=== PATIENT | male | born 1950 | race Caucasian/White ===

== ENCOUNTER 2017-10-31 12:52 | Inpatient (IN) | payer OTHER, BC ==
--- NOTE | 2017-10-31 14:20 | PDOC ---
Attending Attestation - Resident Resident Name: MullenAriel - ED Attending Attestation I have performed the following: I have examined & evaluated the patient, The case was reviewed & discussed with the resident, I agree w/resident's findings & plan, Exceptions are as noted - HPI HPI: 10/31/17 15:24 Mr Robert is a 67 yo M h/o HTN, DM, CAD, prior tobacco abuse,h/o Lacunar infarct He presents to the ER because he fell to the ground 2 days ago and was unable to get up He denies head trauma, LOC He tells me that he has had a h/o lower extremity ulcers which previously improved They have worsened over the past week 10/31/17 15:28 - Physicial Exam PE: 10/31/17 15:30 GENERAL: The patient is in no acute distress. HEAD: Normal EYES: PERRLA, EOMI, sclera anicteric, conjunctiva clear. ENT: Ears normal, nares patent, oropharynx clear without exudates. Moist mucous membranes. NECK: Normal range of motion, supple without midline tenderness LUNGS: Breath sounds equal, clear to auscultation bilaterally. No wheezes, and no crackles. HEART: Regular rhythm, tachycardiac rate, no murmurs appreciated ABDOMEN: Soft, nontender, normoactive bowel sounds. No guarding, no rebound. No masses palpable. EXTREMITIES: Bilateral lower extremity venous stasis changes, ulcerations noted , calves non tender NEUROLOGICAL: Cranial nerves II through XII grossly intact. Normal speech. No focal neurological deficits. MUSCULOSKELETAL: Back non-tender to palpation, no CVA tenderness SKIN: please see above - Medical Decision Making 10/31/17 15:32 67 yo M presenting to the ER s/p what sounds like a mechanical fall and he was unable to get himself to standing Pt has multiple risk factors for CAD and prior CVA Will do: Labs EKG CT head Duplex Xrays legs Abx Plan to admit 10/31/17 16:03 EKG: Sinus tachycardia, rate of 110 bpm, axis is normal, intervals are normal, there is no ST elevation or depression, T waves are upright. 10/31/17 16:04 Laboratory Tests 10/31/17 15:30 WBC 5.5 Hgb 10.2 L Hct 24.5 L D Plt Count 250 D Pending labs Pending imaging Will plan to admit
[2017-10-31] MEDS ORDERED: CLOTRIMAZOLE 1% CREAM 15 GM TUBE TP STA (14:28)
[2017-10-31] MEDS ORDERED: SODIUM CHLORIDE 0.9% 500 ML INFUS.BAG IV ONE (14:30)
--- NOTE | 2017-10-31 14:47 | PDOC ---
History of Present Illness - General Chief Complaint: Injury Stated Complaint: FALL Time Seen by Provider: 10/31/17 14:03 Past History - Past Medical History Allergies/Adverse Reactions: Allergies Allergy/AdvReac Type Severity Reaction Status Date / Time No Known Allergies Allergy Verified 06/15/15 10:42 Home Medications: Ambulatory Orders Aspirin [ASA -] 81 mg PO DAILY #30 tab.chew 06/18/15 Atorvastatin Ca [Lipitor] 40 mg PO HS #30 tablet 06/18/15 Folic Acid 1 mg PO DAILY #30 tablet 06/18/15 Metoprolol Succinate [Toprol XL -] 25 mg PO DAILY #30 tab.sr.24h 06/18/15 Thiamine HCl [Vitamin B1 -] 100 mg PO DAILY #30 tablet 06/18/15 Glipizide [Glipizide ER] 2.5 mg PO DAILY 01/26/16 Metformin HCl [Metformin HCl ER] 1,000 mg PO DAILY 01/26/16 Ranitidine HCl [Zantac] 300 mg PO DAILY 01/26/16 Cholecalciferol (Vitamin D3) [Vitamin D3] 2,000 unit PO DAILY 01/27/16 COPD: No Diabetes: Yes HTN: Yes Hypercholesterolemia: Yes - Suicide/Smoking/Psychosocial Hx Smoking History: Former smoker Have you smoked in the past 12 months: No If you are a former smoker, when did you quit?: 14 YEARS AGO Information on smoking cessation initiated: No Hx Alcohol Use: No Drug/Substance Use Hx: No Substance Use Type: None Hx Substance Use Treatment: No *Physical Exam - Vital Signs Last Vital Signs Temp Pulse Resp BP Pulse Ox 97.3 F L 112 H 18 140/71 96 10/31/17 12:58 10/31/17 12:58 10/31/17 12:58 10/31/17 12:58 10/31/17 12:58 ED Treatment Course - LABORATORY CBC & Chemistry Diagram: 10/31/17 15:30 10/31/17 15:30 *DC/Admit/Observation/Transfer Diagnosis at time of Disposition: Hyponatremia Rhabdomyolysis Qualifiers: Rhabdomyolysis type: traumatic Encounter type: initial encounter Qualified Code (s): T79.6XXA - Traumatic ischemia of muscle, initial encounter - Discharge Dispostion Condition at time of disposition: Fair Decision to Admit order: Yes - Referrals Referrals: Ani Ivy MD [Primary Care Provider] - - Patient Instructions - Post Discharge Activity
[2017-10-31 15:43] LABS: BASO % 0.7 % (0-2.0); EOS % 2.2 % (0-4.5); HEMATOCRIT 24.5 % (35.4-49); HEMOGLOBIN 10.2 GM/dL (11.7-16.9); LYMPH % 10.2 % (8-40); MCHC 41.8 g/dl (32.0-35.9); MEAN CELL VOLUME 100.7 fl (80-96); MEAN PLT VOLUME 7.6 fl (7.5-11.1); MONO % 7.5 % (3.8-10.2); NEUT % 79.4 % (42.8-82.8); PLATELET COUNT 250 K/MM3 (134-434); RBC 2.43 M/mm3 (4.00-5.60); RDW 14.3 % (11.9-15.9); WHITE BLOOD COUNT 5.5 K/mm3 (4.0-10.0)
[2017-10-31 15:44] LABS: MCH 42.1 pg (25.7-33.7)
[2017-10-31 16:50] LABS: ALBUMIN 3.2 g/dl (3.4-5.0); ALK PHOS 69 U/L (45-117); ANION GAP 7 MMOL/L (8-16); BILIRUBIN,TOTAL 0.9 mg/dL (0.2-1); BLOOD UREA NITROGEN 10 mg/dL (7-18); CALCIUM 8.9 mg/dL (8.5-10.1); CHLORIDE 96 mmol/L (98-107); CO2 27 mmol/L (21-32); CREATININE 0.8 mg/dL (0.55-1.3); GLUCOSE,RANDOM 123 mg/dL (74-106); POTASSIUM 4.2 mmol/L (3.5-5.1); SGOT/AST 60 U/L (15-37); SGPT/ALT 20 U/L (13-61); SODIUM 130 mmol/L (136-145)
[2017-10-31] MEDS ORDERED: LACTATED RINGERS SOLUTION 1,000 ML/1,000 ML INFUS.BAG IV SCH (17:15)
[2017-10-31 18:49] LABS: URINE APPEARANCE CLEAR; URINE BILIRUBIN NEGATIVE (<2.0 mg/dL); URINE COLOR YELLOW; URINE GLUCOSE (UA) NEGATIVE (NEGATIVE); URINE KETONE 1+ (NEGATIVE); URINE LEUK ESTERASE NEGATIVE (NEGATIVE); URINE NITRITE NEGATIVE (NEGATIVE); URINE PROTEIN NEGATIVE (NEGATIVE)
[2017-10-31] MEDS ORDERED: CEPHALEXIN MONOHYDRATE 500 MG CAPSULE (UD) PO ONE (19:50)
[2017-10-31] MEDS ORDERED: CEPHALEXIN MONOHYDRATE 500 MG CAPSULE (UD) ONE (20:05)
[2017-10-31] MEDS: SODIUM CHLORIDE 1,000 ML IV SCH (20:07)
--- NOTE | 2017-10-31 20:38 | PN ---
Teaching Attending Note Name of Resident: Tyron Alcantara ATTENDING PHYSICIAN STATEMENT I saw and evaluated the patient. I reviewed the resident's note and discussed the case with the resident. I agree with the resident's findings and plan as documented. SUBJECTIVE: 67 y/o M s/p fall at home and unable to get up, found by girlfriend on the floor. Patient states he slid off his bed and has no head trauma. patient is a questionnable historian and does not follow with medical recommendations closely. PMH: DM2, HTN, CAD, h/o Lacunar infarct, and h/o falls. OBJECTIVE: GEN: Obese, Alert and oriented times 3 HEENT: EOMI, PERRLA, oral mucosa dry CVs: RRR, S1, S2 Lungs: CTA Abd: Obese, nontender, BS+, no guarding or rebound Ext: b/l lower ext with superficial skin tears and pulses intact, edema 3+, wet to dry dressing with serous sanguineous drainage. Oncychomycosis Neuro: No focal deficits. CBCD WBC 5.5 K/mm3 (4.0-10.0) 10/31/17 15:30 RBC 2.43 M/mm3 (4.00-5.60) L 10/31/17 15:30 Hgb 10.2 GM/dL (11.7-16.9) L 10/31/17 15:30 Hct 24.5 % (35.4-49) L D 10/31/17 15:30 MCV 100.7 fl (80-96) H 10/31/17 15:30 MCHC 41.8 g/dl (32.0-35.9) H 10/31/17 15:30 RDW 14.3 % (11.9-15.9) 10/31/17 15:30 Plt Count 250 K/MM3 (134-434) D 10/31/17 15:30 MPV 7.6 fl (7.5-11.1) D 10/31/17 15:30 CMP Sodium 130 mmol/L (136-145) L 10/31/17 15:30 Potassium 4.2 mmol/L (3.5-5.1) 10/31/17 15:30 Chloride 96 mmol/L (98-107) L 10/31/17 15:30 Carbon Dioxide 27 mmol/L (21-32) 10/31/17 15:30 Anion Gap 7 MMOL/L (8-16) L 10/31/17 15:30 BUN 10 mg/dL (7-18) 10/31/17 15:30 Creatinine 0.8 mg/dL (0.55-1.3) 10/31/17 15:30 Creat Clearance w eGFR > 60 (>60) 10/31/17 15:30 Random Glucose 123 mg/dL (74-106) H 10/31/17 15:30 Calcium 8.9 mg/dL (8.5-10.1) 10/31/17 15:30 Total Bilirubin 0.9 mg/dL (0.2-1) 10/31/17 15:30 AST 60 U/L (15-37) H 10/31/17 15:30 ALT 20 U/L (13-61) 10/31/17 15:30 Alkaline Phosphatase 69 U/L (45-117) 10/31/17 15:30 Total Protein 8.0 g/dl (6.4-8.2) 10/31/17 15:30 Albumin 3.2 g/dl (3.4-5.0) L 10/31/17 15:30 CARDIAC ENZYMES Creatine Kinase 1722 IU/L (26-308) H 10/31/17 15:30 Troponin I < 0.02 ng/ml (0.00-0.05) 10/31/17 15:30 ASSESSMENT AND PLAN: Admit for observation S/P Fall r/o Rhabdomyolysis IVF NS Trend CK repeat UA PT consult for gait evaluation Fall risk precautions Hyponatremia- most likely hypovolemic hyponateremia hyponatemia workup IVF given and repeat BMP in 6 hours. Morbid Obesity Social Work consult for placement - patient will need SKIP or NH placement. Onychomycosis with poorly kept nails- Podiatry consult Continue home medications
--- NOTE | 2017-10-31 20:54 | HP ---
CHIEF COMPLAINT: PCP: Dr Ivy HISTORY OF PRESENT ILLNESS: Pt is a 67 y/o gentleman with a significant past medical history of tobacco abuse(quit 10 y/a) HTN, CAD, Lacunar infarct, and DM. Pt states he fell 2 days ago and was unable to get up from the floor. Pt endorses he was sleeping in his bed when he slid off and landed on his bedroom floor. Pt was able to use his phone and called for assistance. Pt endorses he has a history of falls, noting that friends are usally with him to assist him. Denies any head injury. Denies chest pain, sob, headache, LOC, nausea, vomiting or dizziness. Denies loss of bowel/bladder control, or any seizure activity. ER course was notable for: (1) Sodium 130, CK (2) CK 1722 (3) Chest x-ray unremarkable Recent Travel: Denies PAST MEDICAL HISTORY: HTN, CAD, Lacunar infarct, and DM PAST SURGICAL HISTORY: Tonsilectomy Social History: Smoking:Former smoker (quit 16 y/a.) Alcohol: consumes 10 cans of beer when drinking, does not drink everyday Drugs: Denies any illicit drug use Family History: Father- Lung Cancer, Mother- Hypothyroidism Allergies No Known Allergies Allergy (Verified 06/15/15 10:42) HOME MEDICATIONS: Home Medications Medication Instructions Recorded Aspirin [ASA -] 81 mg PO DAILY #30 tab.chew 06/18/15 Atorvastatin Ca [Lipitor] 40 mg PO HS #30 tablet 06/18/15 Folic Acid 1 mg PO DAILY #30 tablet 06/18/15 Metoprolol Succinate [Toprol XL -] 25 mg PO DAILY #30 tab.sr.24h 06/18/15 Thiamine HCl [Vitamin B1 -] 100 mg PO DAILY #30 tablet 06/18/15 Glipizide [Glipizide ER] 2.5 mg PO DAILY 01/26/16 Metformin HCl [Metformin HCl ER] 1,000 mg PO DAILY 01/26/16 Ranitidine HCl [Zantac] 300 mg PO DAILY 01/26/16 Cholecalciferol (Vitamin D3) 2,000 unit PO DAILY 01/27/16 [Vitamin D3] REVIEW OF SYSTEMS CONSTITUTIONAL: Absent: fever, chills, diaphoresis, generalized weakness, malaise, loss of appetite, weight change HEENT: Absent: rhinorrhea, nasal congestion, throat pain, throat swelling, difficulty swallowing, mouth swelling, ear pain, eye pain, visual changes CARDIOVASCULAR: Absent: chest pain, syncope, palpitations, irregular heart rate, lightheadedness , peripheral edema RESPIRATORY: Absent: cough, shortness of breath, dyspnea with exertion, orthopnea, wheezing, stridor, hemoptysis GASTROINTESTINAL: Absent: abdominal pain, abdominal distension, nausea, vomiting, diarrhea, constipation, melena, hematochezia GENITOURINARY: Absent: dysuria, frequency, urgency, hesitancy, hematuria, flank pain, genital pain MUSCULOSKELETAL: Absent: myalgia, arthralgia, joint swelling, back pain, neck pain SKIN: PRESENT: pain b/l lower extremities, oozing. HEMATOLOGIC/IMMUNOLOGIC: Absent: easy bleeding, easy bruising, lymphadenopathy, frequent infections ENDOCRINE: Absent: unexplained weight gain, unexplained weight loss, heat intolerance, cold intolerance NEUROLOGIC: Absent: headache, focal weakness or paresthesias, dizziness, unsteady gait, seizure, mental status changes, bladder or bowel incontinence PSYCHIATRIC: Absent: anxiety, depression, suicidal or homicidal ideation, hallucinations. PHYSICAL EXAMINATION Vital Signs - 24 hr 10/31/17 12:58 Temperature 97.3 F L Pulse Rate 112 H Respiratory 18 Rate Blood Pressure 140/71 O2 Sat by Pulse 96 Oximetry (%) GENERAL: AAOx3, HEAD: NC/AT EYES: PERRLA, EOMI EARS, NOSE, THROAT: Ears normal, nares patent, oropharynx clear without exudates. Moist mucous membranes. NECK: Supple LUNGS: CTA B/L HEART: RRR no MRG S1 S2 ABDOMEN: Pulsatile mass mid-abdomen, ND, No HSM, NT MUSCULOSKELETAL: Left sided strength 4/5 UPPER EXTREMITIES: 2+ pulses, warm, well-perfused. No cyanosis. No clubbing. No peripheral edema. LOWER EXTREMITIES:severe onychomycosis b/l feet, 3+ edema b/l, oozing NEUROLOGICAL: Cranial nerves II-XII intact. Left sided weakness PSYCHIATRIC: Cooperative. Good eye contact. Appropriate mood and affect. SKIN: venous stasis b/l lower extremities Laboratory Results - last 24 hr 10/31/17 10/31/17 10/31/17 15:30 15:30 15:30 WBC 5.5 RBC 2.43 L Hgb 10.2 L Hct 24.5 L D MCV 100.7 H MCH 42.1 H D MCHC 41.8 H RDW 14.3 Plt Count 250 D MPV 7.6 D Absolute Neuts (auto) 4.4 Neutrophils % 79.4 D Lymphocytes % 10.2 D Monocytes % 7.5 Eosinophils % 2.2 Basophils % 0.7 Nucleated RBC % 0 Sodium Cancelled 130 L Potassium Cancelled 4.2 Chloride Cancelled 96 L Carbon Dioxide Cancelled 27 Anion Gap Cancelled 7 L BUN Cancelled 10 Creatinine Cancelled 0.8 Creat Clearance w eGFR Cancelled > 60 Random Glucose Cancelled 123 H Calcium Cancelled 8.9 Total Bilirubin Cancelled 0.9 AST Cancelled 60 H ALT Cancelled 20 Alkaline Phosphatase Cancelled 69 Creatine Kinase 1666 H Creatine Kinase Index 0.7 CK-MB (CK-2) 12.4 H Troponin I Total Protein Cancelled 8.0 Albumin Cancelled 3.2 L Urine Color Urine Appearance Urine pH Ur Specific [place] Urine Protein Urine Glucose (UA) Urine Ketones Urine Blood Urine Nitrite Urine Bilirubin Urine Urobilinogen Ur Leukocyte Esterase Stool Occult Blood Blood Type Antibody Screen 10/31/17 10/31/17 10/31/17 15:30 18:15 18:20 WBC RBC Hgb Hct MCV MCH MCHC RDW Plt Count MPV Absolute Neuts (auto) Neutrophils % Lymphocytes % Monocytes % Eosinophils % Basophils % Nucleated RBC % Sodium Potassium Chloride Carbon Dioxide Anion Gap BUN Creatinine Creat Clearance w eGFR Random Glucose Calcium Total Bilirubin AST ALT Alkaline Phosphatase Creatine Kinase 1722 H Creatine Kinase Index 0.7 CK-MB (CK-2) 12.7 H Troponin I < 0.02 Total Protein Albumin Urine Color Urine Appearance Urine pH Ur Specific [place] Urine Protein Urine Glucose (UA) Urine Ketones Urine Blood Urine Nitrite Urine Bilirubin Urine Urobilinogen Ur Leukocyte Esterase Stool Occult Blood Negative Blood Type A NEGATIVE Antibody Screen Negative 10/31/17 18:35 WBC RBC Hgb Hct MCV MCH MCHC RDW Plt Count MPV Absolute Neuts (auto) Neutrophils % Lymphocytes % Monocytes % Eosinophils % Basophils % Nucleated RBC % Sodium Potassium Chloride Carbon Dioxide Anion Gap BUN Creatinine Creat Clearance w eGFR Random Glucose Calcium Total Bilirubin AST ALT Alkaline Phosphatase Creatine Kinase Creatine Kinase Index CK-MB (CK-2) Troponin I Total Protein Albumin Urine Color Yellow Urine Appearance Clear Urine pH 5.0 Ur Specific [place] 1.017 Urine Protein Negative Urine Glucose (UA) Negative Urine Ketones 1+ H Urine Blood Negative Urine Nitrite Negative Urine Bilirubin Negative Urine Urobilinogen 2.0 Ur Leukocyte Esterase Negative Stool Occult Blood Blood Type Antibody Screen ASSESSMENT/PLAN: Pt is a 67 y/o gentleman with a significant past medical history of many falls presents to [facility] s/p fall on his bedroom floor from his bed. # Rhabdomyolysis - fell, was lying down for long period of time. - CK 1722 - NS in ED -Continue fluid resuscitation, monitor CK, Monitor for NAYA #Hyponatremia - Na found to be 130 in ED -Pt notes he has experienced hyponatremia in past (PCP told pt may be due to beer intake) - NS - Repeat BMP in am, target of no more than 8 meq increase in 24 hr HTN -resume home Metoprolol DM -Insulin sliding scale - hold metformin in setting of dehydration CAD - Pt on Metoprolol FEN NS@ 150 ml/hr Monitor Na level Diabetic/Sodium diet ppx: Lovenox 40 mg SQ Dispo: Continue to monitor on floors Visit type - Emergency Visit Emergency Visit: Yes ED Registration Date: 10/31/17 Care time: The patient presented to the Emergency Department on the above date and was hospitalized for further evaluation of their emergent condition. - New Patient This patient is new to me today: Yes Date on this admission: 11/01/17 - Critical Care Critical Care patient: No Hospitalist Screening - Colonoscopy Questionnaire Colonoscopy Questionnaire: Colonoscopy Questionnaire - Patient: 50 - 75 years old and never had a screening colonoscopy: Unknown History of colon or rectal polyps, or CA: Unknown History of IBD, Crohn's disease or UC: Unknown History of abdominal radiation therapy as a child: Unknown - Relative: 1 with colon or rectal CA, or polyps at age 60 or younger: Unknown Colon or rectal CA diagnosed at age 45 or younger: Unknown Multiple relatives with colon or rectal CA: Unknown - Outcome: Screening Result: Negative Screen
[2017-10-31] MEDS ORDERED: traMADol HCL 50 MG TABLET PO ONE (23:20)
[2017-11-01] MEDS ORDERED: traMADol HCL 50 MG TABLET ONE (00:16)
[2017-11-01 05:03] LABS: URINE APPEARANCE CLEAR; URINE BILIRUBIN NEGATIVE (<2.0 mg/dL); URINE COLOR YELLOW; URINE GLUCOSE (UA) NEGATIVE (NEGATIVE); URINE KETONE 1+ (NEGATIVE); URINE LEUK ESTERASE NEGATIVE (NEGATIVE); URINE NITRITE NEGATIVE (NEGATIVE); URINE PROTEIN NEGATIVE (NEGATIVE)
[2017-11-01] MEDS: INSULIN SLIDING SCALE (NOVOLOG) 1 VIAL SQ SCH ×4 (06:40→22:06)
[2017-11-01 07:59] LABS: BASO % 0.9 % (0-2.0); EOS % 3.6 % (0-4.5); HEMATOCRIT 26.2 % (35.4-49); HEMOGLOBIN 9.4 GM/dL (11.7-16.9); MCH 35.8 pg (25.7-33.7); MCHC 36.1 g/dl (32.0-35.9); MEAN CELL VOLUME 99.2 fl (80-96); MEAN PLT VOLUME 7.3 fl (7.5-11.1); MONO % 9.4 % (3.8-10.2); NEUT % 75.1 % (42.8-82.8); PLATELET COUNT 222 K/MM3 (134-434); RBC 2.64 M/mm3 (4.00-5.60); RDW 14.1 % (11.9-15.9); WHITE BLOOD COUNT 5.7 K/mm3 (4.0-10.0)
--- NOTE | 2017-11-01 08:25 | PN ---
Progress Note, Physician Chief Complaint: EVENTS AND NOTES REVIEWED IN BED ALERT AND ORIENTED X 2 NO FEVER OR CHILLS - Current Medication List Current Medications: Active Medications Aspirin (Asa -) 81 mg PO DAILY [facility] Atorvastatin Calcium (Lipitor -) 40 mg PO HS [facility] Enoxaparin Sodium (Lovenox -) 40 mg SQ DAILY [facility] Folic Acid (Folic Acid -) 1 mg PO DAILY [facility] Sodium Chloride (Normal Saline -) 1,000 mls @ 150 mls/hr IV ASDIR [facility] Last Admin: 10/31/17 20:07 Dose: 150 mls/hr Insulin Aspart (Novolog Vial Sliding Scale -) 0 vial SQ ACHS [facility]; Protocol Last Admin: 11/01/17 06:40 Dose: Not Given Metoprolol Succinate (Toprol Xl -) 25 mg PO DAILY [facility] Non-Formulary Medication (Cholecalciferol (Vitamin D3) [Vitamin D3]) 2,000 unit PO DAILY [facility] Non-Formulary Medication (Ranitidine Hcl [Zantac]) 300 mg PO DAILY [facility] Thiamine HCl (Vitamin B1 -) 100 mg PO DAILY [facility] - Objective Vital Signs: Vital Signs Temperature 98.2 F 11/01/17 06:08 Pulse Rate 102 H 11/01/17 06:08 Respiratory Rate 18 11/01/17 06:08 Blood Pressure 148/72 11/01/17 06:08 O2 Sat by Pulse Oximetry (%) 100 10/31/17 23:10 Constitutional: Yes: Mild Distress Eyes: Yes: WNL HENT: Yes: WNL Neck: Yes: WNL Cardiovascular: Yes: WNL Respiratory: Yes: WNL Gastrointestinal: Yes: WNL Genitourinary: Yes: WNL Musculoskeletal: Yes: Joint Swelling, Muscle Weakness Extremities: Yes: Erythema Edema: Yes Edema: LLE: 2+, RLE: 2+ Integumentary: Yes: Erythema, Pressure Ulcer, Rash, Venous Stasis Changes Wound/Incision: Yes: Draining, Excoriated, Unapproximated Neurological: Yes: Pre-Existing Deficit ...Motor Strength: LLE, RLE Psychiatric: Yes: Other Labs: CBC, BMP 11/01/17 07:50 Problem List - Problems (1) Hyponatremia Code(s): E87.1 - HYPO-OSMOLALITY AND HYPONATREMIA (2) Rhabdomyolysis Code(s): M62.82 - RHABDOMYOLYSIS Qualifiers: Rhabdomyolysis type: traumatic Encounter type: initial encounter Qualified Code(s): T79.6XXA - Traumatic ischemia of muscle, initial encounter (3) Venous stasis ulcer Code(s): I83.009 - VARICOSE VEINS OF UNSP LOWER EXTREMITY W ULCER OF UNSP SITE; L97.909 - NON-PRS CHRONIC ULC UNSP PRT OF UNSP LOW LEG W UNSP SEVERITY Qualifiers: Laterality: unspecified laterality Non-pressure ulcer stage: limited to breakdown of skin (4) CAD (coronary artery disease) Code(s): I25.10 - ATHSCL HEART DISEASE OF [place] CORONARY ARTERY W/O ANG PCTRS Qualifiers: Coronary Disease-Associated Artery/Lesion type: [place] artery [place] vs. transplanted heart: [place] heart Associated angina: angina presence unspecified Qualified Code(s): I25.10 - Atherosclerotic heart disease of [place] coronary artery without angina pectoris (5) Diabetes Code(s): E11.9 - TYPE 2 DIABETES MELLITUS WITHOUT COMPLICATIONS (6) HTN (hypertension) Code(s): I10 - ESSENTIAL (PRIMARY) HYPERTENSION Qualifiers: Hypertension type: essential hypertension Qualified Code(s): I10 - Essential (primary) hypertension Assessment/Plan WOUND CARE ID AND VASC SX EVAL DVT PROPHYLAXIS RENAL F/U HYPONATREMIA IVF OOB TO CHAIR PT EVAL
[2017-11-01 08:43] LABS: ANION GAP 12 MMOL/L (8-16); BLOOD UREA NITROGEN 7 mg/dL (7-18); CALCIUM 8.6 mg/dL (8.5-10.1); CHLORIDE 99 mmol/L (98-107); CO2 24 mmol/L (21-32); CREATININE 0.6 mg/dL (0.55-1.3); GLUCOSE,RANDOM 108 mg/dL (74-106); MAGNESIUM 1.4 mg/dL (1.8-2.4); PHOSPHOROUS 2.9 mg/dL (2.5-4.9); POTASSIUM 4.1 mmol/L (3.5-5.1); SODIUM 136 mmol/L (136-145)
--- NOTE | 2017-11-01 10:58 | EKG ---
Test Reason : Blood Pressure : / mmHG Vent. Rate : 110 BPM Atrial Rate : 110 BPM P-R Int : 150 ms QRS Dur : 088 ms QT Int : 336 ms P-R-T Axes : 054 044 038 degrees QTc Int : 454 ms SINUS TACHYCARDIA OTHERWISE NORMAL ECG Confirmed by MD ALISON, DIOMEDES ([id number]) on 11/01/2017 10:58:14 AM Referred By: Confirmed By:DIOMEDES ROSAS MD
--- NOTE | 2017-11-01 11:46 | CONSULT ---
Consult - text type - Consultation Consultation Note: Renal Consult for Hyponatremia This is a 67 year old woman with Hx of Hypertension, CAD, CVA, current smoker presented s/p fall at home and found to have rhabdomyolysis and hyponatremia. Pt reports that he had fallen off his bed and was on the floor for 1.5 days. Denies any muscle pain and but has pain in both of his lower legs. Denies any sob, cp, abd pain, N/V/D. Has dressing on both lower legs. Reports weeping from legs. No CP, Abd pain, N/V/D. PMHx: as above Allergies: NKDA Family hx: NC Social Hx: No T/A/D ROS: as per HPI Home Medications Medication Instructions Recorded Aspirin [ASA -] 81 mg PO DAILY #30 tab.chew 06/18/15 Atorvastatin Ca [Lipitor] 40 mg PO HS #30 tablet 06/18/15 Folic Acid 1 mg PO DAILY #30 tablet 06/18/15 Metoprolol Succinate [Toprol XL -] 25 mg PO DAILY #30 tab.sr.24h 06/18/15 Thiamine HCl [Vitamin B1 -] 100 mg PO DAILY #30 tablet 06/18/15 Glipizide [Glipizide ER] 2.5 mg PO DAILY 01/26/16 Metformin HCl [Metformin HCl ER] 1,000 mg PO DAILY 01/26/16 Ranitidine HCl [Zantac] 300 mg PO DAILY 01/26/16 Cholecalciferol (Vitamin D3) 2,000 unit PO DAILY 01/27/16 [Vitamin D3] Vital Signs Temperature 98.2 F 11/01/17 06:08 Pulse Rate 102 H 11/01/17 06:08 Respiratory Rate 18 11/01/17 06:08 Blood Pressure 148/72 11/01/17 06:08 O2 Sat by Pulse Oximetry (%) 100 10/31/17 23:10 Intake & Output 10/29/17 10/30/17 10/31/17 11/01/17 23:59 23:59 23:59 23:59 Intake Total 250 Balance 250 Weight 117.934 kg NAD awake and alert Dry MM no JVD RRR, no M/R Dec BS at lung bases, no rales obese, NT/ND B/l LE in dressing CBC, BMP 11/01/17 07:50 11/01/17 07:50 Current Medications Aspirin (Asa -) 81 mg PO DAILY [facility] Atorvastatin Calcium (Lipitor -) 40 mg PO HS [facility] Bacitracin (Bacitracin -) 1 applic TP DAILY [facility] Enoxaparin Sodium (Lovenox -) 40 mg SQ DAILY [facility] Folic Acid (Folic Acid -) 1 mg PO DAILY [facility] Sodium Chloride (Normal Saline -) 1,000 mls @ 150 mls/hr IV ASDIR TIERRA Last Admin: 10/31/17 20:07 Dose: 150 mls/hr Insulin Aspart (Novolog Vial Sliding Scale -) 0 vial SQ ACHS [facility]; Protocol Last Admin: 11/01/17 06:40 Dose: Not Given Metoprolol Succinate (Toprol Xl -) 25 mg PO DAILY [facility] Non-Formulary Medication (Cholecalciferol (Vitamin D3) [Vitamin D3]) 2,000 unit PO DAILY [facility] Non-Formulary Medication (Ranitidine Hcl [Zantac]) 300 mg PO DAILY [facility] Nystatin/Triamcinolone Acetonide (Mycolog Ii Cream -) 15 applic TP BID [facility] Thiamine HCl (Vitamin B1 -) 100 mg PO DAILY [facility] 67 year old woman with Hx of Hypertension, CAD, CVA, current smoker presented s/ p fall at home and found to have rhabdomyolysis and hyponatremia. #Hypovolemic Hyponatremia (now improved) #Rhabdomyolysis secondary to fall and prolong immobility #LE wounds #Anemia #Obesity Continue isotonic saline for now Trend CK's Daily ID consult for Abx for suspected cellulitis consider vascular eval for ulcers check iron profile Trend electrolytes daily Thank you Will follow Devante Hartley DO
[2017-11-01] MEDS: FOLIC ACID 1 MG TABLET (FP) PO SCH (11:55)
[2017-11-01] MEDS: ENOXAPARIN NA (PORCINE) 40 MG/0.4 ML DISP.SYRIN SQ SCH (11:55)
[2017-11-01] MEDS: THIAMINE HCL 100 MG TABLET (FP) PO SCH (11:55)
[2017-11-01] MEDS: metoPROLOL SUCCINATE 25 MG TAB.SR.24H (FP) PO SCH (11:56)
[2017-11-01] MEDS: ASPIRIN 81 MG CHEWABLE TABLETS PO SCH (11:56)
[2017-11-01] MEDS: BACITRACIN 15 GM TUBE TOPICAL OINTMENT TP SCH (11:58)
[2017-11-01] MEDS: SODIUM CHLORIDE 1,000 ML IV SCH ×2 (11:59→23:28)
--- NOTE | 2017-11-01 13:57 | CON.ID ---
Consult Consult Specialty:: infectious diseases Referred by:: Reason for Consultation:: rt leg celluitis non healing wounds of the leg. draiainge from the leg - History of Present Illness Chief Complaint: swelling and redness with draiange from the leg History of Present Illness: 67 year old with Hx of Hypertension, CAD, CVA, current smoker presented s/p fall at home and found to have rhabdomyolysis and hyponatremia. Pt reports that he had fallen off his bed and was on the floor for 1.5 days. Denies any muscle pain and but has pain in both of his lower legs. Denies any sob, cp, abd pain, N /V/D. Has dressing on both lower legs. Reports weeping from legs. No CP, Abd pain, N/V/D. 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 Infectious Disease: Yes: Other (Bilateral lower extremity celulitis ) - Alcohol/Substance Use Hx Alcohol Use: No - Smoking History Smoking history: Former smoker Have you smoked in the past 12 months: No If you are a former smoker, when did you quit?: 14 YEARS AGO Home Medications - Allergies Allergies/Adverse Reactions: Allergies Allergy/AdvReac Type Severity Reaction Status Date / Time No Known Allergies Allergy Verified 06/15/15 10:42 - Home Medications Home Medications: Ambulatory Orders Aspirin [ASA -] 81 mg PO DAILY #30 tab.chew 06/18/15 Atorvastatin Ca [Lipitor] 40 mg PO HS #30 tablet 06/18/15 Folic Acid 1 mg PO DAILY #30 tablet 06/18/15 Metoprolol Succinate [Toprol XL -] 25 mg PO DAILY #30 tab.sr.24h 06/18/15 Thiamine HCl [Vitamin B1 -] 100 mg PO DAILY #30 tablet 06/18/15 Glipizide [Glipizide ER] 2.5 mg PO DAILY 01/26/16 Metformin HCl [Metformin HCl ER] 1,000 mg PO DAILY 01/26/16 Ranitidine HCl [Zantac] 300 mg PO DAILY 01/26/16 Cholecalciferol (Vitamin D3) [Vitamin D3] 2,000 unit PO DAILY 01/27/16 Family Disease History - Family Disease History Family Disease History: CA: Father (Lung CA) Review of Systems - Review of Systems Constitutional: reports: No Symptoms Eyes: reports: No Symptoms HENT: reports: No Symptoms Neck: reports: No Symptoms Cardiovascular: reports: No Symptoms Respiratory: reports: No Symptoms Gastrointestinal: reports: No Symptoms Genitourinary: reports: No Symptoms Musculoskeletal: reports: Other Integumentary: reports: Erythema, Wound, Other (oozing) Neurological: reports: No Symptoms Endocrine: reports: No Symptoms Hematology/Lymphatic: reports: No Symptoms Psychiatric: reports: No Symptoms Physical Exam Vital Signs: Vital Signs Temperature 98.2 F 11/01/17 06:08 Pulse Rate 102 H 11/01/17 06:08 Respiratory Rate 18 11/01/17 06:08 Blood Pressure 148/72 11/01/17 06:08 O2 Sat by Pulse Oximetry (%) 100 10/31/17 23:10 Constitutional: Yes: Obese, Other Neck: Yes: Supple, Trachea Midline Cardiovascular: Yes: Regular Rate and Rhythm Respiratory: Yes: Regular, Poor Air Entry (at the bases) Musculoskeletal: Yes: WNL Extremities: Yes: Erythema, Other Integumentary: Yes: Other (edema of bot ext,oozing from the legs wounds) Wound/Incision: Yes: Dressing Dry and Intact Neurological: Yes: Alert, Oriented Psychiatric: Yes: Alert, Oriented Labs: CBC, BMP 11/01/17 07:50 11/01/17 07:50 Imaging - Results Chest X-ray: Report Reviewed, Image Reviewed X-ray: Report Reviewed, Image Reviewed Assessment/Plan Problem List - Problems (1) Hyponatremia Code(s): E87.1 - HYPO-OSMOLALITY AND HYPONATREMIA (2) Rhabdomyolysis Code(s): M62.82 - RHABDOMYOLYSIS Qualifiers: Rhabdomyolysis type: traumatic Encounter type: initial encounter Qualified Code(s): T79.6XXA - Traumatic ischemia of muscle, initial encounter (3) Venous stasis ulcer Code(s): I83.009 - VARICOSE VEINS OF UNSP LOWER EXTREMITY W ULCER OF UNSP SITE; L97.909 - NON-PRS CHRONIC ULC UNSP PRT OF UNSP LOW LEG W UNSP SEVERITY Qualifiers: Laterality: unspecified laterality Non-pressure ulcer stage: limited to breakdown of skin (4) CAD (coronary artery disease) Code(s): I25.10 - ATHSCL HEART DISEASE OF [place] CORONARY ARTERY W/O ANG PCTRS Qualifiers: Coronary Disease-Associated Artery/Lesion type: [place] artery [place] vs. transplanted heart: [place] heart Associated angina: angina presence unspecified Qualified Code(s): I25.10 - Atherosclerotic heart disease of [place] coronary artery without angina pectoris (5) Diabetes Code(s): E11.9 - TYPE 2 DIABETES MELLITUS WITHOUT COMPLICATIONS (6) HTN (hypertension) Code(s): I10 - ESSENTIAL (PRIMARY) HYPERTENSION Qualifiers: Hypertension type: essential hypertension Qualified Code(s): I10 - Essential (primary) hypertension plan emma moe will add zosyn await for all cx reports wound care
[2017-11-01] MEDS ORDERED: VANCOMYCIN 1,000 MG in DEXTROSE 5%-WATER - 250 ML IVPB ONE (14:30)
[2017-11-01] MEDS: PIPERACILLIN/TAZOB 3.375 GM 3.375 GM in DEXTROSE 5%-WATER - 50 ML IVPB SCH ×2 (14:36→17:14)
--- NOTE | 2017-11-01 15:01 | CONSULT ---
- Consultation REQUESTING PROVIDER: CONSULT REQUEST: We have been asked to surgically evaluate this patient for bilateral leg ulcers PCP:Ani Ivy HISTORY OF PRESENT ILLNESS: 67yo M admitted to the hospital after a fall at home and being unable to get up so called 911. Pt states that he has noted that his legs have been "leaking" for about a week. He has not seen a physician for it and denies previous history of leg ulcers. Pt states that he only started having pain in his legs in the past couple of days. Pt denies any fever, chills, n/v. Denies previous history of vascular problems and not recent or past trauma. Pt former smoker quit 12 years ago, but smoked heavily 4-5ppd. PMHx: DM, HTN, GERD, HLD Home Medications Medication Instructions Recorded Aspirin [ASA -] 81 mg PO DAILY #30 tab.chew 06/18/15 Atorvastatin Ca [Lipitor] 40 mg PO HS #30 tablet 06/18/15 Folic Acid 1 mg PO DAILY #30 tablet 06/18/15 Metoprolol Succinate [Toprol XL -] 25 mg PO DAILY #30 tab.sr.24h 06/18/15 Thiamine HCl [Vitamin B1 -] 100 mg PO DAILY #30 tablet 06/18/15 Glipizide [Glipizide ER] 2.5 mg PO DAILY 01/26/16 Metformin HCl [Metformin HCl ER] 1,000 mg PO DAILY 01/26/16 Ranitidine HCl [Zantac] 300 mg PO DAILY 01/26/16 Cholecalciferol (Vitamin D3) 2,000 unit PO DAILY 01/27/16 [Vitamin D3] Allergies Allergy/AdvReac Type Severity Reaction Status Date / Time No Known Allergies Allergy Verified 06/15/15 10:42 REVIEW OF SYSTEMS: CONSTITUTIONAL: Absent: fever, chills, diaphoresis, generalized weakness, malaise, loss of appetite, weight change CARDIOVASCULAR: Absent: peripheral edema MUSCULOSKELETAL: Absent: myalgia, arthralgia, joint swelling, back pain, neck pain SKIN: Absent: rash, itching, pallor HEMATOLOGIC/IMMUNOLOGIC: Absent: easy bleeding, easy bruising NEUROLOGIC: Absent: headache, focal weakness, paresthesias, dizziness, unsteady gait, seizure, mental status changes, bladder or bowel incontinence PHYSICAL EXAM: GENERAL: Awake, alert, and fully oriented, in no acute distress. HEAD: Normal with no signs of trauma. EYES: PERRL, sclera anicteric, conjunctiva clear. NECK: Normal ROM, supple without lymphadenopathy, JVD, or masses. LUNGS: Clear to auscultation bilat anteriorly. No wheezes, and no crackles. No accessory muscle use. HEART: Regular rate and rhythm. No murmurs LOWER EXTREMITIES: 1+ pulses, warm, well-perfused. Multiple venous stasis ulcers note bilateral anterior shins, with serous drainage, +1 edema. NEUROLOGICAL: Normal speech, gait not observed. PSYCH: Cooperative. Good eye contact. Appropriate mood and affect. SKIN: Warm, dry, normal turgor, no rashes or lesions noted. Vital Signs Temperature 99.2 F 11/01/17 14:00 Pulse Rate 112 H 11/01/17 14:00 Respiratory Rate 18 11/01/17 06:08 Blood Pressure 166/77 11/01/17 14:00 O2 Sat by Pulse Oximetry (%) 100 10/31/17 23:10 Lab Results WBC 5.7 K/mm3 (4.0-10.0) 11/01/17 07:50 RBC 2.64 M/mm3 (4.00-5.60) L 11/01/17 07:50 Hgb 9.4 GM/dL (11.7-16.9) L 11/01/17 07:50 Hct 26.2 % (35.4-49) L 11/01/17 07:50 MCV 99.2 fl (80-96) H 11/01/17 07:50 MCHC 36.1 g/dl (32.0-35.9) H 11/01/17 07:50 RDW 14.1 % (11.9-15.9) 11/01/17 07:50 Plt Count 222 K/MM3 (134-434) 11/01/17 07:50 Sodium 136 mmol/L (136-145) 11/01/17 07:50 Potassium 4.1 mmol/L (3.5-5.1) 11/01/17 07:50 Chloride 99 mmol/L (98-107) 11/01/17 07:50 Carbon Dioxide 24 mmol/L (21-32) 11/01/17 07:50 Anion Gap 12 MMOL/L (8-16) 11/01/17 07:50 BUN 7 mg/dL (7-18) 11/01/17 07:50 Creatinine 0.6 mg/dL (0.55-1.3) 11/01/17 07:50 Random Glucose 108 mg/dL (74-106) H 11/01/17 07:50 Calcium 8.6 mg/dL (8.5-10.1) 11/01/17 07:50 Blood Type A NEGATIVE 10/31/17 18:15 Antibody Screen Negative 10/31/17 18:15 Problem List - Problems (1) Venous stasis ulcer Assessment/Plan: Plan -Bilateral compression dressings were placed at bedside. -Elevate legs -pt will need to follow up with wound care clinic on 5th floor once discharged. -continue care as per medicine team. Code(s): I83.009 - VARICOSE VEINS OF UNSP LOWER EXTREMITY W ULCER OF UNSP SITE; L97.909 - NON-PRS CHRONIC ULC UNSP PRT OF UNSP LOW LEG W UNSP SEVERITY Qualifiers: Laterality: unspecified laterality Non-pressure ulcer stage: limited to breakdown of skin
[2017-11-01] MEDS ORDERED: PIPERACILLIN/TAZOBACTAM 3.375 GM VIAL IVPB ONE (16:25)
[2017-11-01] MEDS ORDERED: DEXTROSE 5%-WATER - 50 ML IVPB ONE (16:25)
[2017-11-01] MEDS: PATIENT'S OWN MEDICATION (NON-FORMULARY) (Ranitidine Hcl [Zantac] 300 MG) PO SCH (16:40)
[2017-11-01] MEDS ORDERED: PNEUMOC 13-VAL CONJ-DIP CRM/PF 0.5 ML DISP.SYRIN IM ONE (19:30)
[2017-11-01] MEDS: ATORVASTATIN CA 40 MG TABLET (FP) PO SCH (21:51)
[2017-11-02] MEDS ORDERED: PIPERACILLIN/TAZOBACTAM 3.375 GM VIAL IVPB ONE ×3 (01:52→18:37)
[2017-11-02] MEDS ORDERED: DEXTROSE 5%-WATER - 50 ML IVPB ONE ×2 (01:53→18:37)
[2017-11-02] MEDS: PIPERACILLIN/TAZOB 3.375 GM 3.375 GM in DEXTROSE 5%-WATER - 50 ML IVPB SCH ×3 (02:03→18:48)
[2017-11-02] MEDS: INSULIN SLIDING SCALE (NOVOLOG) 1 VIAL SQ SCH ×4 (06:34→21:50)
[2017-11-02] MEDS: SODIUM CHLORIDE 1,000 ML IV SCH ×3 (06:54→21:51)
[2017-11-02 07:13] LABS: EOS % 2.7 % (0-4.5); HEMATOCRIT 23.6 % (35.4-49); HEMOGLOBIN 9.1 GM/dL (11.7-16.9); LYMPH % 8.6 % (8-40); MCH 37.1 pg (25.7-33.7); MCHC 38.7 g/dl (32.0-35.9); MEAN CELL VOLUME 95.8 fl (80-96); MEAN PLT VOLUME 7.5 fl (7.5-11.1); MONO % 8.1 % (3.8-10.2); NEUT % 79.6 % (42.8-82.8); PLATELET COUNT 234 K/MM3 (134-434); RBC 2.46 M/mm3 (4.00-5.60); RDW 14.4 % (11.9-15.9); WHITE BLOOD COUNT 7.5 K/mm3 (4.0-10.0)
[2017-11-02 07:59] LABS: ALBUMIN 2.6 g/dl (3.4-5.0); ALK PHOS 51 U/L (45-117); ANION GAP 6 MMOL/L (8-16); BILIRUBIN,TOTAL 0.7 mg/dL (0.2-1); BLOOD UREA NITROGEN 7 mg/dL (7-18); CALCIUM 7.9 mg/dL (8.5-10.1); CHLORIDE 97 mmol/L (98-107); CO2 27 mmol/L (21-32); CREATININE 0.6 mg/dL (0.55-1.3); GLUCOSE,RANDOM 97 mg/dL (74-106); MAGNESIUM 1.5 mg/dL (1.8-2.4); PHOSPHOROUS 2.9 mg/dL (2.5-4.9); POTASSIUM 3.9 mmol/L (3.5-5.1); SGOT/AST 26 U/L (15-37); SGPT/ALT 14 U/L (13-61); SODIUM 130 mmol/L (136-145); TOT PROT 6.6 g/dl (6.4-8.2)
[2017-11-02] MEDS ORDERED: MAGNESIUM SULF 50% (8.12 MEQ/2 ML-1 GM VIAL) IVPB ONE ×2 (09:06→16:15)
--- NOTE | 2017-11-02 09:06 | PN ---
Progress Note, Physician Chief Complaint: AWAKE ALERT FEELING BETTER - Current Medication List Current Medications: Active Medications Aspirin (Asa -) 81 mg PO DAILY [facility] Last Admin: 11/01/17 11:56 Dose: 81 mg Atorvastatin Calcium (Lipitor -) 40 mg PO HS [facility] Last Admin: 11/01/17 21:51 Dose: 40 mg Bacitracin (Bacitracin -) 1 applic TP DAILY [facility] Last Admin: 11/01/17 11:58 Dose: 1 appful Enoxaparin Sodium (Lovenox -) 40 mg SQ DAILY [facility] Last Admin: 11/01/17 11:55 Dose: 40 mg Folic Acid (Folic Acid -) 1 mg PO DAILY [facility] Last Admin: 11/01/17 11:55 Dose: 1 mg Sodium Chloride (Normal Saline -) 1,000 mls @ 150 mls/hr IV ASDIR [facility] Last Admin: 11/02/17 06:54 Dose: 150 mls/hr Piperacillin Sod/Tazobactam (Sod 3.375 gm/ Dextrose) 50 mls @ 100 mls/hr IVPB Q8H-IV [facility]; Protocol Last Admin: 11/02/17 02:03 Dose: 100 mls/hr Insulin Aspart (Novolog Vial Sliding Scale -) 0 vial SQ ACHS [facility]; Protocol Last Admin: 11/02/17 06:34 Dose: Not Given Metoprolol Succinate (Toprol Xl -) 25 mg PO DAILY [facility] Last Admin: 11/01/17 11:56 Dose: 25 mg Non-Formulary Medication (Cholecalciferol (Vitamin D3) [Vitamin D3]) 2,000 unit PO DAILY [facility] Last Admin: 11/01/17 16:39 Dose: Not Given Non-Formulary Medication (Ranitidine Hcl [Zantac]) 300 mg PO DAILY [facility] Last Admin: 11/01/17 16:40 Dose: Not Given Nystatin/Triamcinolone Acetonide (Mycolog Ii Cream -) 15 applic TP BID [facility] Thiamine HCl (Vitamin B1 -) 100 mg PO DAILY [facility] Last Admin: 11/01/17 11:55 Dose: 100 mg - Objective Vital Signs: Vital Signs Temperature 98.6 F 11/02/17 05:59 Pulse Rate 96 H 11/02/17 05:59 Respiratory Rate 20 11/02/17 05:59 Blood Pressure 132/69 11/02/17 05:59 O2 Sat by Pulse Oximetry (%) 100 09/24/18 23:10 Constitutional: Yes: Mild Distress Eyes: Yes: WNL HENT: Yes: WNL Neck: Yes: WNL Cardiovascular: Yes: WNL Respiratory: Yes: WNL Gastrointestinal: Yes: WNL Genitourinary: Yes: WNL Musculoskeletal: Yes: Muscle Weakness Extremities: Yes: Erythema Edema: Yes Integumentary: Yes: Pressure Ulcer, Rash, Venous Stasis Changes Wound/Incision: Yes: Dressing Dry and Intact, Draining, Excoriated Neurological: Yes: Pre-Existing Deficit ...Motor Strength: LLE, RLE Psychiatric: Yes: Other Labs: CBC, BMP 11/02/17 06:40 11/02/17 06:40 Problem List - Problems (1) Hyponatremia Code(s): E87.1 - HYPO-OSMOLALITY AND HYPONATREMIA (2) Rhabdomyolysis Code(s): M62.82 - RHABDOMYOLYSIS Qualifiers: Rhabdomyolysis type: traumatic Encounter type: initial encounter Qualified Code(s): T79.6XXA - Traumatic ischemia of muscle, initial encounter (3) Venous stasis ulcer Code(s): I83.009 - VARICOSE VEINS OF UNSP LOWER EXTREMITY W ULCER OF UNSP SITE; L97.909 - NON-PRS CHRONIC ULC UN[place] PRT OF UNSP LOW LEG W UNSP SEVERITY Qualifiers: Laterality: unspecified laterality Non-pressure ulcer stage: limited to breakdown of skin (4) CAD (coronary artery disease) Code(s): I25.10 - ATHSCL HEART DISEASE OF [place] CORONARY ARTERY W/O ANG PCTRS Qualifiers: Coronary Disease-Associated Artery/Lesion type: [place] artery [place] vs. transplanted heart: [place] heart Associated angina: angina presence unspecified Qualified Code(s): I25.10 - Atherosclerotic heart disease of [place] coronary artery without angina pectoris (5) Diabetes Code(s): E11.9 - TYPE 2 DIABETES MELLITUS WITHOUT COMPLICATIONS (6) HTN (hypertension) Code(s): I10 - ESSENTIAL (PRIMARY) HYPERTENSION Qualifiers: Hypertension type: essential hypertension Qualified Code(s): I10 - Essential (primary) hypertension Assessment/Plan WOUND CARE ID AND VASC SX EVAL DVT PROPHYLAXIS RENAL F/U HYPONATREMIA IVF OOB TO CHAIR PT EVAL
[2017-11-02] MEDS: FOLIC ACID 1 MG TABLET (FP) PO SCH (09:45)
[2017-11-02] MEDS: metoPROLOL SUCCINATE 25 MG TAB.SR.24H (FP) PO SCH (09:45)
[2017-11-02] MEDS: ASPIRIN 81 MG CHEWABLE TABLETS PO SCH (09:45)
[2017-11-02] MEDS: THIAMINE HCL 100 MG TABLET (FP) PO SCH (09:45)
[2017-11-02] MEDS: ENOXAPARIN NA (PORCINE) 40 MG/0.4 ML DISP.SYRIN SQ SCH (09:45)
[2017-11-02] MEDS: PATIENT'S OWN MEDICATION (NON-FORMULARY) (Ranitidine Hcl [Zantac] 300 MG) PO SCH (09:47)
[2017-11-02] MEDS: NYSTATIN/TRIAMCINOLONE TOPICAL CREAM 15 GM TUBE TP SCH ×2 (10:00→23:00)
--- NOTE | 2017-11-02 13:34 | PN ---
Progress Note, Physician History of Present Illness: b/l leg wounds slight improvement noted leg still worse patient thinks it is slightly better - Current Medication List Current Medications: Active Medications Aspirin (Asa -) 81 mg PO DAILY [facility] Last Admin: 11/02/17 09:45 Dose: 81 mg Atorvastatin Calcium (Lipitor -) 40 mg PO HS [facility] Last Admin: 11/01/17 21:51 Dose: 40 mg Bacitracin (Bacitracin -) 1 applic TP DAILY [facility] Last Admin: 11/01/17 11:58 Dose: 1 appful Enoxaparin Sodium (Lovenox -) 40 mg SQ DAILY [facility] Last Admin: 11/02/17 09:45 Dose: 40 mg Folic Acid (Folic Acid -) 1 mg PO DAILY [facility] Last Admin: 11/02/17 09:45 Dose: 1 mg Sodium Chloride (Normal Saline -) 1,000 mls @ 150 mls/hr IV ASDIR [facility] Last Admin: 11/02/17 06:54 Dose: 150 mls/hr Piperacillin Sod/Tazobactam (Sod 3.375 gm/ Dextrose) 50 mls @ 100 mls/hr IVPB Q8H-IV [facility]; Protocol Last Admin: 11/02/17 09:45 Dose: 100 mls/hr Insulin Aspart (Novolog Vial Sliding Scale -) 0 vial SQ ACHS [facility]; Protocol Last Admin: 11/02/17 06:34 Dose: Not Given Metoprolol Succinate (Toprol Xl -) 25 mg PO DAILY [facility] Last Admin: 11/02/17 09:45 Dose: 25 mg Non-Formulary Medication (Cholecalciferol (Vitamin D3) [Vitamin D3]) 2,000 unit PO DAILY [facility] Last Admin: 11/02/17 09:47 Dose: Not Given Non-Formulary Medication (Ranitidine Hcl [Zantac]) 300 mg PO DAILY [facility] Last Admin: 11/02/17 09:47 Dose: Not Given Nystatin/Triamcinolone Acetonide (Mycolog Ii Cream -) 15 applic TP BID [facility] Thiamine HCl (Vitamin B1 -) 100 mg PO DAILY [facility] Last Admin: 11/02/17 09:45 Dose: 100 mg - Objective Vital Signs: Vital Signs Temperature 98.6 F 11/02/17 05:59 Pulse Rate 96 H 11/02/17 05:59 Respiratory Rate 20 11/02/17 05:59 Blood Pressure 132/69 11/02/17 05:59 O2 Sat by Pulse Oximetry (%) 100 10/31/17 23:10 Constitutional: Yes: Calm, Mild Distress, Obese Cardiovascular: Yes: Regular Rate and Rhythm Respiratory: Yes: Regular, CTA Bilaterally Musculoskeletal: Yes: Other Wound/Incision: Yes: Dressing Dry and Intact Neurological: Yes: Alert, Oriented Psychiatric: Yes: Alert, Oriented Labs: CBC, BMP 11/02/17 06:40 11/02/17 06:40 Assessment/Plan Problem List - Problems (1) Hyponatremia Code(s): E87.1 - HYPO-OSMOLALITY AND HYPONATREMIA (2) Rhabdomyolysis Code(s): M62.82 - RHABDOMYOLYSIS Qualifiers: Rhabdomyolysis type: traumatic Encounter type: initial encounter Qualified Code(s): T79.6XXA - Traumatic ischemia of muscle, initial encounter (3) Venous stasis ulcer Code(s): I83.009 - VARICOSE VEINS OF [place] LOWER EXTREMITY W ULCER OF UNSP SITE; L97.909 - NON-PRS CHRONIC ULC [place] PRT OF UNSP LOW LEG W UNSP SEVERITY Qualifiers: Laterality: unspecified laterality Non-pressure ulcer stage: limited to breakdown of skin (4) CAD (coronary artery disease) Code(s): I25.10 - ATHSCL HEART DISEASE OF [place] CORONARY ARTERY W/O ANG PCTRS Qualifiers: Coronary Disease-Associated Artery/Lesion type: [place] artery [place] vs. transplanted heart: [place] heart Associated angina: angina presence unspecified Qualified Code(s): I25.10 - Atherosclerotic heart disease of [place] coronary artery without angina pectoris (5) Diabetes Code(s): E11.9 - TYPE 2 DIABETES MELLITUS WITHOUT COMPLICATIONS (6) HTN (hypertension) Code(s): I10 - ESSENTIAL (PRIMARY) HYPERTENSION Qualifiers: Hypertension type: essential hypertension Qualified Code(s): I10 - Essential (primary) hypertension plan wound care zosyn elevation of legs rest as per the team
[2017-11-02] MEDS: BACITRACIN 15 GM TUBE TOPICAL OINTMENT TP SCH (17:08)
[2017-11-02] MEDS ORDERED: INSULIN (NOVOLOG) ASPART 100 UNITS/ML 10ML VIAL ONE (20:59)
[2017-11-02] MEDS: MAGNESIUM OXIDE 400 MG TABLET (FP) PO SCH (21:50)
[2017-11-02] MEDS: ATORVASTATIN CA 40 MG TABLET (FP) PO SCH (21:50)
[2017-11-03] MEDS ORDERED: DEXTROSE 5%-WATER - 50 ML IVPB ONE ×3 (02:30→17:10)
[2017-11-03] MEDS ORDERED: PIPERACILLIN/TAZOBACTAM 3.375 GM VIAL IVPB ONE ×3 (02:30→17:10)
[2017-11-03] MEDS: PIPERACILLIN/TAZOB 3.375 GM 3.375 GM in DEXTROSE 5%-WATER - 50 ML IVPB SCH ×3 (02:42→17:37)
[2017-11-03] MEDS: INSULIN SLIDING SCALE (NOVOLOG) 1 VIAL SQ SCH ×4 (06:26→21:34)
[2017-11-03 07:19] LABS: ANION GAP 7 MMOL/L (8-16); BLOOD UREA NITROGEN 5 mg/dL (7-18); CALCIUM 7.7 mg/dL (8.5-10.1); CHLORIDE 98 mmol/L (98-107); CO2 27 mmol/L (21-32); CREATININE 0.6 mg/dL (0.55-1.3); GLUCOSE,RANDOM 105 mg/dL (74-106); POTASSIUM 3.6 mmol/L (3.5-5.1); SODIUM 132 mmol/L (136-145)
--- NOTE | 2017-11-03 08:21 | PN ---
Progress Note, Physician Chief Complaint: AWAKE EATING BREAKFAST NAD - Current Medication List Current Medications: Active Medications Aspirin (Asa -) 81 mg PO DAILY [facility] Last Admin: 11/02/17 09:45 Dose: 81 mg Atorvastatin Calcium (Lipitor -) 40 mg PO HS [facility] Last Admin: 11/02/17 21:50 Dose: 40 mg Bacitracin (Bacitracin -) 1 applic TP DAILY [facility] Last Admin: 11/02/17 17:08 Dose: 1 appful Enoxaparin Sodium (Lovenox -) 40 mg SQ DAILY [facility] Last Admin: 11/02/17 09:45 Dose: 40 mg Folic Acid (Folic Acid -) 1 mg PO DAILY [facility] Last Admin: 11/02/17 09:45 Dose: 1 mg Sodium Chloride (Normal Saline -) 1,000 mls @ 150 mls/hr IV ASDIR [facility] Last Admin: 11/02/17 21:51 Dose: 150 mls/hr Piperacillin Sod/Tazobactam (Sod 3.375 gm/ Dextrose) 50 mls @ 100 mls/hr IVPB Q8H-IV [facility]; Protocol Last Admin: 11/03/17 02:42 Dose: 100 mls/hr Insulin Aspart (Novolog Vial Sliding Scale -) 0 vial SQ ACHS [facility]; Protocol Last Admin: 11/03/17 06:26 Dose: Not Given Magnesium Oxide (Mag-Ox -) 400 mg PO BID [facility] Last Admin: 11/02/17 21:50 Dose: 400 mg Metoprolol Succinate (Toprol Xl -) 25 mg PO DAILY [facility] Last Admin: 11/02/17 09:45 Dose: 25 mg Non-Formulary Medication (Cholecalciferol (Vitamin D3) [Vitamin D3]) 2,000 unit PO DAILY [facility] Last Admin: 11/02/17 09:47 Dose: Not Given Non-Formulary Medication (Ranitidine Hcl [Zantac]) 300 mg PO DAILY [facility] Last Admin: 11/02/17 09:47 Dose: Not Given Nystatin/Triamcinolone Acetonide (Mycolog Ii Cream -) 15 applic TP BID [facility] Last Admin: 11/02/17 23:00 Dose: 15 applic Thiamine HCl (Vitamin B1 -) 100 mg PO DAILY [facility] Last Admin: 11/02/17 09:45 Dose: 100 mg - Objective Vital Signs: Vital Signs Temperature 97.5 F L 11/03/17 05:30 Pulse Rate 98 H 11/03/17 05:30 Respiratory Rate 19 11/02/17 22:00 Blood Pressure 143/74 11/03/17 05:30 O2 Sat by Pulse Oximetry (%) 100 10/31/17 23:10 Constitutional: Yes: Mild Distress Eyes: Yes: WNL HENT: Yes: WNL Neck: Yes: WNL Respiratory: Yes: WNL Gastrointestinal: Yes: WNL Genitourinary: Yes: WNL Musculoskeletal: Yes: WNL Extremities: Yes: Deformity Integumentary: Yes: WNL Wound/Incision: Yes: Clean/Dry Neurological: Yes: Pre-Existing Deficit ...Motor Strength: LLE, RLE Psychiatric: Yes: WNL Labs: CBC, BMP 11/03/17 06:18 Problem List - Problems (1) Hyponatremia Code(s): E87.1 - HYPO-OSMOLALITY AND HYPONATREMIA (2) Rhabdomyolysis Code(s): M62.82 - RHABDOMYOLYSIS Qualifiers: Rhabdomyolysis type: traumatic Encounter type: initial encounter Qualified Code(s): T79.6XXA - Traumatic ischemia of muscle, initial encounter (3) Venous stasis ulcer Code(s): I83.009 - VARICOSE VEINS OF [place] LOWER EXTREMITY W ULCER OF UNSP SITE; L97.909 - NON-PRS CHRONIC ULC [place] PRT OF UNSP LOW LEG W UNSP SEVERITY Qualifiers: Laterality: unspecified laterality Non-pressure ulcer stage: limited to breakdown of skin (4) CAD (coronary artery disease) Code(s): I25.10 - ATHSCL HEART DISEASE OF [place] CORONARY ARTERY W/O ANG PCTRS Qualifiers: Coronary Disease-Associated Artery/Lesion type: [place] artery [place] vs. transplanted heart: [place] heart Associated angina: angina presence unspecified Qualified Code(s): I25.10 - Atherosclerotic heart disease of [place] coronary artery without angina pectoris (5) Diabetes Code(s): E11.9 - TYPE 2 DIABETES MELLITUS WITHOUT COMPLICATIONS (6) HTN (hypertension) Code(s): I10 - ESSENTIAL (PRIMARY) HYPERTENSION Qualifiers: Hypertension type: essential hypertension Qualified Code(s): I10 - Essential (primary) hypertension Assessment/Plan WOUND CARE ID AND VASC SX EVAL DVT PROPHYLAXIS RENAL F/U HYPONATREMIA IVF OOB TO CHAIR PT EVAL
[2017-11-03] MEDS: BACITRACIN 15 GM TUBE TOPICAL OINTMENT TP SCH (09:41)
[2017-11-03] MEDS: FOLIC ACID 1 MG TABLET (FP) PO SCH (09:41)
[2017-11-03] MEDS: metoPROLOL SUCCINATE 25 MG TAB.SR.24H (FP) PO SCH (09:41)
[2017-11-03] MEDS: THIAMINE HCL 100 MG TABLET (FP) PO SCH (09:41)
[2017-11-03] MEDS: MAGNESIUM OXIDE 400 MG TABLET (FP) PO SCH ×2 (09:41→21:34)
[2017-11-03] MEDS: ASPIRIN 81 MG CHEWABLE TABLETS PO SCH (09:41)
[2017-11-03] MEDS: ENOXAPARIN NA (PORCINE) 40 MG/0.4 ML DISP.SYRIN SQ SCH (09:42)
[2017-11-03] MEDS: PATIENT'S OWN MEDICATION (NON-FORMULARY) (Ranitidine Hcl [Zantac] 300 MG) PO SCH (09:42)
[2017-11-03] MEDS: NYSTATIN/TRIAMCINOLONE TOPICAL CREAM 15 GM TUBE TP SCH ×2 (09:47→21:35)
[2017-11-03 10:30] LABS: HEMATOCRIT 25.5 % (35.4-49); HEMOGLOBIN 8.8 GM/dL (11.7-16.9); MCH 30.6 pg (25.7-33.7); MCHC 34.4 g/dl (32.0-35.9); MEAN CELL VOLUME 89.1 fl (80-96); MEAN PLT VOLUME 7.4 fl (7.5-11.1); PLATELET COUNT 257 K/MM3 (134-434); RBC 2.86 M/mm3 (4.00-5.60); RDW 14.6 % (11.9-15.9); WHITE BLOOD COUNT 5.7 K/mm3 (4.0-10.0)
[2017-11-03 12:13] VITALS: BMI 37.8
--- NOTE | 2017-11-03 14:29 | PN ---
Progress Note (short form) - Note Progress Note: Renal follow up for Hyponatremia Pt seen and examined at the bedside reports feeling better wants to go home no sob, cp, abd pain on IVF Vital Signs Temperature 99.1 F 11/03/17 12:57 Pulse Rate 92 H 11/03/17 12:57 Respiratory Rate 18 11/03/17 10:00 Blood Pressure 121/79 11/03/17 12:57 O2 Sat by Pulse Oximetry (%) 100 10/31/17 23:10 Intake & Output 10/31/17 11/01/17 11/02/17 11/03/17 23:59 23:59 23:59 23:59 Intake Total 2950 650 600 Balance 2950 650 600 Weight 117.934 kg 116.12 kg 116.12 kg NAD awake and alert Dry MM no JVD RRR, no M/R Dec BS at lung bases, no rales obese, NT/ND B/l LE in dressing CBC, BMP 11/03/17 06:18 11/03/17 06:18 Current Medications Aspirin (Asa -) 81 mg PO DAILY [facility] Last Admin: 11/03/17 09:41 Dose: 81 mg Atorvastatin Calcium (Lipitor -) 40 mg PO HS [facility] Last Admin: 11/02/17 21:50 Dose: 40 mg Bacitracin (Bacitracin -) 1 applic TP DAILY [facility] Last Admin: 11/03/17 09:41 Dose: 1 applic Enoxaparin Sodium (Lovenox -) 40 mg SQ DAILY [facility] Last Admin: 11/03/17 09:42 Dose: 40 mg Folic Acid (Folic Acid -) 1 mg PO DAILY [facility] Last Admin: 11/03/17 09:41 Dose: 1 mg Piperacillin Sod/Tazobactam (Sod 3.375 gm/ Dextrose) 50 mls @ 100 mls/hr IVPB Q8H-IV [facility]; Protocol Last Admin: 11/03/17 09:42 Dose: 100 mls/hr Insulin Aspart (Novolog Vial Sliding Scale -) 0 vial SQ ACHS [facility]; Protocol Last Admin: 11/03/17 10:27 Dose: Not Given Magnesium Oxide (Mag-Ox -) 400 mg PO BID [facility] Last Admin: 11/03/17 09:41 Dose: 400 mg Metoprolol Succinate (Toprol Xl -) 25 mg PO DAILY [facility] Last Admin: 11/03/17 09:41 Dose: 25 mg Non-Formulary Medication (Cholecalciferol (Vitamin D3) [Vitamin D3]) 2,000 unit PO DAILY [facility] Last Admin: 11/03/17 09:42 Dose: Not Given Non-Formulary Medication (Ranitidine Hcl [Zantac]) 300 mg PO DAILY [facility] Last Admin: 11/03/17 09:42 Dose: Not Given Nystatin/Triamcinolone Acetonide (Mycolog Ii Cream -) 15 applic TP BID [facility] Last Admin: 11/03/17 09:47 Dose: 15 applic Thiamine HCl (Vitamin B1 -) 100 mg PO DAILY [facility] Last Admin: 11/03/17 09:41 Dose: 100 mg 67 year old woman with Hx of Hypertension, CAD, CVA, current smoker presented s/ p fall at home and found to have rhabdomyolysis and hyponatremia. #Hypovolemic Hyponatremia (initially improved but downtrended again) #Rhabdomyolysis secondary to fall and prolong immobility #LE wounds #Anemia #Obesity Serum Na now downtrended again but remains > 130 will D/C IVF and trend Na (next BMP in AM) oral intake as tolerated no need for 3% saline CKs now improved Abx as per ID Devante Hartley DO
--- NOTE | 2017-11-03 15:41 | PN ---
Progress Note, Physician History of Present Illness: b/l leg wounds weeping - Current Medication List Current Medications: Active Medications Aspirin (Asa -) 81 mg PO DAILY [facility] Last Admin: 11/03/17 09:41 Dose: 81 mg Atorvastatin Calcium (Lipitor -) 40 mg PO HS [facility] Last Admin: 11/02/17 21:50 Dose: 40 mg Bacitracin (Bacitracin -) 1 applic TP DAILY [facility] Last Admin: 11/03/17 09:41 Dose: 1 applic Enoxaparin Sodium (Lovenox -) 40 mg SQ DAILY [facility] Last Admin: 11/03/17 09:42 Dose: 40 mg Folic Acid (Folic Acid -) 1 mg PO DAILY [facility] Last Admin: 11/03/17 09:41 Dose: 1 mg Piperacillin Sod/Tazobactam (Sod 3.375 gm/ Dextrose) 50 mls @ 100 mls/hr IVPB Q8H-IV [facility]; Protocol Last Admin: 11/03/17 09:42 Dose: 100 mls/hr Insulin Aspart (Novolog Vial Sliding Scale -) 0 vial SQ ACHS [facility]; Protocol Last Admin: 11/03/17 10:27 Dose: Not Given Magnesium Oxide (Mag-Ox -) 400 mg PO BID [facility] Last Admin: 11/03/17 09:41 Dose: 400 mg Metoprolol Succinate (Toprol Xl -) 25 mg PO DAILY [facility] Last Admin: 11/03/17 09:41 Dose: 25 mg Non-Formulary Medication (Cholecalciferol (Vitamin D3) [Vitamin D3]) 2,000 unit PO DAILY [facility] Last Admin: 11/03/17 09:42 Dose: Not Given Non-Formulary Medication (Ranitidine Hcl [Zantac]) 300 mg PO DAILY [facility] Last Admin: 11/03/17 09:42 Dose: Not Given Nystatin/Triamcinolone Acetonide (Mycolog Ii Cream -) 15 applic TP BID [facility] Last Admin: 11/03/17 09:47 Dose: 15 applic Thiamine HCl (Vitamin B1 -) 100 mg PO DAILY [facility] Last Admin: 11/03/17 09:41 Dose: 100 mg - Objective Vital Signs: Vital Signs Temperature 99.1 F 11/03/17 12:57 Pulse Rate 92 H 11/03/17 12:57 Respiratory Rate 18 11/03/17 10:00 Blood Pressure 121/79 11/03/17 12:57 O2 Sat by Pulse Oximetry (%) 100 10/31/17 23:10 Constitutional: Yes: No Distress, Calm Cardiovascular: Yes: Regular Rate and Rhythm Respiratory: Yes: Regular, CTA Bilaterally Gastrointestinal: Yes: Normal Bowel Sounds, Soft Wound/Incision: Yes: Dressing Dry and Intact Neurological: Yes: Alert, Oriented Labs: CBC, BMP 11/03/17 06:18 11/03/17 06:18 Assessment/Plan Problem List - Problems (1) Hyponatremia Code(s): E87.1 - HYPO-OSMOLALITY AND HYPONATREMIA (2) Rhabdomyolysis Code(s): M62.82 - RHABDOMYOLYSIS Qualifiers: Rhabdomyolysis type: traumatic Encounter type: initial encounter Qualified Code(s): T79.6XXA - Traumatic ischemia of muscle, initial encounter (3) Venous stasis ulcer Code(s): I83.009 - VARICOSE VEINS OF UNSP LOWER EXTREMITY W ULCER OF UNSP SITE; L97.909 - NON-PRS CHRONIC ULC UNSP PRT OF UNSP LOW LEG W UNSP SEVERITY Qualifiers: Laterality: unspecified laterality Non-pressure ulcer stage: limited to breakdown of skin (4) CAD (coronary artery disease) Code(s): I25.10 - ATHSCL HEART DISEASE OF [place] CORONARY ARTERY W/O ANG PCTRS Qualifiers: Coronary Disease-Associated Artery/Lesion type: [place] artery [place] vs. transplanted heart: [place] heart Associated angina: angina presence unspecified Qualified Code(s): I25.10 - Atherosclerotic heart disease of [place] coronary artery without angina pectoris (5) Diabetes Code(s): E11.9 - TYPE 2 DIABETES MELLITUS WITHOUT COMPLICATIONS (6) HTN (hypertension) Code(s): I10 - ESSENTIAL (PRIMARY) HYPERTENSION Qualifiers: Hypertension type: essential hypertension Qualified Code(s): I10 - Essential (primary) hypertension plan wound care zosyn elevation of legs rest as per the team
[2017-11-03] MEDS ORDERED: INSULIN (NOVOLOG) ASPART 100 UNITS/ML 10ML VIAL ONE (15:50)
[2017-11-03] MEDS: ATORVASTATIN CA 40 MG TABLET (FP) PO SCH (21:34)
[2017-11-04] MEDS ORDERED: PIPERACILLIN/TAZOBACTAM 3.375 GM VIAL IVPB ONE ×3 (02:33→18:22)
[2017-11-04] MEDS ORDERED: DEXTROSE 5%-WATER - 50 ML IVPB ONE ×3 (02:33→18:22)
[2017-11-04] MEDS: PIPERACILLIN/TAZOB 3.375 GM 3.375 GM in DEXTROSE 5%-WATER - 50 ML IVPB SCH ×3 (02:51→18:26)
[2017-11-04] MEDS: INSULIN SLIDING SCALE (NOVOLOG) 1 VIAL SQ SCH ×4 (06:48→21:33)
[2017-11-04] MEDS: ENOXAPARIN NA (PORCINE) 40 MG/0.4 ML DISP.SYRIN SQ SCH (09:36)
[2017-11-04] MEDS: FOLIC ACID 1 MG TABLET (FP) PO SCH (09:36)
[2017-11-04] MEDS: MAGNESIUM OXIDE 400 MG TABLET (FP) PO SCH ×2 (09:36→21:33)
[2017-11-04] MEDS: metoPROLOL SUCCINATE 25 MG TAB.SR.24H (FP) PO SCH (09:36)
[2017-11-04] MEDS: THIAMINE HCL 100 MG TABLET (FP) PO SCH (09:36)
[2017-11-04] MEDS: ASPIRIN 81 MG CHEWABLE TABLETS PO SCH (09:36)
[2017-11-04] MEDS: PATIENT'S OWN MEDICATION (NON-FORMULARY) (Ranitidine Hcl [Zantac] 300 MG) PO SCH (09:37)
[2017-11-04] MEDS ORDERED: INSULIN (NOVOLOG) ASPART 100 UNITS/ML 10ML VIAL ONE (11:43)
[2017-11-04] MEDS: BACITRACIN 15 GM TUBE TOPICAL OINTMENT TP SCH (11:56)
[2017-11-04] MEDS: NYSTATIN/TRIAMCINOLONE TOPICAL CREAM 15 GM TUBE TP SCH ×2 (11:56→21:33)
[2017-11-04 12:24] LABS: BASO % 1.1 % (0-2.0); EOS % 3.3 % (0-4.5); HEMATOCRIT 22.2 % (35.4-49); HEMOGLOBIN 8.4 GM/dL (11.7-16.9); LYMPH % 11.4 % (8-40); MCH 37.5 pg (25.7-33.7); MEAN CELL VOLUME 98.8 fl (80-96); MEAN PLT VOLUME 7.6 fl (7.5-11.1); MONO % 12.1 % (3.8-10.2); NEUT % 72.1 % (42.8-82.8); PLATELET COUNT 257 K/MM3 (134-434); RBC 2.24 M/mm3 (4.00-5.60); RDW 14.5 % (11.9-15.9); WHITE BLOOD COUNT 5.4 K/mm3 (4.0-10.0)
[2017-11-04 12:36] LABS: ANION GAP 9 MMOL/L (8-16); BLOOD UREA NITROGEN 7 mg/dL (7-18); CALCIUM 8.2 mg/dL (8.5-10.1); CHLORIDE 97 mmol/L (98-107); CO2 28 mmol/L (21-32); CREATININE 0.5 mg/dL (0.55-1.3); GLUCOSE,RANDOM 121 mg/dL (74-106); MAGNESIUM 1.9 mg/dL (1.8-2.4); POTASSIUM 3.8 mmol/L (3.5-5.1); SODIUM 134 mmol/L (136-145)
--- NOTE | 2017-11-04 12:45 | PN ---
Progress Note, Physician History of Present Illness: patient leg still looks worse patient is more awake and alert - Current Medication List Current Medications: Active Medications Aspirin (Asa -) 81 mg PO DAILY [facility] Last Admin: 11/04/17 09:36 Dose: 81 mg Atorvastatin Calcium (Lipitor -) 40 mg PO HS [facility] Last Admin: 11/03/17 21:34 Dose: 40 mg Bacitracin (Bacitracin -) 1 applic TP DAILY [facility] Last Admin: 11/04/17 11:56 Dose: 1 applic Enoxaparin Sodium (Lovenox -) 40 mg SQ DAILY [facility] Last Admin: 11/04/17 09:36 Dose: 40 mg Folic Acid (Folic Acid -) 1 mg PO DAILY [facility] Last Admin: 11/04/17 09:36 Dose: 1 mg Piperacillin Sod/Tazobactam (Sod 3.375 gm/ Dextrose) 50 mls @ 100 mls/hr IVPB Q8H-IV [facility]; Protocol Last Admin: 11/04/17 09:37 Dose: 100 mls/hr Insulin Aspart (Novolog Vial Sliding Scale -) 0 vial SQ ACHS [facility]; Protocol Last Admin: 11/04/17 11:57 Dose: Not Given Magnesium Oxide (Mag-Ox -) 400 mg PO BID [facility] Last Admin: 11/04/17 09:36 Dose: 400 mg Metoprolol Succinate (Toprol Xl -) 25 mg PO DAILY [facility] Last Admin: 11/04/17 09:36 Dose: 25 mg Non-Formulary Medication (Cholecalciferol (Vitamin D3) [Vitamin D3]) 2,000 unit PO DAILY [facility] Last Admin: 11/04/17 09:37 Dose: Not Given Non-Formulary Medication (Ranitidine Hcl [Zantac]) 300 mg PO DAILY [facility] Last Admin: 11/04/17 09:37 Dose: Not Given Nystatin/Triamcinolone Acetonide (Mycolog Ii Cream -) 15 applic TP BID [facility] Last Admin: 11/04/17 11:56 Dose: 15 applic Thiamine HCl (Vitamin B1 -) 100 mg PO DAILY [facility] Last Admin: 11/04/17 09:36 Dose: 100 mg - Objective Vital Signs: Vital Signs Temperature 97.4 F L 11/04/17 05:30 Pulse Rate 92 H 11/04/17 05:30 Respiratory Rate 20 11/04/17 06:00 Blood Pressure 143/69 11/04/17 05:30 O2 Sat by Pulse Oximetry (%) 100 10/31/17 23:10 Constitutional: Yes: Calm, Mild Distress, Obese Cardiovascular: Yes: Regular Rate and Rhythm Respiratory: Yes: Regular, CTA Bilaterally Gastrointestinal: Yes: Normal Bowel Sounds, Soft Musculoskeletal: Yes: Other Extremities: Yes: Other Neurological: Yes: Alert, Oriented Psychiatric: Yes: Alert, Oriented Labs: CBC, BMP 11/04/17 12:10 11/04/17 12:10 Assessment/Plan Problem List - Problems (1) Hyponatremia Code(s): E87.1 - HYPO-OSMOLALITY AND HYPONATREMIA (2) Rhabdomyolysis Code(s): M62.82 - RHABDOMYOLYSIS Qualifiers: Rhabdomyolysis type: traumatic Encounter type: initial encounter Qualified Code(s): T79.6XXA - Traumatic ischemia of muscle, initial encounter (3) Venous stasis ulcer Code(s): I83.009 - VARICOSE VEINS OF UNSP LOWER EXTREMITY W ULCER OF UNSP SITE; L97.909 - NON-PRS CHRONIC ULC UNSP PRT OF UNSP LOW LEG W UNSP SEVERITY Qualifiers: Laterality: unspecified laterality Non-pressure ulcer stage: limited to breakdown of skin (4) CAD (coronary artery disease) Code(s): I25.10 - ATHSCL HEART DISEASE OF [place] CORONARY ARTERY W/O ANG PCTRS Qualifiers: Coronary Disease-Associated Artery/Lesion type: [place] artery [place] vs. transplanted heart: [place] heart Associated angina: angina presence unspecified Qualified Code(s): I25.10 - Atherosclerotic heart disease of [place] coronary artery without angina pectoris (5) Diabetes Code(s): E11.9 - TYPE 2 DIABETES MELLITUS WITHOUT COMPLICATIONS (6) HTN (hypertension) Code(s): I10 - ESSENTIAL (PRIMARY) HYPERTENSION Qualifiers: Hypertension type: essential hypertension Qualified Code(s): I10 - Essential (primary) hypertension plan wound care zosyn will add clinda rest as per the team
--- NOTE | 2017-11-04 13:24 | PN ---
Progress Note, Physician Chief Complaint: AWAKE ALERT X 2 DENIES CHEST PAIN OR SOB - Current Medication List Current Medications: Active Medications Aspirin (Asa -) 81 mg PO DAILY [facility] Last Admin: 11/04/17 09:36 Dose: 81 mg Atorvastatin Calcium (Lipitor -) 40 mg PO HS [facility] Last Admin: 11/03/17 21:34 Dose: 40 mg Bacitracin (Bacitracin -) 1 applic TP DAILY [facility] Last Admin: 11/04/17 11:56 Dose: 1 applic Clindamycin HCl (Cleocin -) 300 mg PO Q6HPO [facility] Enoxaparin Sodium (Lovenox -) 40 mg SQ DAILY [facility] Last Admin: 11/04/17 09:36 Dose: 40 mg Folic Acid (Folic Acid -) 1 mg PO DAILY [facility] Last Admin: 11/04/17 09:36 Dose: 1 mg Piperacillin Sod/Tazobactam (Sod 3.375 gm/ Dextrose) 50 mls @ 100 mls/hr IVPB Q8H-IV [facility]; Protocol Last Admin: 11/04/17 09:37 Dose: 100 mls/hr Insulin Aspart (Novolog Vial Sliding Scale -) 0 vial SQ ACHS [facility]; Protocol Last Admin: 11/04/17 11:57 Dose: Not Given Magnesium Oxide (Mag-Ox -) 400 mg PO BID [facility] Last Admin: 11/04/17 09:36 Dose: 400 mg Metoprolol Succinate (Toprol Xl -) 25 mg PO DAILY [facility] Last Admin: 11/04/17 09:36 Dose: 25 mg Non-Formulary Medication (Cholecalciferol (Vitamin D3) [Vitamin D3]) 2,000 unit PO DAILY [facility] Last Admin: 11/04/17 09:37 Dose: Not Given Non-Formulary Medication (Ranitidine Hcl [Zantac]) 300 mg PO DAILY [facility] Last Admin: 11/04/17 09:37 Dose: Not Given Nystatin/Triamcinolone Acetonide (Mycolog Ii Cream -) 15 applic TP BID [facility] Last Admin: 11/04/17 11:56 Dose: 15 applic Thiamine HCl (Vitamin B1 -) 100 mg PO DAILY [facility] Last Admin: 11/04/17 09:36 Dose: 100 mg - Objective Vital Signs: Vital Signs Temperature 97.4 F L 11/04/17 05:30 Pulse Rate 92 H 11/04/17 05:30 Respiratory Rate 20 11/04/17 06:00 Blood Pressure 143/69 11/04/17 05:30 O2 Sat by Pulse Oximetry (%) 100 10/31/17 23:10 Constitutional: Yes: Mild Distress Eyes: Yes: WNL HENT: Yes: WNL Neck: Yes: WNL Cardiovascular: Yes: WNL Respiratory: Yes: WNL Gastrointestinal: Yes: WNL Genitourinary: Yes: Other ([facility]) Musculoskeletal: Yes: Muscle Weakness Extremities: Yes: Deformity, Erythema Edema: Yes Integumentary: Yes: Pressure Ulcer, Rash, Venous Stasis Changes Wound/Incision: Yes: Dressing Dry and Intact, Draining, Excoriated, Unapproximated Neurological: Yes: Confusion, Pre-Existing Deficit ...Motor Strength: LLE, RLE Labs: CBC, BMP 11/04/17 12:10 11/04/17 12:10 Problem List - Problems (1) Hyponatremia Code(s): E87.1 - HYPO-OSMOLALITY AND HYPONATREMIA (2) Rhabdomyolysis Code(s): M62.82 - RHABDOMYOLYSIS Qualifiers: Rhabdomyolysis type: traumatic Encounter type: initial encounter Qualified Code(s): T79.6XXA - Traumatic ischemia of muscle, initial encounter (3) Venous stasis ulcer Code(s): I83.009 - VARICOSE VEINS OF [place] LOWER EXTREMITY W ULCER OF UNSP SITE; L97.909 - NON-PRS CHRONIC ULC [place] PRT OF UNSP LOW LEG W UNSP SEVERITY Qualifiers: Laterality: unspecified laterality Non-pressure ulcer stage: limited to breakdown of skin (4) CAD (coronary artery disease) Code(s): I25.10 - ATHSCL HEART DISEASE OF [place] CORONARY ARTERY W/O ANG PCTRS Qualifiers: Coronary Disease-Associated Artery/Lesion type: [place] artery [place] vs. transplanted heart: [place] heart Associated angina: angina presence unspecified Qualified Code(s): I25.10 - Atherosclerotic heart disease of [place] coronary artery without angina pectoris (5) Diabetes Code(s): E11.9 - TYPE 2 DIABETES MELLITUS WITHOUT COMPLICATIONS (6) HTN (hypertension) Code(s): I10 - ESSENTIAL (PRIMARY) HYPERTENSION Qualifiers: Hypertension type: essential hypertension Qualified Code(s): I10 - Essential (primary) hypertension Assessment/Plan WOUND CARE CONTINUE ID AND VASC SX EVAL ID TO ADD CLINDA ALONG WITH ZOSYN DVT PROPHYLAXIS RENAL F/U HYPONATREMIA IVF OOB TO CHAIR PT EVAL SNF ON TUESDAY [facility]
--- NOTE | 2017-11-04 15:34 | PN ---
Progress Note (short form) - Note Progress Note: Renal follow up for Hyponatremia Pt seen and examined at the bedside no acute complaints no sob, cp, abd pain, N/V/D Vital Signs Temperature 99.0 F 11/04/17 15:24 Pulse Rate 81 11/04/17 15:24 Respiratory Rate 18 11/04/17 15:24 Blood Pressure 126/67 11/04/17 15:24 O2 Sat by Pulse Oximetry (%) 100 10/31/17 23:10 Intake & Output 11/01/17 11/02/17 11/03/17 11/04/17 23:59 23:59 23:59 23:59 Intake Total 2950 650 1020 575 Output Total 400 650 Balance 2950 650 620 -75 Weight 116.12 kg 116.12 kg NAD awake and alert Dry MM no JVD RRR, no M/R Dec BS at lung bases, no rales obese, NT/ND B/l LE in dressing CBC, BMP 11/04/17 12:10 11/04/17 12:10 Current Medications Aspirin (Asa -) 81 mg PO DAILY [facility] Last Admin: 11/04/17 09:36 Dose: 81 mg Atorvastatin Calcium (Lipitor -) 40 mg PO HS [facility] Last Admin: 11/03/17 21:34 Dose: 40 mg Bacitracin (Bacitracin -) 1 applic TP DAILY [facility] Last Admin: 11/04/17 11:56 Dose: 1 applic Clindamycin HCl (Cleocin -) 300 mg PO Q6HPO [facility] Enoxaparin Sodium (Lovenox -) 40 mg SQ DAILY [facility] Last Admin: 11/04/17 09:36 Dose: 40 mg Folic Acid (Folic Acid -) 1 mg PO DAILY [facility] Last Admin: 11/04/17 09:36 Dose: 1 mg Piperacillin Sod/Tazobactam (Sod 3.375 gm/ Dextrose) 50 mls @ 100 mls/hr IVPB Q8H-IV [facility]; Protocol Last Admin: 11/04/17 09:37 Dose: 100 mls/hr Insulin Aspart (Novolog Vial Sliding Scale -) 0 vial SQ ACHS [facility]; Protocol Last Admin: 11/04/17 11:57 Dose: Not Given Magnesium Oxide (Mag-Ox -) 400 mg PO BID [facility] Last Admin: 11/04/17 09:36 Dose: 400 mg Metoprolol Succinate (Toprol Xl -) 25 mg PO DAILY [facility] Last Admin: 11/04/17 09:36 Dose: 25 mg Non-Formulary Medication (Cholecalciferol (Vitamin D3) [Vitamin D3]) 2,000 unit PO DAILY [facility] Last Admin: 11/04/17 09:37 Dose: Not Given Non-Formulary Medication (Ranitidine Hcl [Zantac]) 300 mg PO DAILY [facility] Last Admin: 11/04/17 09:37 Dose: Not Given Nystatin/Triamcinolone Acetonide (Mycolog Ii Cream -) 15 applic TP BID [facility] Last Admin: 11/04/17 11:56 Dose: 15 applic Thiamine HCl (Vitamin B1 -) 100 mg PO DAILY [facility] Last Admin: 11/04/17 09:36 Dose: 100 mg 67 year old woman with Hx of Hypertension, CAD, CVA, current smoker presented s/ p fall at home and found to have rhabdomyolysis and hyponatremia. #Hyponatremia (initially improved but downtrended again) #Rhabdomyolysis secondary to fall and prolong immobility #LE wounds #Anemia #Obesity Serum na stable, now 134 CK's now downtrended trend serum na and volume status, if leg edema persists can consider starting low dose loop diuretics Trend serum Na daily Devante Hartley DO
[2017-11-04] MEDS: CLINDAMYCIN HCL 150 MG CAPSULE (FP) PO SCH (18:26)
[2017-11-04] MEDS: ATORVASTATIN CA 40 MG TABLET (FP) PO SCH (21:33)
[2017-11-05] MEDS: CLINDAMYCIN HCL 150 MG CAPSULE (FP) PO SCH ×5 (00:18→23:38)
[2017-11-05] MEDS ORDERED: DEXTROSE 5%-WATER - 50 ML IVPB ONE ×3 (01:48→17:01)
[2017-11-05] MEDS ORDERED: PIPERACILLIN/TAZOBACTAM 3.375 GM VIAL IVPB ONE ×3 (01:48→17:01)
[2017-11-05] MEDS: PIPERACILLIN/TAZOB 3.375 GM 3.375 GM in DEXTROSE 5%-WATER - 50 ML IVPB SCH ×3 (01:52→17:13)
[2017-11-05 05:58] LABS: BASO % 0.8 % (0-2.0); EOS % 4.6 % (0-4.5); HEMOGLOBIN 8.4 GM/dL (11.7-16.9); LYMPH % 13.2 % (8-40); MCH 39.9 pg (25.7-33.7); MEAN CELL VOLUME 99.9 fl (80-96); MEAN PLT VOLUME 7.6 fl (7.5-11.1); MONO % 12.3 % (3.8-10.2); NEUT % 69.1 % (42.8-82.8); PLATELET COUNT 243 K/MM3 (134-434); RDW 14.4 % (11.9-15.9); WHITE BLOOD COUNT 5.6 K/mm3 (4.0-10.0)
[2017-11-05 06:31] LABS: MAGNESIUM 1.8 mg/dL (1.8-2.4); PHOSPHOROUS 3.2 mg/dL (2.5-4.9)
[2017-11-05] MEDS: INSULIN SLIDING SCALE (NOVOLOG) 1 VIAL SQ SCH ×4 (06:36→21:41)
[2017-11-05] MEDS: THIAMINE HCL 100 MG TABLET (FP) PO SCH (09:19)
[2017-11-05] MEDS: ASPIRIN 81 MG CHEWABLE TABLETS PO SCH (09:19)
[2017-11-05] MEDS: FOLIC ACID 1 MG TABLET (FP) PO SCH (09:19)
[2017-11-05] MEDS: NYSTATIN/TRIAMCINOLONE TOPICAL CREAM 15 GM TUBE TP SCH ×2 (09:19→21:41)
[2017-11-05] MEDS: MAGNESIUM OXIDE 400 MG TABLET (FP) PO SCH ×2 (09:19→21:36)
[2017-11-05] MEDS: BACITRACIN 15 GM TUBE TOPICAL OINTMENT TP SCH (09:20)
[2017-11-05] MEDS: PATIENT'S OWN MEDICATION (NON-FORMULARY) (Ranitidine Hcl [Zantac] 300 MG) PO SCH (09:22)
[2017-11-05] MEDS: ENOXAPARIN NA (PORCINE) 40 MG/0.4 ML DISP.SYRIN SQ SCH (09:23)
[2017-11-05] MEDS: metoPROLOL SUCCINATE 25 MG TAB.SR.24H (FP) PO SCH (09:38)
--- NOTE | 2017-11-05 10:47 | PN ---
Progress Note, Physician - Current Medication List Current Medications: Active Medications Aspirin (Asa -) 81 mg PO DAILY [facility] Last Admin: 11/05/17 09:19 Dose: 81 mg Atorvastatin Calcium (Lipitor -) 40 mg PO HS [facility] Last Admin: 11/04/17 21:33 Dose: 40 mg Bacitracin (Bacitracin -) 1 applic TP DAILY [facility] Last Admin: 11/05/17 09:20 Dose: 1 applic Clindamycin HCl (Cleocin -) 300 mg PO Q6HPO [facility] Last Admin: 11/05/17 06:00 Dose: 300 mg Enoxaparin Sodium (Lovenox -) 40 mg SQ DAILY [facility] Last Admin: 11/05/17 09:23 Dose: 40 mg Folic Acid (Folic Acid -) 1 mg PO DAILY [facility] Last Admin: 11/05/17 09:19 Dose: 1 mg Piperacillin Sod/Tazobactam (Sod 3.375 gm/ Dextrose) 50 mls @ 100 mls/hr IVPB Q8H-IV [facility]; Protocol Last Admin: 11/05/17 09:22 Dose: 100 mls/hr Insulin Aspart (Novolog Vial Sliding Scale -) 0 vial SQ ACHS [facility]; Protocol Last Admin: 11/05/17 06:36 Dose: Not Given Magnesium Oxide (Mag-Ox -) 400 mg PO BID [facility] Last Admin: 11/05/17 09:19 Dose: 400 mg Metoprolol Succinate (Toprol Xl -) 25 mg PO DAILY [facility] Last Admin: 11/05/17 09:38 Dose: 25 mg Non-Formulary Medication (Cholecalciferol (Vitamin D3) [Vitamin D3]) 2,000 unit PO DAILY [facility] Last Admin: 11/05/17 09:23 Dose: Not Given Non-Formulary Medication (Ranitidine Hcl [Zantac]) 300 mg PO DAILY [facility] Last Admin: 11/05/17 09:22 Dose: Not Given Nystatin/Triamcinolone Acetonide (Mycolog Ii Cream -) 15 applic TP BID [facility] Last Admin: 11/05/17 09:19 Dose: 15 applic Thiamine HCl (Vitamin B1 -) 100 mg PO DAILY [facility] Last Admin: 11/05/17 09:19 Dose: 100 mg - Objective Vital Signs: Vital Signs Temperature 98.7 F 11/05/17 06:00 Pulse Rate 88 11/05/17 06:00 Respiratory Rate 20 11/05/17 06:00 Blood Pressure 124/70 11/05/17 06:00 O2 Sat by Pulse Oximetry (%) 100 10/31/17 23:10 Cardiovascular: Yes: Regular Rate and Rhythm Respiratory: Yes: Regular, CTA Bilaterally Gastrointestinal: Yes: Normal Bowel Sounds, Soft. No: Tenderness Labs: CBC, BMP 11/05/17 05:35 Problem List - Problems (1) Anemia Assessment/Plan: -W/U Ordered -Follow trends -GI consult Code(s): D64.9 - ANEMIA, UNSPECIFIED Qualifiers: Anemia type: unspecified type Qualified Code(s): D64.9 - Anemia, unspecified (2) Hyponatremia Assessment/Plan: -Stable Code(s): E87.1 - HYPO-OSMOLALITY AND HYPONATREMIA (3) Venous stasis ulcer Assessment/Plan: -Abx -Wound care Code(s): I83.009 - VARICOSE VEINS OF [place]SP LOWER EXTREMITY W ULCER OF UNSP SITE; L97.909 - NON-PRS CHRONIC ULC [place] PRT OF UNSP LOW LEG W UNSP SEVERITY Qualifiers: Laterality: unspecified laterality Non-pressure ulcer stage: limited to breakdown of skin (4) Diabetes Assessment/Plan: -bgm Code(s): E11.9 - TYPE 2 DIABETES MELLITUS WITHOUT COMPLICATIONS (5) HTN (hypertension) Code(s): I10 - ESSENTIAL (PRIMARY) HYPERTENSION Qualifiers: Hypertension type: essential hypertension Qualified Code(s): I10 - Essential (primary) hypertension (6) Unsteady gait Assessment/Plan: -PT Code(s): R26.81 - UNSTEADINESS ON FEET
--- NOTE | 2017-11-05 10:51 | CON.GI ---
Consult Consult Specialty:: GI Referred by:: Dr Leann Ivy Reason for Consultation:: Anemia, Hgb 8.4 - History of Present Illness Chief Complaint: 67 y.o. obese man with DM, HTN, past CVA, chronic leg ulcers, admitted after fall at home. Initial Hgb 10, dropped slowly to 8.4 during hospitalization. MCV elevated at 99. Stool tested negative for occult blood on admission, BUN remains low. Patient has never had EGD or colonoscopy by his recollection. 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 Infectious Disease: Yes: Other (Bilateral lower extremity celulitis ) Additional Medical History: Chronic leg ulcers - Alcohol/Substance Use Hx Alcohol Use: Yes - Smoking History Smoking history: Former smoker Have you smoked in the past 12 months: No If you are a former smoker, when did you quit?: 14 YEARS AGO - Social History Usual Living Arrangement: Alone Home Medications - Allergies Allergies/Adverse Reactions: Allergies Allergy/AdvReac Type Severity Reaction Status Date / Time No Known Allergies Allergy Verified 06/15/15 10:42 - Home Medications Home Medications: Ambulatory Orders Aspirin [ASA -] 81 mg PO DAILY #30 tab.chew 06/18/15 Atorvastatin Ca [Lipitor] 40 mg PO HS #30 tablet 06/18/15 Folic Acid 1 mg PO DAILY #30 tablet 06/18/15 Metoprolol Succinate [Toprol XL -] 25 mg PO DAILY #30 tab.sr.24h 06/18/15 Thiamine HCl [Vitamin B1 -] 100 mg PO DAILY #30 tablet 06/18/15 Glipizide [Glipizide ER] 2.5 mg PO DAILY 01/26/16 Metformin HCl [Metformin HCl ER] 1,000 mg PO DAILY 01/26/16 Ranitidine HCl [Zantac] 300 mg PO DAILY 01/26/16 Cholecalciferol (Vitamin D3) [Vitamin D3] 2,000 unit PO DAILY 01/27/16 Family Disease History - Family Disease History Family Disease History: CA: Father (Lung CA) Physical Exam-GI Vital Signs: Vital Signs Temperature 98.7 F 11/05/17 06:00 Pulse Rate 88 11/05/17 06:00 Respiratory Rate 20 11/05/17 06:00 Blood Pressure 124/70 11/05/17 06:00 O2 Sat by Pulse Oximetry (%) 100 10/31/17 23:10 Gastrointestinal Inspection: Yes: Other (Markedly obese, no masses palpable.) ...Rectal Exam: Yes: Deferred Extremities: Yes: Other (No edema. Wrappings on both LEs below knees and to ankles.) Labs: CBC, BMP 11/05/17 05:35 Problem List - Problems (1) Anemia Code(s): D64.9 - ANEMIA, UNSPECIFIED Qualifiers: Anemia type: unspecified type Qualified Code(s): D64.9 - Anemia, unspecified Assessment/Plan Pt has a macrocytic anemia; also of note is a low serum albumin and an ESR>100. The low albumin and elevated ESR might be secondary to his infection, but there is also the possibility of myeloma. No protein was seen in the urine, so diabetic renal injury is not likely. Also the platelet count is over 200K, making cirrhosis unlikely, despite his history of diabetes and beer drinking. Chronic GI blood loss is excluded by the elevated MCV and negative stool for occult blood on admission. Suggest: 1) serum and urine immunofixation 2) B12 level 3) Repeat stool for occult blood. 4) As a precaution, since he is ill, on low dose aspirin and enoxaparin, will begin pantoprazole 40 mg po daily while he is in hospital. This need not be continued once he leaves. 5) Currently he is not a candidate for endoscopic procedures unless he has an obvious GI bleed. Case was discussed earlier with Dr Ivy who agrees that patient does not need endoscopy at this time.
[2017-11-05] MEDS ORDERED: INSULIN (NOVOLOG) ASPART 100 UNITS/ML 10ML VIAL ONE (11:22)
[2017-11-05 11:26] LABS: ANION GAP 5 MMOL/L (8-16); BLOOD UREA NITROGEN 6 mg/dL (7-18); CHLORIDE 97 mmol/L (98-107); CO2 30 mmol/L (21-32); CREATININE 0.7 mg/dL (0.55-1.3); GLUCOSE,RANDOM 113 mg/dL (74-106); SODIUM 132 mmol/L (136-145)
--- NOTE | 2017-11-05 16:30 | PN ---
Progress Note, Physician History of Present Illness: Pt is alert, afebrile. Has no specific complaints. Tolerating antibiotics. - Current Medication List Current Medications: Active Medications Aspirin (Asa -) 81 mg PO DAILY [facility] Last Admin: 11/05/17 09:19 Dose: 81 mg Atorvastatin Calcium (Lipitor -) 40 mg PO HS [facility] Last Admin: 11/04/17 21:33 Dose: 40 mg Bacitracin (Bacitracin -) 1 applic TP DAILY [facility] Last Admin: 11/05/17 09:20 Dose: 1 applic Clindamycin HCl (Cleocin -) 300 mg PO Q6HPO [facility] Last Admin: 11/05/17 11:29 Dose: 300 mg Enoxaparin Sodium (Lovenox -) 40 mg SQ DAILY [facility] Last Admin: 11/05/17 09:23 Dose: 40 mg Folic Acid (Folic Acid -) 1 mg PO DAILY [facility] Last Admin: 11/05/17 09:19 Dose: 1 mg Piperacillin Sod/Tazobactam (Sod 3.375 gm/ Dextrose) 50 mls @ 100 mls/hr IVPB Q8H-IV [facility]; Protocol Last Admin: 11/05/17 09:22 Dose: 100 mls/hr Insulin Aspart (Novolog Vial Sliding Scale -) 0 vial SQ ACHS [facility]; Protocol Last Admin: 11/05/17 16:01 Dose: Not Given Magnesium Oxide (Mag-Ox -) 400 mg PO BID [facility] Last Admin: 11/05/17 09:19 Dose: 400 mg Metoprolol Succinate (Toprol Xl -) 25 mg PO DAILY [facility] Last Admin: 11/05/17 09:38 Dose: 25 mg Non-Formulary Medication (Cholecalciferol (Vitamin D3) [Vitamin D3]) 2,000 unit PO DAILY [facility] Last Admin: 11/05/17 09:23 Dose: Not Given Non-Formulary Medication (Ranitidine Hcl [Zantac]) 300 mg PO DAILY [facility] Last Admin: 11/05/17 09:22 Dose: Not Given Nystatin/Triamcinolone Acetonide (Mycolog Ii Cream -) 15 applic TP BID [facility] Last Admin: 11/05/17 09:19 Dose: 15 applic Thiamine HCl (Vitamin B1 -) 100 mg PO DAILY [facility] Last Admin: 11/05/17 09:19 Dose: 100 mg - Objective Vital Signs: Vital Signs Temperature 98.1 F 11/05/17 14:44 Pulse Rate 89 11/05/17 14:44 Respiratory Rate 20 11/05/17 10:00 Blood Pressure 104/58 L 11/05/17 14:44 O2 Sat by Pulse Oximetry (%) 100 10/31/17 23:10 Constitutional: Yes: No Distress Cardiovascular: Yes: Regular Rate and Rhythm Respiratory: Yes: Regular Gastrointestinal: Yes: Normal Bowel Sounds, Soft, Abdomen, Obese Integumentary: Yes: Erythema (LE edema, mild RLE erythema/venous stasis ulcers) Neurological: Yes: Alert Labs: CBC, BMP 11/05/17 05:35 11/05/17 05:35 Problem List - Problems (1) Anemia Code(s): D64.9 - ANEMIA, UNSPECIFIED Qualifiers: Anemia type: unspecified type Qualified Code(s): D64.9 - Anemia, unspecified (2) Hyponatremia Code(s): E87.1 - HYPO-OSMOLALITY AND HYPONATREMIA (3) Rhabdomyolysis Code(s): M62.82 - RHABDOMYOLYSIS Qualifiers: Rhabdomyolysis type: traumatic Encounter type: initial encounter Qualified Code(s): T79.6XXA - Traumatic ischemia of muscle, initial encounter (4) Venous stasis ulcer Code(s): I83.009 - VARICOSE VEINS OF UNSP LOWER EXTREMITY W ULCER OF UNSP SITE; L97.909 - NON-PRS CHRONIC ULC UNSP PRT OF UNSP LOW LEG W UNSP SEVERITY Qualifiers: Laterality: unspecified laterality Non-pressure ulcer stage: limited to breakdown of skin (5) CAD (coronary artery disease) Code(s): I25.10 - ATHSCL HEART DISEASE OF [place] CORONARY ARTERY W/O ANG PCTRS Qualifiers: Coronary Disease-Associated Artery/Lesion type: [place] artery [place] vs. transplanted heart: [place] heart Associated angina: angina presence unspecified Qualified Code(s): I25.10 - Atherosclerotic heart disease of [place] coronary artery without angina pectoris (6) CVA (cerebral vascular accident) Code(s): I63.9 - CEREBRAL INFARCTION, UNSPECIFIED Qualifiers: CVA mechanism: unspecified Qualified Code(s): I63.9 - Cerebral infarction, unspecified (7) Diabetes Code(s): E11.9 - TYPE 2 DIABETES MELLITUS WITHOUT COMPLICATIONS (8) HTN (hypertension) Code(s): I10 - ESSENTIAL (PRIMARY) HYPERTENSION Qualifiers: Hypertension type: essential hypertension Qualified Code(s): I10 - Essential (primary) hypertension Assessment/Plan RLE cellulitis/venous stasis ulcers Rhabdomyolysis s/p CVA CAD HTN -- cont. current antibiotics -- wound care to continue -- switch to oral antibiotics as improves '
[2017-11-05] MEDS: ATORVASTATIN CA 40 MG TABLET (FP) PO SCH (21:36)
[2017-11-06] MEDS ORDERED: PIPERACILLIN/TAZOBACTAM 3.375 GM VIAL IVPB ONE ×3 (02:09→18:26)
[2017-11-06] MEDS ORDERED: DEXTROSE 5%-WATER - 50 ML IVPB ONE ×3 (02:10→18:26)
[2017-11-06] MEDS: PIPERACILLIN/TAZOB 3.375 GM 3.375 GM in DEXTROSE 5%-WATER - 50 ML IVPB SCH ×3 (02:26→18:24)
[2017-11-06] MEDS: INSULIN SLIDING SCALE (NOVOLOG) 1 VIAL SQ SCH ×4 (06:05→21:35)
[2017-11-06] MEDS: CLINDAMYCIN HCL 150 MG CAPSULE (FP) PO SCH ×3 (06:05→18:24)
[2017-11-06 09:38] LABS: BASO % 0.9 % (0-2.0); HEMATOCRIT 23.4 % (35.4-49); HEMOGLOBIN 8.6 GM/dL (11.7-16.9); LYMPH % 11.9 % (8-40); MCH 34.7 pg (25.7-33.7); MCHC 36.8 g/dl (32.0-35.9); MEAN CELL VOLUME 94.5 fl (80-96); MEAN PLT VOLUME 7.6 fl (7.5-11.1); MONO % 11.4 % (3.8-10.2); NEUT % 71.8 % (42.8-82.8); PLATELET COUNT 271 K/MM3 (134-434); RBC 2.47 M/mm3 (4.00-5.60); RDW 14.3 % (11.9-15.9); WHITE BLOOD COUNT 5.4 K/mm3 (4.0-10.0)
[2017-11-06] MEDS: MAGNESIUM OXIDE 400 MG TABLET (FP) PO SCH ×2 (09:57→21:33)
[2017-11-06] MEDS: FOLIC ACID 1 MG TABLET (FP) PO SCH (09:57)
[2017-11-06] MEDS: NYSTATIN/TRIAMCINOLONE TOPICAL CREAM 15 GM TUBE TP SCH ×2 (09:57→22:00)
[2017-11-06] MEDS: ENOXAPARIN NA (PORCINE) 40 MG/0.4 ML DISP.SYRIN SQ SCH (09:57)
[2017-11-06] MEDS: metoPROLOL SUCCINATE 25 MG TAB.SR.24H (FP) PO SCH (09:57)
[2017-11-06] MEDS: ASPIRIN 81 MG CHEWABLE TABLETS PO SCH (09:57)
[2017-11-06] MEDS: THIAMINE HCL 100 MG TABLET (FP) PO SCH (09:57)
[2017-11-06] MEDS: BACITRACIN 15 GM TUBE TOPICAL OINTMENT TP SCH (09:58)
[2017-11-06] MEDS: PATIENT'S OWN MEDICATION (NON-FORMULARY) (Ranitidine Hcl [Zantac] 300 MG) PO SCH (09:58)
[2017-11-06 10:08] LABS: ALBUMIN 2.7 g/dl (3.4-5.0); ALK PHOS 51 U/L (45-117); ANION GAP 7 MMOL/L (8-16); BILIRUBIN,TOTAL 0.5 mg/dL (0.2-1); BLOOD UREA NITROGEN 5 mg/dL (7-18); CALCIUM 8.7 mg/dL (8.5-10.1); CHLORIDE 97 mmol/L (98-107); CO2 29 mmol/L (21-32); CREATININE 0.6 mg/dL (0.55-1.3); GLUCOSE,RANDOM 138 mg/dL (74-106); SGOT/AST 13 U/L (15-37); SGPT/ALT 14 U/L (13-61); SODIUM 133 mmol/L (136-145); TOT PROT 6.9 g/dl (6.4-8.2)
--- NOTE | 2017-11-06 14:41 | PN ---
Progress Note, Physician - Current Medication List Current Medications: Active Medications Aspirin (Asa -) 81 mg PO DAILY [facility] Last Admin: 11/06/17 09:57 Dose: 81 mg Atorvastatin Calcium (Lipitor -) 40 mg PO HS [facility] Last Admin: 11/05/17 21:36 Dose: 40 mg Bacitracin (Bacitracin -) 1 applic TP DAILY [facility] Last Admin: 11/06/17 09:58 Dose: 1 applic Clindamycin HCl (Cleocin -) 300 mg PO Q6HPO [facility] Last Admin: 11/06/17 11:52 Dose: 300 mg Enoxaparin Sodium (Lovenox -) 40 mg SQ DAILY [facility] Last Admin: 11/06/17 09:57 Dose: 40 mg Folic Acid (Folic Acid -) 1 mg PO DAILY [facility] Last Admin: 11/06/17 09:57 Dose: 1 mg Piperacillin Sod/Tazobactam (Sod 3.375 gm/ Dextrose) 50 mls @ 100 mls/hr IVPB Q8H-IV [facility]; Protocol Last Admin: 11/06/17 09:58 Dose: 100 mls/hr Insulin Aspart (Novolog Vial Sliding Scale -) 0 vial SQ ACHS [facility]; Protocol Last Admin: 11/06/17 11:45 Dose: Not Given Magnesium Oxide (Mag-Ox -) 400 mg PO BID [facility] Last Admin: 11/06/17 09:57 Dose: 400 mg Metoprolol Succinate (Toprol Xl -) 25 mg PO DAILY [facility] Last Admin: 11/06/17 09:57 Dose: 25 mg Non-Formulary Medication (Cholecalciferol (Vitamin D3) [Vitamin D3]) 2,000 unit PO DAILY [facility] Last Admin: 11/06/17 09:58 Dose: Not Given Non-Formulary Medication (Ranitidine Hcl [Zantac]) 300 mg PO DAILY [facility] Last Admin: 11/06/17 09:58 Dose: Not Given Nystatin/Triamcinolone Acetonide (Mycolog Ii Cream -) 15 applic TP BID [facility] Last Admin: 11/06/17 09:57 Dose: 15 applic Thiamine HCl (Vitamin B1 -) 100 mg PO DAILY [facility] Last Admin: 11/06/17 09:57 Dose: 100 mg - Objective Vital Signs: Vital Signs Temperature 98.1 F 11/06/17 10:00 Pulse Rate 98 H 11/06/17 10:00 Respiratory Rate 20 11/06/17 10:00 Blood Pressure 129/75 11/06/17 10:00 O2 Sat by Pulse Oximetry (%) 91 L 11/06/17 09:00 Cardiovascular: Yes: S1, S2 Respiratory: Yes: Regular, CTA Bilaterally Gastrointestinal: Yes: Normal Bowel Sounds, Soft Extremities: Yes: Erythema Integumentary: Yes: Erythema, Venous Stasis Changes Wound/Incision: Yes: Excoriated Labs: CBC, BMP 11/06/17 09:14 11/06/17 09:14 Problem List - Problems (1) Anemia Assessment/Plan: -W/U Ordered -Follow trends -GI consult Code(s): D64.9 - ANEMIA, UNSPECIFIED Qualifiers: Anemia type: unspecified type Qualified Code(s): D64.9 - Anemia, unspecified (2) Hyponatremia Assessment/Plan: -Stable Code(s): E87.1 - HYPO-OSMOLALITY AND HYPONATREMIA (3) Venous stasis ulcer Assessment/Plan: -Abx -Wound care Code(s): I83.009 - VARICOSE VEINS OF UNSP LOWER EXTREMITY W ULCER OF UNSP SITE; L97.909 - NON-PRS CHRONIC ULC UNSP PRT OF UNSP LOW LEG W UNSP SEVERITY Qualifiers: Laterality: unspecified laterality Non-pressure ulcer stage: limited to breakdown of skin (4) Diabetes Assessment/Plan: -bgm Code(s): E11.9 - TYPE 2 DIABETES MELLITUS WITHOUT COMPLICATIONS (5) HTN (hypertension) Code(s): I10 - ESSENTIAL (PRIMARY) HYPERTENSION Qualifiers: Hypertension type: essential hypertension Qualified Code(s): I10 - Essential (primary) hypertension (6) Unsteady gait Assessment/Plan: -PT Code(s): R26.81 - UNSTEADINESS ON FEET
--- NOTE | 2017-11-06 16:46 | PN ---
Progress Note, Physician History of Present Illness: Pt states he is feeling a bit better. Less pain in legs reported. Tmax 99.5F. No specific complaints. - Current Medication List Current Medications: Active Medications Aspirin (Asa -) 81 mg PO DAILY [facility] Last Admin: 11/06/17 09:57 Dose: 81 mg Atorvastatin Calcium (Lipitor -) 40 mg PO HS [facility] Last Admin: 11/05/17 21:36 Dose: 40 mg Bacitracin (Bacitracin -) 1 applic TP DAILY [facility] Last Admin: 11/06/17 09:58 Dose: 1 applic Clindamycin HCl (Cleocin -) 300 mg PO Q6HPO [facility] Last Admin: 11/06/17 11:52 Dose: 300 mg Enoxaparin Sodium (Lovenox -) 40 mg SQ DAILY [facility] Last Admin: 11/06/17 09:57 Dose: 40 mg Folic Acid (Folic Acid -) 1 mg PO DAILY [facility] Last Admin: 11/06/17 09:57 Dose: 1 mg Piperacillin Sod/Tazobactam (Sod 3.375 gm/ Dextrose) 50 mls @ 100 mls/hr IVPB Q8H-IV [facility]; Protocol Last Admin: 11/06/17 09:58 Dose: 100 mls/hr Insulin Aspart (Novolog Vial Sliding Scale -) 0 vial SQ ACHS [facility]; Protocol Last Admin: 11/06/17 11:45 Dose: Not Given Magnesium Oxide (Mag-Ox -) 400 mg PO BID [facility] Last Admin: 11/06/17 09:57 Dose: 400 mg Metoprolol Succinate (Toprol Xl -) 25 mg PO DAILY [facility] Last Admin: 11/06/17 09:57 Dose: 25 mg Non-Formulary Medication (Cholecalciferol (Vitamin D3) [Vitamin D3]) 2,000 unit PO DAILY [facility] Last Admin: 11/06/17 09:58 Dose: Not Given Non-Formulary Medication (Ranitidine Hcl [Zantac]) 300 mg PO DAILY [facility] Last Admin: 11/06/17 09:58 Dose: Not Given Nystatin/Triamcinolone Acetonide (Mycolog Ii Cream -) 15 applic TP BID [facility] Last Admin: 11/06/17 09:57 Dose: 15 applic Thiamine HCl (Vitamin B1 -) 100 mg PO DAILY [facility] Last Admin: 11/06/17 09:57 Dose: 100 mg - Objective Vital Signs: Vital Signs Temperature 98.1 F 11/06/17 10:00 Pulse Rate 98 H 11/06/17 10:00 Respiratory Rate 20 11/06/17 10:00 Blood Pressure 129/75 11/06/17 10:00 O2 Sat by Pulse Oximetry (%) 91 L 11/06/17 09:00 Constitutional: Yes: No Distress, Calm Cardiovascular: Yes: Regular Rate and Rhythm Respiratory: Yes: Regular Gastrointestinal: Yes: Normal Bowel Sounds, Soft, Abdomen, Obese Integumentary: Yes: Erythema (RLE >LLE), Venous Stasis Changes, Other ( onychomycosis) Neurological: Yes: Alert, Oriented Labs: CBC, BMP 11/06/17 09:14 11/06/17 09:14 Problem List - Problems (1) Anemia Code(s): D64.9 - ANEMIA, UNSPECIFIED Qualifiers: Anemia type: unspecified type Qualified Code(s): D64.9 - Anemia, unspecified (2) Hyponatremia Code(s): E87.1 - HYPO-OSMOLALITY AND HYPONATREMIA (3) Rhabdomyolysis Code(s): M62.82 - RHABDOMYOLYSIS Qualifiers: Rhabdomyolysis type: traumatic Encounter type: initial encounter Qualified Code(s): T79.6XXA - Traumatic ischemia of muscle, initial encounter (4) Venous stasis ulcer Code(s): I83.009 - VARICOSE VEINS OF UNSP LOWER EXTREMITY W ULCER OF UNSP SITE; L97.909 - NON-PRS CHRONIC ULC UNSP PRT OF UNSP LOW LEG W UNSP SEVERITY Qualifiers: Laterality: unspecified laterality Non-pressure ulcer stage: limited to breakdown of skin (5) CAD (coronary artery disease) Code(s): I25.10 - ATHSCL HEART DISEASE OF [place] CORONARY ARTERY W/O ANG PCTRS Qualifiers: Coronary Disease-Associated Artery/Lesion type: [place] artery [place] vs. transplanted heart: [place] heart Associated angina: angina presence unspecified Qualified Code(s): I25.10 - Atherosclerotic heart disease of [place] coronary artery without angina pectoris (6) CVA (cerebral vascular accident) Code(s): I63.9 - CEREBRAL INFARCTION, UNSPECIFIED Qualifiers: CVA mechanism: unspecified Qualified Code(s): I63.9 - Cerebral infarction, unspecified (7) Diabetes Code(s): E11.9 - TYPE 2 DIABETES MELLITUS WITHOUT COMPLICATIONS (8) HTN (hypertension) Code(s): I10 - ESSENTIAL (PRIMARY) HYPERTENSION Qualifiers: Hypertension type: essential hypertension Qualified Code(s): I10 - Essential (primary) hypertension Assessment/Plan RLE cellulitis/venous stasis ulcers Rhabdomyolysis s/p CVA CAD HTN -- pt with mild temperature elevation earlier -- continue IV antibiotics for now -- wound care to continue -- will continue to follow '
[2017-11-06] MEDS: ATORVASTATIN CA 40 MG TABLET (FP) PO SCH (21:33)
[2017-11-07] MEDS: CLINDAMYCIN HCL 150 MG CAPSULE (FP) PO SCH ×4 (00:27→17:25)
[2017-11-07] MEDS ORDERED: DEXTROSE 5%-WATER - 50 ML IVPB ONE ×2 (01:08→10:22)
[2017-11-07] MEDS ORDERED: PIPERACILLIN/TAZOBACTAM 3.375 GM VIAL IVPB ONE ×2 (01:08→10:22)
[2017-11-07] MEDS: PIPERACILLIN/TAZOB 3.375 GM 3.375 GM in DEXTROSE 5%-WATER - 50 ML IVPB SCH ×2 (02:38→10:56)
[2017-11-07] MEDS: INSULIN SLIDING SCALE (NOVOLOG) 1 VIAL SQ SCH ×3 (06:07→17:14)
--- NOTE | 2017-11-07 09:11 | DS ---
Physical Examination Vital Signs: Vital Signs Temperature 98.8 F 11/07/17 05:55 Pulse Rate 87 11/07/17 05:55 Respiratory Rate 20 11/07/17 05:55 Blood Pressure 131/77 11/07/17 05:55 O2 Sat by Pulse Oximetry (%) 91 L 11/06/17 09:00 Labs: CBC, BMP 11/06/17 09:14 11/06/17 09:14 Discharge Summary Reason For Visit: HYPONATREMIA,RHABDOMYOLYSIS Current Active Problems Anemia (Acute) Hyponatremia (Acute) Rhabdomyolysis (Acute) Unsteady gait (Acute) Venous stasis ulcer (Acute) Condition: Fair - Instructions Referrals: Ani Ivy MD [Primary Care Provider] - - Home Medications Comprehensive Discharge Medication List: Ambulatory Orders Aspirin [ASA -] 81 mg PO DAILY #30 tab.chew 06/18/15 Atorvastatin Ca [Lipitor] 40 mg PO HS #30 tablet 06/18/15 Folic Acid 1 mg PO DAILY #30 tablet 06/18/15 Metoprolol Succinate [Toprol XL -] 25 mg PO DAILY #30 tab.sr.24h 06/18/15 Thiamine HCl [Vitamin B1 -] 100 mg PO DAILY #30 tablet 06/18/15 Glipizide [Glipizide ER] 2.5 mg PO DAILY 01/26/16 Metformin HCl [Metformin HCl ER] 1,000 mg PO DAILY 01/26/16 Ranitidine HCl [Zantac] 300 mg PO DAILY 01/26/16 Cholecalciferol (Vitamin D3) [Vitamin D3] 2,000 unit PO DAILY 01/27/16 Bacitracin - [Bacitracin Topical Ointment -] 1 applic TP DAILY tube 11/07/17 Clindamycin [Cleocin -] 300 mg PO Q6HPO capsule 11/07/17 Magnesium Oxide [Mag-Ox -] 400 mg PO BID tablet 11/07/17 Nystatin/Triamcinolone Top Cr [Mycolog II -] 15 applic TP BID applic 11/07/17
--- NOTE | 2017-11-07 09:56 | PN ---
Progress Note, Physician History of Present Illness: patient doing well still the legs dont look good with oozing dressing done - Current Medication List Current Medications: Active Medications Aspirin (Asa -) 81 mg PO DAILY [facility] Last Admin: 11/06/17 09:57 Dose: 81 mg Atorvastatin Calcium (Lipitor -) 40 mg PO HS [facility] Last Admin: 11/06/17 21:33 Dose: 40 mg Bacitracin (Bacitracin -) 1 applic TP DAILY [facility] Last Admin: 11/06/17 09:58 Dose: 1 applic Cholecalciferol (Vitamin D3 -) 2,000 unit PO DAILY [facility] Clindamycin HCl (Cleocin -) 300 mg PO Q6HPO [facility] Last Admin: 11/07/17 06:01 Dose: 300 mg Enoxaparin Sodium (Lovenox -) 40 mg SQ DAILY [facility] Last Admin: 11/06/17 09:57 Dose: 40 mg Folic Acid (Folic Acid -) 1 mg PO DAILY [facility] Last Admin: 11/06/17 09:57 Dose: 1 mg Piperacillin Sod/Tazobactam (Sod 3.375 gm/ Dextrose) 50 mls @ 100 mls/hr IVPB Q8H-IV [facility]; Protocol Last Admin: 11/07/17 02:38 Dose: 100 mls/hr Insulin Aspart (Novolog Vial Sliding Scale -) 0 vial SQ ACHS [facility]; Protocol Last Admin: 11/07/17 06:07 Dose: Not Given Magnesium Oxide (Mag-Ox -) 400 mg PO BID [facility] Last Admin: 11/06/17 21:33 Dose: 400 mg Metoprolol Succinate (Toprol Xl -) 25 mg PO DAILY [facility] Last Admin: 11/06/17 09:57 Dose: 25 mg Nystatin/Triamcinolone Acetonide (Mycolog Ii Cream -) 15 applic TP BID [facility] Last Admin: 11/06/17 22:00 Dose: 15 applic Ranitidine HCl (Zantac -) 300 mg PO DAILY [facility] Thiamine HCl (Vitamin B1 -) 100 mg PO DAILY [facility] Last Admin: 11/06/17 09:57 Dose: 100 mg - Objective Vital Signs: Vital Signs Temperature 98.8 F 11/07/17 05:55 Pulse Rate 87 11/07/17 05:55 Respiratory Rate 20 11/07/17 05:55 Blood Pressure 131/77 11/07/17 05:55 O2 Sat by Pulse Oximetry (%) 91 L 11/06/17 09:00 Constitutional: Yes: No Distress, Calm, Obese Cardiovascular: Yes: Regular Rate and Rhythm Respiratory: Yes: Regular, CTA Bilaterally Gastrointestinal: Yes: Normal Bowel Sounds, Soft Musculoskeletal: Yes: WNL Extremities: Yes: Erythema, Other (oozing) Integumentary: Yes: Erythema, Other Neurological: Yes: Alert, Oriented Psychiatric: Yes: Alert, Oriented Labs: CBC, BMP 11/06/17 09:14 11/06/17 09:14 Assessment/Plan Problem List - Problems (1) Hyponatremia Code(s): E87.1 - HYPO-OSMOLALITY AND HYPONATREMIA (2) Rhabdomyolysis Code(s): M62.82 - RHABDOMYOLYSIS Qualifiers: Rhabdomyolysis type: traumatic Encounter type: initial encounter Qualified Code(s): T79.6XXA - Traumatic ischemia of muscle, initial encounter (3) Venous stasis ulcer Code(s): I83.009 - VARICOSE VEINS OF [place] LOWER EXTREMITY W ULCER OF UNSP SITE; L97.909 - NON-PRS CHRONIC ULC UNSP PRT OF UNSP LOW LEG W UNSP SEVERITY Qualifiers: Laterality: unspecified laterality Non-pressure ulcer stage: limited to breakdown of skin (4) CAD (coronary artery disease) Code(s): I25.10 - ATHSCL HEART DISEASE OF [place] CORONARY ARTERY W/O ANG PCTRS Qualifiers: Coronary Disease-Associated Artery/Lesion type: [place] artery [place] vs. transplanted heart: [place] heart Associated angina: angina presence unspecified Qualified Code(s): I25.10 - Atherosclerotic heart disease of [place] coronary artery without angina pectoris (5) Diabetes Code(s): E11.9 - TYPE 2 DIABETES MELLITUS WITHOUT COMPLICATIONS (6) HTN (hypertension) Code(s): I10 - ESSENTIAL (PRIMARY) HYPERTENSION Qualifiers: Hypertension type: essential hypertension Qualified Code(s): I10 - Essential (primary) hypertension plan patient can be discharged on 1-- 5 more days of zosyn 2--clinda for 5 more days 3 will need wound care for a long time rest as per the team
[2017-11-07] MEDS ORDERED: CHOLECALCIFEROL (VITAMIN D3) 1,000 UNIT TABLET (FP) PO SCH (10:00)
[2017-11-07] MEDS ORDERED: RANITIDINE HCL 150 MG TABLET (FP) PO SCH (10:00)
--- NOTE | 2017-11-07 10:20 | CONS ---
PHYSICAL MEDICINE AND REHABILITATION CONSULTATION DATE OF CONSULTATION: 11/07/2017 REFERRING PHYSICIAN: Ani Ivy MD HISTORY OF PRESENT ILLNESS: The patient is a 67-year-old man with past medical history of diabetes, hypertension, coronary artery disease, lacunar infarct, who was admitted 2 days after a fall. Per the patient, he insists he was not admitted because of the fall, but because of his lower extremities which had become infected. Patient did undergo x-rays of both lower extremities which showed no acute bony changes. On admission, the patient's WBC is normal at 5.5, hemoglobin 10.2, platelet count 250. Chemistry showed a low sodium of 130, BUN normal at 10, creatinine 0.8. Patient currently has Rob wraps around both lower extremities. He is on clindamycin orally, as well as IV antibiotic piperacillin. Patient also is on Lovenox for deep venous prophylaxis. He was evaluated by Physical Therapy on November 03, ambulated 10 feet with a rolling walker contact guard, transfer contact guard and min assist. Patient's most current lab work as of November 06, WBC is normal at 5.4, hemoglobin stable at 8.6, platelet count is normal at 271. His chemistry showed improvement in sodium to 133, potassium 4.0, a slightly low chloride 97, BUN 5, creatinine 0.6. His albumin is low at 2.7. His vitamin B12 on October 28 was normal. The patient would like to return home with a walker. REVIEW OF PAST MEDICAL AND SURGICAL HISTORY: As above, hypertension, coronary artery disease, lacunar infarct, diabetes. SOCIAL HISTORY: He lives alone in a multi-family home. He has stair lifts within the home. Premorbidly, he used a straight cane, but states that he falls quite frequently. REVIEW OF SYSTEMS: No dizziness, lightheadedness. No blurry vision, double vision. No nausea, vomiting, difficulty swallowing, difficulty chewing. No chest pain or shortness of breath at rest. No fever or chills. No bowel, bladder incontinence or retention. He denies any numbness, tingling, any joint arthralgias, any neck or back pain. He does complain of some unsteadiness in his balance and gait and multiple falls. No skin rash, other than discoloration down the lower extremities. Other tests including vascular study of the lower extremities which failed to demonstrate any deep venous thrombosis. PHYSICAL EXAMINATION: General: On examination, overweight man seen lying in bed. He has oxygen on, but his oxygen nasal cannulas are not actually in his nose. He is breathing comfortably. He is awake and cooperative and in no acute distress. HEENT: Normocephalic and atraumatic. Extraocular muscles appear intact. Neck: Supple. Extremities: Without any calf tenderness. He has trace edema distally. He has Rob bandages on both lower extremities. No signs of infection, but the Rob bandages extend from the below the knee to the ankle. No breakdown in the heels. Neuromuscular: He is awake, alert, and oriented x3. Cranial nerves 2 through 12 appear grossly intact. He has good motor power in the upper and lower extremities with some mild hip girdle weakness at 4 out of 5 bilaterally. Normal sensation to light touch, pinprick. Symmetric reflexes. Downgoing toes. He has no gross arthritic change in the upper or lower extremities and good joint stability. OVERALL IMPRESSION: 1. Deficits in mobility, activities of daily living. 2. Frequent falls. 3. History of type 2 diabetes without any definite neuropathy. 4. History of lacunar infarct. 5. Venous stasis ulcers; possibly infected. 6. Hyponatremia. 7. Rhabdomyolysis. 8. Elevated body mass index. 9. Coronary artery disease. 10. Hypertension. 11. Elevated risk for DVT due to immobility. PLAN/SUGGESTION: 1. Continue bedside physical therapy for mobilization, bed mobility, transfers, strengthening, conditioning of lower extremities, gait training. 2. Would benefit from a rolling walker at home if he returns straight home. 3. Out of bed with assistance. 4. Wean oxygen as able. 5. Patient on Lovenox for DVT prophylaxis. Would continue until more mobile. 6. Monitor sodium level. 7. Continue Rob bandages for edema control. 8. Consider SCDs. 9. Case Management for disposition. Thank you very much for this consultation. ANNEL CARD M.D. [id number] MTDD
[2017-11-07] MEDS: BACITRACIN 15 GM TUBE TOPICAL OINTMENT TP SCH (10:55)
[2017-11-07] MEDS: ENOXAPARIN NA (PORCINE) 40 MG/0.4 ML DISP.SYRIN SQ SCH (10:56)
[2017-11-07] MEDS: NYSTATIN/TRIAMCINOLONE TOPICAL CREAM 15 GM TUBE TP SCH (10:56)
[2017-11-07] MEDS: metoPROLOL SUCCINATE 25 MG TAB.SR.24H (FP) PO SCH (10:56)
[2017-11-07] MEDS: FOLIC ACID 1 MG TABLET (FP) PO SCH (10:56)
[2017-11-07] MEDS: THIAMINE HCL 100 MG TABLET (FP) PO SCH (10:56)
[2017-11-07] MEDS: ASPIRIN 81 MG CHEWABLE TABLETS PO SCH (10:56)
[2017-11-07] MEDS: MAGNESIUM OXIDE 400 MG TABLET (FP) PO SCH (10:56)
[2017-11-07 17:54] VITALS: BP 128/68; PULSE 79; TEMP 98.1
== END 2017-11-07 17:48 | DRG 558 ==
LOC: JER 12:52 → JERBED 18:43 → J6S 11-01 05:33 → OBSVTOIN 11-01 10:08
PROVIDERS: ADMIT Internal Medicine; ATTEND Family Medicine
DX: M62.82 Rhabdomyolysis (principal); E87.1 Hypo-osmolality and hyponatremia; L03.115 Cellulitis of right lower limb; L97.929 Non-pressure chronic ulcer of unspecified part of left lower leg with unspecified severity; L03.116 Cellulitis of left lower limb; I10 Essential (primary) hypertension; E11.9 Type 2 diabetes mellitus without complications; I25.10 Atherosclerotic heart disease of native coronary artery without angina pectoris; D64.9 Anemia, unspecified; I87.2 Venous insufficiency (chronic) (peripheral); R26.81 Unsteadiness on feet; E66.9 Obesity, unspecified; Z68.37 Body mass index [BMI] 37.0-37.9, adult
CPT/HCPCS: 36415; 70450-TC; 71045-TC-FY; 73590-TC-LT-FY; 73590-TC-RT-FY; 80048; 80053; 81003; 82272; 82550; 82553; 82607; 82784; 82962; 83540; 83735; 83930; 83935; 84100; 84155; 84165; 84300; 84484; 85025; 85027; 85651; 86140; 86334; 86850; 86900; 86901; 87040; 90670; 93005; 93010; 93970-TC; 97116-GP; 97162-GP; 99284-25; G0378; J7030

== ENCOUNTER 2019-03-19 11:26 | Inpatient (IN) | payer OTHER, BC ==
--- NOTE | 2019-03-19 13:51 | PDOC ---
History of Present Illness - General Chief Complaint: Wound Stated Complaint: SENT FROM WOUND CARE Time Seen by Provider: 03/19/19 13:15 History Source: Patient, Significant Other - History of Present Illness Initial Comments: 68M PMH NIDDM, CAD, HTN, CVA sent from [facility]. [facility] for nonhealing necrotic ulcers of the b/l feet. Pt has had wound for about a month now but developed localized nonradiating pain in the past few days. Denies fevers, chills, numbness, tingling. Denies chest pain, sob, abdominal pain, dysuria, diarrhea. NKDA PCP - Dr. Ivy Past History - Past Medical History Allergies/Adverse Reactions: Allergies Allergy/AdvReac Type Severity Reaction Status Date / Time No Known Allergies Allergy Verified 03/19/19 10:32 Home Medications: Ambulatory Orders Aspirin [ASA -] 81 mg PO DAILY #30 tab.chew 06/18/15 Folic Acid 1 mg PO DAILY #30 tablet 06/18/15 Glipizide [Glipizide ER] 2.5 mg PO DAILY 01/26/16 metFORMIN HCL [Metformin ER Osmotic] 1,000 mg PO DAILY 01/26/16 Cholecalciferol (Vitamin D3) [Vitamin D3] 2,000 unit PO DAILY 01/27/16 Furosemide 40 tab PO BID 05/18/18 Cholecalciferol (Vitamin D3) [Vitamin D3] 2,000 unit PO DAILY 03/19/19 Famotidine 20 mg PO DAILY 03/19/19 Gabapentin 100 mg PO HS 03/19/19 Lisinopril [Zestril] 2.5 mg PO DAILY 03/19/19 Metoprolol Tartrate 25 mg PO DAILY 03/19/19 Anemia: No Asthma: No Cancer: No Cardiac Disorders: Yes CVA: No COPD: No CHF: No Dementia: No Diabetes: Yes GI Disorders: No Disorders: No HTN: Yes Hypercholesterolemia: Yes Liver Disease: No Seizures: No Thyroid Disease: No - Surgical History Abdominal Surgery: No Appendectomy: No Cardiac Surgery: No Cholecystectomy: No Lung Surgery: No Neurologic Surgery: No Orthopedic Surgery: No - Psycho Social/Smoking Cessation Hx Smoking History: Never smoked Have you smoked in the past 12 months: No If you are a former smoker, when did you quit?: 14 YEARS AGO Hx Alcohol Use: No Drug/Substance Use Hx: No Substance Use Type: None Hx Substance Use Treatment: No Review of Systems - Review of Systems Able to Perform ROS?: Yes Comments:: CONSTITUTIONAL: Denies F / C HEENT: Denies headache RESP: Denies SOB, cough CARD: Denies chest pain GI: Denies N / V / D, abdominal pain : Denies dysuria SKIN: Endorse longstanding erythema of the b/l; b/l foot ulcers. Denies rashes. NEURO: Denies numbness MSK: Denies back pain *Physical Exam - Vital Signs Last Vital Signs Temp Pulse Resp BP Pulse Ox 98.0 F 92 H 17 125/65 100 03/19/19 11:52 03/19/19 11:52 03/19/19 11:52 03/19/19 11:52 03/19/19 11:52 - Physical Exam GEN: NAD, comfortable. AAOx3. HEENT: NC/AT, EOMI, PERRL. No facial asymmetry. Poor dentition. Normal voice. Supple neck w/ FROM. CV: S1/S2, RRR, no m/r/g LUNG: CTAB, no wheezes, crackles, rales, rhonchi. GI: Obese, soft, ndnt, +BS, no guarding, no rebound. MSK: multiple unstageable wounds of the b/l feet. Right foot - 3 ulcers on the balls of feet w/ largest being 4x3cm on the lateral aspect of the foot. Right foot - 3 ulcers, one of the great toe, one of the ball of foot, and largest 4x2cm at heel. Foul smelling. Some purulence. SKIN: Warm, dry, no rashes appreciated. b/l LE (shins) erythematous w/o TTP. PSYCH: Normal mood and affect. NEURO: Sensation of the b/l feet intact to light touch. ED Treatment Course - LABORATORY CBC & Chemistry Diagram: 03/23/19 07:55 03/23/19 07:55 - RADIOLOGY Radiology Studies Ordered: Category Date Time Status CHEST X-RAY PORTABLE* [RAD] Stat Radiology 03/19/19 13:31 Ordered Medical Decision Making - Medical Decision Making 03/19/19 13:34 68M PMH NIDDM, CAD, HTN, CVA sent in by Dr. Salazar for admission. Has unstageable nonhealing foot ulcers of the b/l feet. Sensation is intact. DDx - DM foot ulcer, cellulitis, OM, r/o DVT - cbc, cmp, coags, t&s - XRs - Duplex - BCx - Dr. Salazar for abx recs - admit 03/19/19 14:13 d/w Dr. Salazar - coco, jeanne, c/s, admit 03/19/19 15:47 No DVT on doppler 03/19/19 17:15 labs reviewed CRP 1.6 //admitted Discharge - Discharge Information Problems reviewed: Yes Clinical Impression/Diagnosis: Ulcer Condition: Stable - Admission Yes - Follow up/Referral - Patient Discharge Instructions - Post Discharge Activity
[2019-03-19] MEDS ORDERED: PIPERACILLIN/TAZOB 4.5 GM 4.5 GM in DEXTROSE 5%-WATER 100 ML IVPB ONE (14:11)
[2019-03-19] MEDS ORDERED: VANCOMYCIN 1 GM in D5W (PRE-DOCKED) 1,000 MG/250 ML IVPB ONE (14:11)
--- NOTE | 2019-03-19 14:19 | PDOC ---
Documentation entered by Alessandro Corrales SCRIBE, acting as scribe for Sherrie Villafuerte MD. Sherrie Villafuerte MD: This documentation has been prepared by the Savanna osuna Nirvannie, SCRIBE, under my direction and personally reviewed by me in its entirety. I confirm that the documentation accurately reflects all work, treatment, procedures, and medical decision making performed by me. Attending Attestation - Resident Resident Name: Cb Crystal - ED Attending Attestation I have performed the following: I have examined & evaluated the patient, The case was reviewed & discussed with the resident, I agree w/resident's findings & plan, Exceptions are as noted - HPI HPI: 03/19/19 14:30 The patient is a 68 year old male, with a significant past medical history of HTN, DM, CAD, CVA, and chronic wounds, who presents to the emergency department with non-healing wounds to the bilateral feet. As per patient, he was advised by his ID physician Dr. Salazar to report to the ED for further evaluation and admission for IV antibiotics. Allergies: NKDA Past surgical history: Tonsillectomy Social history: Former smoker Primary Care Physician: Dr. Ivy - Physicial Exam PE: GENERAL: Awake, alert, and fully oriented, in no acute distress. Obese HEAD: No signs of trauma EYES: PERRLA, EOMI, sclera anicteric, conjunctiva clear ENT: Auricles normal inspection, hearing grossly normal, nares patent, oropharynx clear without exudates. Moist mucosa NECK: Normal ROM, supple, no lymphadenopathy, JVD, or masses LUNGS: Breath sounds equal, clear to auscultation bilaterally. No wheezes, and no crackles HEART: Regular rate and rhythm, normal S1 and S2, no murmurs, rubs or gallops ABDOMEN: Soft, nontender, normoactive bowel sounds. No guarding, no rebound. No masses EXTREMITIES: Normal range of motion, 4+ edema to BLE with chronic stasis changes , erythema, and induration. No clubbing or cyanosis NEUROLOGICAL: Cranial nerves II through XII grossly intact. Normal speech. Motor and sensation intact SKIN: Warm, dry, normal turgor, no rashes or lesions noted. +Wound to R foot, instep, 4x3cm, well-circumscribed, malodorous. +Wound to L heel, 4x3cm, well- circumscribed, malodorous. - Medical Decision Making Pt with BLE cellulitis, B/L malodorous foot wounds. Admit for IV abx. Consult to Dr. Salazar, who sent patient in.
[2019-03-19] MEDS ORDERED: PIPERACILLIN/TAZOB 4.5 GM 4.5 GM/100 ML BAG IVPB ONE ×2 (16:01→16:46)
[2019-03-19] MEDS ORDERED: VANCOMYCIN 1 GRAM (PRE-DOCKED) 1,000 MG/250 ML BAG IVPB ONE ×2 (16:01→16:46)
[2019-03-19 16:09] LABS: BASO % 1.2 % (0-2.0); EOS % 1.7 % (0-4.5); LYMPH % 10.6 % (8-40); MCH 36.9 pg (25.7-33.7); MCHC 36.8 g/dl (32.0-35.9); MEAN CELL VOLUME 100.4 fl (80-96); MEAN PLT VOLUME 8.9 fl (7.5-11.1); MONO % 4.6 % (3.8-10.2); NEUT % 81.9 % (42.8-82.8); PLATELET COUNT 176 K/MM3 (134-434); RBC 2.99 M/mm3 (4.00-5.60); RDW 14.8 % (11.9-15.9); WHITE BLOOD COUNT 4.5 K/mm3 (4.0-10.0)
[2019-03-19 16:22] LABS: INR 1.16 (0.83-1.09); PROTHROMBIN TIME (PATIENT) 13.7 SEC (9.7-13.0)
[2019-03-19 16:38] LABS: ALBUMIN 3.5 g/dl (3.4-5.0); BILIRUBIN,TOTAL 0.8 mg/dL (0.2-1); BLOOD UREA NITROGEN 17.5 mg/dL (7-18); CALCIUM 8.3 mg/dL (8.5-10.1); CREATININE 1.1 mg/dL (0.55-1.3); POTASSIUM 3.2 mmol/L (3.5-5.1); TOT PROT 7.7 g/dl (6.4-8.2)
[2019-03-19 20:40] LABS: ERYTHROCYTE SEDIMENTATION RATE 83 mm/hr (0-20)
--- NOTE | 2019-03-19 21:15 | HP ---
CHIEF COMPLAINT:bilateral lower extremity redness and pain PCP:Dr. Ivy HISTORY OF PRESENT ILLNESS: This is a 68 year old male with past medical history of NIDDM, CAD, HTN, and CVA who was sent from office for nonhealing necrotic ulcers of the bilateral feet. Patient has had wound for about a month now but developed localized nonradiating pain in the past few days. He denied, fevers, chills, numbness,tingling, chest pain, sob, abdominal pain, dysuria. He was sent to the ER for admission for further medical treatment with IV antibiotics. ER course was notable for: (1)BLE Cellulitis, afebrile, normal WBC, received one dose of pippercillin and Vancomycin and percocet for pain Recent Travel: no PAST MEDICAL HISTORY: NIDDM CAD HTN CVA PAST SURGICAL HISTORY: none Social History: Smoking:no Alcohol:no Drugs: no Allergies No Known Allergies Allergy (Verified 03/19/19 10:32) HOME MEDICATIONS: Home Medications Medication Instructions Recorded Aspirin [ASA -] 81 mg PO DAILY #30 tab.chew 06/18/15 Folic Acid 1 mg PO DAILY #30 tablet 06/18/15 Glipizide [Glipizide ER] 2.5 mg PO DAILY 01/26/16 metFORMIN HCL [Metformin ER 1,000 mg PO DAILY 01/26/16 Osmotic] Cholecalciferol (Vitamin D3) 2,000 unit PO DAILY 01/27/16 [Vitamin D3] Furosemide 40 tab PO BID 05/18/18 Cholecalciferol (Vitamin D3) 2,000 unit PO DAILY 03/19/19 [Vitamin D3] Famotidine 20 mg PO DAILY 03/19/19 Gabapentin 100 mg PO HS 03/19/19 Lisinopril [Zestril] 2.5 mg PO DAILY 03/19/19 Metoprolol Tartrate 25 mg PO DAILY 03/19/19 REVIEW OF SYSTEMS CONSTITUTIONAL: Absent: fever, chills, diaphoresis, generalized weakness, malaise, loss of appetite, weight change HEENT: Absent: rhinorrhea, nasal congestion, throat pain, throat swelling, difficulty swallowing, mouth swelling, ear pain, eye pain, visual changes CARDIOVASCULAR: Absent: chest pain, syncope, palpitations, irregular heart rate, lightheadedness , peripheral edema RESPIRATORY: Absent: cough, shortness of breath, dyspnea with exertion, orthopnea, wheezing, stridor, hemoptysis GASTROINTESTINAL: Absent: abdominal pain, abdominal distension, nausea, vomiting, diarrhea, constipation, melena, hematochezia GENITOURINARY: Absent: dysuria, frequency, urgency, hesitancy, hematuria, flank pain, genital pain MUSCULOSKELETAL: Absent: myalgia, arthralgia, joint swelling, back pain, neck pain SKIN: Absent: rash, itching, pallor, bilateral lower extremity redness, ulcers with pain HEMATOLOGIC/IMMUNOLOGIC: Absent: easy bleeding, easy bruising, lymphadenopathy, frequent infections ENDOCRINE: Absent: unexplained weight gain, unexplained weight loss, heat intolerance, cold intolerance NEUROLOGIC: Absent: headache, focal weakness or paresthesias, dizziness, unsteady gait, seizure, mental status changes, bladder or bowel incontinence PSYCHIATRIC: Absent: anxiety, depression, suicidal or homicidal ideation, hallucinations. PHYSICAL EXAMINATION Vital Signs - 24 hr 03/19/19 03/19/19 11:52 20:53 Temperature 98.0 F 98.2 F Pulse Rate 92 H Pulse Rate [ 84 Left Radial] Respiratory 17 Rate Blood Pressure 125/65 Blood Pressure 163/68 [Left Arm] O2 Sat by Pulse 100 97 Oximetry (%) GENERAL: awake, alert,fully oriented, no acute distress HEAD: Normal no signs of trauma EYES: pupils equal, round and reactive to light, extraocular movements intact EARS, NOSE, THROAT: ears normal, nares patent, oropharynx clear NECK: normal LUNGS: breath sounds equal and clear to auscultation bilaterally no wheezes no crackles no accessory muscle use HEART: regular rate and rhythm normal S1 and S2 ABDOMEN:soft nontender not distended normoactive bowel sounds MUSCULOSKELETAL: limited normal range of motion at all joints UPPER EXTREMITIES: 2+ pulses warm, well-perfused LOWER EXTREMITIES: BLE redness/swelling with pain and ulcerations NEUROLOGICAL: normal speech no facial droop or grimace PSYCHIATRIC: cooperative SKIN: warm BLE with discoloration, ulcerations, swelling and pain Laboratory Results - last 24 hr 03/19/19 03/19/19 03/19/19 15:35 15:35 15:35 WBC 4.5 RBC 2.99 L Hgb 11.0 L Hct 30.0 L MCV 100.4 H MCH 36.9 H D MCHC 36.8 H RDW 14.8 Plt Count 176 MPV 8.9 Absolute Neuts (auto) 3.7 Neutrophils % 81.9 Lymphocytes % 10.6 Monocytes % 4.6 Eosinophils % 1.7 Basophils % 1.2 Nucleated RBC % 0 ESR 83 H PT with INR INR Sodium 137 Potassium 3.2 L Chloride 98 Carbon Dioxide 30 Anion Gap 9 BUN 17.5 Creatinine 1.1 Est GFR (CKD-EPI)AfAm 78.97 Est GFR (CKD-EPI)NonAf 68.13 Random Glucose 72 L Calcium 8.3 L Total Bilirubin 0.8 AST 25 ALT 21 Alkaline Phosphatase 83 C-Reactive Protein 1.6 H Total Protein 7.7 Albumin 3.5 Blood Type Antibody Screen 03/19/19 03/19/19 15:35 15:35 WBC RBC Hgb Hct MCV MCH MCHC RDW Plt Count MPV Absolute Neuts (auto) Neutrophils % Lymphocytes % Monocytes % Eosinophils % Basophils % Nucleated RBC % ESR PT with INR 13.70 H INR 1.16 H Sodium Potassium Chloride Carbon Dioxide Anion Gap BUN Creatinine Est GFR (CKD-EPI)AfAm Est GFR (CKD-EPI)NonAf Random Glucose Calcium Total Bilirubin AST ALT Alkaline Phosphatase C-Reactive Protein Total Protein Albumin Blood Type A NEGATIVE Antibody Screen Negative ASSESSMENT/PLAN: 68 year old male with past medical history significant for NIDDM, CAD, HTN, and CVA who was sent from office for nonhealing necrotic ulcers of the bilateral feet. Patient is being admitted for critical [facility] medical management/ evalutation and iV antibiotics. 1. BLE Cellulitis Currently afebrile, normal WBC, ESR and CRP elevated, +pain, swelling, redness, received one dose of IV pippercillin and vancomycin --Continue with IV pipercillin and vancomycin --Blood cultures pending --ID- Dr. Copeland consulted --Wound Care- Dr. Voss consulted --Lovenox for DVT prophylaxsis --Continue w/ pain management with Percocet prn 2. NIDDM --BGM before meals and at bedtime --Hold glipizide and metformin --Novolog insulin as per sliding scale 3. CAD Denies chest pain --Continue aspirin, bb and anna --Consider adding statin therapy 4. Hypertension Normotensive --Continue metoprolol tartrate, lasix and zestril 5. CVA --Continue w/ aspirin, home meds reviewed, not on statin or plavix 6. Hypokalemia Repleted --Repeat BMP in am DVT Prophylaxsis --Lovenox 30mg q12hr FEN --monitor electrolytes closely --ADA Visit type - Emergency Visit Emergency Visit: Yes ED Registration Date: 03/19/19 Care time: The patient presented to the Emergency Department on the above date and was hospitalized for further evaluation of their emergent condition. - New Patient This patient is new to me today: Yes Date on this admission: 03/19/19 - Critical Care Critical Care patient: No
[2019-03-19] MEDS ORDERED: POTASSIUM CHLORIDE ORAL LIQUID 20 MEQ/15 ML PO ONE (21:31)
[2019-03-19] MEDS ORDERED: FUROSEMIDE 20 MG TABLET (FP) PO SCH (22:00)
[2019-03-19] MEDS ORDERED: POTASSIUM CHLORIDE ORAL LIQUID 20 MEQ/15 ML ONE (22:37)
[2019-03-19] MEDS: ENOXAPARIN NA (PORCINE) 30 MG/0.3 ML DISP.SYRIN SQ SCH (22:41)
[2019-03-19] MEDS: GABAPENTIN 100 MG CAPSULE PO SCH (22:41)
[2019-03-20] MEDS ORDERED: PIPERACILLIN/TAZOBACTAM 3.375 GM VIAL IVPB ONE ×3 (01:17→17:37)
[2019-03-20] MEDS ORDERED: DEXTROSE 5%-WATER - 50 ML IVPB ONE ×3 (01:17→17:37)
[2019-03-20] MEDS: PIPERACILLIN/TAZOB 3.375 GM 3.375 GM in DEXTROSE 5%-WATER - 50 ML IVPB SCH ×4 (01:29→17:53)
[2019-03-20] MEDS: FUROSEMIDE 40 MG TABLET (FP) PO SCH ×2 (06:02→15:03)
[2019-03-20] MEDS ORDERED: INSULIN SLIDING SCALE (NOVOLOG) 1 VIAL SQ SCH (07:00)
[2019-03-20] MEDS ORDERED: VANCOMYCIN 1 GM in D5W (PRE-DOCKED) 1,000 MG/250 ML IVPB SCH (10:00)
[2019-03-20] MEDS ORDERED: VANCOMYCIN 1 GRAM (PRE-DOCKED) 1,000 MG/250 ML BAG IVPB ONE (10:00)
[2019-03-20] MEDS ORDERED: FUROSEMIDE 40 MG TABLET (FP) PO SCH (10:00)
[2019-03-20] MEDS: ENOXAPARIN NA (PORCINE) 30 MG/0.3 ML DISP.SYRIN SQ SCH ×2 (10:28→21:31)
[2019-03-20] MEDS: ASPIRIN 81 MG CHEWABLE TABLETS PO SCH (10:28)
[2019-03-20] MEDS: FAMOTIDINE 20 MG TABLET PO SCH (10:29)
[2019-03-20] MEDS: FOLIC ACID 1 MG TABLET (FP) PO SCH (10:29)
[2019-03-20] MEDS: METOPROLOL TARTRATE 25 MG TABLET (FP) PO SCH (10:29)
[2019-03-20] MEDS: LISINOPRIL 5 MG TABLET (FP) PO SCH (10:29)
--- NOTE | 2019-03-20 10:52 | PN ---
Progress Note, Physician Chief Complaint: BLLE cellulitis History of Present Illness: NAD Hypokalemic yesterday - Current Medication List Current Medications: Active Medications Aspirin (Asa -) 81 mg PO DAILY [facility] Last Admin: 03/20/19 10:28 Dose: 81 mg Enoxaparin Sodium (Lovenox -) 30 mg SQ BID [facility] Last Admin: 03/20/19 10:28 Dose: 30 mg Famotidine (Pepcid -) 20 mg PO DAILY [facility] Last Admin: 03/20/19 10:29 Dose: 20 mg Folic Acid (Folic Acid -) 1 mg PO DAILY [facility] Last Admin: 03/20/19 10:29 Dose: 1 mg Furosemide (Lasix -) 40 mg PO BID@0600,1400 [facility] Last Admin: 03/20/19 06:02 Dose: Not Given Gabapentin (Neurontin -) 100 mg PO HS [facility] Last Admin: 03/19/19 22:41 Dose: Not Given Piperacillin Sod/Tazobactam (Sod 3.375 gm/ Dextrose) 50 mls @ 100 mls/hr IVPB Q8H-IV [facility]; Protocol Piperacillin Sod/Tazobactam (Sod 3.375 gm/ Dextrose) 50 mls @ 100 mls/hr IVPB Q8H-IV [facility] Stop: 03/20/19 18:29 Last Admin: 03/20/19 10:28 Dose: 100 mls/hr Vancomycin HCl (Vancomycin (Pre-Docked)) 1,000 mg in 250 mls @ 166.667 mls/hr IVPB ONCE ONE Stop: 03/20/19 11:29 Insulin [facility]art ([facility] -[facility] Last Admin: 03/20/19 06:02 Dose: Not Given Lisinopril (Prinivil) 2.5 mg PO DAILY [facility] Last Admin: 03/20/19 10:29 Dose: 2.5 mg Metoprolol Tartrate (Lopressor -) 25 mg PO DAILY [facility] Last Admin: 03/20/19 10:29 Dose: 25 mg Vancomycin HCl (Vancomycin (Pre-Docked)) 1,000 mg IVPB DAILY [facility]; Protocol - Objective Vital Signs: Vital Signs Temperature 98.2 F 03/19/19 20:53 Pulse Rate 88 03/20/19 00:20 Respiratory Rate 20 03/20/19 00:20 Blood Pressure 172/81 H 03/20/19 00:20 O2 Sat by Pulse Oximetry (%) 97 03/20/19 00:20 Constitutional: Yes: Well Nourished, No Distress, Calm, Obese Cardiovascular: Yes: Regular Rate and Rhythm Respiratory: Yes: Regular Genitourinary: Yes: WNL Musculoskeletal: Yes: Muscle Weakness Extremities: Yes: WNL Edema: Yes Edema: LLE: 1+, RLE: 1+ Peripheral Pulses WNL: Yes Wound/Incision: Yes: Dressing Dry and Intact Neurological: Yes: Alert, Oriented Psychiatric: Yes: Alert, Oriented Labs: CBC, BMP 03/19/19 15:35 03/19/19 15:35 INR, PTT INR 1.16 (0.83-1.09) H 03/19/19 15:35 Problem List - Problems (1) Hypokalemia Assessment/Plan: -Received KCl 40 meq once yesterday -k3.0 today -replenish with KCL 40 meq po + KCl 10 meq x 3 IVPB -repeat BMP in AM Problems reviewed: Yes Code(s): E87.6 - HYPOKALEMIA (2) Anemia Assessment/Plan: -Chronic -H/H improved compared to previous labs -Monitor trend -Guaiac + 11/06/2017 -Last colonoscopy 2016- with one polyp, no erythema or ulcers,repeat recommended in 5 years -F/U with GI outpatient Problems reviewed: Yes Code(s): D64.9 - ANEMIA, UNSPECIFIED Qualifiers: Anemia type: unspecified type Qualified Code(s): D64.9 - Anemia, unspecified (3) Diabetes Assessment/Plan: -resolved -Last A1c on 03/08/2019-4.4 -Continue dietary and lifestyle modifications Problems reviewed: Yes Code(s): E11.9 - TYPE 2 DIABETES MELLITUS WITHOUT COMPLICATIONS (4) Venous stasis ulcer Assessment/Plan: -ID consult -IV abx -afebrile -no leukocytosis -Cultures pending -Vascular consult pending as well Problems reviewed: Yes Code(s): I83.009 - VARICOSE VEINS OF UNSP LOWER EXTREMITY W ULCER OF UNSP SITE; L97.909 - NON-PRS CHRONIC ULC UNSP PRT OF UNSP LOW LEG W UNSP SEVERITY Qualifiers: Laterality: unspecified laterality Non-pressure ulcer stage: limited to breakdown of skin Assessment/Plan see problem list Physical therapy
--- NOTE | 2019-03-20 13:03 | EKG ---
Test Reason : Blood Pressure : / mmHG Vent. Rate : 084 BPM Atrial Rate : 084 BPM P-R Int : 152 ms QRS Dur : 104 ms QT Int : 392 ms P-R-T Axes : 067 050 -05 degrees QTc Int : 463 ms NORMAL SINUS RHYTHM CANNOT RULE OUT INFERIOR INFARCT , AGE UNDETERMINED ABNORMAL ECG WHEN COMPARED WITH ECG OF 31-OCT-2017 14:10, NO SIGNIFICANT CHANGE WAS FOUND Confirmed by Saran Costello MD ([id number]) on 03/20/2019 1:03:05 PM Referred By: Confirmed By:Saran Costello MD
[2019-03-20 14:09] LABS: BLOOD UREA NITROGEN 9.6 mg/dL (7-18); CALCIUM 8.3 mg/dL (8.5-10.1)
--- NOTE | 2019-03-20 15:48 | CON.ID ---
Consult Consult Specialty:: infectious diseases Referred by:: Елена Reason for Consultation:: necrotic infected wounds on both legs with b/l cellulitis of the legs - History of Present Illness Chief Complaint: pain and redness of the legs and non healing wound History of Present Illness: 68 year old male with past medical history of NIDDM, CAD, HTN, and CVA who was sent from office for nonhealing necrotic ulcers of the bilateral feet. Patient has had wound for about a month now but developed localized nonradiating pain in the past few days. He denied, fevers, chills, numbness, tingling, chest pain, sob, abdominal pain, dysuria. 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 Infectious Disease: Yes: Other (Bilateral lower extremity celulitis ) Additional Medical History: Chronic leg ulcers - Alcohol/Substance Use Hx Alcohol Use: No - Smoking History Smoking history: Never smoked Have you smoked in the past 12 months: No If you are a former smoker, when did you quit?: 14 YEARS AGO - Social History Usual Living Arrangement: Alone Home Medications - Allergies Allergies/Adverse Reactions: Allergies Allergy/AdvReac Type Severity Reaction Status Date / Time No Known Allergies Allergy Verified 03/19/19 10:32 - Home Medications Home Medications: Ambulatory Orders Aspirin [ASA -] 81 mg PO DAILY #30 tab.chew 06/18/15 Folic Acid 1 mg PO DAILY #30 tablet 06/18/15 Glipizide [Glipizide ER] 2.5 mg PO DAILY 01/26/16 metFORMIN HCL [Metformin ER Osmotic] 1,000 mg PO DAILY 01/26/16 Cholecalciferol (Vitamin D3) [Vitamin D3] 2,000 unit PO DAILY 01/27/16 Furosemide 40 tab PO BID 05/18/18 Cholecalciferol (Vitamin D3) [Vitamin D3] 2,000 unit PO DAILY 03/19/19 Famotidine 20 mg PO DAILY 03/19/19 Gabapentin 100 mg PO HS 03/19/19 Lisinopril [Zestril] 2.5 mg PO DAILY 03/19/19 Metoprolol Tartrate 25 mg PO DAILY 03/19/19 Review of Systems - Review of Systems Constitutional: reports: No Symptoms Eyes: reports: No Symptoms HENT: reports: No Symptoms Neck: reports: No Symptoms Cardiovascular: reports: No Symptoms Respiratory: reports: No Symptoms Gastrointestinal: reports: No Symptoms Genitourinary: reports: No Symptoms Musculoskeletal: reports: Other Integumentary: reports: Erythema, Wound Neurological: reports: No Symptoms Endocrine: reports: No Symptoms Hematology/Lymphatic: reports: No Symptoms Psychiatric: reports: No Symptoms Physical Exam Vital Signs: Vital Signs Temperature 98.2 F 03/20/19 14:25 Pulse Rate 89 03/20/19 14:25 Respiratory Rate 20 03/20/19 14:25 Blood Pressure 137/70 03/20/19 14:25 O2 Sat by Pulse Oximetry (%) 97 03/20/19 00:20 Constitutional: Yes: Well Nourished, Calm, Mild Distress Eyes: Yes: Conjunctiva Clear, EOM Intact HENT: Yes: Atraumatic, Normocephalic Neck: Yes: Supple, Trachea Midline Cardiovascular: Yes: Regular Rate and Rhythm Respiratory: Yes: Regular, CTA Bilaterally Gastrointestinal: Yes: Normal Bowel Sounds, Soft Musculoskeletal: Yes: WNL Extremities: Yes: Erythema, Other (multiple necrotic wounds) Integumentary: Yes: Erythema, Other (necrotic wounds) Wound/Incision: Yes: Dressing Removed, Draining Neurological: Yes: Alert, Oriented Psychiatric: Yes: Alert, Oriented Labs: CBC, BMP 03/19/19 15:35 03/20/19 12:30 Imaging - Results Chest X-ray: Report Reviewed, Image Reviewed X-ray: Report Reviewed, Image Reviewed Assessment/Plan 68 year old male with past medical history significant for NIDDM, CAD, HTN, and CVA who was sent from office for nonhealing necrotic ulcers of the bilateral feet. Patient is being admitted for [facility] medical management/ evalutation and iV antibiotics. 1. BLE Cellulitis 2. NIDDM 3. CAD 4. Hypertension 5. CVA plan abx off loading of the legs as per vascular wound care rest as per the team imaging
[2019-03-20] MEDS: KCL 10 MEQ IVPB 10 MEQ/100 ML INFUS.BAG IVPB SCH ×3 (17:42→21:35)
[2019-03-20] MEDS: GABAPENTIN 100 MG CAPSULE PO SCH (21:35)
[2019-03-21] MEDS ORDERED: DEXTROSE 5%-WATER - 50 ML IVPB ONE ×3 (01:36→16:59)
[2019-03-21] MEDS ORDERED: PIPERACILLIN/TAZOBACTAM 3.375 GM VIAL IVPB ONE ×3 (01:36→16:59)
[2019-03-21] MEDS: PIPERACILLIN/TAZOB 3.375 GM 3.375 GM in DEXTROSE 5%-WATER - 50 ML IVPB SCH ×3 (02:14→17:53)
[2019-03-21] MEDS: FUROSEMIDE 40 MG TABLET (FP) PO SCH ×2 (07:04→13:46)
[2019-03-21 09:02] LABS: BILIRUBIN,TOTAL 0.9 mg/dL (0.2-1); BLOOD UREA NITROGEN 11.2 mg/dL (7-18); CALCIUM 8.2 mg/dL (8.5-10.1); CREATININE 1.1 mg/dL (0.55-1.3); TOT PROT 6.8 g/dl (6.4-8.2)
[2019-03-21 09:05] LABS: POTASSIUM 2.9 mmol/L (3.5-5.1)
[2019-03-21 09:05] LABS: BASO % 0.8 % (0-2.0); EOS % 4.6 % (0-4.5); HEMATOCRIT 30.1 % (35.4-49); HEMOGLOBIN 10.4 GM/dL (11.7-16.9); LYMPH % 13.1 % (8-40); MCH 31.8 pg (25.7-33.7); MCHC 34.6 g/dl (32.0-35.9); MEAN CELL VOLUME 92.2 fl (80-96); MONO % 10.4 % (3.8-10.2); NEUT % 71.1 % (42.8-82.8); PLATELET COUNT 171 K/MM3 (134-434); RBC 3.27 M/mm3 (4.00-5.60); RDW 14.7 % (11.9-15.9); WHITE BLOOD COUNT 6.1 K/mm3 (4.0-10.0)
[2019-03-21] MEDS ORDERED: POTASSIUM CHLORIDE ORAL LIQUID 20 MEQ/15 ML PO SCH (10:00)
[2019-03-21] MEDS: FOLIC ACID 1 MG TABLET (FP) PO SCH (10:21)
[2019-03-21] MEDS: LISINOPRIL 5 MG TABLET (FP) PO SCH (10:21)
--- NOTE | 2019-03-21 10:21 | CONSULT ---
- Consultation REQUESTING PROVIDER: CONSULT REQUEST: We have been asked to surgically evaluate this patient for b/l foot wounds and sacral wounds. PCP: Ani Ivy HISTORY OF PRESENT ILLNESS: This is a 68 year old male with past medical history of NIDDM, CAD, HTN, and CVA who was sent from office for nonhealing necrotic ulcers of the bilateral feet. Patient has had wounds for about a month now but developed localized nonradiating pain in the past few days. He denies, fevers, chills, numbness,tingling, chest pain, sob, abdominal pain, dysuria. Recent Travel: no PAST MEDICAL HISTORY: NIDDM CAD HTN CVA PAST SURGICAL HISTORY: none Social History: Smoking:no Alcohol:no Drugs: no Allergies No Known Allergies Allergy (Verified 03/19/19 10:32) HOME MEDICATIONS: Home Medications Medication Instructions Recorded Aspirin [ASA -] 81 mg PO DAILY #30 tab.chew 06/18/15 Folic Acid 1 mg PO DAILY #30 tablet 06/18/15 Glipizide [Glipizide ER] 2.5 mg PO DAILY 01/26/16 metFORMIN HCL [Metformin ER 1,000 mg PO DAILY 01/26/16 Osmotic] Cholecalciferol (Vitamin D3) 2,000 unit PO DAILY 01/27/16 [Vitamin D3] Furosemide 40 tab PO BID 05/18/18 Cholecalciferol (Vitamin D3) 2,000 unit PO DAILY 03/19/19 [Vitamin D3] Famotidine 20 mg PO DAILY 03/19/19 Gabapentin 100 mg PO HS 03/19/19 Lisinopril [Zestril] 2.5 mg PO DAILY 03/19/19 Metoprolol Tartrate 25 mg PO DAILY 03/19/19 REVIEW OF SYSTEMS CONSTITUTIONAL: Absent: fever, chills, diaphoresis, loss of appetite, weight change HEENT: Absent: rhinorrhea, nasal congestion, throat pain, throat swelling, difficulty swallowing, CARDIOVASCULAR: Absent: chest pain, syncope, palpitations, peripheral edema RESPIRATORY: Absent: cough, shortness of breath, GASTROINTESTINAL: Absent: abdominal pain, abdominal distension, nausea, vomiting, GENITOURINARY: Absent: dysuria, frequency, urgency, hesitancy, hematuria, MUSCULOSKELETAL: Absent: myalgia, arthralgia, joint swelling, back pain, neck pain SKIN: Absent: rash, itching, pallor, bilateral lower extremity redness, several ulcers and pain, Sacral wounds HEMATOLOGIC/IMMUNOLOGIC: Absent: easy bleeding, easy bruising, lymphadenopathy, ENDOCRINE: Absent: unexplained weight gain, unexplained weight loss, heat intolerance, cold intolerance NEUROLOGIC: Absent: headache, focal weakness or paresthesias, dizziness, PSYCHIATRIC: Absent: anxiety, depression, suicidal or homicidal ideation, hallucinations. PHYSICAL EXAMINATION Vital Signs Temp 97.7 F 03/21/19 06:00 Pulse 83 03/21/19 06:00 Resp 18 03/21/19 06:00 BP 134/68 03/21/19 06:00 Pulse Ox 95 03/20/19 09:00 Intake & Output 03/20/19 03/20/19 03/21/19 11:59 23:59 11:59 Intake Total 400 Balance 400 Weight 250 lb Intake: IVPB 100 Oral 300 Other: Voiding Method Incontinent Urinal # Unmeasured Voids Void 2 Bowel Movement Yes # Bowel Movements 1 Height 5 ft 9 in Body Mass Index (BMI) 36.9 Weight Measurement Method Built in [facility] Built in [facility] GENERAL: awake, alert,fully oriented, no acute distress HEAD: Normal no signs of trauma LUNGS: Unlabored resp on RA, no auditory wheezing, no accessory muscle use HEART: regular rate and rhythm normal S1 and S2 MUSCULOSKELETAL: moving all extremities although limited motion UPPER EXTREMITIES warm, well-perfused LOWER EXTREMITIES: BLE redness/swelling and chronic skin changes seen throughout LE, compartments soft, supple with tenderness throughout. Right LE with large gangrenous ulcer @ 4x2cm over lateral aspect of plantar surface with surroudning tissue intact and no palpable bogginess, + foul odor with some SS discharge. Small puncture like arterial ulcer over base of 4th metatarsal, and 2x1cm superficial ulcer at plantar surface of 1st MTP, Left LE 4x2cm gangrenous heel ulcer with + foul odor and slight ss discharge, small arterial ulcer noted at the tip of big toe, healing calus at base of 5th MTP. Pain with probing of ulcers, Palpable +1 DP pulses, no palpable PT pulses. NEUROLOGICAL: normal speech no facial droop or grimace PSYCHIATRIC: cooperative SKIN: Small superficial ulcers @1x1 located on b/l buttocks, surrounding tissue intact with no active d/c. skin warm B/L LE duplex: NO signs of DVT. Problem List - Problems (1) PAD (peripheral artery disease) Assessment/Plan: Patient with PAD and gangrenous foot ulcers. Patient would benefit from B/L wound debridement. -CTA with runoff to evlauate b/l LE flow -Santyl to b/l foot wounds daily. -Offload pressure sensitive areas with frequent repositioning -Alleyven to buttock wounds -Vascular surgery to follow Evaluation and plan discussed with Dr Voss Code(s): I73.9 - PERIPHERAL VASCULAR DISEASE, UNSPECIFIED
[2019-03-21] MEDS: METOPROLOL TARTRATE 25 MG TABLET (FP) PO SCH (10:22)
[2019-03-21] MEDS: ENOXAPARIN NA (PORCINE) 30 MG/0.3 ML DISP.SYRIN SQ SCH ×2 (10:22→21:46)
[2019-03-21] MEDS: FAMOTIDINE 20 MG TABLET PO SCH (10:22)
[2019-03-21] MEDS: ASPIRIN 81 MG CHEWABLE TABLETS PO SCH (10:22)
--- NOTE | 2019-03-21 10:46 | PN ---
Progress Note, Physician Chief Complaint: BLLE cellulitis History of Present Illness: NAD Hypokalemic Going for CTA BL runoff ordered by vascular sx - Current Medication List Current Medications: Active Medications Aspirin (Asa -) 81 mg PO DAILY [facility] Last Admin: 03/21/19 10:22 Dose: 81 mg Collagenase (Santyl -) 1 applic TP DAILY [facility]; Protocol Enoxaparin Sodium (Lovenox -) 30 mg SQ BID [facility] Last Admin: 03/21/19 10:22 Dose: 30 mg Famotidine (Pepcid -) 20 mg PO DAILY [facility] Last Admin: 03/21/19 10:22 Dose: 20 mg Folic Acid (Folic Acid -) 1 mg PO DAILY [facility] Last Admin: 03/21/19 10:21 Dose: 1 mg Furosemide (Lasix -) 40 mg PO BID@0600,1400 [facility] Last Admin: 03/21/19 07:04 Dose: 40 mg Gabapentin (Neurontin -) 100 mg PO HS [facility] Last Admin: 03/20/19 21:35 Dose: 100 mg Piperacillin Sod/Tazobactam (Sod 3.375 gm/ Dextrose) 50 mls @ 100 mls/hr IVPB Q8H-IV [facility]; Protocol Last Admin: 03/21/19 10:22 Dose: 100 mls/hr Lisinopril (Prinivil) 2.5 mg PO DAILY [facility] Last Admin: 03/21/19 10:21 Dose: 2.5 mg Metoprolol Tartrate (Lopressor -) 25 mg PO DAILY [facility] Last Admin: 03/21/19 10:22 Dose: 25 mg Potassium Chloride (Potassium Chloride Oral Liquid) 40 meq PO DAILY [facility] Last Admin: 03/21/19 10:22 Dose: 40 meq - Objective Vital Signs: Vital Signs Temperature 98.3 F 03/21/19 10:18 Pulse Rate 87 03/21/19 10:18 Respiratory Rate 18 03/21/19 10:18 Blood Pressure 136/63 03/21/19 10:18 O2 Sat by Pulse Oximetry (%) 95 03/20/19 09:00 Constitutional: Yes: Well Nourished, No Distress, Calm Cardiovascular: Yes: Regular Rate and Rhythm Respiratory: Yes: Regular Gastrointestinal: Yes: Normal Bowel Sounds, Soft, Abdomen, Obese Genitourinary: Yes: WNL Musculoskeletal: Yes: Muscle Weakness Extremities: Yes: Erythema (BLLE) Edema: Yes Edema: LLE: 1+, RLE: 1+ Peripheral Pulses WNL: Yes Integumentary: Yes: Pressure Ulcer Wound/Incision: Yes: Dressing Dry and Intact (BL feet Sacral Stage 3 and testicular PU stage 2) Neurological: Yes: Alert, Oriented Psychiatric: Yes: Alert, Oriented Labs: CBC, BMP 03/21/19 07:55 03/21/19 07:33 INR, PTT INR 1.16 (0.83-1.09) H 03/19/19 15:35 Problem List - Problems (1) Hypokalemia Assessment/Plan: -Increase KCl to 40 meq BID -Also KCl 10 meq x 3 IVPB -repeat BMP in AM Problems reviewed: Yes Code(s): E87.6 - HYPOKALEMIA (2) Anemia Assessment/Plan: -Chronic -H/H improved compared to previous labs -Monitor trend -Guaiac + 11/06/2017 -Last colonoscopy 2016- with one polyp, no erythema or ulcers,repeat recommended in 5 years -F/U with GI outpatient -TRACY -Start Iron polysaccharide 150 mg po daily Problems reviewed: Yes Code(s): D64.9 - ANEMIA, UNSPECIFIED Qualifiers: Anemia type: unspecified type Qualified Code(s): D64.9 - Anemia, unspecified (3) Diabetes Assessment/Plan: -resolved -Last A1c on 03/08/2019-4.4 -Continue dietary and lifestyle modifications Problems reviewed: Yes Code(s): E11.9 - TYPE 2 DIABETES MELLITUS WITHOUT COMPLICATIONS (4) Venous stasis ulcer Assessment/Plan: -ID consult -IV abx -afebrile -no leukocytosis -Cultures pending -Vascular consult appreciated -CTA BL runoff Problems reviewed: Yes Code(s): I83.009 - VARICOSE VEINS OF UNSP LOWER EXTREMITY W ULCER OF UNSP SITE; L97.909 - NON-PRS CHRONIC ULC UNSP PRT OF UNSP LOW LEG W UNSP SEVERITY Qualifiers: Laterality: unspecified laterality Non-pressure ulcer stage: limited to breakdown of skin Assessment/Plan see problem list Physical therapy
--- NOTE | 2019-03-21 11:42 | PN ---
Progress Note, Physician History of Present Illness: patient still very uncomfortable pain on both legs multiple mecrotic ulcer vascular on the case - Current Medication List Current Medications: Active Medications Aspirin (Asa -) 81 mg PO DAILY [facility] Last Admin: 03/21/19 10:22 Dose: 81 mg Collagenase (Santyl -) 1 applic TP DAILY [facility]; Protocol Enoxaparin Sodium (Lovenox -) 30 mg SQ BID [facility] Last Admin: 03/21/19 10:22 Dose: 30 mg Famotidine (Pepcid -) 20 mg PO DAILY [facility] Last Admin: 03/21/19 10:22 Dose: 20 mg Folic Acid (Folic Acid -) 1 mg PO DAILY [facility] Last Admin: 03/21/19 10:21 Dose: 1 mg Furosemide (Lasix -) 40 mg PO BID@0600,1400 [facility] Last Admin: 03/21/19 07:04 Dose: 40 mg Gabapentin (Neurontin -) 100 mg PO HS [facility] Last Admin: 03/20/19 21:35 Dose: 100 mg Piperacillin Sod/Tazobactam (Sod 3.375 gm/ Dextrose) 50 mls @ 100 mls/hr IVPB Q8H-IV [facility]; Protocol Last Admin: 03/21/19 10:22 Dose: 100 mls/hr Potassium Chloride (Potassium Chloride 10 Meq Premix Ivpb -) 10 meq in 100 mls @ 100 mls/hr IVPB Q60M [facility] Stop: 03/21/19 13:59 Lisinopril (Prinivil) 2.5 mg PO DAILY [facility] Last Admin: 03/21/19 10:21 Dose: 2.5 mg Metoprolol Tartrate (Lopressor -) 25 mg PO DAILY [facility] Last Admin: 03/21/19 10:22 Dose: 25 mg Potassium Chloride (Potassium Chloride Oral Liquid) 40 meq PO BID [facility] - Objective Vital Signs: Vital Signs Temperature 98.3 F 03/21/19 10:18 Pulse Rate 87 03/21/19 10:18 Respiratory Rate 18 03/21/19 10:18 Blood Pressure 136/63 03/21/19 10:18 O2 Sat by Pulse Oximetry (%) 95 03/20/19 09:00 Constitutional: Yes: Calm, Mild Distress Cardiovascular: Yes: S1, S2 Respiratory: Yes: Regular, CTA Bilaterally Gastrointestinal: Yes: Normal Bowel Sounds, Soft Musculoskeletal: Yes: Other Extremities: Yes: Other Wound/Incision: Yes: Dressing Removed, Other (necrotic ulcers on the ext ulcers on the buttocks) Neurological: Yes: Alert Psychiatric: Yes: Alert Labs: CBC, BMP 03/21/19 07:55 03/21/19 07:33 INR, PTT INR 1.16 (0.83-1.09) H 03/19/19 15:35 Assessment/Plan 68 year old male with past medical history significant for NIDDM, CAD, HTN, and CVA who was sent from office for nonhealing necrotic ulcers of the bilateral feet. Patient is being admitted for community [facility] medical management/ evalutation and iV antibiotics. 1. BLE Cellulitis 2. NIDDM 3. CAD 4. Hypertension 5. CVA plan abx off loading of the legs as per vascular wound care rest as per the team
[2019-03-21] MEDS: COLLAGENASE CLOSTRIDIUM HIST. 30 GRAMS TUBE TP SCH (11:50)
[2019-03-21] MEDS: KCL 10 MEQ IVPB 10 MEQ/100 ML INFUS.BAG IVPB SCH ×3 (13:46→16:15)
[2019-03-21] MEDS: GABAPENTIN 100 MG CAPSULE PO SCH (21:46)
[2019-03-21] MEDS: POTASSIUM CHLORIDE ORAL LIQUID 20 MEQ/15 ML PO SCH (21:46)
[2019-03-22] MEDS ORDERED: PIPERACILLIN/TAZOBACTAM 3.375 GM VIAL IVPB ONE ×3 (01:18→16:17)
[2019-03-22] MEDS ORDERED: DEXTROSE 5%-WATER - 50 ML IVPB ONE ×3 (01:18→16:17)
[2019-03-22] MEDS: PIPERACILLIN/TAZOB 3.375 GM 3.375 GM in DEXTROSE 5%-WATER - 50 ML IVPB SCH ×3 (01:45→17:26)
[2019-03-22] MEDS: COLLAGENASE CLOSTRIDIUM HIST. 30 GRAMS TUBE TP SCH ×2 (02:36→10:24)
[2019-03-22] MEDS: FUROSEMIDE 40 MG TABLET (FP) PO SCH ×2 (06:28→14:32)
[2019-03-22 09:14] LABS: EOS % 5.6 % (0-4.5); HEMATOCRIT 29.8 % (35.4-49); HEMOGLOBIN 10.2 GM/dL (11.7-16.9); LYMPH % 17.5 % (8-40); MCH 31.8 pg (25.7-33.7); MCHC 34.3 g/dl (32.0-35.9); MEAN CELL VOLUME 92.8 fl (80-96); MEAN PLT VOLUME 9.1 fl (7.5-11.1); NEUT % 63.9 % (42.8-82.8); PLATELET COUNT 160 K/MM3 (134-434); RBC 3.21 M/mm3 (4.00-5.60); RDW 15.2 % (11.9-15.9); WHITE BLOOD COUNT 5.5 K/mm3 (4.0-10.0)
[2019-03-22 09:19] LABS: POTASSIUM 3.4 mmol/L (3.5-5.1)
[2019-03-22 09:23] LABS: ALBUMIN 2.9 g/dl (3.4-5.0); BILIRUBIN,TOTAL 0.8 mg/dL (0.2-1); BLOOD UREA NITROGEN 12.6 mg/dL (7-18); CALCIUM 8.4 mg/dL (8.5-10.1); CREATININE 1.2 mg/dL (0.55-1.3); TOT PROT 6.9 g/dl (6.4-8.2)
--- NOTE | 2019-03-22 09:24 | PN ---
Progress Note, Physician Chief Complaint: Venous Stasis Ulcer History of Present Illness: Previous notes and events reviewed awake and alert NAD denies complaints of chest pain or SOB states he is tired because he had difficulty sleeping last night no leukocytosis results of CTA reviewed BC neg - Current Medication List Current Medications: Active Medications Aspirin (Asa -) 81 mg PO DAILY [facility] Last Admin: 03/21/19 10:22 Dose: 81 mg Collagenase (Santyl -) 1 applic TP DAILY [facility]; Protocol Last Admin: 03/22/19 02:36 Dose: 1 applic Enoxaparin Sodium (Lovenox -) 30 mg SQ BID [facility] Last Admin: 03/21/19 21:46 Dose: 30 mg Famotidine (Pepcid -) 20 mg PO DAILY [facility] Last Admin: 03/21/19 10:22 Dose: 20 mg Folic Acid (Folic Acid -) 1 mg PO DAILY [facility] Last Admin: 03/21/19 10:21 Dose: 1 mg Furosemide (Lasix -) 40 mg PO BID@0600,1400 [facility] Last Admin: 03/22/19 06:28 Dose: 40 mg Gabapentin (Neurontin -) 100 mg PO HS [facility] Last Admin: 03/21/19 21:46 Dose: 100 mg Piperacillin Sod/Tazobactam (Sod 3.375 gm/ Dextrose) 50 mls @ 100 mls/hr IVPB Q8H-IV [facility]; Protocol Last Admin: 03/22/19 01:45 Dose: 100 mls/hr Lisinopril (Prinivil) 2.5 mg PO DAILY [facility] Last Admin: 03/21/19 10:21 Dose: 2.5 mg Metoprolol Tartrate (Lopressor -) 25 mg PO DAILY [facility] Last Admin: 03/21/19 10:22 Dose: 25 mg Polysaccharide Iron Complex (Niferex-150 -) 150 mg PO DAILY [facility] Potassium Chloride (Potassium Chloride Oral Liquid) 40 meq PO BID [facility] Last Admin: 03/21/19 21:46 Dose: 40 meq - Objective Vital Signs: Vital Signs Temperature 98 F 03/21/19 17:44 Pulse Rate 78 03/21/19 20:05 Respiratory Rate 18 03/21/19 20:05 Blood Pressure 112/54 L 03/21/19 20:05 O2 Sat by Pulse Oximetry (%) 95 03/21/19 20:06 Constitutional: Yes: No Distress, Calm Eyes: Yes: Conjunctiva Clear HENT: Yes: Atraumatic Cardiovascular: Yes: Regular Rate and Rhythm Respiratory: Yes: Regular, Diminished, On Nasal O2 Gastrointestinal: Yes: Normal Bowel Sounds, Soft, Abdomen, Obese Musculoskeletal: Yes: Muscle Weakness Extremities: Yes: WNL, Erythema Edema: Yes (lower extremity) Integumentary: Yes: Venous Stasis Changes Wound/Incision: Yes: Dressing Dry and Intact Neurological: Yes: Alert, Oriented Psychiatric: Yes: Alert, Oriented Labs: CBC, BMP 03/22/19 06:50 03/22/19 06:50 INR, PTT INR 1.16 (0.83-1.09) H 03/19/19 15:35 Microbiology 03/19/19 15:35 Blood Culture - Preliminary Blood - Peripheral Venous NO GROWTH OBTAINED AFTER 48 HOURS, INCUBATION TO CONTINUE FOR 3 DAYS. 03/19/19 15:35 Blood Culture - Preliminary Blood - Peripheral Venous NO GROWTH OBTAINED AFTER 48 HOURS, INCUBATION TO CONTINUE FOR 3 DAYS. Problem List - Problems (1) Hypokalemia Assessment/Plan: -K 3.4 -KCl 40mEq BID Code(s): E87.6 - HYPOKALEMIA (2) PAD (peripheral artery disease) Assessment/Plan: -Vascular on board -CTA with B/l lower extremity runoff shows evaluation of the SFA and popliteal arteries limited due to motion, moderate to high grade stenosis in range 70-90% suspected in SFA at the level of adductor canal and moderate 50-70% stenosis in R popliteal artery, occluded R CLAIM EXAMINER, patent GIL to the level of the ankle with occlusion of dorsalis pedis artery, patent peroneal artery providing flow to foot via plantar artery, very diminutive flow in ethe distal L CLAIM EXAMINER with occluded peroneal artery and predmonent flow to the foot provided by CLAIM EXAMINER with patent but diminutive flow in the plantar artery Code(s): I73.9 - PERIPHERAL VASCULAR DISEASE, UNSPECIFIED (3) Anemia Assessment/Plan: -Hg 10.2 -monitor Hg daily -trnasfuse for Hg <8.0 -anemia profile shows low Iron, low TIBC, low Iron Sat, -Iron Polysaccharide Code(s): D64.9 - ANEMIA, UNSPECIFIED Qualifiers: Anemia type: unspecified type Qualified Code(s): D64.9 - Anemia, unspecified (4) CAD (coronary artery disease) Assessment/Plan: -Aspirin Code(s): I25.10 - ATHSCL HEART DISEASE OF [place] CORONARY ARTERY W/O ANG PCTRS Qualifiers: Coronary Disease-Associated Artery/Lesion type: [place] artery [place] vs. transplanted heart: [place] heart Associated angina: angina presence unspecified Qualified Code(s): I25.10 - Atherosclerotic heart disease of [place] coronary artery without angina pectoris (5) CVA (cerebral vascular accident) Assessment/Plan: -aspirin -PT -fall precaution Code(s): I63.9 - CEREBRAL INFARCTION, UNSPECIFIED Qualifiers: CVA mechanism: unspecified Qualified Code(s): I63.9 - Cerebral infarction, unspecified (6) Diabetes Assessment/Plan: -BGM ACHS -ISS -HgA1c Code(s): E11.9 - TYPE 2 DIABETES MELLITUS WITHOUT COMPLICATIONS (7) HTN (hypertension) Assessment/Plan: -Lisinopril, Metoprolol -low Na diet Code(s): I10 - ESSENTIAL (PRIMARY) HYPERTENSION Qualifiers: Hypertension type: essential hypertension Qualified Code(s): I10 - Essential (primary) hypertension (8) Unsteady gait Assessment/Plan: -fall precaution -PT Code(s): R26.81 - UNSTEADINESS ON FEET (9) Venous stasis ulcer Assessment/Plan: -Vascular on board -CTA with B/l lower extremity runoff shows evaluation of the SFA and popliteal arteries limited due to motion, moderate to high grade stenosis in range 70-90% suspected in SFA at the level of adductor canal and moderate 50-70% stenosis in R popliteal artery, occluded R CLAIM EXAMINER, patent GIL to the level of the ankle with occlusion of dorsalis pedis artery, patent peroneal artery providing flow to foot via plantar artery, very diminutive flow in ethe distal L CLAIM EXAMINER with occluded peroneal artery and predmonent flow to the foot provided by CLAIM EXAMINER with patent but diminutive flow in the plantar artery Code(s): I83.009 - VARICOSE VEINS OF UNSP LOWER EXTREMITY W ULCER OF UNSP SITE; L97.909 - NON-PRS CHRONIC ULC UNSP PRT OF UNSP LOW LEG W UNSP SEVERITY Qualifiers: Laterality: unspecified laterality Non-pressure ulcer stage: limited to breakdown of skin
[2019-03-22] MEDS: FOLIC ACID 1 MG TABLET (FP) PO SCH (10:21)
[2019-03-22] MEDS: FAMOTIDINE 20 MG TABLET PO SCH (10:21)
[2019-03-22] MEDS: ASPIRIN 81 MG CHEWABLE TABLETS PO SCH (10:21)
[2019-03-22] MEDS: IRON POLYSACCHARIDES 150 MG CAPSULE PO SCH (10:21)
[2019-03-22] MEDS: ENOXAPARIN NA (PORCINE) 30 MG/0.3 ML DISP.SYRIN SQ SCH ×2 (10:22→22:20)
[2019-03-22] MEDS: METOPROLOL TARTRATE 25 MG TABLET (FP) PO SCH (10:22)
[2019-03-22] MEDS: LISINOPRIL 5 MG TABLET (FP) PO SCH (10:22)
[2019-03-22] MEDS: POTASSIUM CHLORIDE ORAL LIQUID 20 MEQ/15 ML PO SCH ×2 (10:22→22:20)
--- NOTE | 2019-03-22 10:26 | PN ---
Progress Note, Physician History of Present Illness: no new issues - Current Medication List Current Medications: Active Medications Aspirin (Asa -) 81 mg PO DAILY [facility] Last Admin: 03/22/19 10:21 Dose: 81 mg Collagenase (Santyl -) 1 applic TP DAILY [facility]; Protocol Last Admin: 03/22/19 10:24 Dose: 1 applic Enoxaparin Sodium (Lovenox -) 30 mg SQ BID [facility] Last Admin: 03/22/19 10:22 Dose: 30 mg Famotidine (Pepcid -) 20 mg PO DAILY [facility] Last Admin: 03/22/19 10:21 Dose: 20 mg Folic Acid (Folic Acid -) 1 mg PO DAILY [facility] Last Admin: 03/22/19 10:21 Dose: 1 mg Furosemide (Lasix -) 40 mg PO BID@0600,1400 [facility] Last Admin: 03/22/19 06:28 Dose: 40 mg Gabapentin (Neurontin -) 100 mg PO HS [facility] Last Admin: 03/21/19 21:46 Dose: 100 mg Piperacillin Sod/Tazobactam (Sod 3.375 gm/ Dextrose) 50 mls @ 100 mls/hr IVPB Q8H-IV [facility]; Protocol Last Admin: 03/22/19 10:22 Dose: 100 mls/hr Lisinopril (Prinivil) 2.5 mg PO DAILY [facility] Last Admin: 03/22/19 10:22 Dose: 2.5 mg Metoprolol Tartrate (Lopressor -) 25 mg PO DAILY [facility] Last Admin: 03/22/19 10:22 Dose: 25 mg Polysaccharide Iron Complex (Niferex-150 -) 150 mg PO DAILY [facility] Last Admin: 03/22/19 10:21 Dose: 150 mg Potassium Chloride (Potassium Chloride Oral Liquid) 40 meq PO BID [facility] Last Admin: 03/22/19 10:22 Dose: 40 meq - Objective Vital Signs: Vital Signs Temperature 98.1 F 03/22/19 09:00 Pulse Rate 80 03/22/19 09:00 Respiratory Rate 18 03/22/19 09:00 Blood Pressure 135/70 03/22/19 09:00 O2 Sat by Pulse Oximetry (%) 95 03/21/19 20:06 Constitutional: Yes: No Distress, Calm Cardiovascular: Yes: S1, S2 Gastrointestinal: Yes: Normal Bowel Sounds, Soft Musculoskeletal: Yes: WNL Extremities: Yes: Erythema, Other Wound/Incision: Yes: Other (multiple necrotic wounds on th legs) Neurological: Yes: Alert, Oriented Labs: CBC, BMP 03/22/19 06:50 03/22/19 06:50 INR, PTT INR 1.16 (0.83-1.09) H 03/19/19 15:35 Assessment/Plan 68 year old male with past medical history significant for NIDDM, CAD, HTN, and CVA who was sent from office for nonhealing necrotic ulcers of the bilateral feet. Patient is being admitted for [facility] medical management/ evalutation and iV antibiotics. 1. BLE Cellulitis 2. NIDDM 3. CAD 4. Hypertension 5. CVA plan abx off loading of the legs as per vascular wound care rest as per the team imaging
[2019-03-22] MEDS: GABAPENTIN 100 MG CAPSULE PO SCH (22:20)
[2019-03-23] MEDS ORDERED: PIPERACILLIN/TAZOBACTAM 3.375 GM VIAL IVPB ONE ×3 (01:30→18:26)
[2019-03-23] MEDS ORDERED: DEXTROSE 5%-WATER - 50 ML IVPB ONE ×3 (01:30→18:27)
[2019-03-23] MEDS: PIPERACILLIN/TAZOB 3.375 GM 3.375 GM in DEXTROSE 5%-WATER - 50 ML IVPB SCH ×3 (01:55→18:35)
[2019-03-23] MEDS: FUROSEMIDE 40 MG TABLET (FP) PO SCH ×2 (05:56→15:25)
[2019-03-23 09:17] LABS: BILIRUBIN,TOTAL 0.6 mg/dL (0.2-1); BLOOD UREA NITROGEN 16.8 mg/dL (7-18); CALCIUM 8.5 mg/dL (8.5-10.1); CREATININE 1.7 mg/dL (0.55-1.3); POTASSIUM 3.9 mmol/L (3.5-5.1); TOT PROT 7.2 g/dl (6.4-8.2)
--- NOTE | 2019-03-23 10:13 | PN ---
Progress Note, Physician Chief Complaint: AWAKE ALERT EVENTS AND NOTES REVIEWED EATING BREAKFAST DENIES FEVER OR CHILLS - Current Medication List Current Medications: Active Medications Aspirin (Asa -) 81 mg PO DAILY [facility] Last Admin: 03/22/19 10:21 Dose: 81 mg Collagenase (Santyl -) 1 applic TP DAILY [facility]; Protocol Last Admin: 03/22/19 10:24 Dose: 1 applic Enoxaparin Sodium (Lovenox -) 30 mg SQ BID [facility] Last Admin: 03/22/19 22:20 Dose: 30 mg Famotidine (Pepcid -) 20 mg PO DAILY [facility] Last Admin: 03/22/19 10:21 Dose: 20 mg Folic Acid (Folic Acid -) 1 mg PO DAILY [facility] Last Admin: 03/22/19 10:21 Dose: 1 mg Furosemide (Lasix -) 40 mg PO BID@0600,1400 [facility] Last Admin: 03/23/19 05:56 Dose: 40 mg Gabapentin (Neurontin -) 100 mg PO HS [facility] Last Admin: 03/22/19 22:20 Dose: 100 mg Piperacillin Sod/Tazobactam (Sod 3.375 gm/ Dextrose) 50 mls @ 100 mls/hr IVPB Q8H-IV [facility]; Protocol Last Admin: 03/23/19 01:55 Dose: 100 mls/hr Lisinopril (Prinivil) 2.5 mg PO DAILY [facility] Last Admin: 03/22/19 10:22 Dose: 2.5 mg Metoprolol Tartrate (Lopressor -) 25 mg PO DAILY [facility] Last Admin: 03/22/19 10:22 Dose: 25 mg Polysaccharide Iron Complex (Niferex-150 -) 150 mg PO DAILY [facility] Last Admin: 03/22/19 10:21 Dose: 150 mg Potassium Chloride (Potassium Chloride Oral Liquid) 40 meq PO BID [facility] Last Admin: 03/22/19 22:20 Dose: 40 meq - Objective Vital Signs: Vital Signs Temperature 98.1 F 03/23/19 06:35 Pulse Rate 77 03/23/19 06:35 Respiratory Rate 18 03/22/19 22:00 Blood Pressure 139/75 03/23/19 06:35 O2 Sat by Pulse Oximetry (%) 93 L 03/22/19 21:00 Constitutional: Yes: Mild Distress Cardiovascular: Yes: Regular Rate and Rhythm Respiratory: Yes: Diminished Gastrointestinal: Yes: Soft, Abdomen, Obese Genitourinary: Yes: Incontinence Musculoskeletal: Yes: Muscle Weakness Extremities: Yes: Deformity Wound/Incision: Yes: Dressing Dry and Intact, Unapproximated Neurological: Yes: Pre-Existing Deficit ...Motor Strength: LLE, RLE Psychiatric: Yes: Alert Labs: CBC, BMP 03/23/19 07:55 INR, PTT INR 1.16 (0.83-1.09) H 03/19/19 15:35 Problem List - Problems (1) PAD (peripheral artery disease) Code(s): I73.9 - PERIPHERAL VASCULAR DISEASE, UNSPECIFIED (2) Anemia Code(s): D64.9 - ANEMIA, UNSPECIFIED Qualifiers: Anemia type: unspecified type Qualified Code(s): D64.9 - Anemia, unspecified (3) CAD (coronary artery disease) Code(s): I25.10 - ATHSCL HEART DISEASE OF [place] CORONARY ARTERY W/O ANG PCTRS Qualifiers: Coronary Disease-Associated Artery/Lesion type: [place] artery [place] vs. transplanted heart: [place] heart Associated angina: angina presence unspecified Qualified Code(s): I25.10 - Atherosclerotic heart disease of [place] coronary artery without angina pectoris (4) CVA (cerebral vascular accident) Code(s): I63.9 - CEREBRAL INFARCTION, UNSPECIFIED Qualifiers: CVA mechanism: unspecified Qualified Code(s): I63.9 - Cerebral infarction, unspecified (5) Diabetes Code(s): E11.9 - TYPE 2 DIABETES MELLITUS WITHOUT COMPLICATIONS (6) HTN (hypertension) Code(s): I10 - ESSENTIAL (PRIMARY) HYPERTENSION Qualifiers: Hypertension type: essential hypertension Qualified Code(s): I10 - Essential (primary) hypertension (7) Unsteady gait Code(s): R26.81 - UNSTEADINESS ON FEET (8) Venous stasis ulcer Code(s): I83.009 - VARICOSE VEINS OF UNSP LOWER EXTREMITY W ULCER OF UNSP SITE; L97.909 - NON-PRS CHRONIC ULC UNSP PRT OF UNSP LOW LEG W UNSP SEVERITY Qualifiers: Laterality: unspecified laterality Non-pressure ulcer stage: limited to breakdown of skin Assessment/Plan ON IV ABX PER ID DR KENNY WOUND CARE TO B/L LEGS VASC SURGERY FOLLOW UP INCREASE VITAMINS/ZINC DRESSING CHANGES TO AID IN SKIN HEALING. DVT PROPHYLAXIS PT AND SNF PLACEMENT
[2019-03-23 10:42] LABS: HEMATOCRIT 28.2 % (35.4-49); HEMOGLOBIN 9.7 GM/dL (11.7-16.9); MCH 32.3 pg (25.7-33.7); MCHC 34.4 g/dl (32.0-35.9); MEAN CELL VOLUME 93.9 fl (80-96); MEAN PLT VOLUME 8.9 fl (7.5-11.1); PLATELET COUNT 158 K/MM3 (134-434); RBC 3.01 M/mm3 (4.00-5.60); RDW 15.2 % (11.9-15.9); WHITE BLOOD COUNT 5.6 K/mm3 (4.0-10.0)
[2019-03-23] MEDS: ASPIRIN 81 MG CHEWABLE TABLETS PO SCH (11:26)
[2019-03-23] MEDS: METOPROLOL TARTRATE 25 MG TABLET (FP) PO SCH (11:26)
[2019-03-23] MEDS: LISINOPRIL 5 MG TABLET (FP) PO SCH (11:26)
[2019-03-23] MEDS: ENOXAPARIN NA (PORCINE) 30 MG/0.3 ML DISP.SYRIN SQ SCH ×2 (11:27→22:03)
[2019-03-23] MEDS: FOLIC ACID 1 MG TABLET (FP) PO SCH (11:27)
[2019-03-23] MEDS: POTASSIUM CHLORIDE ORAL LIQUID 20 MEQ/15 ML PO SCH ×2 (11:28→22:03)
[2019-03-23] MEDS: FAMOTIDINE 20 MG TABLET PO SCH (11:28)
[2019-03-23] MEDS ORDERED: PT OWN MED DRAWER 7, Y5N ONE ×2 (11:36→12:52)
[2019-03-23] MEDS: IRON POLYSACCHARIDES 150 MG CAPSULE PO SCH (11:43)
--- NOTE | 2019-03-23 12:25 | PN ---
Progress Note, Physician History of Present Illness: patient stable no new issues - Current Medication List Current Medications: Active Medications Ascorbic Acid (Vitamin C -) 250 mg PO DAILY [facility] Aspirin (Asa -) 81 mg PO DAILY [facility] Last Admin: 03/23/19 11:26 Dose: 81 mg Collagenase (Santyl -) 1 applic TP DAILY [facility]; Protocol Last Admin: 03/22/19 10:24 Dose: 1 applic Enoxaparin Sodium (Lovenox -) 30 mg SQ BID [facility] Last Admin: 03/23/19 11:27 Dose: 30 mg Famotidine (Pepcid -) 20 mg PO DAILY [facility] Last Admin: 03/23/19 11:28 Dose: 20 mg Folic Acid (Folic Acid -) 1 mg PO DAILY [facility] Last Admin: 03/23/19 11:27 Dose: 1 mg Furosemide (Lasix -) 40 mg PO BID@0600,1400 [facility] Last Admin: 03/23/19 05:56 Dose: 40 mg Gabapentin (Neurontin -) 100 mg PO HS [facility] Last Admin: 03/22/19 22:20 Dose: 100 mg Piperacillin Sod/Tazobactam (Sod 3.375 gm/ Dextrose) 50 mls @ 100 mls/hr IVPB Q8H-IV [facility]; Protocol Last Admin: 03/23/19 11:26 Dose: 100 mls/hr Lisinopril (Prinivil) 2.5 mg PO DAILY [facility] Last Admin: 03/23/19 11:26 Dose: 2.5 mg Metoprolol Tartrate (Lopressor -) 25 mg PO DAILY [facility] Last Admin: 03/23/19 11:26 Dose: 25 mg Multivitamins/Minerals/Vitamin C (Tab-A-Vit -) 1 tab PO DAILY [facility] Polysaccharide Iron Complex (Niferex-150 -) 150 mg PO DAILY [facility] Last Admin: 03/23/19 11:43 Dose: 150 mg Potassium Chloride (Potassium Chloride Oral Liquid) 40 meq PO BID [facility] Last Admin: 03/23/19 11:28 Dose: 40 meq Zinc Sulfate (Orazinc -) 220 mg PO DAILY [facility] - Objective Vital Signs: Vital Signs Temperature 98.2 F 03/23/19 11:23 Pulse Rate 90 03/23/19 11:23 Respiratory Rate 18 03/23/19 11:23 Blood Pressure 118/67 03/23/19 11:23 O2 Sat by Pulse Oximetry (%) 93 L 03/22/19 21:00 Constitutional: Yes: No Distress, Calm Cardiovascular: Yes: S1, S2 Respiratory: Yes: Regular, CTA Bilaterally Gastrointestinal: Yes: Normal Bowel Sounds, Soft Musculoskeletal: Yes: WNL Extremities: Yes: Other Wound/Incision: Yes: Dressing Dry and Intact, Draining Neurological: Yes: Alert, Oriented Psychiatric: Yes: Alert, Oriented Labs: CBC, BMP 03/23/19 07:55 03/23/19 07:55 INR, PTT INR 1.16 (0.83-1.09) H 03/19/19 15:35 Assessment/Plan roblem List - Problems (1) PAD (peripheral artery disease) Code(s): I73.9 - PERIPHERAL VASCULAR DISEASE, UNSPECIFIED (2) Anemia Code(s): D64.9 - ANEMIA, UNSPECIFIED Qualifiers: Anemia type: unspecified type Qualified Code(s): D64.9 - Anemia, unspecified (3) CAD (coronary artery disease) Code(s): I25.10 - ATHSCL HEART DISEASE OF [place] CORONARY ARTERY W/O ANG PCTRS Qualifiers: Coronary Disease-Associated Artery/Lesion type: [place] artery [place] vs. transplanted heart: [place] heart Associated angina: angina presence unspecified Qualified Code(s): I25.10 - Atherosclerotic heart disease of [place] coronary artery without angina pectoris (4) CVA (cerebral vascular accident) Code(s): I63.9 - CEREBRAL INFARCTION, UNSPECIFIED Qualifiers: CVA mechanism: unspecified Qualified Code(s): I63.9 - Cerebral infarction, unspecified (5) Diabetes Code(s): E11.9 - TYPE 2 DIABETES MELLITUS WITHOUT COMPLICATIONS (6) HTN (hypertension) Code(s): I10 - ESSENTIAL (PRIMARY) HYPERTENSION Qualifiers: Hypertension type: essential hypertension Qualified Code(s): I10 - Essential (primary) hypertension (7) Unsteady gait Code(s): R26.81 - UNSTEADINESS ON FEET (8) Venous stasis ulcer Code(s): I83.009 - VARICOSE VEINS OF UNSP LOWER EXTREMITY W ULCER OF UNSP SITE; L97.909 - NON-PRS CHRONIC ULC UNSP PRT OF UNSP LOW LEG W UNSP SEVERITY Qualifiers: Laterality: unspecified laterality Non-pressure ulcer stage: limited to breakdown of skin plan continue iv abx await for vascular plan wound care rest as per the team
[2019-03-23] MEDS: COLLAGENASE CLOSTRIDIUM HIST. 30 GRAMS TUBE TP SCH (15:25)
--- NOTE | 2019-03-23 18:10 | PN ---
Progress Note (short form) - Note Progress Note: Vascular Surgery Pt seen and examined. Dressings changed. Bl feet ulcer, necrotic. Right is worse than left. Will need angiogram. Will do tues. Please clear pt. from medical and cardiology standpoint. Enzo Voss DO
[2019-03-23] MEDS: ZINC OXIDE/PETROLATUM,WHITE 1 APPLIC OINT...G. TP PRN (22:02)
[2019-03-23] MEDS: GABAPENTIN 100 MG CAPSULE PO SCH (22:03)
[2019-03-24] MEDS ORDERED: PIPERACILLIN/TAZOBACTAM 3.375 GM VIAL IVPB ONE ×3 (01:07→17:49)
[2019-03-24] MEDS ORDERED: DEXTROSE 5%-WATER - 50 ML IVPB ONE ×3 (01:07→17:49)
[2019-03-24] MEDS: PIPERACILLIN/TAZOB 3.375 GM 3.375 GM in DEXTROSE 5%-WATER - 50 ML IVPB SCH ×3 (01:27→19:06)
[2019-03-24] MEDS: FUROSEMIDE 40 MG TABLET (FP) PO SCH ×2 (06:15→15:42)
--- NOTE | 2019-03-24 08:49 | PN ---
Progress Note, Physician - Current Medication List Current Medications: Active Medications Ascorbic Acid (Vitamin C -) 250 mg PO DAILY [facility] Aspirin (Asa -) 81 mg PO DAILY [facility] Last Admin: 03/23/19 11:26 Dose: 81 mg Collagenase (Santyl -) 1 applic TP DAILY [facility]; Protocol Last Admin: 03/23/19 15:25 Dose: 1 applic Enoxaparin Sodium (Lovenox -) 30 mg SQ BID [facility] Last Admin: 03/23/19 22:03 Dose: 30 mg Famotidine (Pepcid -) 20 mg PO DAILY [facility] Last Admin: 03/23/19 11:28 Dose: 20 mg Folic Acid (Folic Acid -) 1 mg PO DAILY [facility] Last Admin: 03/23/19 11:27 Dose: 1 mg Furosemide (Lasix -) 40 mg PO BID@0600,1400 [facility] Last Admin: 03/24/19 06:15 Dose: 40 mg Gabapentin (Neurontin -) 100 mg PO HS [facility] Last Admin: 03/23/19 22:03 Dose: 100 mg Piperacillin Sod/Tazobactam (Sod 3.375 gm/ Dextrose) 50 mls @ 100 mls/hr IVPB Q8H-IV [facility]; Protocol Last Admin: 03/24/19 01:27 Dose: 100 mls/hr Lisinopril (Prinivil) 2.5 mg PO DAILY [facility] Last Admin: 03/23/19 11:26 Dose: 2.5 mg Metoprolol Tartrate (Lopressor -) 25 mg PO DAILY [facility] Last Admin: 03/23/19 11:26 Dose: 25 mg Multivitamins/Minerals/Vitamin C (Tab-A-Vit -) 1 tab PO DAILY [facility] Petrolatum (Sensi-Care Protective Ointment) 1 applic TP PRN PRN PRN Reason: HYGEINE Last Admin: 03/23/19 22:02 Dose: 1 applic Polysaccharide Iron Complex (Niferex-150 -) 150 mg PO DAILY [facility] Last Admin: 03/23/19 11:43 Dose: 150 mg Potassium Chloride (Potassium Chloride Oral Liquid) 40 meq PO BID [facility] Last Admin: 03/23/19 22:03 Dose: 40 meq Zinc Sulfate (Orazinc -) 220 mg PO DAILY [facility] - Objective Vital Signs: Vital Signs Temperature 97.5 F L 03/24/19 05:00 Pulse Rate 76 03/24/19 05:00 Respiratory Rate 20 02/15/20 05:00 Blood Pressure 150/56 L 03/24/19 05:00 O2 Sat by Pulse Oximetry (%) 94 L 03/23/19 21:00 Cardiovascular: Yes: S1, S2 Respiratory: Yes: Regular, CTA Bilaterally Gastrointestinal: Yes: Normal Bowel Sounds, Soft Labs: CBC, BMP 03/23/19 07:55 03/23/19 07:55 INR, PTT INR 1.16 (0.83-1.09) H 03/19/19 15:35 Assessment/Plan - Problems (1) Hypokalemia Assessment/Plan: -K 3.4 -KCl 40mEq BID Code(s): E87.6 - HYPOKALEMIA (2) PAD (peripheral artery disease) Assessment/Plan: -Vascular on board -CTA with B/l lower extremity runoff shows evaluation of the SFA and popliteal arteries limited due to motion, moderate to high grade stenosis in range 70-90% suspected in SFA at the level of adductor canal and moderate 50-70% stenosis in R popliteal artery, occluded R SUPERVISOR CEREAL, patent GIL to the level of the ankle with occlusion of dorsalis pedis artery, patent peroneal artery providing flow to foot via plantar artery, very diminutive flow in ethe distal L SUPERVISOR CEREAL with occluded peroneal artery and predmonent flow to the foot provided by SUPERVISOR CEREAL with patent but diminutive flow in the plantar artery WILL NEED ANGIO--VASC ON CASE Code(s): I73.9 - PERIPHERAL VASCULAR DISEASE, UNSPECIFIED (3) Anemia Assessment/Plan: -Hg 10.2 -monitor Hg daily -trnasfuse for Hg <8.0 -anemia profile shows low Iron, low TIBC, low Iron Sat, -Iron Polysaccharide Code(s): D64.9 - ANEMIA, UNSPECIFIED Qualifiers: Anemia type: unspecified type Qualified Code(s): D64.9 - Anemia, unspecified (4) CAD (coronary artery disease) Assessment/Plan: -Aspirin -cardio Code(s): I25.10 - ATHSCL HEART DISEASE OF [place] CORONARY ARTERY W/O ANG PCTRS Qualifiers: Coronary Disease-Associated Artery/Lesion type: [place] artery [place] vs. transplanted heart: [place] heart Associated angina: angina presence unspecified Qualified Code(s): I25.10 - Atherosclerotic heart disease of [place] coronary artery without angina pectoris (5) CVA (cerebral vascular accident) Assessment/Plan: -aspirin -PT -fall precaution Code(s): I63.9 - CEREBRAL INFARCTION, UNSPECIFIED Qualifiers: CVA mechanism: unspecified Qualified Code(s): I63.9 - Cerebral infarction, unspecified (6) Diabetes Assessment/Plan: -BGM ACHS -ISS -HgA1c Code(s): E11.9 - TYPE 2 DIABETES MELLITUS WITHOUT COMPLICATIONS (7) HTN (hypertension) Assessment/Plan: -Lisinopril, Metoprolol -low Na diet Code(s): I10 - ESSENTIAL (PRIMARY) HYPERTENSION Qualifiers: Hypertension type: essential hypertension Qualified Code(s): I10 - Essential (primary) hypertension (8) Unsteady gait Assessment/Plan: -fall precaution -PT Code(s): R26.81 - UNSTEADINESS ON FEET (9) Venous stasis ulcer Assessment/Plan: -Vascular on board -CTA with B/l lower extremity runoff shows evaluation of the SFA and popliteal arteries limited due to motion, moderate to high grade stenosis in range 70-90% suspected in SFA at the level of adductor canal and moderate 50-70% stenosis in R popliteal artery, occluded R SUPERVISOR CEREAL, patent GIL to the level of the ankle with occlusion of dorsalis pedis artery, patent peroneal artery providing flow to foot via plantar artery, very diminutive flow in ethe distal L SUPERVISOR CEREAL with occluded peroneal artery and predmonent flow to the foot provided by SUPERVISOR CEREAL with patent but diminutive flow in the plantar artery Code(s): I83.009 - VARICOSE VEINS OF UNSP LOWER EXTREMITY W ULCER OF UNSP SITE; L97.909 - NON-PRS CHRONIC ULC UNSP PRT OF UNSP LOW LEG W UNSP SEVERITY Qualifiers: Laterality: unspecified laterality Non-pressure ulcer stage: limited to breakdown of skin
[2019-03-24] MEDS: LISINOPRIL 5 MG TABLET (FP) PO SCH (11:00)
[2019-03-24] MEDS: ENOXAPARIN NA (PORCINE) 30 MG/0.3 ML DISP.SYRIN SQ SCH ×2 (11:00→21:30)
[2019-03-24] MEDS: POTASSIUM CHLORIDE ORAL LIQUID 20 MEQ/15 ML PO SCH ×2 (11:00→21:31)
[2019-03-24] MEDS: ASPIRIN 81 MG CHEWABLE TABLETS PO SCH (11:00)
[2019-03-24] MEDS: FAMOTIDINE 20 MG TABLET PO SCH (11:01)
[2019-03-24] MEDS: MULTIVITAMINS (DAILY MVI) TABLET (FP) PO SCH (11:01)
[2019-03-24] MEDS: METOPROLOL TARTRATE 25 MG TABLET (FP) PO SCH (11:01)
[2019-03-24] MEDS: FOLIC ACID 1 MG TABLET (FP) PO SCH (11:01)
[2019-03-24] MEDS: ASCORBIC ACID 250 MG TABLET (FP) PO SCH (11:02)
[2019-03-24] MEDS: ZINC SULFATE 220 MG CAPSULE (FP) PO SCH (11:02)
[2019-03-24] MEDS: IRON POLYSACCHARIDES 150 MG CAPSULE PO SCH (11:02)
[2019-03-24] MEDS: COLLAGENASE CLOSTRIDIUM HIST. 30 GRAMS TUBE TP SCH (11:03)
[2019-03-24] MEDS: ZINC OXIDE/PETROLATUM,WHITE 1 APPLIC OINT...G. TP PRN (11:04)
--- NOTE | 2019-03-24 16:29 | PN ---
Progress Note, Physician History of Present Illness: Pt is afebrile, without acute distress. Pain in feet b/l. Creatine elevated. - Current Medication List Current Medications: Active Medications Ascorbic Acid (Vitamin C -) 250 mg PO DAILY [facility] Last Admin: 03/24/19 11:02 Dose: 250 mg Aspirin (Asa -) 81 mg PO DAILY [facility] Last Admin: 03/24/19 11:00 Dose: 81 mg Collagenase (Santyl -) 1 applic TP DAILY [facility]; Protocol Last Admin: 03/24/19 11:03 Dose: 1 applic Enoxaparin Sodium (Lovenox -) 30 mg SQ BID [facility] Last Admin: 03/24/19 11:00 Dose: 30 mg Famotidine (Pepcid -) 20 mg PO DAILY [facility] Last Admin: 03/24/19 11:01 Dose: 20 mg Folic Acid (Folic Acid -) 1 mg PO DAILY [facility] Last Admin: 03/24/19 11:01 Dose: 1 mg Furosemide (Lasix -) 40 mg PO BID@0600,1400 [facility] Last Admin: 03/24/19 15:42 Dose: 40 mg Gabapentin (Neurontin -) 100 mg PO HS [facility] Last Admin: 03/23/19 22:03 Dose: 100 mg Piperacillin Sod/Tazobactam (Sod 3.375 gm/ Dextrose) 50 mls @ 100 mls/hr IVPB Q8H-IV [facility]; Protocol Last Admin: 03/24/19 11:02 Dose: 100 mls/hr Lisinopril (Prinivil) 2.5 mg PO DAILY [facility] Last Admin: 03/24/19 11:00 Dose: 2.5 mg Metoprolol Tartrate (Lopressor -) 25 mg PO DAILY [facility] Last Admin: 03/24/19 11:01 Dose: 25 mg Multivitamins/Minerals/Vitamin C (Tab-A-Vit -) 1 tab PO DAILY [facility] Last Admin: 03/24/19 11:01 Dose: 1 tab Petrolatum (Sensi-Care Protective Ointment) 1 applic TP PRN PRN PRN Reason: HYGEINE Last Admin: 03/24/19 11:04 Dose: 1 applic Polysaccharide Iron Complex (Niferex-150 -) 150 mg PO DAILY [facility] Last Admin: 03/24/19 11:02 Dose: 150 mg Potassium Chloride (Potassium Chloride Oral Liquid) 40 meq PO BID [facility] Last Admin: 03/24/19 11:00 Dose: 40 meq Zinc Sulfate (Orazinc -) 220 mg PO DAILY [facility] Last Admin: 03/24/19 11:02 Dose: 220 mg - Objective Vital Signs: Vital Signs Temperature 98.3 F 03/24/19 11:00 Pulse Rate 94 H 03/24/19 11:00 Respiratory Rate 03/24/19 11:00 Blood Pressure 101/61 03/24/19 11:00 O2 Sat by Pulse Oximetry (%) 94 L 03/23/19 21:00 Constitutional: Yes: No Distress, Calm Cardiovascular: Yes: Regular Rate and Rhythm Respiratory: Yes: Regular Gastrointestinal: Yes: Normal Bowel Sounds, Soft Genitourinary: Yes: WNL Integumentary: Yes: Venous Stasis Changes, Other (b/l foot ulcers/necrotic, gangrenous , LE erythema) Labs: CBC, BMP 03/23/19 07:55 03/23/19 07:55 INR, PTT INR 1.16 (0.83-1.09) H 03/19/19 15:35 Microbiology 03/19/19 15:35 Blood - Peripheral Venous Blood Culture - Final NO GROWTH AFTER 5 DAYS INCUBATION 03/19/19 15:35 Blood - Peripheral Venous Blood Culture - Final NO GROWTH AFTER 5 DAYS INCUBATION Problem List - Problems (1) PAD (peripheral artery disease) Code(s): I73.9 - PERIPHERAL VASCULAR DISEASE, UNSPECIFIED (2) Ulcer Code(s): [id number] - (3) Anemia Code(s): D64.9 - ANEMIA, UNSPECIFIED Qualifiers: Anemia type: unspecified type Qualified Code(s): D64.9 - Anemia, unspecified (4) CAD (coronary artery disease) Code(s): I25.10 - ATHSCL HEART DISEASE OF [place] CORONARY ARTERY W/O ANG PCTRS Qualifiers: Coronary Disease-Associated Artery/Lesion type: [place] artery [place] vs. transplanted heart: [place] heart Associated angina: angina presence unspecified Qualified Code(s): I25.10 - Atherosclerotic heart disease of [place] coronary artery without angina pectoris (5) CVA (cerebral vascular accident) Code(s): I63.9 - CEREBRAL INFARCTION, UNSPECIFIED Qualifiers: CVA mechanism: unspecified Qualified Code(s): I63.9 - Cerebral infarction, unspecified (6) Diabetes Code(s): E11.9 - TYPE 2 DIABETES MELLITUS WITHOUT COMPLICATIONS (7) HTN (hypertension) Code(s): I10 - ESSENTIAL (PRIMARY) HYPERTENSION Qualifiers: Hypertension type: essential hypertension Qualified Code(s): I10 - Essential (primary) hypertension (8) Venous stasis ulcer Code(s): I83.009 - VARICOSE VEINS OF UNSP LOWER EXTREMITY W ULCER OF UNSP SITE; L97.909 - NON-PRS CHRONIC ULC UNSP PRT OF UNSP LOW LEG W UNSP SEVERITY Qualifiers: Laterality: unspecified laterality Non-pressure ulcer stage: limited to breakdown of skin Assessment/Plan b/l LE necrotic ulcers/cellulitis PAD NAYA CAD Hx of CVA HTN -- continue Zosyn -- CTA results noted, Vascular on case -- monitor renal function -- pain control, wound care
--- NOTE | 2019-03-24 16:51 | EKG ---
Test Reason : Blood Pressure : / mmHG Vent. Rate : 072 BPM Atrial Rate : 072 BPM P-R Int : 156 ms QRS Dur : 094 ms QT Int : 398 ms P-R-T Axes : 030 065 020 degrees QTc Int : 435 ms NORMAL SINUS RHYTHM NORMAL ECG WHEN COMPARED WITH ECG OF 19-MAR-2019 17:52, NO SIGNIFICANT CHANGE WAS FOUND Confirmed by RENEE DIZA MD ([id number]) on 03/24/2019 4:51:33 PM Referred By: Genet LOPEZ Confirmed By:RENEE DIAZ MD
[2019-03-24] MEDS: GABAPENTIN 100 MG CAPSULE PO SCH (21:31)
[2019-03-25] MEDS ORDERED: PIPERACILLIN/TAZOBACTAM 3.375 GM VIAL IVPB ONE ×3 (02:19→17:08)
[2019-03-25] MEDS ORDERED: DEXTROSE 5%-WATER - 50 ML IVPB ONE ×3 (02:19→17:08)
[2019-03-25] MEDS: PIPERACILLIN/TAZOB 3.375 GM 3.375 GM in DEXTROSE 5%-WATER - 50 ML IVPB SCH ×3 (02:36→18:40)
[2019-03-25] MEDS: FUROSEMIDE 40 MG TABLET (FP) PO SCH ×2 (05:44→15:17)
--- NOTE | 2019-03-25 08:32 | PN ---
Progress Note, Physician - Current Medication List Current Medications: Active Medications Ascorbic Acid (Vitamin C -) 250 mg PO DAILY [facility] Last Admin: 03/24/19 11:02 Dose: 250 mg Aspirin (Asa -) 81 mg PO DAILY [facility] Last Admin: 03/24/19 11:00 Dose: 81 mg Collagenase (Santyl -) 1 applic TP DAILY [facility]; Protocol Last Admin: 03/24/19 11:03 Dose: 1 applic Enoxaparin Sodium (Lovenox -) 30 mg SQ BID [facility] Last Admin: 03/24/19 21:30 Dose: 30 mg Famotidine (Pepcid -) 20 mg PO DAILY [facility] Last Admin: 03/24/19 11:01 Dose: 20 mg Folic Acid (Folic Acid -) 1 mg PO DAILY [facility] Last Admin: 03/24/19 11:01 Dose: 1 mg Furosemide (Lasix -) 40 mg PO BID@0600,1400 [facility] Last Admin: 03/25/19 05:44 Dose: 40 mg Gabapentin (Neurontin -) 100 mg PO HS [facility] Last Admin: 03/24/19 21:31 Dose: 100 mg Piperacillin Sod/Tazobactam (Sod 3.375 gm/ Dextrose) 50 mls @ 100 mls/hr IVPB Q8H-IV [facility]; Protocol Last Admin: 03/25/19 02:36 Dose: 100 mls/hr Lisinopril (Prinivil) 2.5 mg PO DAILY [facility] Last Admin: 03/24/19 11:00 Dose: 2.5 mg Metoprolol Tartrate (Lopressor -) 25 mg PO DAILY [facility] Last Admin: 03/24/19 11:01 Dose: 25 mg Multivitamins/Minerals/Vitamin C (Tab-A-Vit -) 1 tab PO DAILY [facility] Last Admin: 03/24/19 11:01 Dose: 1 tab Petrolatum (Sensi-Care Protective Ointment) 1 applic TP PRN PRN PRN Reason: HYGEINE Last Admin: 03/24/19 11:04 Dose: 1 applic Polysaccharide Iron Complex (Niferex-150 -) 150 mg PO DAILY [facility] Last Admin: 03/24/19 11:02 Dose: 150 mg Potassium Chloride (Potassium Chloride Oral Liquid) 40 meq PO BID [facility] Last Admin: 03/24/19 21:31 Dose: 40 meq Zinc Sulfate (Orazinc -) 220 mg PO DAILY [facility] Last Admin: 03/24/19 11:02 Dose: 220 mg - Objective Vital Signs: Vital Signs Temperature 97.9 F 03/25/19 08:03 Pulse Rate 82 03/25/19 08:03 Respiratory Rate 20 03/25/19 08:03 Blood Pressure 152/69 03/25/19 08:03 O2 Sat by Pulse Oximetry (%) 95 03/24/19 21:00 Cardiovascular: Yes: S1, S2 Respiratory: Yes: Regular, CTA Bilaterally Gastrointestinal: Yes: Normal Bowel Sounds, Soft Labs: CBC, BMP 03/23/19 07:55 03/23/19 07:55 INR, PTT INR 1.16 (0.83-1.09) H 03/19/19 15:35 Assessment/Plan - Problems (1) Hypokalemia Assessment/Plan: -K 3.4 -KCl 40mEq BID Code(s): E87.6 - HYPOKALEMIA (2) PAD (peripheral artery disease) Assessment/Plan: -Vascular on board -CTA with B/l lower extremity runoff shows evaluation of the SFA and popliteal arteries limited due to motion, moderate to high grade stenosis in range 70-90% suspected in SFA at the level of adductor canal and moderate 50-70% stenosis in R popliteal artery, occluded R PUMP HOUSE ENGINEER, patent GIL to the level of the ankle with occlusion of dorsalis pedis artery, patent peroneal artery providing flow to foot via plantar artery, very diminutive flow in ethe distal L PUMP HOUSE ENGINEER with occluded peroneal artery and predmonent flow to the foot provided by PUMP HOUSE ENGINEER with patent but diminutive flow in the plantar artery WILL NEED ANGIO--VASC ON CASE Code(s): I73.9 - PERIPHERAL VASCULAR DISEASE, UNSPECIFIED (3) Anemia Assessment/Plan: -Hg 10.2 -monitor Hg daily -trnasfuse for Hg <8.0 -anemia profile shows low Iron, low TIBC, low Iron Sat, -Iron Polysaccharide Code(s): D64.9 - ANEMIA, UNSPECIFIED Qualifiers: Anemia type: unspecified type Qualified Code(s): D64.9 - Anemia, unspecified (4) CAD (coronary artery disease) Assessment/Plan: -Aspirin -cardio Code(s): I25.10 - ATHSCL HEART DISEASE OF [place] CORONARY ARTERY W/O ANG PCTRS Qualifiers: Coronary Disease-Associated Artery/Lesion type: [place] artery [place] vs. transplanted heart: [place] heart Associated angina: angina presence unspecified Qualified Code(s): I25.10 - Atherosclerotic heart disease of [place] coronary artery without angina pectoris (5) CVA (cerebral vascular accident) Assessment/Plan: -aspirin -PT -fall precaution Code(s): I63.9 - CEREBRAL INFARCTION, UNSPECIFIED Qualifiers: CVA mechanism: unspecified Qualified Code(s): I63.9 - Cerebral infarction, unspecified (6) Diabetes Assessment/Plan: -BGM ACHS -ISS -HgA1c Code(s): E11.9 - TYPE 2 DIABETES MELLITUS WITHOUT COMPLICATIONS (7) HTN (hypertension) Assessment/Plan: -Lisinopril, Metoprolol -low Na diet Code(s): I10 - ESSENTIAL (PRIMARY) HYPERTENSION Qualifiers: Hypertension type: essential hypertension Qualified Code(s): I10 - Essential (primary) hypertension (8) Unsteady gait Assessment/Plan: -fall precaution -PT Code(s): R26.81 - UNSTEADINESS ON FEET (9) Venous stasis ulcer Assessment/Plan: -Vascular on board -CTA with B/l lower extremity runoff shows evaluation of the SFA and popliteal arteries limited due to motion, moderate to high grade stenosis in range 70-90% suspected in SFA at the level of adductor canal and moderate 50-70% stenosis in R popliteal artery, occluded R PUMP HOUSE ENGINEER, patent GIL to the level of the ankle with occlusion of dorsalis pedis artery, patent peroneal artery providing flow to foot via plantar artery, very diminutive flow in ethe distal L PUMP HOUSE ENGINEER with occluded peroneal artery and predmonent flow to the foot provided by PUMP HOUSE ENGINEER with patent but diminutive flow in the plantar artery Code(s): I83.009 - VARICOSE VEINS OF UNSP LOWER EXTREMITY W ULCER OF UNSP SITE; L97.909 - NON-PRS CHRONIC ULC UNSP PRT OF UNSP LOW LEG W UNSP SEVERITY Qualifiers: Laterality: unspecified laterality Non-pressure ulcer stage: limited to breakdown of skin
[2019-03-25 09:25] LABS: BILIRUBIN,TOTAL 1.1 mg/dL (0.2-1); CALCIUM 9.1 mg/dL (8.5-10.1); CREATININE 1.6 mg/dL (0.55-1.3); POTASSIUM 4.1 mmol/L (3.5-5.1); TOT PROT 7.4 g/dl (6.4-8.2)
[2019-03-25 09:29] LABS: BASO % 0.5 % (0-2.0); EOS % 7.5 % (0-4.5); HEMATOCRIT 30.9 % (35.4-49); HEMOGLOBIN 10.6 GM/dL (11.7-16.9); LYMPH % 15.8 % (8-40); MCHC 34.3 g/dl (32.0-35.9); MEAN CELL VOLUME 93.3 fl (80-96); MEAN PLT VOLUME 9.3 fl (7.5-11.1); MONO % 10.2 % (3.8-10.2); PLATELET COUNT 165 K/MM3 (134-434); RBC 3.31 M/mm3 (4.00-5.60); RDW 14.9 % (11.9-15.9); WHITE BLOOD COUNT 6.2 K/mm3 (4.0-10.0)
[2019-03-25] MEDS: ASPIRIN 81 MG CHEWABLE TABLETS PO SCH (10:00)
[2019-03-25] MEDS: POTASSIUM CHLORIDE ORAL LIQUID 20 MEQ/15 ML PO SCH ×2 (10:37→21:38)
[2019-03-25] MEDS: MULTIVITAMINS (DAILY MVI) TABLET (FP) PO SCH (10:50)
[2019-03-25] MEDS: FOLIC ACID 1 MG TABLET (FP) PO SCH (10:50)
[2019-03-25] MEDS: ASCORBIC ACID 250 MG TABLET (FP) PO SCH (10:55)
[2019-03-25] MEDS: IRON POLYSACCHARIDES 150 MG CAPSULE PO SCH (10:55)
[2019-03-25] MEDS: ZINC SULFATE 220 MG CAPSULE (FP) PO SCH (10:55)
[2019-03-25] MEDS: ZINC OXIDE/PETROLATUM,WHITE 1 APPLIC OINT...G. TP PRN (10:56)
[2019-03-25] MEDS: LISINOPRIL 5 MG TABLET (FP) PO SCH (10:56)
[2019-03-25] MEDS: COLLAGENASE CLOSTRIDIUM HIST. 30 GRAMS TUBE TP SCH (10:56)
[2019-03-25] MEDS: ENOXAPARIN NA (PORCINE) 30 MG/0.3 ML DISP.SYRIN SQ SCH ×2 (10:57→21:38)
[2019-03-25] MEDS: METOPROLOL TARTRATE 25 MG TABLET (FP) PO SCH (10:57)
[2019-03-25] MEDS: FAMOTIDINE 20 MG TABLET PO SCH (10:57)
--- NOTE | 2019-03-25 11:57 | CON.CARD ---
Consult Consult Specialty:: Cardiology Referred by:: Dr. Ivy Reason for Consultation:: CHF and PAD - History of Present Illness Chief Complaint: Bilateral leg pain History of Present Illness: 68 year-old man with a PMHx of HTN, DM, HLD, CVA (06/2015), mild non-obstructive CAD, PAD with LE cellulitis admitted 03/19/19 with nonhealing necrotic ulcers of the bilateral feet and LE cellulitis. Non-invasive vascular studies showed significant LE PAD. Seen by ID and receiving IV ABx. Angiogram planned. Mr. Ha sees Dr. Berger as outpatient for his cardiac care. He has been stable from cardiac stand point. He reports no chest pain, SOB at rest, palpitation, syncope or near syncope . No orthopnea or PND. His exercise tolerance is limited because of leg pain and fatigue. ECG 03/24/19: Normal sinus rhythm. Normal ECG. Cardiac cath 10/16/2018: CAD with 1 vessel (RCA) non-obstructive (50%). LVEF 55%. 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 Infectious Disease: Yes: Other (Bilateral lower extremity celulitis ) Additional Medical History: Chronic leg ulcers - Alcohol/Substance Use Hx Alcohol Use: No - Smoking History Smoking history: Never smoked Have you smoked in the past 12 months: No If you are a former smoker, when did you quit?: 14 YEARS AGO - Social History Usual Living Arrangement: Alone Home Medications - Allergies Allergies/Adverse Reactions: Allergies Allergy/AdvReac Type Severity Reaction Status Date / Time No Known Allergies Allergy Verified 03/19/19 10:32 - Home Medications Home Medications: Ambulatory Orders Aspirin [ASA -] 81 mg PO DAILY #30 tab.chew 06/18/15 Folic Acid 1 mg PO DAILY #30 tablet 06/18/15 Glipizide [Glipizide ER] 2.5 mg PO DAILY 01/26/16 metFORMIN HCL [Metformin ER Osmotic] 1,000 mg PO DAILY 01/26/16 Cholecalciferol (Vitamin D3) [Vitamin D3] 2,000 unit PO DAILY 01/27/16 Furosemide 40 tab PO BID 05/18/18 Cholecalciferol (Vitamin D3) [Vitamin D3] 2,000 unit PO DAILY 03/19/19 Famotidine 20 mg PO DAILY 03/19/19 Gabapentin 100 mg PO HS 03/19/19 Lisinopril [Zestril] 2.5 mg PO DAILY 03/19/19 Metoprolol Tartrate 25 mg PO DAILY 03/19/19 Review of Systems - Review of Systems Constitutional: reports: No Symptoms Eyes: reports: No Symptoms HENT: reports: No Symptoms, Throat Pain Neck: reports: No Symptoms Cardiovascular: reports: No Symptoms Respiratory: reports: No Symptoms Gastrointestinal: reports: No Symptoms Genitourinary: reports: No Symptoms Breasts: reports: No Symptoms Reported Musculoskeletal: reports: Extremity Pain, Joint Swelling, Muscle Weakness Integumentary: reports: Change in Color, Erythema, Wound Neurological: reports: No Symptoms Endocrine: reports: No Symptoms Vital Signs: Vital Signs Temperature 97.9 F 03/25/19 08:03 Pulse Rate 82 03/25/19 08:03 Respiratory Rate 03/25/19 08:03 Blood Pressure 152/69 03/25/19 08:03 O2 Sat by Pulse Oximetry (%) 95 03/24/19 21:00 General: Well developed. Obese. No acute distress. Head: Normocephalic. Atraumatic, Eyes: PERRLA, EOMI. Sclerae anicteric. Conjunctivae clear. Neck: Supple. No JVD. No bruits. Heart: Normal S1, S2: Regular rhythm and rate. No murmur. No gallop or rub. Lungs: Bibasilar minimal crackle. No wheezing or rhonchi. Abdomen: Soft. Bowel sound positive. Non tender. No masses. Extremities: Stasis. trace to 1+ edema. Dressing intact. Neuro: Intact, no focal findings. AAO X3 - Other Data Labs, Other Data: CBC, BMP 03/25/19 07:28 03/25/19 07:28 INR, PTT INR 1.16 (0.83-1.09) H 03/19/19 15:35 Imaging - Results EKG: Image Reviewed (ECG 03/24/19: Normal sinus rhythm. Normal ECG.) Assessment/Plan 68 year-old man with a PMHx of HTN, DM, HLD, CVA (06/2015), mild non-obstructive CAD, PAD with LE cellulitis admitted 03/19/19 with nonhealing necrotic ulcers of the bilateral feet and LE cellulitis. Non-invasive vascular studies showed significant LE PAD. Seen by ID and receiving IV ABx. Angiogram planned. Mr. Ha sees Dr. Berger as outpatient for his cardiac care. He has been stable from cardiac stand point. He reports no chest pain, SOB at rest, palpitation, syncope or near syncope . No orthopnea or PND. His exercise tolerance is limited because of leg pain and fatigue. ECG 03/24/19: Normal sinus rhythm. Normal ECG. Cardiac cath 10/16/2018: CAD with 1 vessel (RCA) non-obstructive (50%). LVEF 55%. 1) PAD: LE cellulitis with nonhealing necrotic ulcers of the bilateral feet and LE cellulitis. Non-invasive vascular studies showed significant LE PAD. Seen by ID and receiving IV ABx. Angiogram planned. The patient is at intermediate risk of cardiac complications for the planned LE angio and possible intervention. There are no direct cardiac contraindications to the operation. No further preoperative cardiac testing is needed at this time. 2) Acute on chronic diastoliic CHF with preserved LV systolic function from cardiac cath in October 2017 and echo in April 2017: He has minimal pulmonary congestion and no dyspnea at rest while on IV Lasix. May change IV Lasix to PO 40 mg BID. 3) CAD: mild [id number] CAD: No symptoms of angina. Continue aspirin and metoprolol. Statin therapy should be started. Please do not hesitate to call us for re-consult at any time if any further questions or additional issue arises regarding this patient.
--- NOTE | 2019-03-25 15:54 | PN ---
Progress Note, Physician History of Present Illness: Pt is afebrile, without distress. LE erythema/edema improving. - Current Medication List Current Medications: Active Medications Ascorbic Acid (Vitamin C -) 250 mg PO DAILY [facility] Last Admin: 03/25/19 10:55 Dose: 250 mg Aspirin (Asa -) 81 mg PO DAILY [facility] Last Admin: 03/25/19 10:00 Dose: 81 mg Collagenase (Santyl -) 1 applic TP DAILY [facility]; Protocol Last Admin: 03/25/19 10:56 Dose: 1 applic Enoxaparin Sodium (Lovenox -) 30 mg SQ BID [facility] Last Admin: 03/25/19 10:57 Dose: 30 mg Famotidine (Pepcid -) 20 mg PO DAILY [facility] Last Admin: 03/25/19 10:57 Dose: 20 mg Folic Acid (Folic Acid -) 1 mg PO DAILY [facility] Last Admin: 03/25/19 10:50 Dose: 1 mg Furosemide (Lasix -) 40 mg PO BID@0600,1400 [facility] Last Admin: 03/25/19 15:17 Dose: Not Given Gabapentin (Neurontin -) 100 mg PO HS [facility] Last Admin: 03/24/19 21:31 Dose: 100 mg Piperacillin Sod/Tazobactam (Sod 3.375 gm/ Dextrose) 50 mls @ 100 mls/hr IVPB Q8H-IV [facility]; Protocol Last Admin: 03/25/19 10:50 Dose: 100 mls/hr Lisinopril (Prinivil) 2.5 mg PO DAILY [facility] Last Admin: 03/25/19 10:56 Dose: 2.5 mg Metoprolol Tartrate (Lopressor -) 25 mg PO DAILY [facility] Last Admin: 03/25/19 10:57 Dose: 25 mg Multivitamins/Minerals/Vitamin C (Tab-A-Vit -) 1 tab PO DAILY [facility] Last Admin: 03/25/19 10:50 Dose: 1 tab Petrolatum (Sensi-Care Protective Ointment) 1 applic TP PRN PRN PRN Reason: HYGEINE Last Admin: 03/25/19 10:56 Dose: 1 applic Polysaccharide Iron Complex (Niferex-150 -) 150 mg PO DAILY [facility] Last Admin: 03/25/19 10:55 Dose: 150 mg Potassium Chloride (Potassium Chloride Oral Liquid) 40 meq PO BID [facility] Last Admin: 03/25/19 10:37 Dose: 40 meq Zinc Sulfate (Orazinc -) 220 mg PO DAILY [facility] Last Admin: 03/25/19 10:55 Dose: 220 mg - Objective Vital Signs: Vital Signs Temperature 97.9 F 03/25/19 08:03 Pulse Rate 82 03/25/19 08:03 Respiratory Rate 03/25/19 08:03 Blood Pressure 152/69 03/25/19 08:03 O2 Sat by Pulse Oximetry (%) 95 03/24/19 21:00 Constitutional: Yes: No Distress, Calm Cardiovascular: Yes: Regular Rate and Rhythm Respiratory: Yes: Regular Gastrointestinal: Yes: Normal Bowel Sounds, Soft, Abdomen, Obese Genitourinary: Yes: WNL Extremities: Yes: Erythema (b/l LE mild erythema, edema improving, no tenderness at this time) Wound/Incision: Yes: Dressing Dry and Intact Labs: CBC, BMP 03/25/19 07:28 03/25/19 07:28 INR, PTT INR 1.16 (0.83-1.09) H 03/19/19 15:35 Microbiology 03/19/19 15:35 Blood - Peripheral Venous Blood Culture - Final NO GROWTH AFTER 5 DAYS INCUBATION 03/19/19 15:35 Blood - Peripheral Venous Blood Culture - Final NO GROWTH AFTER 5 DAYS INCUBATION Problem List - Problems (1) PAD (peripheral artery disease) Code(s): I73.9 - PERIPHERAL VASCULAR DISEASE, UNSPECIFIED (2) Ulcer Code(s): [id number] - (3) Anemia Code(s): D64.9 - ANEMIA, UNSPECIFIED Qualifiers: Anemia type: unspecified type Qualified Code(s): D64.9 - Anemia, unspecified (4) CAD (coronary artery disease) Code(s): I25.10 - ATHSCL HEART DISEASE OF [place] CORONARY ARTERY W/O ANG PCTRS Qualifiers: Coronary Disease-Associated Artery/Lesion type: [place] artery [place] vs. transplanted heart: [place] heart Associated angina: angina presence unspecified Qualified Code(s): I25.10 - Atherosclerotic heart disease of [place] coronary artery without angina pectoris (5) CVA (cerebral vascular accident) Code(s): I63.9 - CEREBRAL INFARCTION, UNSPECIFIED Qualifiers: CVA mechanism: unspecified Qualified Code(s): I63.9 - Cerebral infarction, unspecified (6) Diabetes Code(s): E11.9 - TYPE 2 DIABETES MELLITUS WITHOUT COMPLICATIONS (7) HTN (hypertension) Code(s): I10 - ESSENTIAL (PRIMARY) HYPERTENSION Qualifiers: Hypertension type: essential hypertension Qualified Code(s): I10 - Essential (primary) hypertension (8) Venous stasis ulcer Code(s): I83.009 - VARICOSE VEINS OF UNSP LOWER EXTREMITY W ULCER OF UNSP SITE; L97.909 - NON-PRS CHRONIC ULC UNSP PRT OF UNSP LOW LEG W UNSP SEVERITY Qualifiers: Laterality: unspecified laterality Non-pressure ulcer stage: limited to breakdown of skin Assessment/Plan b/l LE necrotic ulcers/cellulitis PAD NAYA CAD Hx of CVA HTN -- continue Zosyn, cellulitis appears to be improving -- CTA results noted, Vascular following, Angiogram planned -- monitor renal function, creatinine elevated but stable since yesterday -- repeat cbc/bmp -- pain control, wound care
[2019-03-25] MEDS: GABAPENTIN 100 MG CAPSULE PO SCH (21:38)
[2019-03-26] MEDS ORDERED: PIPERACILLIN/TAZOBACTAM 3.375 GM VIAL IVPB ONE ×4 (00:46→19:54)
[2019-03-26] MEDS ORDERED: DEXTROSE 5%-WATER - 50 ML IVPB ONE ×4 (00:47→19:54)
[2019-03-26] MEDS: PIPERACILLIN/TAZOB 3.375 GM 3.375 GM in DEXTROSE 5%-WATER - 50 ML IVPB SCH ×3 (01:10→18:50)
[2019-03-26] MEDS: FUROSEMIDE 40 MG TABLET (FP) PO SCH ×2 (06:27→15:46)
--- NOTE | 2019-03-26 07:35 | SPA.PREOP ---
- PRE-OP NOTE Dx: Right leg ulcer and arterial insufficiency Planned Procedure: RLE angiogram Surgeon: Enzo Voss, DO Last Vital Signs Temp Pulse Resp BP Pulse Ox 98.4 F 84 20 126/70 96 03/26/19 05:36 03/26/19 05:36 03/26/19 05:36 03/26/19 05:36 03/25/19 21:00 Lab Results WBC 6.2 K/mm3 (4.0-10.0) 03/25/19 07:28 RBC 3.31 M/mm3 (4.00-5.60) L 03/25/19 07:28 Hgb 10.6 GM/dL (11.7-16.9) L 03/25/19 07:28 Hct 30.9 % (35.4-49) L 03/25/19 07:28 MCV 93.3 fl (80-96) 03/25/19 07:28 MCHC 34.3 g/dl (32.0-35.9) 03/25/19 07:28 RDW 14.9 % (11.9-15.9) 03/25/19 07:28 Plt Count 165 K/MM3 (134-434) 03/25/19 07:28 Sodium 137 mmol/L (136-145) 03/25/19 07:28 Potassium 4.1 mmol/L (3.5-5.1) 03/25/19 07:28 Chloride 99 mmol/L (98-107) 03/25/19 07:28 Carbon Dioxide 32 mmol/L (21-32) 03/25/19 07:28 Anion Gap 6 MMOL/L (8-16) L 03/25/19 07:28 BUN 19.0 mg/dL (7-18) H 03/25/19 07:28 Creatinine 1.6 mg/dL (0.55-1.3) H 03/25/19 07:28 Random Glucose 117 mg/dL (74-106) H 03/25/19 07:28 Calcium 9.1 mg/dL (8.5-10.1) 03/25/19 07:28 Blood Type A NEGATIVE 03/19/19 15:35 Antibody Screen Negative 03/19/19 15:35 INR 1.16 (0.83-1.09) H 03/19/19 15:35 - ASSESSMENT/PLAN 1. Make NPO after midnight except po meds 2. GI/DVT PPX 3. Medical optimization / clearance 4. Consent to be obtained by surgeon after risks, benefits and alternatives discussed with patient and or Health Care Proxy.
--- NOTE | 2019-03-26 08:50 | PN ---
Progress Note, Physician - Current Medication List Current Medications: Active Medications Ascorbic Acid (Vitamin C -) 250 mg PO DAILY [facility] Last Admin: 03/25/19 10:55 Dose: 250 mg Aspirin (Asa -) 81 mg PO DAILY [facility] Last Admin: 03/25/19 10:00 Dose: 81 mg Collagenase (Santyl -) 1 applic TP DAILY [facility]; Protocol Last Admin: 03/25/19 10:56 Dose: 1 applic Enoxaparin Sodium (Lovenox -) 30 mg SQ BID [facility] Last Admin: 03/25/19 21:38 Dose: 30 mg Famotidine (Pepcid -) 20 mg PO DAILY [facility] Last Admin: 03/25/19 10:57 Dose: 20 mg Folic Acid (Folic Acid -) 1 mg PO DAILY [facility] Last Admin: 03/25/19 10:50 Dose: 1 mg Furosemide (Lasix -) 40 mg PO BID@0600,1400 [facility] Last Admin: 03/26/19 06:27 Dose: 40 mg Gabapentin (Neurontin -) 100 mg PO HS [facility] Last Admin: 03/25/19 21:38 Dose: 100 mg Piperacillin Sod/Tazobactam (Sod 3.375 gm/ Dextrose) 50 mls @ 100 mls/hr IVPB Q8H-IV [facility]; Protocol Last Admin: 03/26/19 01:10 Dose: 100 mls/hr Lisinopril (Prinivil) 2.5 mg PO DAILY [facility] Last Admin: 03/25/19 10:56 Dose: 2.5 mg Metoprolol Tartrate (Lopressor -) 25 mg PO DAILY [facility] Last Admin: 03/25/19 10:57 Dose: 25 mg Multivitamins/Minerals/Vitamin C (Tab-A-Vit -) 1 tab PO DAILY [facility] Last Admin: 03/25/19 10:50 Dose: 1 tab Petrolatum (Sensi-Care Protective Ointment) 1 applic TP PRN PRN PRN Reason: HYGEINE Last Admin: 03/25/19 10:56 Dose: 1 applic Polysaccharide Iron Complex (Niferex-150 -) 150 mg PO DAILY [facility] Last Admin: 03/25/19 10:55 Dose: 150 mg Potassium Chloride (Potassium Chloride Oral Liquid) 40 meq PO BID [facility] Last Admin: 03/25/19 21:38 Dose: 40 meq Zinc Sulfate (Orazinc -) 220 mg PO DAILY [facility] Last Admin: 03/25/19 10:55 Dose: 220 mg - Objective Vital Signs: Vital Signs Temperature 98.4 F 03/26/19 05:36 Pulse Rate 84 03/26/19 05:36 Respiratory Rate 20 03/26/19 05:36 Blood Pressure 126/70 03/26/19 05:36 O2 Sat by Pulse Oximetry (%) 96 03/25/19 21:00 Cardiovascular: Yes: S1, S2 Respiratory: Yes: Regular, CTA Bilaterally Gastrointestinal: Yes: Normal Bowel Sounds, Soft Labs: CBC, BMP 03/25/19 07:28 03/25/19 07:28 INR, PTT INR 1.16 (0.83-1.09) H 03/19/19 15:35 Assessment/Plan - Problems (1) Hypokalemia Assessment/Plan: -K 3.4 -KCl 40mEq BID Code(s): E87.6 - HYPOKALEMIA (2) PAD (peripheral artery disease) Assessment/Plan: -Vascular on board -CTA with B/l lower extremity runoff shows evaluation of the SFA and popliteal arteries limited due to motion, moderate to high grade stenosis in range 70-90% suspected in SFA at the level of adductor canal and moderate 50-70% stenosis in R popliteal artery, occluded R CATERING DIRECTOR, patent GIL to the level of the ankle with occlusion of dorsalis pedis artery, patent peroneal artery providing flow to foot via plantar artery, very diminutive flow in ethe distal L CATERING DIRECTOR with occluded peroneal artery and predmonent flow to the foot provided by CATERING DIRECTOR with patent but diminutive flow in the plantar artery WILL NEED ANGIO--VASC ON CASE Code(s): I73.9 - PERIPHERAL VASCULAR DISEASE, UNSPECIFIED (3) Anemia Assessment/Plan: -Hg 10.2 -monitor Hg daily -trnasfuse for Hg <8.0 -anemia profile shows low Iron, low TIBC, low Iron Sat, -Iron Polysaccharide Code(s): D64.9 - ANEMIA, UNSPECIFIED Qualifiers: Anemia type: unspecified type Qualified Code(s): D64.9 - Anemia, unspecified (4) CAD (coronary artery disease) Assessment/Plan: -Aspirin -cardio Code(s): I25.10 - ATHSCL HEART DISEASE OF [place] CORONARY ARTERY W/O ANG PCTRS Qualifiers: Coronary Disease-Associated Artery/Lesion type: [place] artery [place] vs. transplanted heart: [place] heart Associated angina: angina presence unspecified Qualified Code(s): I25.10 - Atherosclerotic heart disease of [place] coronary artery without angina pectoris (5) CVA (cerebral vascular accident) Assessment/Plan: -aspirin -PT -fall precaution Code(s): I63.9 - CEREBRAL INFARCTION, UNSPECIFIED Qualifiers: CVA mechanism: unspecified Qualified Code(s): I63.9 - Cerebral infarction, unspecified (6) Diabetes Assessment/Plan: -BGM ACHS -ISS -HgA1c Code(s): E11.9 - TYPE 2 DIABETES MELLITUS WITHOUT COMPLICATIONS (7) HTN (hypertension) Assessment/Plan: -Lisinopril, Metoprolol -low Na diet Code(s): I10 - ESSENTIAL (PRIMARY) HYPERTENSION Qualifiers: Hypertension type: essential hypertension Qualified Code(s): I10 - Essential (primary) hypertension (8) Unsteady gait Assessment/Plan: -fall precaution -PT Code(s): R26.81 - UNSTEADINESS ON FEET (9) Venous stasis ulcer Assessment/Plan: -Vascular on board -CTA with B/l lower extremity runoff shows evaluation of the SFA and popliteal arteries limited due to motion, moderate to high grade stenosis in range 70-90% suspected in SFA at the level of adductor canal and moderate 50-70% stenosis in R popliteal artery, occluded R CATERING DIRECTOR, patent GIL to the level of the ankle with occlusion of dorsalis pedis artery, patent peroneal artery providing flow to foot via plantar artery, very diminutive flow in ethe distal L CATERING DIRECTOR with occluded peroneal artery and predmonent flow to the foot provided by CATERING DIRECTOR with patent but diminutive flow in the plantar artery Code(s): I83.009 - VARICOSE VEINS OF UNSP LOWER EXTREMITY W ULCER OF UNSP SITE; L97.909 - NON-PRS CHRONIC ULC UNSP PRT OF UNSP LOW LEG W UNSP SEVERITY Qualifiers: Laterality: unspecified laterality Non-pressure ulcer stage: limited to breakdown of skin
[2019-03-26] MEDS: POTASSIUM CHLORIDE ORAL LIQUID 20 MEQ/15 ML PO SCH ×2 (11:40→22:31)
[2019-03-26] MEDS: IRON POLYSACCHARIDES 150 MG CAPSULE PO SCH (11:42)
[2019-03-26] MEDS: ASCORBIC ACID 250 MG TABLET (FP) PO SCH (11:42)
[2019-03-26] MEDS: ZINC SULFATE 220 MG CAPSULE (FP) PO SCH (11:42)
[2019-03-26] MEDS: MULTIVITAMINS (DAILY MVI) TABLET (FP) PO SCH (11:43)
[2019-03-26] MEDS: ASPIRIN 81 MG CHEWABLE TABLETS PO SCH (11:43)
[2019-03-26] MEDS: FOLIC ACID 1 MG TABLET (FP) PO SCH (11:43)
[2019-03-26] MEDS: LISINOPRIL 5 MG TABLET (FP) PO SCH (11:44)
[2019-03-26] MEDS: FAMOTIDINE 20 MG TABLET PO SCH (11:44)
[2019-03-26] MEDS: METOPROLOL TARTRATE 25 MG TABLET (FP) PO SCH (11:44)
[2019-03-26] MEDS: ENOXAPARIN NA (PORCINE) 30 MG/0.3 ML DISP.SYRIN SQ SCH (11:44)
[2019-03-26] MEDS: ZINC OXIDE/PETROLATUM,WHITE 1 APPLIC OINT...G. TP PRN (11:46)
[2019-03-26] MEDS: COLLAGENASE CLOSTRIDIUM HIST. 30 GRAMS TUBE TP SCH (11:47)
--- NOTE | 2019-03-26 12:19 | PN ---
Progress Note, Physician History of Present Illness: stable no new issues - Current Medication List Current Medications: Active Medications Ascorbic Acid (Vitamin C -) 250 mg PO DAILY [facility] Last Admin: 03/26/19 11:42 Dose: 250 mg Aspirin (Asa -) 81 mg PO DAILY [facility] Last Admin: 03/26/19 11:43 Dose: 81 mg Collagenase (Santyl -) 1 applic TP DAILY [facility]; Protocol Last Admin: 03/26/19 11:47 Dose: 1 applic Enoxaparin Sodium (Lovenox -) 30 mg SQ BID [facility] Last Admin: 03/26/19 11:44 Dose: 30 mg Famotidine (Pepcid -) 20 mg PO DAILY [facility] Last Admin: 03/26/19 11:44 Dose: 20 mg Folic Acid (Folic Acid -) 1 mg PO DAILY [facility] Last Admin: 03/26/19 11:43 Dose: 1 mg Furosemide (Lasix -) 40 mg PO BID@0600,1400 [facility] Last Admin: 03/26/19 06:27 Dose: 40 mg Gabapentin (Neurontin -) 100 mg PO HS [facility] Last Admin: 03/25/19 21:38 Dose: 100 mg Piperacillin Sod/Tazobactam (Sod 3.375 gm/ Dextrose) 50 mls @ 100 mls/hr IVPB Q8H-IV [facility]; Protocol Last Admin: 03/26/19 11:40 Dose: 100 mls/hr Lisinopril (Prinivil) 2.5 mg PO DAILY [facility] Last Admin: 03/26/19 11:44 Dose: 2.5 mg Metoprolol Tartrate (Lopressor -) 25 mg PO DAILY [facility] Last Admin: 03/26/19 11:44 Dose: 25 mg Multivitamins/Minerals/Vitamin C (Tab-A-Vit -) 1 tab PO DAILY [facility] Last Admin: 03/26/19 11:43 Dose: 1 tab Petrolatum (Sensi-Care Protective Ointment) 1 applic TP PRN PRN PRN Reason: HYGEINE Last Admin: 03/26/19 11:46 Dose: 1 applic Polysaccharide Iron Complex (Niferex-150 -) 150 mg PO DAILY [facility] Last Admin: 03/26/19 11:42 Dose: 150 mg Potassium Chloride (Potassium Chloride Oral Liquid) 40 meq PO BID [facility] Last Admin: 03/26/19 11:40 Dose: 40 meq Zinc Sulfate (Orazinc -) 220 mg PO DAILY [facility] Last Admin: 03/26/19 11:42 Dose: 220 mg - Objective Vital Signs: Vital Signs Temperature 98.4 F 03/26/19 05:36 Pulse Rate 84 03/26/19 05:36 Respiratory Rate 20 03/26/19 05:36 Blood Pressure 126/70 03/26/19 05:36 O2 Sat by Pulse Oximetry (%) 96 03/25/19 21:00 Constitutional: Yes: No Distress, Calm Cardiovascular: Yes: S1, S2 Respiratory: Yes: Regular, CTA Bilaterally Gastrointestinal: Yes: Normal Bowel Sounds, Soft Musculoskeletal: Yes: WNL Extremities: Yes: Other Wound/Incision: Yes: Dressing Dry and Intact Neurological: Yes: Alert, Oriented Psychiatric: Yes: Alert, Oriented Labs: CBC, BMP 03/25/19 07:28 03/25/19 07:28 INR, PTT INR 1.16 (0.83-1.09) H 03/19/19 15:35 Assessment/Plan roble List - Problems (1) PAD (peripheral artery disease) Code(s): I73.9 - PERIPHERAL VASCULAR DISEASE, UNSPECIFIED (2) Anemia Code(s): D64.9 - ANEMIA, UNSPECIFIED Qualifiers: Anemia type: unspecified type Qualified Code(s): D64.9 - Anemia, unspecified (3) CAD (coronary artery disease) Code(s): I25.10 - ATHSCL HEART DISEASE OF [place] CORONARY ARTERY W/O ANG PCTRS Qualifiers: Coronary Disease-Associated Artery/Lesion type: [place] artery [place] vs. transplanted heart: [place] heart Associated angina: angina presence unspecified Qualified Code(s): I25.10 - Atherosclerotic heart disease of [place] coronary artery without angina pectoris (4) CVA (cerebral vascular accident) Code(s): I63.9 - CEREBRAL INFARCTION, UNSPECIFIED Qualifiers: CVA mechanism: unspecified Qualified Code(s): I63.9 - Cerebral infarction, unspecified (5) Diabetes Code(s): E11.9 - TYPE 2 DIABETES MELLITUS WITHOUT COMPLICATIONS (6) HTN (hypertension) Code(s): I10 - ESSENTIAL (PRIMARY) HYPERTENSION Qualifiers: Hypertension type: essential hypertension Qualified Code(s): I10 - Essential (primary) hypertension (7) Unsteady gait Code(s): R26.81 - UNSTEADINESS ON FEET (8) Venous stasis ulcer Code(s): I83.009 - VARICOSE VEINS OF UNSP LOWER EXTREMITY W ULCER OF UNSP SITE; L97.909 - NON-PRS CHRONIC ULC UNSP PRT OF UNSP LOW LEG W UNSP SEVERITY Qualifiers: Laterality: unspecified laterality Non-pressure ulcer stage: limited to breakdown of skin plan continue iv abx for angio tomorrow wound care rest as per the team
--- NOTE | 2019-03-26 15:31 | ECHO ---
Name: TONJA BOND Exam:Adult Echocardiogram Study Date: 03/26/2019 01:35 PM Age: 68 yrs Reason For Study: CHF Height: 69 in Weight: 244 lb BSA: 2.2 m2 MMode/2D Measurements & Calculations IVSd: 1.3 cm Ao root diam: 3.4 cm LVIDd: 4.0 cm LA dimension: 3.7 cm LVIDs: 2.8 cm ACS: 1.8 cm LVPWd: 1.3 cm EDV(Teich): 70.4 ml LVOT diam: 2.2 cm ESV(Teich): 29.2 ml TAPSE: 2.2 cm RV S Mansoor: 16.9 cm/sec Doppler Measurements & Calculations MV E max mansoor: 46.1 cm/sec Ao V2 max: 114.0 cm/sec MV A max mansoor: 65.0 cm/sec Ao max P.2 mmHg MV E/A: 0.71 Ao V2 mean: 77.3 cm/sec MV dec time: 0.19 sec Ao mean P.8 mmHg Ao V2 VTI: 21.0 cm PALLAVI(I,D): 2.4 cm2 PALLAVI(V,D): 2.6 cm2 LV V1 max P.6 mmHg SV(LVOT): 50.8 ml LV V1 mean P.1 mmHg LV V1 max: 80.0 cm/sec LV V1 mean: 47.1 cm/sec LV V1 VTI: 13.6 cm PA V2 max: 107.2 cm/sec Med Peak E' Mansoor: 8.2 cm/sec PA max P.6 mmHg Med E/e': 5.7 Lat Peak E' Mansoor: 8.2 cm/sec Lat E/e': 5.7 Tech Comments TDS. 39 yr. former smoker, morbid obesity, supine, and coughing thruout entire study. Procedure Study Quality: Technically suboptimal. There was technical limitations during this study due to patie nts body habitas. Left Ventricle The left ventricle is grossly normal size. There is mild concentric left ventricular hypertrophy. Lef t ventricular systolic function is grossly normal. The transmitral spectral Doppler flow pattern is sug gestive of impaired LV relaxation. Right Ventricle Borderline right ventricular enlargement. Right ventricular function cannot be assessed due to poor i mage quality. Atria The left atrium is not well visualized. Right atrium not well visualized. Mitral Valve The mitral valve is grossly normal. There is no mitral regurgitation noted. Tricuspid Valve The tricuspid valve is not well visualized, but is grossly normal. Aortic Valve The aortic valve is not well visualized. Grossly no dysfunction. Pulmonic Valve The pulmonic valve is not well visualized. Great Vessels The aortic root is normal size. Pericardium/Pleura There is no pericardial effusion. Interpretation Summary Suboptimal study Grossly normal LV size and systolic function, mild LVH with impaired relaxation Borderline RV size Grossly no significant valvular dysfunction. Curly Khan 03/26/2019 03:31 PM
[2019-03-26] MEDS: GABAPENTIN 100 MG CAPSULE PO SCH (22:29)
[2019-03-27] MEDS: PIPERACILLIN/TAZOB 3.375 GM 3.375 GM in DEXTROSE 5%-WATER - 50 ML IVPB SCH ×3 (01:30→18:09)
[2019-03-27] MEDS: FUROSEMIDE 40 MG TABLET (FP) PO SCH ×2 (06:41→14:43)
--- NOTE | 2019-03-27 08:13 | PN ---
Progress Note, Physician - Current Medication List Current Medications: Active Medications Ascorbic Acid (Vitamin C -) 250 mg PO DAILY [facility] Last Admin: 03/26/19 11:42 Dose: 250 mg Aspirin (Asa -) 81 mg PO DAILY [facility] Last Admin: 03/26/19 11:43 Dose: 81 mg Collagenase (Santyl -) 1 applic TP DAILY [facility]; Protocol Last Admin: 03/26/19 11:47 Dose: 1 applic Famotidine (Pepcid -) 20 mg PO DAILY [facility] Last Admin: 03/26/19 11:44 Dose: 20 mg Folic Acid (Folic Acid -) 1 mg PO DAILY [facility] Last Admin: 03/26/19 11:43 Dose: 1 mg Furosemide (Lasix -) 40 mg PO BID@0600,1400 [facility] Last Admin: 03/27/19 06:41 Dose: 40 mg Gabapentin (Neurontin -) 100 mg PO HS [facility] Last Admin: 03/26/19 22:29 Dose: 100 mg Piperacillin Sod/Tazobactam (Sod 3.375 gm/ Dextrose) 50 mls @ 100 mls/hr IVPB Q8H-IV [facility]; Protocol Last Admin: 03/27/19 01:30 Dose: 100 mls/hr Lisinopril (Prinivil) 2.5 mg PO DAILY [facility] Last Admin: 03/26/19 11:44 Dose: 2.5 mg Metoprolol Tartrate (Lopressor -) 25 mg PO DAILY [facility] Last Admin: 03/26/19 11:44 Dose: 25 mg Multivitamins/Minerals/Vitamin C (Tab-A-Vit -) 1 tab PO DAILY [facility] Last Admin: 03/26/19 11:43 Dose: 1 tab Petrolatum (Sensi-Care Protective Ointment) 1 applic TP PRN PRN PRN Reason: HYGEINE Last Admin: 03/26/19 11:46 Dose: 1 applic Polysaccharide Iron Complex (Niferex-150 -) 150 mg PO DAILY [facility] Last Admin: 03/26/19 11:42 Dose: 150 mg Potassium Chloride (Potassium Chloride Oral Liquid) 40 meq PO BID [facility] Last Admin: 03/26/19 22:31 Dose: 40 meq Zinc Sulfate (Orazinc -) 220 mg PO DAILY [facility] Last Admin: 03/26/19 11:42 Dose: 220 mg - Objective Vital Signs: Vital Signs Temperature 97.6 F 03/27/19 06:00 Pulse Rate 79 03/27/19 06:00 Respiratory Rate 20 03/27/19 06:00 Blood Pressure 127/60 03/27/19 06:00 O2 Sat by Pulse Oximetry (%) 99 03/26/19 21:00 Cardiovascular: Yes: Regular Rate and Rhythm Respiratory: Yes: Regular, CTA Bilaterally Gastrointestinal: Yes: Normal Bowel Sounds, Soft Labs: CBC, BMP 03/25/19 07:28 03/25/19 07:28 INR, PTT INR 1.16 (0.83-1.09) H 03/19/19 15:35 Assessment/Plan - Problems (1) Hypokalemia Assessment/Plan: -K 3.4 -KCl 40mEq BID Code(s): E87.6 - HYPOKALEMIA (2) PAD (peripheral artery disease) Assessment/Plan: -Vascular on board -CTA with B/l lower extremity runoff shows evaluation of the SFA and popliteal arteries limited due to motion, moderate to high grade stenosis in range 70-90% suspected in SFA at the level of adductor canal and moderate 50-70% stenosis in R popliteal artery, occluded R FINANCIAL ADMINISTRATOR, patent GIL to the level of the ankle with occlusion of dorsalis pedis artery, patent peroneal artery providing flow to foot via plantar artery, very diminutive flow in ethe distal L FINANCIAL ADMINISTRATOR with occluded peroneal artery and predmonent flow to the foot provided by FINANCIAL ADMINISTRATOR with patent but diminutive flow in the plantar artery WILL NEED ANGIO--VASC ON CASE Code(s): I73.9 - PERIPHERAL VASCULAR DISEASE, UNSPECIFIED (3) Anemia Assessment/Plan: -Hg 10.2 -monitor Hg daily -trnasfuse for Hg <8.0 -anemia profile shows low Iron, low TIBC, low Iron Sat, -Iron Polysaccharide Code(s): D64.9 - ANEMIA, UNSPECIFIED Qualifiers: Anemia type: unspecified type Qualified Code(s): D64.9 - Anemia, unspecified (4) CAD (coronary artery disease) Assessment/Plan: -Aspirin -cardio Code(s): I25.10 - ATHSCL HEART DISEASE OF [place] CORONARY ARTERY W/O ANG PCTRS Qualifiers: Coronary Disease-Associated Artery/Lesion type: [place] artery [place] vs. transplanted heart: [place] heart Associated angina: angina presence unspecified Qualified Code(s): I25.10 - Atherosclerotic heart disease of [place] coronary artery without angina pectoris (5) CVA (cerebral vascular accident) Assessment/Plan: -aspirin -PT -fall precaution Code(s): I63.9 - CEREBRAL INFARCTION, UNSPECIFIED Qualifiers: CVA mechanism: unspecified Qualified Code(s): I63.9 - Cerebral infarction, unspecified (6) Diabetes Assessment/Plan: -BGM ACHS -ISS -HgA1c Code(s): E11.9 - TYPE 2 DIABETES MELLITUS WITHOUT COMPLICATIONS (7) HTN (hypertension) Assessment/Plan: -Lisinopril, Metoprolol -low Na diet Code(s): I10 - ESSENTIAL (PRIMARY) HYPERTENSION Qualifiers: Hypertension type: essential hypertension Qualified Code(s): I10 - Essential (primary) hypertension (8) Unsteady gait Assessment/Plan: -fall precaution -PT Code(s): R26.81 - UNSTEADINESS ON FEET (9) Venous stasis ulcer Assessment/Plan: -Vascular on board -CTA with B/l lower extremity runoff shows evaluation of the SFA and popliteal arteries limited due to motion, moderate to high grade stenosis in range 70-90% suspected in SFA at the level of adductor canal and moderate 50-70% stenosis in R popliteal artery, occluded R FINANCIAL ADMINISTRATOR, patent GIL to the level of the ankle with occlusion of dorsalis pedis artery, patent peroneal artery providing flow to foot via plantar artery, very diminutive flow in ethe distal L FINANCIAL ADMINISTRATOR with occluded peroneal artery and predmonent flow to the foot provided by FINANCIAL ADMINISTRATOR with patent but diminutive flow in the plantar artery Code(s): I83.009 - VARICOSE VEINS OF UNSP LOWER EXTREMITY W ULCER OF UNSP SITE; L97.909 - NON-PRS CHRONIC ULC UNSP PRT OF UNSP LOW LEG W UNSP SEVERITY Qualifiers: Laterality: unspecified laterality Non-pressure ulcer stage: limited to breakdown of skin
[2019-03-27] MEDS ORDERED: PIPERACILLIN/TAZOBACTAM 3.375 GM VIAL IVPB ONE ×2 (10:52→18:02)
[2019-03-27] MEDS ORDERED: PT OWN MED DRAWER 7, Y5N ONE ×2 (10:52→21:27)
[2019-03-27] MEDS ORDERED: DEXTROSE 5%-WATER - 50 ML IVPB ONE ×2 (10:53→18:02)
[2019-03-27] MEDS: ASPIRIN 81 MG CHEWABLE TABLETS PO SCH (10:54)
[2019-03-27] MEDS: FOLIC ACID 1 MG TABLET (FP) PO SCH (10:54)
[2019-03-27] MEDS: POTASSIUM CHLORIDE ORAL LIQUID 20 MEQ/15 ML PO SCH ×2 (10:54→22:26)
[2019-03-27] MEDS: MULTIVITAMINS (DAILY MVI) TABLET (FP) PO SCH (10:54)
[2019-03-27] MEDS: LISINOPRIL 5 MG TABLET (FP) PO SCH (10:54)
[2019-03-27] MEDS: METOPROLOL TARTRATE 25 MG TABLET (FP) PO SCH (10:54)
[2019-03-27] MEDS: IRON POLYSACCHARIDES 150 MG CAPSULE PO SCH (10:56)
[2019-03-27] MEDS: ZINC SULFATE 220 MG CAPSULE (FP) PO SCH (10:56)
[2019-03-27] MEDS: ASCORBIC ACID 250 MG TABLET (FP) PO SCH (10:56)
[2019-03-27] MEDS: COLLAGENASE CLOSTRIDIUM HIST. 30 GRAMS TUBE TP SCH (10:59)
[2019-03-27] MEDS: FAMOTIDINE 20 MG TABLET PO SCH (11:14)
--- NOTE | 2019-03-27 11:58 | PN ---
Progress Note, Physician History of Present Illness: stable no new issues - Current Medication List Current Medications: Active Medications Ascorbic Acid (Vitamin C -) 250 mg PO DAILY [facility] Last Admin: 03/27/19 10:56 Dose: 250 mg Aspirin (Asa -) 81 mg PO DAILY [facility] Last Admin: 03/27/19 10:54 Dose: 81 mg Collagenase (Santyl -) 1 applic TP DAILY [facility]; Protocol Last Admin: 03/27/19 10:59 Dose: 1 applic Famotidine (Pepcid -) 20 mg PO DAILY [facility] Last Admin: 03/27/19 11:14 Dose: 20 mg Folic Acid (Folic Acid -) 1 mg PO DAILY [facility] Last Admin: 03/27/19 10:54 Dose: 1 mg Furosemide (Lasix -) 40 mg PO BID@0600,1400 [facility] Last Admin: 03/27/19 06:41 Dose: 40 mg Gabapentin (Neurontin -) 100 mg PO HS [facility] Last Admin: 03/26/19 22:29 Dose: 100 mg Piperacillin Sod/Tazobactam (Sod 3.375 gm/ Dextrose) 50 mls @ 100 mls/hr IVPB Q8H-IV [facility]; Protocol Last Admin: 03/27/19 10:57 Dose: 100 mls/hr Lisinopril (Prinivil) 2.5 mg PO DAILY [facility] Last Admin: 03/27/19 10:54 Dose: 2.5 mg Metoprolol Tartrate (Lopressor -) 25 mg PO DAILY [facility] Last Admin: 03/27/19 10:54 Dose: 25 mg Multivitamins/Minerals/Vitamin C (Tab-A-Vit -) 1 tab PO DAILY [facility] Last Admin: 03/27/19 10:54 Dose: 1 tab Petrolatum (Sensi-Care Protective Ointment) 1 applic TP PRN PRN PRN Reason: HYGEINE Last Admin: 03/26/19 11:46 Dose: 1 applic Polysaccharide Iron Complex (Niferex-150 -) 150 mg PO DAILY [facility] Last Admin: 03/27/19 10:56 Dose: 150 mg Potassium Chloride (Potassium Chloride Oral Liquid) 40 meq PO BID [facility] Last Admin: 03/27/19 10:54 Dose: 40 meq Zinc Sulfate (Orazinc -) 220 mg PO DAILY [facility] Last Admin: 03/27/19 10:56 Dose: 220 mg - Objective Vital Signs: Vital Signs Temperature 98.3 F 03/27/19 10:16 Pulse Rate 80 03/27/19 10:16 Respiratory Rate 20 03/27/19 06:00 Blood Pressure 126/66 03/27/19 10:16 O2 Sat by Pulse Oximetry (%) 99 03/26/19 21:00 Constitutional: Yes: No Distress, Calm Cardiovascular: Yes: S1, S2 Respiratory: Yes: Regular, CTA Bilaterally Gastrointestinal: Yes: Normal Bowel Sounds, Soft Musculoskeletal: Yes: WNL Extremities: Yes: Other Wound/Incision: Yes: Dressing Dry and Intact Neurological: Yes: Alert, Oriented Psychiatric: Yes: Alert, Oriented Labs: CBC, BMP 03/25/19 07:28 03/25/19 07:28 INR, PTT INR 1.16 (0.83-1.09) H 03/19/19 15:35 Assessment/Plan roblem List - Problems (1) PAD (peripheral artery disease) Code(s): I73.9 - PERIPHERAL VASCULAR DISEASE, UNSPECIFIED (2) Anemia Code(s): D64.9 - ANEMIA, UNSPECIFIED Qualifiers: Anemia type: unspecified type Qualified Code(s): D64.9 - Anemia, unspecified (3) CAD (coronary artery disease) Code(s): I25.10 - ATHSCL HEART DISEASE OF [place] CORONARY ARTERY W/O ANG PCTRS Qualifiers: Coronary Disease-Associated Artery/Lesion type: [place] artery [place] vs. transplanted heart: [place] heart Associated angina: angina presence unspecified Qualified Code(s): I25.10 - Atherosclerotic heart disease of [place] coronary artery without angina pectoris (4) CVA (cerebral vascular accident) Code(s): I63.9 - CEREBRAL INFARCTION, UNSPECIFIED Qualifiers: CVA mechanism: unspecified Qualified Code(s): I63.9 - Cerebral infarction, unspecified (5) Diabetes Code(s): E11.9 - TYPE 2 DIABETES MELLITUS WITHOUT COMPLICATIONS (6) HTN (hypertension) Code(s): I10 - ESSENTIAL (PRIMARY) HYPERTENSION Qualifiers: Hypertension type: essential hypertension Qualified Code(s): I10 - Essential (primary) hypertension (7) Unsteady gait Code(s): R26.81 - UNSTEADINESS ON FEET (8) Venous stasis ulcer Code(s): I83.009 - VARICOSE VEINS OF UNSP LOWER EXTREMITY W ULCER OF UNSP SITE; L97.909 - NON-PRS CHRONIC ULC UNSP PRT OF UNSP LOW LEG W UNSP SEVERITY Qualifiers: Laterality: unspecified laterality Non-pressure ulcer stage: limited to breakdown of skin plan continue iv abx await for vascular wound care rest as per the team
[2019-03-27] MEDS ORDERED: HEPARIN NA (PORCINE) 5,000 UNITS/ML 1ML VIAL ONE (13:21)
[2019-03-27] MEDS ORDERED: LIDOCAINE HCL 1%, 10 MG/ML (20ML VIAL) ONE (13:21)
[2019-03-27] MEDS ORDERED: PROPOFOL 20 ML ONE ×2 (14:23→15:05)
[2019-03-27] MEDS ORDERED: MIDAZOLAM HCL 2 MG/2 ML SINGLE DOSE VIAL ONE (14:23)
[2019-03-27] MEDS ORDERED: HEPARIN NA (PORCINE) 5,000 UNITS/ML 1ML VIAL SQ ONE (15:10)
[2019-03-27] MEDS ORDERED: IOHEXOL 300 MG/ML INFUS..BTL IV ONE (15:11)
[2019-03-27] MEDS ORDERED: LIDOCAINE HCL 1%, 10 MG/ML (20ML VIAL) NR ONE (15:14)
[2019-03-27] MEDS ORDERED: ONDANSETRON 4 MG/2 ML VIAL IVPUSH PRN ×2 (15:37→17:00)
[2019-03-27] MEDS ORDERED: LACTATED RINGERS SOLUTION 1,000 ML IV SCH (15:45)
--- NOTE | 2019-03-27 15:58 | OP ---
Operative Note - Note: Operative Date: 03/27/19 Pre-Operative Diagnosis: right foot ulcer Operation: CO2 Aortogram, RLE angiogram Findings: DP runoff into foot Post-Operative Diagnosis: Same as Pre-op Surgeon: Enzo Voss Anesthesia: Fractional Estimated Blood Loss (mls): 30 Operative Report Dictated: Yes
[2019-03-27] MEDS ORDERED: ZINC OXIDE/PETROLATUM,WHITE 1 APPLIC OINT...G. TP PRN (17:00)
[2019-03-27] MEDS: LACTATED RINGERS SOLUTION 1,000 ML IV SCH (18:09)
[2019-03-27] MEDS: MINERAL OIL/PET HY-PHL TOPICAL OINTMENT 454 GM JAR TP SCH (22:25)
[2019-03-27] MEDS: GABAPENTIN 100 MG CAPSULE PO SCH (22:26)
[2019-03-28] MEDS ORDERED: PIPERACILLIN/TAZOBACTAM 3.375 GM VIAL IVPB ONE ×3 (01:24→18:27)
[2019-03-28] MEDS ORDERED: DEXTROSE 5%-WATER - 50 ML IVPB ONE ×3 (01:25→18:27)
[2019-03-28] MEDS: LACTATED RINGERS SOLUTION 1,000 ML IV SCH ×2 (01:59→18:30)
[2019-03-28] MEDS: PIPERACILLIN/TAZOB 3.375 GM 3.375 GM in DEXTROSE 5%-WATER - 50 ML IVPB SCH ×3 (02:00→18:29)
[2019-03-28] MEDS: FUROSEMIDE 40 MG TABLET (FP) PO SCH ×2 (05:38→15:01)
--- NOTE | 2019-03-28 08:55 | PN ---
Progress Note (short form) - Note Progress Note: VASCULAR SURGERY 68yo M s/p RLE angio POD 1, pt seen and examined at bedside. Pt states that her pain is controlled and denies swelling. Pt denies fever, chills, n/v. Last Vital Signs Temp Pulse Resp BP Pulse Ox 97.9 F 87 18 126/83 95 03/28/19 06:42 03/28/19 06:42 03/28/19 06:42 03/28/19 06:42 03/27/19 19:52 CBC, BMP 03/25/19 07:28 03/25/19 07:28 PE: Gen: A&O X3 Resp: breathing comfortably LT groin: no erythema, pulsatile swelling, incision clean with no erythema. Problem List - Problems (1) Chronic heel ulcer Assessment/Plan: Plan -pt is cleared from vascular standpoint, defer wound care per Podiatry, Dr. José -pt should follow up with Dr. Voss as an outpatient. Pt discussed with Dr. Voss who agrees with plan Code(s): L97.409 - NON-PRS CHRONIC ULCER OF UNSP HEEL AND MIDFOOT W UNSP SEVERT Qualifiers: Laterality: unspecified laterality
--- NOTE | 2019-03-28 10:00 | PN ---
Progress Note (short form) - Note Progress Note: 68M s/p RLE angioplasty under [facility] ([facility]). This am patient doing well. No anesthesia related complications. Continue management per primary team.
[2019-03-28] MEDS ORDERED: PT OWN MED DRAWER 7, Y5N ONE (10:24)
[2019-03-28] MEDS: FOLIC ACID 1 MG TABLET (FP) PO SCH (10:32)
[2019-03-28] MEDS: METOPROLOL TARTRATE 25 MG TABLET (FP) PO SCH (10:33)
[2019-03-28] MEDS: FAMOTIDINE 20 MG TABLET PO SCH (10:33)
[2019-03-28] MEDS: IRON POLYSACCHARIDES 150 MG CAPSULE PO SCH (10:33)
[2019-03-28] MEDS: ZINC SULFATE 220 MG CAPSULE (FP) PO SCH (10:33)
[2019-03-28] MEDS: ASCORBIC ACID 250 MG TABLET (FP) PO SCH (10:33)
[2019-03-28] MEDS: ASPIRIN 81 MG CHEWABLE TABLETS PO SCH (10:33)
[2019-03-28] MEDS: LISINOPRIL 5 MG TABLET (FP) PO SCH (10:33)
[2019-03-28] MEDS: MULTIVITAMINS (DAILY MVI) TABLET (FP) PO SCH (10:33)
[2019-03-28] MEDS: POTASSIUM CHLORIDE ORAL LIQUID 20 MEQ/15 ML PO SCH ×2 (10:34→22:14)
[2019-03-28] MEDS: MINERAL OIL/PET HY-PHL TOPICAL OINTMENT 454 GM JAR TP SCH ×2 (10:34→22:14)
[2019-03-28] MEDS: COLLAGENASE CLOSTRIDIUM HIST. 30 GRAMS TUBE TP SCH (10:35)
--- NOTE | 2019-03-28 10:35 | PN ---
Progress Note, Physician Chief Complaint: BLLE cellulitis History of Present Illness: NAD Operative Date: 03/27/19 Pre-Operative Diagnosis: right foot ulcer Operation: CO2 Aortogram, RLE angiogram Findings: DP runoff into foot Post-Operative Diagnosis: Same as Pre-op s/p RLE angioplasty under [facility] ([facility]) - Current Medication List Current Medications: Active Medications Ascorbic Acid (Vitamin C -) 250 mg PO DAILY [facility] Aspirin (Asa -) 81 mg PO DAILY [facility] Collagenase (Santyl -) 1 applic TP DAILY [facility]; Protocol Emollient Ointment (Aquaphor -) 1 applic TP BID [facility] Last Admin: 03/27/19 22:25 Dose: 1 applic Famotidine (Pepcid -) 20 mg PO DAILY [facility] Fentanyl (Sublimaze Injection -) 25 mcg IVPUSH Q5M PRN PRN Reason: PAIN-PACU ORDER X 4 DOSES ONLY Folic Acid (Folic Acid -) 1 mg PO DAILY [facility] Furosemide (Lasix -) 40 mg PO BID@0600,1400 [facility] Last Admin: 03/28/19 05:38 Dose: 40 mg Gabapentin (Neurontin -) 100 mg PO HS [facility] Last Admin: 03/27/19 22:26 Dose: 100 mg Lactated Ringer's (Lactated Ringers Solution) 1,000 mls @ 75 mls/hr IV ASDIR [facility] Last Admin: 03/28/19 01:59 Dose: 75 mls/hr Piperacillin Sod/Tazobactam (Sod 3.375 gm/ Dextrose) 50 mls @ 100 mls/hr IVPB Q8H-IV [facility]; Protocol Last Admin: 03/28/19 02:00 Dose: 100 mls/hr Lisinopril (Prinivil) 2.5 mg PO DAILY [facility] Metoprolol Tartrate (Lopressor -) 25 mg PO DAILY [facility] Multivitamins/Minerals/Vitamin C (Tab-A-Vit -) 1 tab PO DAILY [facility] Ondansetron HCl (Zofran Injection) 4 mg IVPUSH Q6H PRN PRN Reason: NAUSEA AND/OR VOMITING Petrolatum (Sensi-Care Protective Ointment) 1 applic TP PRN PRN PRN Reason: HYGEINE Polysaccharide Iron Complex (Niferex-150 -) 150 mg PO DAILY [facility] Potassium Chloride (Potassium Chloride Oral Liquid) 40 meq PO BID [facility] Last Admin: 03/27/19 22:26 Dose: 40 meq Zinc Sulfate (Orazinc -) 220 mg PO DAILY [facility] - Objective Vital Signs: Vital Signs Temperature 97.9 F 03/28/19 06:42 Pulse Rate 87 03/28/19 06:42 Respiratory Rate 18 03/28/19 06:42 Blood Pressure 126/83 03/28/19 06:42 O2 Sat by Pulse Oximetry (%) 95 03/27/19 19:52 Constitutional: Yes: Well Nourished, No Distress, Calm Cardiovascular: Yes: Regular Rate and Rhythm Respiratory: Yes: Regular Labs: CBC, BMP 03/25/19 07:28 03/25/19 07:28 INR, PTT INR 1.16 (0.83-1.09) H 03/19/19 15:35 Problem List - Problems (1) Hypokalemia Assessment/Plan: -resolved Problems reviewed: Yes Code(s): E87.6 - HYPOKALEMIA (2) Anemia Assessment/Plan: -Chronic -H/H improved compared to previous labs -Monitor trend -Guaiac + 11/06/2017 -Last colonoscopy 2015- with one polyp, no erythema or ulcers,repeat recommended in 5 years -F/U with GI outpatient -[facility] -Iron polysaccharide 150 mg po daily Problems reviewed: Yes Code(s): D64.9 - ANEMIA, UNSPECIFIED Qualifiers: Anemia type: unspecified type Qualified Code(s): D64.9 - Anemia, unspecified (3) Diabetes Assessment/Plan: -resolved -Last A1c on 03/08/2019-4.4 -Continue dietary and lifestyle modifications Problems reviewed: Yes Code(s): E11.9 - TYPE 2 DIABETES MELLITUS WITHOUT COMPLICATIONS (4) Venous stasis ulcer Assessment/Plan: -ID consult -IV abx -afebrile -no leukocytosis -Cultures: Microbiology 03/19/19 15:35 Blood - Peripheral Venous Blood Culture - Final NO GROWTH AFTER 5 DAYS INCUBATION 03/19/19 15:35 Blood - Peripheral Venous Blood Culture - Final NO GROWTH AFTER 5 DAYS INCUBATION -Vascular consult appreciated -CTA BL runoff reviewed Problems reviewed: Yes Code(s): I83.009 - VARICOSE VEINS OF UNSP LOWER EXTREMITY W ULCER OF UNSP SITE; L97.909 - NON-PRS CHRONIC ULC UNSP PRT OF UNSP LOW LEG W UNSP SEVERITY Qualifiers: Laterality: unspecified laterality Non-pressure ulcer stage: limited to breakdown of skin Assessment/Plan see problem list Physical therapy
--- NOTE | 2019-03-28 11:05 | PN ---
Progress Note, Physician History of Present Illness: stable no new issues - Current Medication List Current Medications: Active Medications Ascorbic Acid (Vitamin C -) 250 mg PO DAILY [facility] Last Admin: 03/28/19 10:33 Dose: 250 mg Aspirin (Asa -) 81 mg PO DAILY [facility] Last Admin: 03/28/19 10:33 Dose: 81 mg Collagenase (Santyl -) 1 applic TP DAILY [facility]; Protocol Last Admin: 03/28/19 10:35 Dose: 1 applic Emollient Ointment (Aquaphor -) 1 applic TP BID [facility] Last Admin: 03/28/19 10:34 Dose: 1 applic Famotidine (Pepcid -) 20 mg PO DAILY [facility] Last Admin: 03/28/19 10:33 Dose: 20 mg Fentanyl (Sublimaze Injection -) 25 mcg IVPUSH Q5M PRN PRN Reason: PAIN-PACU ORDER X 4 DOSES ONLY Folic Acid (Folic Acid -) 1 mg PO DAILY [facility] Last Admin: 03/28/19 10:32 Dose: 1 mg Furosemide (Lasix -) 40 mg PO BID@0600,1400 [facility] Last Admin: 03/28/19 05:38 Dose: 40 mg Gabapentin (Neurontin -) 100 mg PO HS [facility] Last Admin: 03/27/19 22:26 Dose: 100 mg Lactated Ringer's (Lactated Ringers Solution) 1,000 mls @ 75 mls/hr IV ASDIR [facility] Last Admin: 03/28/19 01:59 Dose: 75 mls/hr Piperacillin Sod/Tazobactam (Sod 3.375 gm/ Dextrose) 50 mls @ 100 mls/hr IVPB Q8H-IV [facility]; Protocol Last Admin: 03/28/19 10:34 Dose: 100 mls/hr Lisinopril (Prinivil) 2.5 mg PO DAILY [facility] Last Admin: 03/28/19 10:33 Dose: 2.5 mg Metoprolol Tartrate (Lopressor -) 25 mg PO DAILY [facility] Last Admin: 03/28/19 10:33 Dose: 25 mg Multivitamins/Minerals/Vitamin C (Tab-A-Vit -) 1 tab PO DAILY [facility] Last Admin: 03/28/19 10:33 Dose: 1 tab Ondansetron HCl (Zofran Injection) 4 mg IVPUSH Q6H PRN PRN Reason: NAUSEA AND/OR VOMITING Petrolatum (Sensi-Care Protective Ointment) 1 applic TP PRN PRN PRN Reason: HYGEINE Polysaccharide Iron Complex (Niferex-150 -) 150 mg PO DAILY [facility] Last Admin: 03/28/19 10:33 Dose: 150 mg Potassium Chloride (Potassium Chloride Oral Liquid) 40 meq PO BID [facility] Last Admin: 03/28/19 10:34 Dose: 40 meq Zinc Sulfate (Orazinc -) 220 mg PO DAILY [facility] Last Admin: 03/28/19 10:33 Dose: 220 mg - Objective Vital Signs: Vital Signs Temperature 97.9 F 03/28/19 06:42 Pulse Rate 87 03/28/19 06:42 Respiratory Rate 18 03/28/19 06:42 Blood Pressure 126/83 03/28/19 06:42 O2 Sat by Pulse Oximetry (%) 95 03/27/19 19:52 Constitutional: Yes: No Distress, Calm Cardiovascular: Yes: S1, S2 Respiratory: Yes: Regular, CTA Bilaterally Gastrointestinal: Yes: Normal Bowel Sounds, Soft Musculoskeletal: Yes: WNL Wound/Incision: Yes: Dressing Dry and Intact Neurological: Yes: Alert, Oriented Psychiatric: Yes: Alert, Oriented Labs: CBC, BMP 03/25/19 07:28 03/25/19 07:28 INR, PTT INR 1.16 (0.83-1.09) H 03/19/19 15:35 Assessment/Plan roblem List - Problems (1) PAD (peripheral artery disease) Code(s): I73.9 - PERIPHERAL VASCULAR DISEASE, UNSPECIFIED (2) Anemia Code(s): D64.9 - ANEMIA, UNSPECIFIED Qualifiers: Anemia type: unspecified type Qualified Code(s): D64.9 - Anemia, unspecified (3) CAD (coronary artery disease) Code(s): I25.10 - ATHSCL HEART DISEASE OF [place] CORONARY ARTERY W/O ANG PCTRS Qualifiers: Coronary Disease-Associated Artery/Lesion type: [place] artery [place] vs. transplanted heart: [place] heart Associated angina: angina presence unspecified Qualified Code(s): I25.10 - Atherosclerotic heart disease of [place] coronary artery without angina pectoris (4) CVA (cerebral vascular accident) Code(s): I63.9 - CEREBRAL INFARCTION, UNSPECIFIED Qualifiers: CVA mechanism: unspecified Qualified Code(s): I63.9 - Cerebral infarction, unspecified (5) Diabetes Code(s): E11.9 - TYPE 2 DIABETES MELLITUS WITHOUT COMPLICATIONS (6) HTN (hypertension) Code(s): I10 - ESSENTIAL (PRIMARY) HYPERTENSION Qualifiers: Hypertension type: essential hypertension Qualified Code(s): I10 - Essential (primary) hypertension (7) Unsteady gait Code(s): R26.81 - UNSTEADINESS ON FEET (8) Venous stasis ulcer Code(s): I83.009 - VARICOSE VEINS OF UNSP LOWER EXTREMITY W ULCER OF UNSP SITE; L97.909 - NON-PRS CHRONIC ULC UNSP PRT OF UNSP LOW LEG W UNSP SEVERITY Qualifiers: Laterality: unspecified laterality Non-pressure ulcer stage: limited to breakdown of skin plan continue current mgmt will d/w vascular stable
--- NOTE | 2019-03-28 12:23 | CONSULT ---
Consult Consult Specialty:: Podiatry Reason for Consultation:: Multiple b/l wounds on feet. Right worse than left. - Past Medical History [employer]: Yes: CVA Infectious Disease: Yes: Other (Bilateral lower extremity celulitis ) Additional Medical History: Chronic leg ulcers - Alcohol/Substance Use Hx Alcohol Use: No - Smoking History Smoking history: Never smoked Have you smoked in the past 12 months: No If you are a former smoker, when did you quit?: 14 YEARS AGO - Social History Usual Living Arrangement: Alone Home Medications - Allergies Allergies/Adverse Reactions: Allergies Allergy/AdvReac Type Severity Reaction Status Date / Time No Known Allergies Allergy Verified 03/19/19 10:32 - Home Medications Home Medications: Ambulatory Orders Aspirin [ASA -] 81 mg PO DAILY #30 tab.chew 06/18/15 Folic Acid 1 mg PO DAILY #30 tablet 06/18/15 Glipizide [Glipizide ER] 2.5 mg PO DAILY 01/26/16 metFORMIN HCL [Metformin ER Osmotic] 1,000 mg PO DAILY 01/26/16 Cholecalciferol (Vitamin D3) [Vitamin D3] 2,000 unit PO DAILY 01/27/16 Furosemide 40 tab PO BID 05/18/18 Cholecalciferol (Vitamin D3) [Vitamin D3] 2,000 unit PO DAILY 03/19/19 Famotidine 20 mg PO DAILY 03/19/19 Gabapentin 100 mg PO HS 03/19/19 Lisinopril [Zestril] 2.5 mg PO DAILY 03/19/19 Metoprolol Tartrate 25 mg PO DAILY 03/19/19 Physical Exam Vital Signs: Vital Signs Temperature 97.9 F 03/28/19 06:42 Pulse Rate 87 03/28/19 06:42 Respiratory Rate 18 03/28/19 06:42 Blood Pressure 126/83 03/28/19 06:42 O2 Sat by Pulse Oximetry (%) 95 03/27/19 19:52 Extremities: Yes: Other (+necrotic wound lateral right foot, +granulating wound lateral right foot posterior heel,+wounds soles of b/l feet,) Labs: CBC, BMP 03/25/19 07:28 03/25/19 07:28 Assessment/Plan necrotic right plantar wound granulating wound lateral heel left pvd Discussed with Dr. Voss yesterday. Pt has severe right arterial disease DP runoff only. Will possibly take to OR to clean wound that is necrotic right foot. Ara to all wounds currently. Will follow.
[2019-03-28] MEDS: GABAPENTIN 100 MG CAPSULE PO SCH (22:14)
[2019-03-29] MEDS ORDERED: PIPERACILLIN/TAZOBACTAM 3.375 GM VIAL IVPB ONE ×3 (01:24→16:45)
[2019-03-29] MEDS ORDERED: DEXTROSE 5%-WATER - 50 ML IVPB ONE ×3 (01:24→16:45)
[2019-03-29] MEDS: PIPERACILLIN/TAZOB 3.375 GM 3.375 GM in DEXTROSE 5%-WATER - 50 ML IVPB SCH ×3 (02:06→17:04)
[2019-03-29] MEDS: FUROSEMIDE 40 MG TABLET (FP) PO SCH ×2 (06:51→15:42)
--- NOTE | 2019-03-29 08:07 | DS ---
Physical Examination Vital Signs: Vital Signs Temperature 97.9 F 03/29/19 05:55 Pulse Rate 73 03/29/19 05:55 Respiratory Rate 20 03/29/19 05:55 Blood Pressure 131/63 03/29/19 05:55 O2 Sat by Pulse Oximetry (%) 95 03/28/19 21:00 Cardiovascular: Yes: S1, S2 Respiratory: Yes: Regular, CTA Bilaterally Gastrointestinal: Yes: Normal Bowel Sounds, Soft Labs: CBC, BMP 03/25/19 07:28 03/25/19 07:28 Discharge Summary Problems reviewed: Yes Reason For Visit: ULCER OF FOOT Current Active Problems Chronic heel ulcer (Acute) Hypokalemia (Acute) PAD (peripheral artery disease) (Acute) Ulcer (Acute) Hospital Course: - Problems (1) Hypokalemia Assessment/Plan: -resolved Problems reviewed: Yes Code(s): E87.6 - HYPOKALEMIA (2) Anemia Assessment/Plan: -Chronic -H/H improved compared to previous labs -Monitor trend -Guaiac + 11/06/2017 -Last colonoscopy 2015- with one polyp, no erythema or ulcers,repeat recommended in 5 years -F/U with GI outpatient -TRACY -Iron polysaccharide 150 mg po daily Problems reviewed: Yes Code(s): D64.9 - ANEMIA, UNSPECIFIED Qualifiers: Anemia type: unspecified type Qualified Code(s): D64.9 - Anemia, unspecified (3) Diabetes Assessment/Plan: -resolved -Last A1c on 03/08/2019-4.4 -Continue dietary and lifestyle modifications Problems reviewed: Yes Code(s): E11.9 - TYPE 2 DIABETES MELLITUS WITHOUT COMPLICATIONS (4) Venous stasis ulcer Assessment/Plan: -ID consult -IV abx -afebrile -no leukocytosis -Cultures: Microbiology 03/19/19 15:35 Blood - Peripheral Venous Blood Culture - Final NO GROWTH AFTER 5 DAYS INCUBATION 03/19/19 15:35 Blood - Peripheral Venous Blood Culture - Final NO GROWTH AFTER 5 DAYS INCUBATION -Vascular consult appreciated -CTA BL runoff reviewed Problems reviewed: Yes Code(s): I83.009 - VARICOSE VEINS OF UNSP LOWER EXTREMITY W ULCER OF UNSP SITE; L97.909 - NON-PRS CHRONIC ULC UNSP PRT OF UNSP LOW LEG W UNSP SEVERITY Qualifiers: Laterality: unspecified laterality Non-pressure ulcer stage: limited to breakdown of skin plan to dc to snf unless or planned Condition: Stable - Instructions Diet, Activity, Other Instructions: -Follow up with GI for repeat colonoscopy Referrals: Ani Ivy MD [Primary Care Provider] - Gustavo Elise MD [Staff Physician] - - Home Medications Comprehensive Discharge Medication List: Ambulatory Orders Aspirin [ASA -] 81 mg PO DAILY #30 tab.chew 06/18/15 Folic Acid 1 mg PO DAILY #30 tablet 06/18/15 Glipizide [Glipizide ER] 2.5 mg PO DAILY 01/26/16 metFORMIN HCL [Metformin ER Osmotic] 1,000 mg PO DAILY 01/26/16 Cholecalciferol (Vitamin D3) [Vitamin D3] 2,000 unit PO DAILY 01/27/16 Furosemide 40 tab PO BID 05/18/18 Cholecalciferol (Vitamin D3) [Vitamin D3] 2,000 unit PO DAILY 03/19/19 Famotidine 20 mg PO DAILY 03/19/19 Gabapentin 100 mg PO HS 03/19/19 Lisinopril [Zestril] 2.5 mg PO DAILY 03/19/19 Metoprolol Tartrate 25 mg PO DAILY 03/19/19 Ascorbic Acid [Vitamin C -] 250 mg PO DAILY tablet 03/29/19 Collagenase Clostridium Hist. [Santyl -] 1 applic TP DAILY tube 03/29/19 Fentanyl Injection [Sublimaze Injection -] 25 mcg IVPUSH Q5M PRN ampul MDD 1 Furosemide [Lasix -] 40 mg PO BID@0600,1400 tablet 03/29/19 Iron Polysaccharides [Niferex-150 -] 150 mg PO DAILY capsule 03/29/19 Multivitamins [Multivit ([facility] Formulary)] 1 tab PO DAILY tab 03/29/19 Potassium Chloride [Potassium Chloride Oral Liquid] 40 meq PO BID cup 03/29/19 Zinc Sulfate [Orazinc -] 220 mg PO DAILY capsule 03/29/19
--- NOTE | 2019-03-29 09:04 | PN ---
Progress Note, Physician History of Present Illness: [facility] podiatry planning to take the patient to the or for debridement - Current Medication List Current Medications: Active Medications Ascorbic Acid (Vitamin C -) 250 mg PO DAILY [facility] Last Admin: 03/28/19 10:33 Dose: 250 mg Aspirin (Asa -) 81 mg PO DAILY [facility] Last Admin: 03/28/19 10:33 Dose: 81 mg Collagenase (Santyl -) 1 applic TP DAILY [facility]; Protocol Last Admin: 03/28/19 10:35 Dose: 1 applic Emollient Ointment (Aquaphor -) 1 applic TP BID [facility] Last Admin: 03/28/19 22:14 Dose: 1 applic Famotidine (Pepcid -) 20 mg PO DAILY [facility] Last Admin: 03/28/19 10:33 Dose: 20 mg Fentanyl (Sublimaze Injection -) 25 mcg IVPUSH Q5M PRN PRN Reason: PAIN-PACU ORDER X 4 DOSES ONLY Folic Acid (Folic Acid -) 1 mg PO DAILY [facility] Last Admin: 03/28/19 10:32 Dose: 1 mg Furosemide (Lasix -) 40 mg PO BID@0600,1400 [facility] Last Admin: 03/29/19 06:51 Dose: 40 mg Gabapentin (Neurontin -) 100 mg PO HS [facility] Last Admin: 03/28/19 22:14 Dose: 100 mg Lactated Ringer's (Lactated Ringers Solution) 1,000 mls @ 75 mls/hr IV ASDIR [facility] Last Admin: 03/28/19 18:30 Dose: 75 mls/hr Piperacillin Sod/Tazobactam (Sod 3.375 gm/ Dextrose) 50 mls @ 100 mls/hr IVPB Q8H-IV [facility]; Protocol Last Admin: 03/29/19 02:06 Dose: 100 mls/hr Lisinopril (Prinivil) 2.5 mg PO DAILY [facility] Last Admin: 03/28/19 10:33 Dose: 2.5 mg Metoprolol Tartrate (Lopressor -) 25 mg PO DAILY [facility] Last Admin: 03/28/19 10:33 Dose: 25 mg Multivitamins/Minerals/Vitamin C (Tab-A-Vit -) 1 tab PO DAILY [facility] Last Admin: 03/28/19 10:33 Dose: 1 tab Ondansetron HCl (Zofran Injection) 4 mg IVPUSH Q6H PRN PRN Reason: NAUSEA AND/OR VOMITING Petrolatum (Sensi-Care Protective Ointment) 1 applic TP PRN PRN PRN Reason: HYGEINE Polysaccharide Iron Complex (Niferex-150 -) 150 mg PO DAILY [facility] Last Admin: 03/28/19 10:33 Dose: 150 mg Potassium Chloride (Potassium Chloride Oral Liquid) 40 meq PO BID [facility] Last Admin: 03/28/19 22:14 Dose: 40 meq Zinc Sulfate (Orazinc -) 220 mg PO DAILY [facility] Last Admin: 03/28/19 10:33 Dose: 220 mg - Objective Vital Signs: Vital Signs Temperature 97.9 F 03/29/19 05:55 Pulse Rate 73 03/29/19 05:55 Respiratory Rate 20 03/29/19 05:55 Blood Pressure 131/63 03/29/19 05:55 O2 Sat by Pulse Oximetry (%) 95 03/28/19 21:00 Constitutional: Yes: No Distress, Calm Cardiovascular: Yes: S1, S2 Respiratory: Yes: Regular, CTA Bilaterally Gastrointestinal: Yes: Normal Bowel Sounds, Soft Musculoskeletal: Yes: Other Extremities: Yes: Other Wound/Incision: Yes: Dressing Dry and Intact, Other Neurological: Yes: Alert, Oriented Psychiatric: Yes: Alert, Oriented Labs: INR, PTT INR 1.16 (0.83-1.09) H 03/19/19 15:35 Assessment/Plan roblem List - Problems (1) PAD (peripheral artery disease) Code(s): I73.9 - PERIPHERAL VASCULAR DISEASE, UNSPECIFIED (2) Anemia Code(s): D64.9 - ANEMIA, UNSPECIFIED Qualifiers: Anemia type: unspecified type Qualified Code(s): D64.9 - Anemia, unspecified (3) CAD (coronary artery disease) Code(s): I25.10 - ATHSCL HEART DISEASE OF [place] CORONARY ARTERY W/O ANG PCTRS Qualifiers: Coronary Disease-Associated Artery/Lesion type: [place] artery [place] vs. transplanted heart: [place] heart Associated angina: angina presence unspecified Qualified Code(s): I25.10 - Atherosclerotic heart disease of [place] coronary artery without angina pectoris (4) CVA (cerebral vascular accident) Code(s): I63.9 - CEREBRAL INFARCTION, UNSPECIFIED Qualifiers: CVA mechanism: unspecified Qualified Code(s): I63.9 - Cerebral infarction, unspecified (5) Diabetes Code(s): E11.9 - TYPE 2 DIABETES MELLITUS WITHOUT COMPLICATIONS (6) HTN (hypertension) Code(s): I10 - ESSENTIAL (PRIMARY) HYPERTENSION Qualifiers: Hypertension type: essential hypertension Qualified Code(s): I10 - Essential (primary) hypertension (7) Unsteady gait Code(s): R26.81 - UNSTEADINESS ON FEET (8) Venous stasis ulcer Code(s): I83.009 - VARICOSE VEINS OF UNSP LOWER EXTREMITY W ULCER OF UNSP SITE; L97.909 - NON-PRS CHRONIC ULC UNSP PRT OF UNSP LOW LEG W UNSP SEVERITY Qualifiers: Laterality: unspecified laterality Non-pressure ulcer stage: limited to breakdown of skin plan continue current mgmt plan is to take the patient to the operating room rest as per the team
[2019-03-29 09:09] LABS: ALBUMIN 2.8 g/dl (3.4-5.0); BILIRUBIN,TOTAL 0.3 mg/dL (0.2-1); CALCIUM 8.8 mg/dL (8.5-10.1); CREATININE 1.3 mg/dL (0.55-1.3); POTASSIUM 4.5 mmol/L (3.5-5.1); TOT PROT 7.2 g/dl (6.4-8.2)
[2019-03-29 09:25] LABS: BASO % 1.3 % (0-2.0); EOS % 6.5 % (0-4.5); HEMOGLOBIN 9.6 GM/dL (11.7-16.9); LYMPH % 16.5 % (8-40); MCH 31.7 pg (25.7-33.7); MCHC 34.5 g/dl (32.0-35.9); MEAN CELL VOLUME 91.9 fl (80-96); MEAN PLT VOLUME 8.9 fl (7.5-11.1); MONO % 8.8 % (3.8-10.2); NEUT % 66.9 % (42.8-82.8); PLATELET COUNT 175 K/MM3 (134-434); RBC 3.04 M/mm3 (4.00-5.60); RDW 14.9 % (11.9-15.9); WHITE BLOOD COUNT 5.6 K/mm3 (4.0-10.0)
[2019-03-29] MEDS ORDERED: PT OWN MED DRAWER 7, Y5N ONE (09:51)
[2019-03-29] MEDS: MINERAL OIL/PET HY-PHL TOPICAL OINTMENT 454 GM JAR TP SCH ×2 (09:55→23:04)
[2019-03-29] MEDS: LACTATED RINGERS SOLUTION 1,000 ML IV SCH ×2 (09:55→17:04)
[2019-03-29] MEDS: ASCORBIC ACID 250 MG TABLET (FP) PO SCH (09:57)
[2019-03-29] MEDS: ASPIRIN 81 MG CHEWABLE TABLETS PO SCH (09:57)
[2019-03-29] MEDS: ZINC SULFATE 220 MG CAPSULE (FP) PO SCH (09:57)
[2019-03-29] MEDS: FOLIC ACID 1 MG TABLET (FP) PO SCH (09:57)
[2019-03-29] MEDS: MULTIVITAMINS (DAILY MVI) TABLET (FP) PO SCH (09:57)
[2019-03-29] MEDS: FAMOTIDINE 20 MG TABLET PO SCH (09:57)
[2019-03-29] MEDS: IRON POLYSACCHARIDES 150 MG CAPSULE PO SCH (09:57)
[2019-03-29] MEDS: LISINOPRIL 5 MG TABLET (FP) PO SCH (09:57)
[2019-03-29] MEDS: METOPROLOL TARTRATE 25 MG TABLET (FP) PO SCH (09:58)
[2019-03-29] MEDS: POTASSIUM CHLORIDE ORAL LIQUID 20 MEQ/15 ML PO SCH ×2 (09:58→23:04)
[2019-03-29] MEDS: COLLAGENASE CLOSTRIDIUM HIST. 30 GRAMS TUBE TP SCH (16:09)
[2019-03-29] MEDS: GABAPENTIN 100 MG CAPSULE PO SCH (23:04)
[2019-03-30] MEDS ORDERED: PIPERACILLIN/TAZOBACTAM 3.375 GM VIAL IVPB ONE ×3 (01:38→16:42)
[2019-03-30] MEDS ORDERED: DEXTROSE 5%-WATER - 50 ML IVPB ONE ×3 (01:38→16:42)
[2019-03-30] MEDS: PIPERACILLIN/TAZOB 3.375 GM 3.375 GM in DEXTROSE 5%-WATER - 50 ML IVPB SCH ×3 (01:43→17:30)
[2019-03-30] MEDS: LACTATED RINGERS SOLUTION 1,000 ML IV SCH (03:18)
[2019-03-30] MEDS: FUROSEMIDE 40 MG TABLET (FP) PO SCH ×2 (06:16→15:17)
[2019-03-30] MEDS ORDERED: PT OWN MED DRAWER 7, Y5N ONE ×3 (06:38→22:49)
--- NOTE | 2019-03-30 09:03 | PN ---
Progress Note, Physician Chief Complaint: Venous Stasis Ulcer History of Present Illness: Previous notes and events reviewed awake and alert NAD denies complaints of chest pain or SOB POD #3 RLE angiogram no leukocytosis followed by Podiatry possible debridement R foot ulcer - Current Medication List Current Medications: Active Medications Ascorbic Acid (Vitamin C -) 250 mg PO DAILY [facility] Last Admin: 03/29/19 09:57 Dose: 250 mg Aspirin (Asa -) 81 mg PO DAILY [facility] Last Admin: 03/29/19 09:57 Dose: 81 mg Collagenase (Santyl -) 1 applic TP DAILY [facility]; Protocol Last Admin: 03/29/19 16:09 Dose: 1 applic Emollient Ointment (Aquaphor -) 1 applic TP BID [facility] Last Admin: 03/29/19 23:04 Dose: 1 applic Famotidine (Pepcid -) 20 mg PO DAILY [facility] Last Admin: 03/29/19 09:57 Dose: 20 mg Fentanyl (Sublimaze Injection -) 25 mcg IVPUSH Q5M PRN PRN Reason: PAIN-PACU ORDER X 4 DOSES ONLY Folic Acid (Folic Acid -) 1 mg PO DAILY [facility] Last Admin: 03/29/19 09:57 Dose: 1 mg Furosemide (Lasix -) 40 mg PO BID@0600,1400 [facility] Last Admin: 03/30/19 06:16 Dose: 40 mg Gabapentin (Neurontin -) 100 mg PO HS [facility] Last Admin: 03/29/19 23:04 Dose: 100 mg Lactated Ringer's (Lactated Ringers Solution) 1,000 mls @ 75 mls/hr IV ASDIR [facility] Last Admin: 03/30/19 03:18 Dose: 75 mls/hr Piperacillin Sod/Tazobactam (Sod 3.375 gm/ Dextrose) 50 mls @ 100 mls/hr IVPB Q8H-IV [facility]; Protocol Last Admin: 03/30/19 01:43 Dose: 100 mls/hr Lisinopril (Prinivil) 2.5 mg PO DAILY [facility] Last Admin: 03/29/19 09:57 Dose: 2.5 mg Metoprolol Tartrate (Lopressor -) 25 mg PO DAILY [facility] Last Admin: 03/29/19 09:58 Dose: 25 mg Multivitamins/Minerals/Vitamin C (Tab-A-Vit -) 1 tab PO DAILY [facility] Last Admin: 03/29/19 09:57 Dose: 1 tab Ondansetron HCl (Zofran Injection) 4 mg IVPUSH Q6H PRN PRN Reason: NAUSEA AND/OR VOMITING Petrolatum (Sensi-Care Protective Ointment) 1 applic TP PRN PRN PRN Reason: HYGEINE Polysaccharide Iron Complex (Niferex-150 -) 150 mg PO DAILY [facility] Last Admin: 03/29/19 09:57 Dose: 150 mg Potassium Chloride (Potassium Chloride Oral Liquid) 40 meq PO BID [facility] Last Admin: 03/29/19 23:04 Dose: 40 meq Zinc Sulfate (Orazinc -) 220 mg PO DAILY [facility] Last Admin: 03/29/19 09:57 Dose: 220 mg - Objective Vital Signs: Vital Signs Temperature 97.6 F 03/30/19 04:00 Pulse Rate 75 03/30/19 04:00 Respiratory Rate 20 03/30/19 04:00 Blood Pressure 133/69 03/30/19 04:00 O2 Sat by Pulse Oximetry (%) 95 03/29/19 21:00 Constitutional: Yes: No Distress, Calm, Obese Eyes: Yes: Conjunctiva Clear HENT: Yes: Atraumatic Cardiovascular: Yes: Regular Rate and Rhythm Respiratory: Yes: Regular, Diminished Gastrointestinal: Yes: Normal Bowel Sounds, Soft, Abdomen, Obese Genitourinary: Yes: Bender Present Musculoskeletal: Yes: Muscle Weakness Extremities: Yes: WNL Edema: No Integumentary: Yes: Pressure Ulcer (sacral), Venous Stasis Changes (b/l lower extremity) Wound/Incision: Yes: Dressing Dry and Intact Neurological: Yes: Alert Psychiatric: Yes: Alert Labs: CBC, BMP 03/29/19 08:15 03/29/19 08:15 INR, PTT INR 1.16 (0.83-1.09) H 03/19/19 15:35 Problem List - Problems (1) Hypokalemia Assessment/Plan: -K 4.5 -resolved -KCl 40mEq BID Code(s): E87.6 - HYPOKALEMIA (2) PAD (peripheral artery disease) Assessment/Plan: -Vascular on board -CTA with B/l lower extremity runoff shows evaluation of the SFA and popliteal arteries limited due to motion, moderate to high grade stenosis in range 70-90% suspected in SFA at the level of adductor canal and moderate 50-70% stenosis in R popliteal artery, occluded R [employer], patent GIL to the level of the ankle with occlusion of dorsalis pedis artery, patent peroneal artery providing flow to foot via plantar artery, very diminutive flow in ethe distal L [employer] with occluded peroneal artery and predmonent flow to the foot provided by [employer] with patent but diminutive flow in the plantar artery -POD #3 RLE Angiogram Code(s): I73.9 - PERIPHERAL VASCULAR DISEASE, UNSPECIFIED (3) Anemia Assessment/Plan: -Hg 9.6 -monitor Hg daily -trnasfuse for Hg <8.0 -anemia profile shows low Iron, low TIBC, low Iron Sat, -Iron Polysaccharide Code(s): D64.9 - ANEMIA, UNSPECIFIED Qualifiers: Anemia type: unspecified type Qualified Code(s): D64.9 - Anemia, unspecified (4) CAD (coronary artery disease) Assessment/Plan: -Aspirin Code(s): I25.10 - ATHSCL HEART DISEASE OF [place] CORONARY ARTERY W/O ANG PCTRS Qualifiers: Coronary Disease-Associated Artery/Lesion type: [place] artery [place] vs. transplanted heart: [place] heart Associated angina: angina presence unspecified Qualified Code(s): I25.10 - Atherosclerotic heart disease of [place] coronary artery without angina pectoris (5) CVA (cerebral vascular accident) Assessment/Plan: -aspirin -PT -fall precaution Code(s): I63.9 - CEREBRAL INFARCTION, UNSPECIFIED Qualifiers: CVA mechanism: unspecified Qualified Code(s): I63.9 - Cerebral infarction, unspecified (6) Diabetes Assessment/Plan: -[facility] ACHS -ISS -HgA1c 4.3% Code(s): E11.9 - TYPE 2 DIABETES MELLITUS WITHOUT COMPLICATIONS (7) HTN (hypertension) Assessment/Plan: -Lisinopril, Metoprolol -low Na diet Code(s): I10 - ESSENTIAL (PRIMARY) HYPERTENSION Qualifiers: Hypertension type: essential hypertension Qualified Code(s): I10 - Essential (primary) hypertension (8) Unsteady gait Assessment/Plan: -fall precaution -PT Code(s): R26.81 - UNSTEADINESS ON FEET (9) Venous stasis ulcer Assessment/Plan: -Vascular on board -CTA with B/l lower extremity runoff shows evaluation of the SFA and popliteal arteries limited due to motion, moderate to high grade stenosis in range 70-90% suspected in SFA at the level of adductor canal and moderate 50-70% stenosis in R popliteal artery, occluded R [employer], patent GIL to the level of the ankle with occlusion of dorsalis pedis artery, patent peroneal artery providing flow to foot via plantar artery, very diminutive flow in ethe distal L [employer] with occluded peroneal artery and predmonent flow to the foot provided by [employer] with patent but diminutive flow in the plantar artery -POD #3 RLE Angiogram -ID on board -no leukocytosis -afebrile -BC neg -Zosyn Code(s): I83.009 - VARICOSE VEINS OF UNSP LOWER EXTREMITY W ULCER OF UNSP SITE; L97.909 - NON-PRS CHRONIC ULC UNSP PRT OF UNSP LOW LEG W UNSP SEVERITY Qualifiers: Laterality: unspecified laterality Non-pressure ulcer stage: limited to breakdown of skin (10) Chronic heel ulcer Assessment/Plan: -Podiatry on board -possible debridement by podiatry? Code(s): L97.409 - NON-PRS CHRONIC ULCER OF UNSP HEEL AND MIDFOOT W UNSP SEVERT Qualifiers: Laterality: unspecified laterality Assessment/Plan see problem list dvt ppx pending possible debridement R heel ulcer, if no debridement planned discharge to SNF as scheduled
--- NOTE | 2019-03-30 09:08 | PN ---
Progress Note, Physician - Current Medication List Current Medications: Active Medications Ascorbic Acid (Vitamin C -) 250 mg PO DAILY [facility] Last Admin: 03/29/19 09:57 Dose: 250 mg Aspirin (Asa -) 81 mg PO DAILY [facility] Last Admin: 03/29/19 09:57 Dose: 81 mg Collagenase (Santyl -) 1 applic TP DAILY [facility]; Protocol Last Admin: 03/29/19 16:09 Dose: 1 applic Emollient Ointment (Aquaphor -) 1 applic TP BID [facility] Last Admin: 03/29/19 23:04 Dose: 1 applic Famotidine (Pepcid -) 20 mg PO DAILY [facility] Last Admin: 03/29/19 09:57 Dose: 20 mg Fentanyl (Sublimaze Injection -) 25 mcg IVPUSH Q5M PRN PRN Reason: PAIN-PACU ORDER X 4 DOSES ONLY Folic Acid (Folic Acid -) 1 mg PO DAILY [facility] Last Admin: 03/29/19 09:57 Dose: 1 mg Furosemide (Lasix -) 40 mg PO BID@0600,1400 [facility] Last Admin: 03/30/19 06:16 Dose: 40 mg Gabapentin (Neurontin -) 100 mg PO HS [facility] Last Admin: 03/29/19 23:04 Dose: 100 mg Lactated Ringer's (Lactated Ringers Solution) 1,000 mls @ 75 mls/hr IV ASDIR [facility] Last Admin: 03/30/19 03:18 Dose: 75 mls/hr Piperacillin Sod/Tazobactam (Sod 3.375 gm/ Dextrose) 50 mls @ 100 mls/hr IVPB Q8H-IV [facility]; Protocol Last Admin: 03/30/19 01:43 Dose: 100 mls/hr Lisinopril (Prinivil) 2.5 mg PO DAILY [facility] Last Admin: 03/29/19 09:57 Dose: 2.5 mg Metoprolol Tartrate (Lopressor -) 25 mg PO DAILY [facility] Last Admin: 03/29/19 09:58 Dose: 25 mg Multivitamins/Minerals/Vitamin C (Tab-A-Vit -) 1 tab PO DAILY [facility] Last Admin: 03/29/19 09:57 Dose: 1 tab Ondansetron HCl (Zofran Injection) 4 mg IVPUSH Q6H PRN PRN Reason: NAUSEA AND/OR VOMITING Petrolatum (Sensi-Care Protective Ointment) 1 applic TP PRN PRN PRN Reason: HYGEINE Polysaccharide Iron Complex (Niferex-150 -) 150 mg PO DAILY [facility] Last Admin: 03/29/19 09:57 Dose: 150 mg Potassium Chloride (Potassium Chloride Oral Liquid) 40 meq PO BID [facility] Last Admin: 03/29/19 23:04 Dose: 40 meq Zinc Sulfate (Orazinc -) 220 mg PO DAILY [facility] Last Admin: 03/29/19 09:57 Dose: 220 mg - Objective Vital Signs: Vital Signs Temperature 97.6 F 03/30/19 04:00 Pulse Rate 75 03/30/19 04:00 Respiratory Rate 20 03/30/19 04:00 Blood Pressure 133/69 03/30/19 04:00 O2 Sat by Pulse Oximetry (%) 95 03/29/19 21:00 Labs: CBC, BMP 03/29/19 08:15 03/29/19 08:15 INR, PTT INR 1.16 (0.83-1.09) H 03/19/19 15:35 Problem List - Problems (1) Hypokalemia Code(s): E87.6 - HYPOKALEMIA (2) PAD (peripheral artery disease) Code(s): I73.9 - PERIPHERAL VASCULAR DISEASE, UNSPECIFIED (3) Anemia Code(s): D64.9 - ANEMIA, UNSPECIFIED Qualifiers: Anemia type: unspecified type Qualified Code(s): D64.9 - Anemia, unspecified (4) CAD (coronary artery disease) Code(s): I25.10 - ATHSCL HEART DISEASE OF [place] CORONARY ARTERY W/O ANG PCTRS Qualifiers: Coronary Disease-Associated Artery/Lesion type: [place] artery [place] vs. transplanted heart: [place] heart Associated angina: angina presence unspecified Qualified Code(s): I25.10 - Atherosclerotic heart disease of [place] coronary artery without angina pectoris (5) CVA (cerebral vascular accident) Code(s): I63.9 - CEREBRAL INFARCTION, UNSPECIFIED Qualifiers: CVA mechanism: unspecified Qualified Code(s): I63.9 - Cerebral infarction, unspecified (6) Diabetes Code(s): E11.9 - TYPE 2 DIABETES MELLITUS WITHOUT COMPLICATIONS (7) HTN (hypertension) Code(s): I10 - ESSENTIAL (PRIMARY) HYPERTENSION Qualifiers: Hypertension type: essential hypertension Qualified Code(s): I10 - Essential (primary) hypertension (8) Unsteady gait Code(s): R26.81 - UNSTEADINESS ON FEET (9) Venous stasis ulcer Code(s): I83.009 - VARICOSE VEINS OF UNSP LOWER EXTREMITY W ULCER OF UNSP SITE; L97.909 - NON-PRS CHRONIC ULC UNSP PRT OF UNSP LOW LEG W UNSP SEVERITY Qualifiers: Laterality: unspecified laterality Non-pressure ulcer stage: limited to breakdown of skin
[2019-03-30] MEDS: POTASSIUM CHLORIDE ORAL LIQUID 20 MEQ/15 ML PO SCH ×2 (11:03→22:53)
[2019-03-30] MEDS: ZINC SULFATE 220 MG CAPSULE (FP) PO SCH (11:03)
[2019-03-30] MEDS: ASCORBIC ACID 250 MG TABLET (FP) PO SCH (11:04)
[2019-03-30] MEDS: ASPIRIN 81 MG CHEWABLE TABLETS PO SCH (11:04)
[2019-03-30] MEDS: METOPROLOL TARTRATE 25 MG TABLET (FP) PO SCH (11:04)
[2019-03-30] MEDS: FOLIC ACID 1 MG TABLET (FP) PO SCH (11:04)
[2019-03-30] MEDS: LISINOPRIL 5 MG TABLET (FP) PO SCH (11:04)
[2019-03-30] MEDS: MULTIVITAMINS (DAILY MVI) TABLET (FP) PO SCH (11:04)
[2019-03-30] MEDS: FAMOTIDINE 20 MG TABLET PO SCH (11:04)
[2019-03-30] MEDS: IRON POLYSACCHARIDES 150 MG CAPSULE PO SCH (11:04)
[2019-03-30] MEDS: MINERAL OIL/PET HY-PHL TOPICAL OINTMENT 454 GM JAR TP SCH ×2 (11:05→22:53)
--- NOTE | 2019-03-30 11:44 | PN ---
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 - Current Medication List Current Medications: Active Medications Ascorbic Acid (Vitamin C -) 250 mg PO DAILY [facility] Last Admin: 03/30/19 11:04 Dose: 250 mg Aspirin (Asa -) 81 mg PO DAILY [facility] Last Admin: 03/30/19 11:04 Dose: 81 mg Collagenase (Santyl -) 1 applic TP DAILY [facility]; Protocol Last Admin: 03/29/19 16:09 Dose: 1 applic Emollient Ointment (Aquaphor -) 1 applic TP BID [facility] Last Admin: 03/30/19 11:05 Dose: 1 applic Famotidine (Pepcid -) 20 mg PO DAILY [facility] Last Admin: 03/30/19 11:04 Dose: 20 mg Fentanyl (Sublimaze Injection -) 25 mcg IVPUSH Q5M PRN PRN Reason: PAIN-PACU ORDER X 4 DOSES ONLY Folic Acid (Folic Acid -) 1 mg PO DAILY [facility] Last Admin: 03/30/19 11:04 Dose: 1 mg Furosemide (Lasix -) 40 mg PO BID@0600,1400 [facility] Last Admin: 03/30/19 06:16 Dose: 40 mg Gabapentin (Neurontin -) 100 mg PO HS [facility] Last Admin: 03/29/19 23:04 Dose: 100 mg Lactated Ringer's (Lactated Ringers Solution) 1,000 mls @ 75 mls/hr IV ASDIR [facility] Last Admin: 03/30/19 03:18 Dose: 75 mls/hr Piperacillin Sod/Tazobactam (Sod 3.375 gm/ Dextrose) 50 mls @ 100 mls/hr IVPB Q8H-IV [facility]; Protocol Last Admin: 03/30/19 09:20 Dose: 100 mls/hr Lisinopril (Prinivil) 2.5 mg PO DAILY [facility] Last Admin: 03/30/19 11:04 Dose: 2.5 mg Metoprolol Tartrate (Lopressor -) 25 mg PO DAILY [facility] Last Admin: 03/30/19 11:04 Dose: 25 mg Multivitamins/Minerals/Vitamin C (Tab-A-Vit -) 1 tab PO DAILY [facility] Last Admin: 03/30/19 11:04 Dose: 1 tab Ondansetron HCl (Zofran Injection) 4 mg IVPUSH Q6H PRN PRN Reason: NAUSEA AND/OR VOMITING Petrolatum (Sensi-Care Protective Ointment) 1 applic TP PRN PRN PRN Reason: HYGEINE Polysaccharide Iron Complex (Niferex-150 -) 150 mg PO DAILY [facility] Last Admin: 03/30/19 11:04 Dose: 150 mg Potassium Chloride (Potassium Chloride Oral Liquid) 40 meq PO BID [facility] Last Admin: 03/30/19 11:03 Dose: 40 meq Zinc Sulfate (Orazinc -) 220 mg PO DAILY [facility] Last Admin: 03/30/19 11:03 Dose: 220 mg - Objective Vital Signs: Vital Signs Temperature 97.6 F 03/30/19 04:00 Pulse Rate 75 03/30/19 04:00 Respiratory Rate 20 03/30/19 04:00 Blood Pressure 133/69 03/30/19 04:00 O2 Sat by Pulse Oximetry (%) 95 03/29/19 21:00 Constitutional: Yes: No Distress, Calm Cardiovascular: Yes: S1, S2 Respiratory: Yes: Regular, CTA Bilaterally Gastrointestinal: Yes: Normal Bowel Sounds, Soft Musculoskeletal: Yes: WNL Extremities: Yes: Other Neurological: Yes: Alert Psychiatric: Yes: Alert Labs: CBC, BMP 03/29/19 08:15 03/29/19 08:15 INR, PTT INR 1.16 (0.83-1.09) H 03/19/19 15:35 Assessment/Plan roblem List - Problems (1) PAD (peripheral artery disease) Code(s): I73.9 - PERIPHERAL VASCULAR DISEASE, UNSPECIFIED (2) Anemia Code(s): D64.9 - ANEMIA, UNSPECIFIED Qualifiers: Anemia type: unspecified type Qualified Code(s): D64.9 - Anemia, unspecified (3) CAD (coronary artery disease) Code(s): I25.10 - ATHSCL HEART DISEASE OF [place] CORONARY ARTERY W/O ANG PCTRS Qualifiers: Coronary Disease-Associated Artery/Lesion type: [place] artery [place] vs. transplanted heart: [place] heart Associated angina: angina presence unspecified Qualified Code(s): I25.10 - Atherosclerotic heart disease of [place] coronary artery without angina pectoris (4) CVA (cerebral vascular accident) Code(s): I63.9 - CEREBRAL INFARCTION, UNSPECIFIED Qualifiers: CVA mechanism: unspecified Qualified Code(s): I63.9 - Cerebral infarction, unspecified (5) Diabetes Code(s): E11.9 - TYPE 2 DIABETES MELLITUS WITHOUT COMPLICATIONS (6) HTN (hypertension) Code(s): I10 - ESSENTIAL (PRIMARY) HYPERTENSION Qualifiers: Hypertension type: essential hypertension Qualified Code(s): I10 - Essential (primary) hypertension (7) Unsteady gait Code(s): R26.81 - UNSTEADINESS ON FEET (8) Venous stasis ulcer Code(s): I83.009 - VARICOSE VEINS OF UNSP LOWER EXTREMITY W ULCER OF UNSP SITE; L97.909 - NON-PRS CHRONIC ULC UNSP PRT OF UNSP LOW LEG W UNSP SEVERITY Qualifiers: Laterality: unspecified laterality Non-pressure ulcer stage: limited to breakdown of skin plan continue current mgmt plan once patient stable patient ca be switched to oral
--- NOTE | 2019-03-30 12:08 | PN ---
Progress Note, Physician History of Present Illness: Chronic necrotic wound right foot. present on todays visit - Current Medication List Current Medications: Active Medications Ascorbic Acid (Vitamin C -) 250 mg PO DAILY [facility] Last Admin: 03/30/19 11:04 Dose: 250 mg Aspirin (Asa -) 81 mg PO DAILY [facility] Last Admin: 03/30/19 11:04 Dose: 81 mg Collagenase (Santyl -) 1 applic TP DAILY [facility]; Protocol Last Admin: 03/29/19 16:09 Dose: 1 applic Emollient Ointment (Aquaphor -) 1 applic TP BID [facility] Last Admin: 03/30/19 11:05 Dose: 1 applic Famotidine (Pepcid -) 20 mg PO DAILY [facility] Last Admin: 03/30/19 11:04 Dose: 20 mg Fentanyl (Sublimaze Injection -) 25 mcg IVPUSH Q5M PRN PRN Reason: PAIN-PACU ORDER X 4 DOSES ONLY Folic Acid (Folic Acid -) 1 mg PO DAILY [facility] Last Admin: 03/30/19 11:04 Dose: 1 mg Furosemide (Lasix -) 40 mg PO BID@0600,1400 [facility] Last Admin: 03/30/19 06:16 Dose: 40 mg Gabapentin (Neurontin -) 100 mg PO HS [facility] Last Admin: 03/29/19 23:04 Dose: 100 mg Lactated Ringer's (Lactated Ringers Solution) 1,000 mls @ 75 mls/hr IV ASDIR [facility] Last Admin: 03/30/19 03:18 Dose: 75 mls/hr Piperacillin Sod/Tazobactam (Sod 3.375 gm/ Dextrose) 50 mls @ 100 mls/hr IVPB Q8H-IV [facility]; Protocol Last Admin: 03/30/19 09:20 Dose: 100 mls/hr Lisinopril (Prinivil) 2.5 mg PO DAILY [facility] Last Admin: 03/30/19 11:04 Dose: 2.5 mg Metoprolol Tartrate (Lopressor -) 25 mg PO DAILY [facility] Last Admin: 03/30/19 11:04 Dose: 25 mg Multivitamins/Minerals/Vitamin C (Tab-A-Vit -) 1 tab PO DAILY [facility] Last Admin: 03/30/19 11:04 Dose: 1 tab Ondansetron HCl (Zofran Injection) 4 mg IVPUSH Q6H PRN PRN Reason: NAUSEA AND/OR VOMITING Petrolatum (Sensi-Care Protective Ointment) 1 applic TP PRN PRN PRN Reason: HYGEINE Polysaccharide Iron Complex (Niferex-150 -) 150 mg PO DAILY [facility] Last Admin: 03/30/19 11:04 Dose: 150 mg Potassium Chloride (Potassium Chloride Oral Liquid) 40 meq PO BID [facility] Last Admin: 03/30/19 11:03 Dose: 40 meq Zinc Sulfate (Orazinc -) 220 mg PO DAILY [facility] Last Admin: 03/30/19 11:03 Dose: 220 mg - Objective Vital Signs: Vital Signs Temperature 97.6 F 03/30/19 04:00 Pulse Rate 75 03/30/19 04:00 Respiratory Rate 20 03/30/19 04:00 Blood Pressure 133/69 03/30/19 04:00 O2 Sat by Pulse Oximetry (%) 95 03/29/19 21:00 Extremities: Yes: Other (+necrotic wounds x 3 right plantar surface, -draiange, +blackened eschar) Labs: CBC, BMP 03/29/19 08:15 03/29/19 08:15 INR, PTT INR 1.16 (0.83-1.09) H 03/19/19 15:35 Assessment/Plan necrotic right plantar wound granulating wound lateral heel left pvd Discussed with Dr. Voss yesterday. Discussed with and patient today. Both and agreed to debridement understanding all risks, benefits, and alternatives. Pt has severe right arterial disease DP runoff only. Will take to OR to clean wound that is necrotic right foot and apply Theraskin graft. Santyl to all wounds currently. Will follow. Please maximize for OR.
[2019-03-30] MEDS: COLLAGENASE CLOSTRIDIUM HIST. 30 GRAMS TUBE TP SCH (15:13)
[2019-03-30] MEDS: GABAPENTIN 100 MG CAPSULE PO SCH (22:53)
[2019-03-31] MEDS ORDERED: PIPERACILLIN/TAZOBACTAM 3.375 GM VIAL IVPB ONE ×3 (01:11→17:43)
[2019-03-31] MEDS ORDERED: DEXTROSE 5%-WATER - 50 ML IVPB ONE ×3 (01:12→17:44)
[2019-03-31] MEDS: LACTATED RINGERS SOLUTION 1,000 ML IV SCH ×4 (02:04→22:15)
[2019-03-31] MEDS: PIPERACILLIN/TAZOB 3.375 GM 3.375 GM in DEXTROSE 5%-WATER - 50 ML IVPB SCH ×3 (02:05→17:48)
[2019-03-31] MEDS: FUROSEMIDE 40 MG TABLET (FP) PO SCH ×2 (06:45→16:02)
--- NOTE | 2019-03-31 08:03 | PN ---
Progress Note, Physician Chief Complaint: Venous Stasis Ulcer History of Present Illness: Previous notes and events reviewed awake and alert NAD denies complaints of chest pain or SOB POD #4 RLE angiogram no leukocytosis will go to OR on 04/02 with podiatry for R foot wound debridement - Current Medication List Current Medications: Active Medications Ascorbic Acid (Vitamin C -) 250 mg PO DAILY [facility] Last Admin: 03/30/19 11:04 Dose: 250 mg Aspirin (Asa -) 81 mg PO DAILY [facility] Last Admin: 03/30/19 11:04 Dose: 81 mg Collagenase (Santyl -) 1 applic TP DAILY [facility]; Protocol Last Admin: 03/30/19 15:13 Dose: 1 applic Emollient Ointment (Aquaphor -) 1 applic TP BID [facility] Last Admin: 03/30/19 22:53 Dose: 1 applic Famotidine (Pepcid -) 20 mg PO DAILY [facility] Last Admin: 03/30/19 11:04 Dose: 20 mg Fentanyl (Sublimaze Injection -) 25 mcg IVPUSH Q5M PRN PRN Reason: PAIN-PACU ORDER X 4 DOSES ONLY Folic Acid (Folic Acid -) 1 mg PO DAILY [facility] Last Admin: 03/30/19 11:04 Dose: 1 mg Furosemide (Lasix -) 40 mg PO BID@0600,1400 [facility] Last Admin: 03/31/19 06:45 Dose: 40 mg Gabapentin (Neurontin -) 100 mg PO HS [facility] Last Admin: 03/30/19 22:53 Dose: 100 mg Lactated Ringer's (Lactated Ringers Solution) 1,000 mls @ 75 mls/hr IV ASDIR [facility] Last Admin: 03/31/19 02:04 Dose: 75 mls/hr Piperacillin Sod/Tazobactam (Sod 3.375 gm/ Dextrose) 50 mls @ 100 mls/hr IVPB Q8H-IV [facility]; Protocol Last Admin: 03/31/19 02:05 Dose: 100 mls/hr Lisinopril (Prinivil) 2.5 mg PO DAILY [facility] Last Admin: 03/30/19 11:04 Dose: 2.5 mg Metoprolol Tartrate (Lopressor -) 25 mg PO DAILY [facility] Last Admin: 03/30/19 11:04 Dose: 25 mg Multivitamins/Minerals/Vitamin C (Tab-A-Vit -) 1 tab PO DAILY [facility] Last Admin: 03/30/19 11:04 Dose: 1 tab Ondansetron HCl (Zofran Injection) 4 mg IVPUSH Q6H PRN PRN Reason: NAUSEA AND/OR VOMITING Petrolatum (Sensi-Care Protective Ointment) 1 applic TP PRN PRN PRN Reason: HYGEINE Polysaccharide Iron Complex (Niferex-150 -) 150 mg PO DAILY [facility] Last Admin: 03/30/19 11:04 Dose: 150 mg Potassium Chloride (Potassium Chloride Oral Liquid) 40 meq PO BID [facility] Last Admin: 03/30/19 22:53 Dose: 40 meq Zinc Sulfate (Orazinc -) 220 mg PO DAILY [facility] Last Admin: 03/30/19 11:03 Dose: 220 mg - Objective Vital Signs: Vital Signs Temperature 98.2 F 03/31/19 07:00 Pulse Rate 80 03/31/19 07:00 Respiratory Rate 20 03/31/19 07:00 Blood Pressure 123/64 03/31/19 07:00 O2 Sat by Pulse Oximetry (%) 99 03/30/19 21:00 Constitutional: Yes: No Distress, Calm, Obese Eyes: Yes: Conjunctiva Clear HENT: Yes: Atraumatic Cardiovascular: Yes: Regular Rate and Rhythm Respiratory: Yes: Regular, CTA Bilaterally Gastrointestinal: Yes: Normal Bowel Sounds, Soft Genitourinary: Yes: Bender Present Musculoskeletal: Yes: Muscle Weakness Extremities: Yes: WNL Edema: No Integumentary: Yes: Pressure Ulcer, Venous Stasis Changes Wound/Incision: Yes: Dressing Dry and Intact Neurological: Yes: Alert, Oriented Psychiatric: Yes: Alert, Oriented Labs: INR, PTT INR 1.16 (0.83-1.09) H 03/19/19 15:35 Problem List - Problems (1) Hypokalemia Assessment/Plan: -K 4.5 -resolved -KCl 40mEq BID Code(s): E87.6 - HYPOKALEMIA (2) PAD (peripheral artery disease) Assessment/Plan: -Vascular on board -CTA with B/l lower extremity runoff shows evaluation of the SFA and popliteal arteries limited due to motion, moderate to high grade stenosis in range 70-90% suspected in SFA at the level of adductor canal and moderate 50-70% stenosis in R popliteal artery, occluded R INSTRUMENT OPERATOR, patent GIL to the level of the ankle with occlusion of dorsalis pedis artery, patent peroneal artery providing flow to foot via plantar artery, very diminutive flow in ethe distal L INSTRUMENT OPERATOR with occluded peroneal artery and predmonent flow to the foot provided by INSTRUMENT OPERATOR with patent but diminutive flow in the plantar artery -POD #4 RLE Angiogram Code(s): I73.9 - PERIPHERAL VASCULAR DISEASE, UNSPECIFIED (3) Anemia Assessment/Plan: -Hg 9.7 -monitor Hg daily -trnasfuse for Hg <8.0 -anemia profile shows low Iron, low TIBC, low Iron Sat, -Iron Polysaccharide Code(s): D64.9 - ANEMIA, UNSPECIFIED Qualifiers: Anemia type: unspecified type Qualified Code(s): D64.9 - Anemia, unspecified (4) CAD (coronary artery disease) Assessment/Plan: -Aspirin Code(s): I25.10 - ATHSCL HEART DISEASE OF [place] CORONARY ARTERY W/O ANG PCTRS Qualifiers: Coronary Disease-Associated Artery/Lesion type: [place] artery [place] vs. transplanted heart: [place] heart Associated angina: angina presence unspecified Qualified Code(s): I25.10 - Atherosclerotic heart disease of [place] coronary artery without angina pectoris (5) CVA (cerebral vascular accident) Assessment/Plan: -aspirin -PT -fall precaution Code(s): I63.9 - CEREBRAL INFARCTION, UNSPECIFIED Qualifiers: CVA mechanism: unspecified Qualified Code(s): I63.9 - Cerebral infarction, unspecified (6) Diabetes Assessment/Plan: -[facility] ACHS -ISS -HgA1c 4.3% Code(s): E11.9 - TYPE 2 DIABETES MELLITUS WITHOUT COMPLICATIONS (7) HTN (hypertension) Assessment/Plan: -Lisinopril, Metoprolol -low Na diet Code(s): I10 - ESSENTIAL (PRIMARY) HYPERTENSION Qualifiers: Hypertension type: essential hypertension Qualified Code(s): I10 - Essential (primary) hypertension (8) Unsteady gait Assessment/Plan: -fall precaution -PT Code(s): R26.81 - UNSTEADINESS ON FEET (9) Venous stasis ulcer Assessment/Plan: -Vascular on board -CTA with B/l lower extremity runoff shows evaluation of the SFA and popliteal arteries limited due to motion, moderate to high grade stenosis in range 70-90% suspected in SFA at the level of adductor canal and moderate 50-70% stenosis in R popliteal artery, occluded R INSTRUMENT OPERATOR, patent GIL to the level of the ankle with occlusion of dorsalis pedis artery, patent peroneal artery providing flow to foot via plantar artery, very diminutive flow in ethe distal L INSTRUMENT OPERATOR with occluded peroneal artery and predmonent flow to the foot provided by INSTRUMENT OPERATOR with patent but diminutive flow in the plantar artery -POD #4 RLE Angiogram -ID on board -no leukocytosis -afebrile -BC neg -Zosyn Code(s): I83.009 - VARICOSE VEINS OF UNSP LOWER EXTREMITY W ULCER OF UNSP SITE; L97.909 - NON-PRS CHRONIC ULC UNSP PRT OF UNSP LOW LEG W UNSP SEVERITY Qualifiers: Laterality: unspecified laterality Non-pressure ulcer stage: limited to breakdown of skin (10) Chronic heel ulcer Assessment/Plan: -Podiatry on board -for OR on tuesday with podiatry for wound debridement Code(s): L97.409 - NON-PRS CHRONIC ULCER OF UNSP HEEL AND MIDFOOT W UNSP SEVERT Qualifiers: Laterality: unspecified laterality Assessment/Plan see problem list dvt ppx pending possible debridement R heel ulcer, if no debridement planned discharge to SNF as scheduled
[2019-03-31 08:05] LABS: HEMATOCRIT 26.2 % (35.4-49); HEMOGLOBIN 9.7 GM/dL (11.7-16.9); MCH 35.6 pg (25.7-33.7); MCHC 36.8 g/dl (32.0-35.9); MEAN CELL VOLUME 96.8 fl (80-96); MEAN PLT VOLUME 8.7 fl (7.5-11.1); PLATELET COUNT 171 K/MM3 (134-434); RBC 2.71 M/mm3 (4.00-5.60); RDW 14.7 % (11.9-15.9); WHITE BLOOD COUNT 4.7 K/mm3 (4.0-10.0)
[2019-03-31 08:20] LABS: INR 1.12 (0.83-1.09); PROTHROMBIN TIME (PATIENT) 13.2 SEC (9.7-13.0)
[2019-03-31 08:41] LABS: BILIRUBIN,TOTAL 0.3 mg/dL (0.2-1); BLOOD UREA NITROGEN 18.3 mg/dL (7-18); CALCIUM 9.4 mg/dL (8.5-10.1); CREATININE 1.2 mg/dL (0.55-1.3); POTASSIUM 4.4 mmol/L (3.5-5.1); TOT PROT 7.2 g/dl (6.4-8.2)
[2019-03-31] MEDS ORDERED: PT OWN MED DRAWER 7, Y5N ONE (10:10)
[2019-03-31] MEDS: FOLIC ACID 1 MG TABLET (FP) PO SCH (10:13)
[2019-03-31] MEDS: ASPIRIN 81 MG CHEWABLE TABLETS PO SCH (10:13)
[2019-03-31] MEDS: IRON POLYSACCHARIDES 150 MG CAPSULE PO SCH (10:14)
[2019-03-31] MEDS: ZINC SULFATE 220 MG CAPSULE (FP) PO SCH (10:14)
[2019-03-31] MEDS: FAMOTIDINE 20 MG TABLET PO SCH (10:14)
[2019-03-31] MEDS: POTASSIUM CHLORIDE ORAL LIQUID 20 MEQ/15 ML PO SCH ×2 (10:14→22:16)
[2019-03-31] MEDS: LISINOPRIL 5 MG TABLET (FP) PO SCH (10:15)
[2019-03-31] MEDS: MINERAL OIL/PET HY-PHL TOPICAL OINTMENT 454 GM JAR TP SCH ×2 (10:19→22:16)
[2019-03-31] MEDS: ASCORBIC ACID 250 MG TABLET (FP) PO SCH (10:19)
--- NOTE | 2019-03-31 14:08 | PN ---
Progress Note, Physician History of Present Illness: Chronic necrotic wounds right foot. Pt is scheduled for OR Tuesday. - Current Medication List Current Medications: Active Medications Ascorbic Acid (Vitamin C -) 250 mg PO DAILY [facility] Last Admin: 03/31/19 10:19 Dose: 250 mg Aspirin (Asa -) 81 mg PO DAILY [facility] Last Admin: 03/31/19 10:13 Dose: 81 mg Collagenase (Santyl -) 1 applic TP DAILY [facility]; Protocol Last Admin: 03/30/19 15:13 Dose: 1 applic Emollient Ointment (Aquaphor -) 1 applic TP BID [facility] Last Admin: 03/31/19 10:19 Dose: 1 applic Famotidine (Pepcid -) 20 mg PO DAILY [facility] Last Admin: 03/31/19 10:14 Dose: 20 mg Fentanyl (Sublimaze Injection -) 25 mcg IVPUSH Q5M PRN PRN Reason: PAIN-PACU ORDER X 4 DOSES ONLY Folic Acid (Folic Acid -) 1 mg PO DAILY [facility] Last Admin: 03/31/19 10:13 Dose: 1 mg Furosemide (Lasix -) 40 mg PO BID@0600,1400 [facility] Last Admin: 03/31/19 06:45 Dose: 40 mg Gabapentin (Neurontin -) 100 mg PO HS [facility] Last Admin: 03/30/19 22:53 Dose: 100 mg Lactated Ringer's (Lactated Ringers Solution) 1,000 mls @ 75 mls/hr IV ASDIR [facility] Last Admin: 03/31/19 02:04 Dose: 75 mls/hr Piperacillin Sod/Tazobactam (Sod 3.375 gm/ Dextrose) 50 mls @ 100 mls/hr IVPB Q8H-IV [facility]; Protocol Last Admin: 03/31/19 10:16 Dose: 100 mls/hr Lisinopril (Prinivil) 2.5 mg PO DAILY [facility] Last Admin: 03/31/19 10:15 Dose: 2.5 mg Metoprolol Tartrate (Lopressor -) 25 mg PO DAILY [facility] Last Admin: 03/30/19 11:04 Dose: 25 mg Multivitamins/Minerals/Vitamin C (Tab-A-Vit -) 1 tab PO DAILY [facility] Last Admin: 03/30/19 11:04 Dose: 1 tab Ondansetron HCl (Zofran Injection) 4 mg IVPUSH Q6H PRN PRN Reason: NAUSEA AND/OR VOMITING Petrolatum (Sensi-Care Protective Ointment) 1 applic TP PRN PRN PRN Reason: HYGEINE Polysaccharide Iron Complex (Niferex-150 -) 150 mg PO DAILY [facility] Last Admin: 03/31/19 10:14 Dose: 150 mg Potassium Chloride (Potassium Chloride Oral Liquid) 40 meq PO BID [facility] Last Admin: 03/31/19 10:14 Dose: 40 meq Zinc Sulfate (Orazinc -) 220 mg PO DAILY [facility] Last Admin: 03/31/19 10:14 Dose: 220 mg - Objective Vital Signs: Vital Signs Temperature 98.2 F 03/31/19 07:00 Pulse Rate 80 03/31/19 07:00 Respiratory Rate 20 03/31/19 07:00 Blood Pressure 123/64 03/31/19 07:00 O2 Sat by Pulse Oximetry (%) 99 03/30/19 21:00 Extremities: Yes: Other (+necrotic wounds x 3 right foot, -mal odor, +slough on wound, +pvd) Labs: CBC, BMP 03/31/19 07:05 03/31/19 07:05 INR, PTT INR 1.12 (0.83-1.09) H 03/31/19 07:05 Assessment/Plan necrotic right plantar wound granulating wound lateral heel left pvd Will take to OR to clean wounds that is necrotic right foot and apply Theraskin graft. Santyl to all wounds currently. Will follow. Please maximize for OR. Pt has been consented for debridement of wounds right foot with application of Theraskin graft to wounds. NPO after midnight tomorrow.
[2019-03-31] MEDS: COLLAGENASE CLOSTRIDIUM HIST. 30 GRAMS TUBE TP SCH (14:25)
[2019-03-31] MEDS: MULTIVITAMINS (DAILY MVI) TABLET (FP) PO SCH (16:05)
[2019-03-31] MEDS: METOPROLOL TARTRATE 25 MG TABLET (FP) PO SCH (16:05)
--- NOTE | 2019-03-31 17:47 | PN ---
Progress Note, Physician History of Present Illness: Pt without new complaints. Tolerating antibiotics. Remains afebrile. - Current Medication List Current Medications: Active Medications Ascorbic Acid (Vitamin C -) 250 mg PO DAILY [facility] Last Admin: 03/31/19 10:19 Dose: 250 mg Aspirin (Asa -) 81 mg PO DAILY [facility] Last Admin: 03/31/19 10:13 Dose: 81 mg Collagenase (Santyl -) 1 applic TP DAILY [facility]; Protocol Last Admin: 03/31/19 14:25 Dose: 1 applic Emollient Ointment (Aquaphor -) 1 applic TP BID [facility] Last Admin: 03/31/19 10:19 Dose: 1 applic Famotidine (Pepcid -) 20 mg PO DAILY [facility] Last Admin: 03/31/19 10:14 Dose: 20 mg Fentanyl (Sublimaze Injection -) 25 mcg IVPUSH Q5M PRN PRN Reason: PAIN-PACU ORDER X 4 DOSES ONLY Folic Acid (Folic Acid -) 1 mg PO DAILY [facility] Last Admin: 03/31/19 10:13 Dose: 1 mg Furosemide (Lasix -) 40 mg PO BID@0600,1400 [facility] Last Admin: 03/31/19 16:02 Dose: 40 mg Gabapentin (Neurontin -) 100 mg PO HS [facility] Last Admin: 03/30/19 22:53 Dose: 100 mg Lactated Ringer's (Lactated Ringers Solution) 1,000 mls @ 75 mls/hr IV ASDIR [facility] Last Admin: 03/31/19 16:05 Dose: 75 mls/hr Piperacillin Sod/Tazobactam (Sod 3.375 gm/ Dextrose) 50 mls @ 100 mls/hr IVPB Q8H-IV [facility]; Protocol Last Admin: 03/31/19 10:16 Dose: 100 mls/hr Lisinopril (Prinivil) 2.5 mg PO DAILY [facility] Last Admin: 03/31/19 10:15 Dose: 2.5 mg Metoprolol Tartrate (Lopressor -) 25 mg PO DAILY [facility] Last Admin: 03/31/19 16:05 Dose: 25 mg Multivitamins/Minerals/Vitamin C (Tab-A-Vit -) 1 tab PO DAILY [facility] Last Admin: 03/31/19 16:05 Dose: 1 tab Ondansetron HCl (Zofran Injection) 4 mg IVPUSH Q6H PRN PRN Reason: NAUSEA AND/OR VOMITING Petrolatum (Sensi-Care Protective Ointment) 1 applic TP PRN PRN PRN Reason: HYGEINE Polysaccharide Iron Complex (Niferex-150 -) 150 mg PO DAILY [facility] Last Admin: 03/31/19 10:14 Dose: 150 mg Potassium Chloride (Potassium Chloride Oral Liquid) 40 meq PO BID [facility] Last Admin: 03/31/19 10:14 Dose: 40 meq Zinc Sulfate (Orazinc -) 220 mg PO DAILY [facility] Last Admin: 03/31/19 10:14 Dose: 220 mg - Objective Vital Signs: Vital Signs Temperature 97.8 F 03/31/19 14:00 Pulse Rate 83 03/31/19 14:00 Respiratory Rate 20 03/31/19 14:00 Blood Pressure 116/54 L 03/31/19 14:00 O2 Sat by Pulse Oximetry (%) 99 03/30/19 21:00 Constitutional: Yes: No Distress, Calm Cardiovascular: Yes: Regular Rate and Rhythm Respiratory: Yes: Regular Gastrointestinal: Yes: Normal Bowel Sounds, Soft Genitourinary: Yes: Bender Present Edema: Yes Wound/Incision: Yes: Dressing Dry and Intact Neurological: Yes: Alert Labs: CBC, BMP 03/31/19 07:05 03/31/19 07:05 INR, PTT INR 1.12 (0.83-1.09) H 03/31/19 07:05 Microbiology 03/19/19 15:35 Blood - Peripheral Venous Blood Culture - Final NO GROWTH AFTER 5 DAYS INCUBATION 03/19/19 15:35 Blood - Peripheral Venous Blood Culture - Final NO GROWTH AFTER 5 DAYS INCUBATION - ....Imaging Other: Report Reviewed Problem List - Problems (1) PAD (peripheral artery disease) Code(s): I73.9 - PERIPHERAL VASCULAR DISEASE, UNSPECIFIED (2) Ulcer Code(s): [id number] - (3) Anemia Code(s): D64.9 - ANEMIA, UNSPECIFIED Qualifiers: Anemia type: unspecified type Qualified Code(s): D64.9 - Anemia, unspecified (4) CAD (coronary artery disease) Code(s): I25.10 - ATHSCL HEART DISEASE OF [place] CORONARY ARTERY W/O ANG PCTRS Qualifiers: Coronary Disease-Associated Artery/Lesion type: [place] artery [place] vs. transplanted heart: [place] heart Associated angina: angina presence unspecified Qualified Code(s): I25.10 - Atherosclerotic heart disease of [place] coronary artery without angina pectoris (5) CVA (cerebral vascular accident) Code(s): I63.9 - CEREBRAL INFARCTION, UNSPECIFIED Qualifiers: CVA mechanism: unspecified Qualified Code(s): I63.9 - Cerebral infarction, unspecified (6) Diabetes Code(s): E11.9 - TYPE 2 DIABETES MELLITUS WITHOUT COMPLICATIONS (7) HTN (hypertension) Code(s): I10 - ESSENTIAL (PRIMARY) HYPERTENSION Qualifiers: Hypertension type: essential hypertension Qualified Code(s): I10 - Essential (primary) hypertension (8) Venous stasis ulcer Code(s): I83.009 - VARICOSE VEINS OF UNSP LOWER EXTREMITY W ULCER OF UNSP SITE; L97.909 - NON-PRS CHRONIC ULC UNSP PRT OF UNSP LOW LEG W UNSP SEVERITY Qualifiers: Laterality: unspecified laterality Non-pressure ulcer stage: limited to breakdown of skin Assessment/Plan LE nonhealing necrotic ulcers/cellulitis PAD s/p RLE angiogram NAYA - resolved CAD Hx of CVA HTN -- continue Zosyn -- plan is for surgical debridement/graft -- continue wound care
[2019-03-31] MEDS: GABAPENTIN 100 MG CAPSULE PO SCH (22:16)
[2019-04-01] MEDS ORDERED: DEXTROSE 5%-WATER - 50 ML IVPB ONE ×3 (02:27→17:31)
[2019-04-01] MEDS ORDERED: PIPERACILLIN/TAZOBACTAM 3.375 GM VIAL IVPB ONE ×3 (02:27→17:31)
[2019-04-01] MEDS: PIPERACILLIN/TAZOB 3.375 GM 3.375 GM in DEXTROSE 5%-WATER - 50 ML IVPB SCH ×3 (02:46→17:33)
[2019-04-01] MEDS: LACTATED RINGERS SOLUTION 1,000 ML IV SCH ×2 (06:19→22:18)
[2019-04-01] MEDS: FUROSEMIDE 40 MG TABLET (FP) PO SCH ×2 (06:20→14:11)
[2019-04-01 08:21] LABS: HEMATOCRIT 25.5 % (35.4-49); HEMOGLOBIN 9.6 GM/dL (11.7-16.9); MCH 36.7 pg (25.7-33.7); MCHC 37.8 g/dl (32.0-35.9); MEAN PLT VOLUME 8.7 fl (7.5-11.1); PLATELET COUNT 189 K/MM3 (134-434); RBC 2.63 M/mm3 (4.00-5.60); RDW 15.2 % (11.9-15.9); WHITE BLOOD COUNT 4.8 K/mm3 (4.0-10.0)
--- NOTE | 2019-04-01 08:22 | PN ---
Progress Note, Physician Chief Complaint: Venous Stasis Ulcer History of Present Illness: Previous notes and events reviewed awake and alert NAD denies complaints of chest pain or SOB POD #5 RLE angiogram no leukocytosis will go to OR on 04/02 with podiatry for R foot wound debridement-NPO after midnight - Current Medication List Current Medications: Active Medications Ascorbic Acid (Vitamin C -) 250 mg PO DAILY [facility] Last Admin: 03/31/19 10:19 Dose: 250 mg Aspirin (Asa -) 81 mg PO DAILY [facility] Last Admin: 03/31/19 10:13 Dose: 81 mg Collagenase (Santyl -) 1 applic TP DAILY [facility]; Protocol Last Admin: 03/31/19 14:25 Dose: 1 applic Emollient Ointment (Aquaphor -) 1 applic TP BID [facility] Last Admin: 03/31/19 22:16 Dose: 1 applic Famotidine (Pepcid -) 20 mg PO DAILY [facility] Last Admin: 03/31/19 10:14 Dose: 20 mg Fentanyl (Sublimaze Injection -) 25 mcg IVPUSH Q5M PRN PRN Reason: PAIN-PACU ORDER X 4 DOSES ONLY Folic Acid (Folic Acid -) 1 mg PO DAILY [facility] Last Admin: 03/31/19 10:13 Dose: 1 mg Furosemide (Lasix -) 40 mg PO BID@0600,1400 [facility] Last Admin: 04/01/19 06:20 Dose: 40 mg Gabapentin (Neurontin -) 100 mg PO HS [facility] Last Admin: 03/31/19 22:16 Dose: 100 mg Lactated Ringer's (Lactated Ringers Solution) 1,000 mls @ 75 mls/hr IV ASDIR [facility] Last Admin: 04/01/19 06:19 Dose: 75 mls/hr Piperacillin Sod/Tazobactam (Sod 3.375 gm/ Dextrose) 50 mls @ 100 mls/hr IVPB Q8H-IV [facility]; Protocol Last Admin: 04/01/19 02:46 Dose: 100 mls/hr Lisinopril (Prinivil) 2.5 mg PO DAILY [facility] Last Admin: 03/31/19 10:15 Dose: 2.5 mg Metoprolol Tartrate (Lopressor -) 25 mg PO DAILY [facility] Last Admin: 03/31/19 16:05 Dose: 25 mg Multivitamins/Minerals/Vitamin C (Tab-A-Vit -) 1 tab PO DAILY [facility] Last Admin: 03/31/19 16:05 Dose: 1 tab Ondansetron HCl (Zofran Injection) 4 mg IVPUSH Q6H PRN PRN Reason: NAUSEA AND/OR VOMITING Petrolatum (Sensi-Care Protective Ointment) 1 applic TP PRN PRN PRN Reason: HYGEINE Polysaccharide Iron Complex (Niferex-150 -) 150 mg PO DAILY [facility] Last Admin: 03/31/19 10:14 Dose: 150 mg Potassium Chloride (Potassium Chloride Oral Liquid) 40 meq PO BID [facility] Last Admin: 03/31/19 22:16 Dose: 40 meq Zinc Sulfate (Orazinc -) 220 mg PO DAILY [facility] Last Admin: 03/31/19 10:14 Dose: 220 mg - Objective Vital Signs: Vital Signs Temperature 97.8 F 04/01/19 06:31 Pulse Rate 76 04/01/19 06:31 Respiratory Rate 20 04/01/19 06:31 Blood Pressure 122/59 L 04/01/19 06:31 O2 Sat by Pulse Oximetry (%) 99 03/31/19 21:00 Constitutional: Yes: No Distress, Calm Eyes: Yes: Conjunctiva Clear HENT: Yes: Atraumatic Cardiovascular: Yes: Regular Rate and Rhythm Respiratory: Yes: Regular, CTA Bilaterally Gastrointestinal: Yes: Normal Bowel Sounds, Soft Genitourinary: Yes: Bender Present Musculoskeletal: Yes: Muscle Weakness Extremities: Yes: WNL Edema: No Integumentary: Yes: Venous Stasis Changes Wound/Incision: Yes: Dressing Dry and Intact Neurological: Yes: Alert, Oriented Psychiatric: Yes: Alert, Oriented Labs: INR, PTT INR 1.12 (0.83-1.09) H 03/31/19 07:05 Microbiology 03/19/19 15:35 Blood - Peripheral Venous Blood Culture - Final NO GROWTH AFTER 5 DAYS INCUBATION 03/19/19 15:35 Blood - Peripheral Venous Blood Culture - Final NO GROWTH AFTER 5 DAYS INCUBATION Problem List - Problems (1) Hypokalemia Assessment/Plan: -K 4.4 -resolved -KCl 40mEq BID Code(s): E87.6 - HYPOKALEMIA (2) PAD (peripheral artery disease) Assessment/Plan: -Vascular on board -CTA with B/l lower extremity runoff shows evaluation of the SFA and popliteal arteries limited due to motion, moderate to high grade stenosis in range 70-90% suspected in SFA at the level of adductor canal and moderate 50-70% stenosis in R popliteal artery, 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, patent GIL to the level of the ankle with occlusion of dorsalis pedis artery, patent peroneal artery providing flow to foot via plantar artery, very diminutive flow in ethe distal L [employer] REPRESENTATIVE with occluded peroneal artery and predmonent flow to the foot provided by [employer] SAL[employer] REPRESENTATIVE with patent but diminutive flow in the plantar artery -POD #5 RLE Angiogram Code(s): I73.9 - PERIPHERAL VASCULAR DISEASE, UNSPECIFIED (3) Anemia Assessment/Plan: -Hg 9.6 -monitor Hg daily -trnasfuse for Hg <8.0 -anemia profile shows low Iron, low TIBC, low Iron Sat, -Iron Polysaccharide Code(s): D64.9 - ANEMIA, UNSPECIFIED Qualifiers: Anemia type: unspecified type Qualified Code(s): D64.9 - Anemia, unspecified (4) CAD (coronary artery disease) Assessment/Plan: -Aspirin Code(s): I25.10 - ATHSCL HEART DISEASE OF [place] CORONARY ARTERY W/O ANG PCTRS Qualifiers: Coronary Disease-Associated Artery/Lesion type: [place] artery [place] vs. transplanted heart: [place] heart Associated angina: angina presence unspecified Qualified Code(s): I25.10 - Atherosclerotic heart disease of [place] coronary artery without angina pectoris (5) CVA (cerebral vascular accident) Assessment/Plan: -aspirin -PT -fall precaution Code(s): I63.9 - CEREBRAL INFARCTION, UNSPECIFIED Qualifiers: CVA mechanism: unspecified Qualified Code(s): I63.9 - Cerebral infarction, unspecified (6) Diabetes Assessment/Plan: -BG ACHS -ISS -HgA1c 4.3% Code(s): E11.9 - TYPE 2 DIABETES MELLITUS WITHOUT COMPLICATIONS (7) HTN (hypertension) Assessment/Plan: -Lisinopril, Metoprolol -low Na diet Code(s): I10 - ESSENTIAL (PRIMARY) HYPERTENSION Qualifiers: Hypertension type: essential hypertension Qualified Code(s): I10 - Essential (primary) hypertension (8) Unsteady gait Assessment/Plan: -fall precaution -PT Code(s): R26.81 - UNSTEADINESS ON FEET (9) Venous stasis ulcer Assessment/Plan: -Vascular on board -CTA with B/l lower extremity runoff shows evaluation of the SFA and popliteal arteries limited due to motion, moderate to high grade stenosis in range 70-90% suspected in SFA at the level of adductor canal and moderate 50-70% stenosis in R popliteal artery, 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, patent GIL to the level of the ankle with occlusion of dorsalis pedis artery, patent peroneal artery providing flow to foot via plantar artery, very diminutive flow in ethe distal L [employer] REPRESENTATIVE with occluded peroneal artery and predmonent flow to the foot provided by [employer] SAL[employer] REPRESENTATIVE with patent but diminutive flow in the plantar artery -POD #5 RLE Angiogram -ID on board -no leukocytosis -afebrile -BC neg -Zosyn Code(s): I83.009 - VARICOSE VEINS OF UNSP LOWER EXTREMITY W ULCER OF UNSP SITE; L97.909 - NON-PRS CHRONIC ULC UNSP PRT OF UNSP LOW LEG W UNSP SEVERITY Qualifiers: Laterality: unspecified laterality Non-pressure ulcer stage: limited to breakdown of skin (10) Chronic heel ulcer Assessment/Plan: -Podiatry on board -for OR on tuesday with podiatry for wound debridement and apply [place] graft -NPO after midnight -Cardiology and Pulmonary consult Code(s): L97.409 - NON-PRS CHRONIC ULCER OF UNSP HEEL AND MIDFOOT W UNSP SEVERT Qualifiers: Laterality: unspecified laterality Assessment/Plan see problem list dvt ppx
[2019-04-01 08:37] LABS: BILIRUBIN,TOTAL 0.4 mg/dL (0.2-1); BLOOD UREA NITROGEN 18.9 mg/dL (7-18); CALCIUM 9.3 mg/dL (8.5-10.1); CREATININE 1.4 mg/dL (0.55-1.3); POTASSIUM 4.4 mmol/L (3.5-5.1); TOT PROT 7.5 g/dl (6.4-8.2)
--- NOTE | 2019-04-01 09:41 | CON.PULM ---
Consult Consult Specialty:: PULMONARY Referred by:: Dr Ivy Reason for Consultation:: preop clearance - History of Present Illness Chief Complaint: nonhealing ulcers History of Present Illness: 68yo male with h/o HTN, DM, hyperlipidemia, CAD, h/o CVA, PAD, who was admitted for nonhealing ulcers and cellulitis scheduled for wound debridement tomorrow. Denies shortness of breath, chronic cough or wheezing. No chest pain or discomfort. He is a former heavy smoker, smoked as much as 5 PPD but denies history of asthma or COPD. Exercise tolerance is limited by leg pain and gait instability from his stroke. Does not take any inhalers at home. 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 Infectious Disease: Yes: Other (Bilateral lower extremity celulitis ) Additional Medical History: Chronic leg ulcers - Alcohol/Substance Use Hx Alcohol Use: No - Smoking History Smoking history: Never smoked Have you smoked in the past 12 months: No If you are a former smoker, when did you quit?: 14 YEARS AGO - Social History Usual Living Arrangement: Alone Home Medications - Allergies Allergies/Adverse Reactions: Allergies Allergy/AdvReac Type Severity Reaction Status Date / Time No Known Allergies Allergy Verified 03/19/19 10:32 - Home Medications Home Medications: Ambulatory Orders Aspirin [ASA -] 81 mg PO DAILY #30 tab.chew 06/18/15 Folic Acid 1 mg PO DAILY #30 tablet 06/18/15 Glipizide [Glipizide ER] 2.5 mg PO DAILY 01/26/16 metFORMIN HCL [Metformin ER Osmotic] 1,000 mg PO DAILY 01/26/16 Cholecalciferol (Vitamin D3) [Vitamin D3] 2,000 unit PO DAILY 01/27/16 Furosemide 40 tab PO BID 05/18/18 Cholecalciferol (Vitamin D3) [Vitamin D3] 2,000 unit PO DAILY 03/19/19 Famotidine 20 mg PO DAILY 03/19/19 Gabapentin 100 mg PO HS 03/19/19 Lisinopril [Zestril] 2.5 mg PO DAILY 03/19/19 Metoprolol Tartrate 25 mg PO DAILY 03/19/19 Ascorbic Acid [Vitamin C -] 250 mg PO DAILY tablet 03/29/19 Collagenase Clostridium Hist. [Santyl -] 1 applic TP DAILY tube 03/29/19 Fentanyl Injection [Sublimaze Injection -] 25 mcg IVPUSH Q5M PRN ampul MDD 1 Furosemide [Lasix -] 40 mg PO BID@0600,1400 tablet 03/29/19 Iron Polysaccharides [Niferex-150 -] 150 mg PO DAILY capsule 03/29/19 Multivitamins [Multivit ([facility] Formulary)] 1 tab PO DAILY tab 03/29/19 Potassium Chloride [Potassium Chloride Oral Liquid] 40 meq PO BID cup 03/29/19 Zinc Sulfate [Orazinc -] 220 mg PO DAILY capsule 03/29/19 Amox-Tr/K Cl [Augmentin - 500Mg Tablet] 1 tab PO BID #20 tablet 03/30/19 Review of Systems - Review of Systems Constitutional: denies: Chills, Fever, Weakness Eyes: denies: Recent Change in Vision HENT: denies: Nasal Congestion, Throat Pain Neck: denies: Stiffness, Tenderness Cardiovascular: denies: Chest Pain, Shortness of Breath Respiratory: denies: Cough, Hemoptysis, SOB, Wheezing Gastrointestinal: denies: Abdominal Pain, Nausea, Vomiting Genitourinary: denies: Dysuria, Hematuria Neurological: denies: Dizziness, Headache Endocrine: denies: Unexplained Weight Loss Physical Exam Vital Sings: Vital Signs Temperature 97.8 F 04/01/19 06:31 Pulse Rate 76 04/01/19 06:31 Respiratory Rate 04/01/19 06:31 Blood Pressure 122/59 L 04/01/19 06:31 O2 Sat by Pulse Oximetry (%) 99 03/31/19 21:00 Constitutional: Yes: Calm Eyes: Yes: Conjunctiva Clear, EOM Intact HENT: Yes: Atraumatic, Normocephalic Neck: Yes: Supple, Trachea Midline Cardiovascular: Yes: Regular Rate and Rhythm Respiratory: Yes: Regular, CTA Bilaterally ...Clubbing: No Gastrointestinal: Yes: Normal Bowel Sounds, Soft. No: Tenderness Extremities: Yes: Erythema Edema: No Neurological: Yes: Alert, Oriented Labs: CBC, BMP 04/01/19 07:24 04/01/19 07:24 Imaging - Results Chest X-ray: Report Reviewed, Image Reviewed (no infiltrates) Assessment/Plan Cellulitis Necrotic Foot Ulcers HTN DM Hyperlipidemia CAD PAD - continue antibiotics - wound care - for wound debridement - no pulmonary history and pt asymptomatic at this time - no pulmonary contraindications for planned surgery - outpt PFTs - DVT prophylaxis Thank you for this consult Omre Juarez MD
[2019-04-01] MEDS ORDERED: PT OWN MED DRAWER 7, Y5N ONE (10:41)
[2019-04-01] MEDS: METOPROLOL TARTRATE 25 MG TABLET (FP) PO SCH (10:44)
[2019-04-01] MEDS: FOLIC ACID 1 MG TABLET (FP) PO SCH (10:44)
[2019-04-01] MEDS: ASPIRIN 81 MG CHEWABLE TABLETS PO SCH (10:44)
[2019-04-01] MEDS: LISINOPRIL 5 MG TABLET (FP) PO SCH (10:45)
[2019-04-01] MEDS: IRON POLYSACCHARIDES 150 MG CAPSULE PO SCH (10:45)
[2019-04-01] MEDS: POTASSIUM CHLORIDE ORAL LIQUID 20 MEQ/15 ML PO SCH ×2 (10:45→22:19)
[2019-04-01] MEDS: FAMOTIDINE 20 MG TABLET PO SCH (10:45)
[2019-04-01] MEDS: ZINC SULFATE 220 MG CAPSULE (FP) PO SCH (10:45)
[2019-04-01] MEDS: ASCORBIC ACID 250 MG TABLET (FP) PO SCH (10:46)
[2019-04-01] MEDS: MULTIVITAMINS (DAILY MVI) TABLET (FP) PO SCH (10:46)
[2019-04-01] MEDS: MINERAL OIL/PET HY-PHL TOPICAL OINTMENT 454 GM JAR TP SCH ×2 (10:48→22:19)
[2019-04-01] MEDS: COLLAGENASE CLOSTRIDIUM HIST. 30 GRAMS TUBE TP SCH (10:48)
--- NOTE | 2019-04-01 11:21 | CON.CARD ---
Consult Consult Specialty:: cardiology - History of Present Illness History of Present Illness: Last seen by us 03/25 68 year-old man with a PMHx of HTN, DM, HLD, CVA (06/2015), mild non-obstructive CAD, PAD with LE cellulitis admitted 03/19/19 with nonhealing necrotic ulcers of the bilateral feet and LE cellulitis. Non-invasive vascular studies showed significant LE PAD. Seen by ID and receiving IV ABx. Wound debredement planned He reports no chest pain, SOB at rest, palpitation, syncope or near syncope . No orthopnea or PND. His exercise tolerance is limited because of leg pain and fatigue. ECG 03/24/19: Normal sinus rhythm. Normal ECG. Cardiac cath 10/16/2018: CAD with 1 vessel (RCA) non-obstructive (50%). LVEF 55%. 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 Infectious Disease: Yes: Other (Bilateral lower extremity celulitis ) Additional Medical History: Chronic leg ulcers - Alcohol/Substance Use Hx Alcohol Use: No - Smoking History Smoking history: Never smoked Have you smoked in the past 12 months: No If you are a former smoker, when did you quit?: 14 YEARS AGO - Social History Usual Living Arrangement: Alone Home Medications - Allergies Allergies/Adverse Reactions: Allergies Allergy/AdvReac Type Severity Reaction Status Date / Time No Known Allergies Allergy Verified 03/19/19 10:32 - Home Medications Home Medications: Ambulatory Orders Aspirin [ASA -] 81 mg PO DAILY #30 tab.chew 06/18/15 Folic Acid 1 mg PO DAILY #30 tablet 06/18/15 Glipizide [Glipizide ER] 2.5 mg PO DAILY 01/26/16 metFORMIN HCL [Metformin ER Osmotic] 1,000 mg PO DAILY 01/26/16 Cholecalciferol (Vitamin D3) [Vitamin D3] 2,000 unit PO DAILY 01/27/16 Furosemide 40 tab PO BID 05/18/18 Cholecalciferol (Vitamin D3) [Vitamin D3] 2,000 unit PO DAILY 03/19/19 Famotidine 20 mg PO DAILY 03/19/19 Gabapentin 100 mg PO HS 03/19/19 Lisinopril [Zestril] 2.5 mg PO DAILY 03/19/19 Metoprolol Tartrate 25 mg PO DAILY 03/19/19 Ascorbic Acid [Vitamin C -] 250 mg PO DAILY tablet 03/29/19 Collagenase Clostridium Hist. [Santyl -] 1 applic TP DAILY tube 03/29/19 Fentanyl Injection [Sublimaze Injection -] 25 mcg IVPUSH Q5M PRN ampul MDD 1 Furosemide [Lasix -] 40 mg PO BID@0600,1400 tablet 03/29/19 Iron Polysaccharides [Niferex-150 -] 150 mg PO DAILY capsule 03/29/19 Multivitamins [Multivit ([facility] Formulary)] 1 tab PO DAILY tab 03/29/19 Potassium Chloride [Potassium Chloride Oral Liquid] 40 meq PO BID cup 03/29/19 Zinc Sulfate [Orazinc -] 220 mg PO DAILY capsule 03/29/19 Amox-Tr/K Cl [Augmentin - 500Mg Tablet] 1 tab PO BID #20 tablet 03/30/19 Review of Systems - Review of Systems Constitutional: reports: No Symptoms Eyes: reports: No Symptoms HENT: reports: No Symptoms Neck: reports: No Symptoms Cardiovascular: reports: No Symptoms Vital Signs: Vital Signs Temperature 97.8 F 04/01/19 06:31 Pulse Rate 76 04/01/19 06:31 Respiratory Rate 04/01/19 06:31 Blood Pressure 122/59 L 04/01/19 06:31 O2 Sat by Pulse Oximetry (%) 99 03/31/19 21:00 Constitutional: Yes: Well Nourished, No Distress Eyes: Yes: Conjunctiva Clear, EOM Intact HENT: Yes: Atraumatic, Normocephalic Neck: Yes: Supple, Trachea Midline Respiratory: Yes: Regular, CTA Bilaterally Gastrointestinal: Yes: Normal Bowel Sounds Cardiovascular: Yes: Regular Rate and Rhythm JVD: No Carotid Bruit: No PMI: Non-Displaced Heart Sounds: Yes: S1, S2 Murmur: No: Systolic Murmur, Diastolic Murmur Edema: Yes - Other Data Labs, Other Data: CBC, BMP 04/01/19 07:24 04/01/19 07:24 INR, PTT INR 1.12 (0.83-1.09) H 03/31/19 07:05 Problem List - Problems (1) PAD (peripheral artery disease) Code(s): I73.9 - PERIPHERAL VASCULAR DISEASE, UNSPECIFIED Assessment/Plan 1 The patient is at intermediate risk of cardiac complications for the planned wound debredment. There are no direct cardiac contraindications to the operation. No further preoperative cardiac testing is needed at this time. 2) Acute on chronic diastoliic CHF with preserved LV systolic function from cardiac cath in October 2017 and echo in April 2017: He has minimal pulmonary congestion and no dyspnea at rest while on IV Lasix. Lasix to PO 40 mg BID. 3) CAD: mild [id number] CAD: No symptoms of angina. Continue aspirin and metoprolol. Statin therapy should be started. Please do not hesitate to call us for re-consult at any time if any further questions or additional issue arises regarding this patient.
--- NOTE | 2019-04-01 17:40 | PN ---
Progress Note, Physician History of Present Illness: Pt without distress. Decreased LE erythema/edema. RLE ulcers still malodorous. Awaiting debridement. - Current Medication List Current Medications: Active Medications Ascorbic Acid (Vitamin C -) 250 mg PO DAILY [facility] Last Admin: 04/01/19 10:46 Dose: 250 mg Aspirin (Asa -) 81 mg PO DAILY [facility] Last Admin: 04/01/19 10:44 Dose: 81 mg Collagenase (Santyl -) 1 applic TP DAILY [facility]; Protocol Last Admin: 04/01/19 10:48 Dose: 1 applic Emollient Ointment (Aquaphor -) 1 applic TP BID [facility] Last Admin: 04/01/19 10:48 Dose: 1 applic Famotidine (Pepcid -) 20 mg PO DAILY [facility] Last Admin: 04/01/19 10:45 Dose: 20 mg Fentanyl (Sublimaze Injection -) 25 mcg IVPUSH Q5M PRN PRN Reason: PAIN-PACU ORDER X 4 DOSES ONLY Folic Acid (Folic Acid -) 1 mg PO DAILY [facility] Last Admin: 04/01/19 10:44 Dose: 1 mg Furosemide (Lasix -) 40 mg PO BID@0600,1400 [facility] Last Admin: 04/01/19 14:11 Dose: 40 mg Gabapentin (Neurontin -) 100 mg PO HS [facility] Last Admin: 03/31/19 22:16 Dose: 100 mg Lactated Ringer's (Lactated Ringers Solution) 1,000 mls @ 75 mls/hr IV ASDIR [facility] Last Admin: 04/01/19 06:19 Dose: 75 mls/hr Piperacillin Sod/Tazobactam (Sod 3.375 gm/ Dextrose) 50 mls @ 100 mls/hr IVPB Q8H-IV [facility]; Protocol Last Admin: 04/01/19 17:33 Dose: 100 mls/hr Lisinopril (Prinivil) 2.5 mg PO DAILY [facility] Last Admin: 04/01/19 10:45 Dose: 2.5 mg Metoprolol Tartrate (Lopressor -) 25 mg PO DAILY [facility] Last Admin: 04/01/19 10:44 Dose: 25 mg Multivitamins/Minerals/Vitamin C (Tab-A-Vit -) 1 tab PO DAILY [facility] Last Admin: 04/01/19 10:46 Dose: 1 tab Ondansetron HCl (Zofran Injection) 4 mg IVPUSH Q6H PRN PRN Reason: NAUSEA AND/OR VOMITING Petrolatum (Sensi-Care Protective Ointment) 1 applic TP PRN PRN PRN Reason: HYGEINE Polysaccharide Iron Complex (Niferex-150 -) 150 mg PO DAILY [facility] Last Admin: 04/01/19 10:45 Dose: 150 mg Potassium Chloride (Potassium Chloride Oral Liquid) 40 meq PO BID [facility] Last Admin: 04/01/19 10:45 Dose: 40 meq Zinc Sulfate (Orazinc -) 220 mg PO DAILY [facility] Last Admin: 04/01/19 10:45 Dose: 220 mg - Objective Vital Signs: Vital Signs Temperature 97.6 F 04/01/19 16:30 Pulse Rate 70 04/01/19 16:30 Respiratory Rate 20 04/01/19 16:30 Blood Pressure 113/52 L 04/01/19 16:30 O2 Sat by Pulse Oximetry (%) 99 03/31/19 21:00 Constitutional: Yes: No Distress, Calm Cardiovascular: Yes: Regular Rate and Rhythm Respiratory: Yes: Regular Gastrointestinal: Yes: Normal Bowel Sounds, Soft Integumentary: Yes: Erythema Wound/Incision: Yes: Dressing Dry and Intact Labs: CBC, BMP 04/01/19 07:24 04/01/19 07:24 INR, PTT INR 1.12 (0.83-1.09) H 03/31/19 07:05 Microbiology 03/19/19 15:35 Blood - Peripheral Venous Blood Culture - Final NO GROWTH AFTER 5 DAYS INCUBATION 03/19/19 15:35 Blood - Peripheral Venous Blood Culture - Final NO GROWTH AFTER 5 DAYS INCUBATION Problem List - Problems (1) PAD (peripheral artery disease) Code(s): I73.9 - PERIPHERAL VASCULAR DISEASE, UNSPECIFIED (2) Ulcer Code(s): [id number] - (3) Anemia Code(s): D64.9 - ANEMIA, UNSPECIFIED Qualifiers: Anemia type: unspecified type Qualified Code(s): D64.9 - Anemia, unspecified (4) CAD (coronary artery disease) Code(s): I25.10 - ATHSCL HEART DISEASE OF [place] CORONARY ARTERY W/O ANG PCTRS Qualifiers: Coronary Disease-Associated Artery/Lesion type: [place] artery [place] vs. transplanted heart: [place] heart Associated angina: angina presence unspecified Qualified Code(s): I25.10 - Atherosclerotic heart disease of [place] coronary artery without angina pectoris (5) CVA (cerebral vascular accident) Code(s): I63.9 - CEREBRAL INFARCTION, UNSPECIFIED Qualifiers: CVA mechanism: unspecified Qualified Code(s): I63.9 - Cerebral infarction, unspecified (6) Diabetes Code(s): E11.9 - TYPE 2 DIABETES MELLITUS WITHOUT COMPLICATIONS (7) HTN (hypertension) Code(s): I10 - ESSENTIAL (PRIMARY) HYPERTENSION Qualifiers: Hypertension type: essential hypertension Qualified Code(s): I10 - Essential (primary) hypertension (8) Venous stasis ulcer Code(s): I83.009 - VARICOSE VEINS OF UNSP LOWER EXTREMITY W ULCER OF UNSP SITE; L97.909 - NON-PRS CHRONIC ULC UNSP PRT OF UNSP LOW LEG W UNSP SEVERITY Qualifiers: Laterality: unspecified laterality Non-pressure ulcer stage: limited to breakdown of skin Assessment/Plan LE nonhealing necrotic ulcers/cellulitis PAD s/p RLE angiogram NAYA - resolved CAD Hx of CVA HTN -- cellulitis improving slowly, continue Zosyn -- surgical debridement/graft planned for tomorrow -- cleared by Cardiology/Pulmonary -- continue wound care
[2019-04-01] MEDS: GABAPENTIN 100 MG CAPSULE PO SCH (22:19)
[2019-04-02] MEDS ORDERED: SODIUM CHLORIDE 1,000 ML IV SCH (00:01)
[2019-04-02] MEDS ORDERED: PIPERACILLIN/TAZOBACTAM 3.375 GM VIAL IVPB ONE ×3 (01:26→17:13)
[2019-04-02] MEDS ORDERED: DEXTROSE 5%-WATER - 50 ML IVPB ONE ×3 (01:26→17:13)
[2019-04-02] MEDS: PIPERACILLIN/TAZOB 3.375 GM 3.375 GM in DEXTROSE 5%-WATER - 50 ML IVPB SCH ×3 (01:31→17:27)
[2019-04-02] MEDS: FUROSEMIDE 40 MG TABLET (FP) PO SCH ×2 (06:15→17:27)
--- NOTE | 2019-04-02 07:51 | PN ---
Progress Note, Physician - Current Medication List Current Medications: Active Medications Ascorbic Acid (Vitamin C -) 250 mg PO DAILY [facility] Last Admin: 04/01/19 10:46 Dose: 250 mg Aspirin (Asa -) 81 mg PO DAILY [facility] Last Admin: 04/01/19 10:44 Dose: 81 mg Collagenase (Santyl -) 1 applic TP DAILY [facility]; Protocol Last Admin: 04/01/19 10:48 Dose: 1 applic Emollient Ointment (Aquaphor -) 1 applic TP BID [facility] Last Admin: 04/01/19 22:19 Dose: 1 applic Famotidine (Pepcid -) 20 mg PO DAILY [facility] Last Admin: 04/01/19 10:45 Dose: 20 mg Fentanyl (Sublimaze Injection -) 25 mcg IVPUSH Q5M PRN PRN Reason: PAIN-PACU ORDER X 4 DOSES ONLY Folic Acid (Folic Acid -) 1 mg PO DAILY [facility] Last Admin: 04/01/19 10:44 Dose: 1 mg Furosemide (Lasix -) 40 mg PO BID@0600,1400 [facility] Last Admin: 04/02/19 06:15 Dose: 40 mg Gabapentin (Neurontin -) 100 mg PO HS [facility] Last Admin: 04/01/19 22:19 Dose: 100 mg Lactated Ringer's (Lactated Ringers Solution) 1,000 mls @ 75 mls/hr IV ASDIR [facility] Last Admin: 04/01/19 22:18 Dose: 75 mls/hr Piperacillin Sod/Tazobactam (Sod 3.375 gm/ Dextrose) 50 mls @ 100 mls/hr IVPB Q8H-IV [facility]; Protocol Last Admin: 04/02/19 01:31 Dose: 100 mls/hr Sodium Chloride (Normal Saline -) 1,000 mls @ 42 mls/hr IV ASDIR [facility] Last Admin: 04/02/19 01:30 Dose: 42 mls/hr Lisinopril (Prinivil) 2.5 mg PO DAILY [facility] Last Admin: 04/01/19 10:45 Dose: 2.5 mg Metoprolol Tartrate (Lopressor -) 25 mg PO DAILY [facility] Last Admin: 04/01/19 10:44 Dose: 25 mg Multivitamins/Minerals/Vitamin C (Tab-A-Vit -) 1 tab PO DAILY [facility] Last Admin: 04/01/19 10:46 Dose: 1 tab Ondansetron HCl (Zofran Injection) 4 mg IVPUSH Q6H PRN PRN Reason: NAUSEA AND/OR VOMITING Petrolatum (Sensi-Care Protective Ointment) 1 applic TP PRN PRN PRN Reason: HYGEINE Polysaccharide Iron Complex (Niferex-150 -) 150 mg PO DAILY [facility] Last Admin: 04/01/19 10:45 Dose: 150 mg Potassium Chloride (Potassium Chloride Oral Liquid) 40 meq PO BID [facility] Last Admin: 04/01/19 22:19 Dose: 40 meq Zinc Sulfate (Orazinc -) 220 mg PO DAILY [facility] Last Admin: 04/01/19 10:45 Dose: 220 mg - Objective Vital Signs: Vital Signs Temperature 98.1 F 04/02/19 06:58 Pulse Rate 80 04/02/19 06:58 Respiratory Rate 20 04/02/19 06:58 Blood Pressure 138/65 04/02/19 06:58 O2 Sat by Pulse Oximetry (%) 96 04/01/19 19:55 Cardiovascular: Yes: Regular Rate and Rhythm Respiratory: Yes: Regular, CTA Bilaterally Gastrointestinal: Yes: Normal Bowel Sounds, Soft Labs: CBC, BMP 04/01/19 07:24 04/01/19 07:24 INR, PTT INR 1.12 (0.83-1.09) H 03/31/19 07:05 Assessment/Plan - Problems (1) Hypokalemia Assessment/Plan: -K 4.4 -resolved -KCl 40mEq BID Code(s): E87.6 - HYPOKALEMIA (2) PAD (peripheral artery disease) Assessment/Plan: -Vascular on board -CTA with B/l lower extremity runoff shows evaluation of the SFA and popliteal arteries limited due to motion, moderate to high grade stenosis in range 70-90% suspected in SFA at the level of adductor canal and moderate 50-70% stenosis in R popliteal artery, 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 R 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 FRONT END DEVELOPER, patent GIL to the level of the ankle with occlusion of dorsalis pedis artery, patent peroneal artery providing flow to foot via plantar artery, very diminutive flow in ethe distal L SENIOR FRONT END DEVELOPER with occluded peroneal artery and predmonent flow to the foot provided by SENIOR FRONT END DEVELOPER with patent but diminutive flow in the plantar artery -POD #5 RLE Angiogram Code(s): I73.9 - PERIPHERAL VASCULAR DISEASE, UNSPECIFIED (3) Anemia Assessment/Plan: -Hg 9.6 -monitor Hg daily -trnasfuse for Hg <8.0 -anemia profile shows low Iron, low TIBC, low Iron Sat, -Iron Polysaccharide Code(s): D64.9 - ANEMIA, UNSPECIFIED Qualifiers: Anemia type: unspecified type Qualified Code(s): D64.9 - Anemia, unspecified (4) CAD (coronary artery disease) Assessment/Plan: -Aspirin Code(s): I25.10 - ATHSCL HEART DISEASE OF [place] CORONARY ARTERY W/O ANG PCTRS Qualifiers: Coronary Disease-Associated Artery/Lesion type: [place] artery [place] vs. transplanted heart: [place] heart Associated angina: angina presence unspecified Qualified Code(s): I25.10 - Atherosclerotic heart disease of [place] coronary artery without angina pectoris (5) CVA (cerebral vascular accident) Assessment/Plan: -aspirin -PT -fall precaution Code(s): I63.9 - CEREBRAL INFARCTION, UNSPECIFIED Qualifiers: CVA mechanism: unspecified Qualified Code(s): I63.9 - Cerebral infarction, unspecified (6) Diabetes Assessment/Plan: -[facility] -[facility] -HgA1c 4.3% Code(s): E11.9 - TYPE 2 DIABETES MELLITUS WITHOUT COMPLICATIONS (7) HTN (hypertension) Assessment/Plan: -Lisinopril, Metoprolol -low Na diet Code(s): I10 - ESSENTIAL (PRIMARY) HYPERTENSION Qualifiers: Hypertension type: essential hypertension Qualified Code(s): I10 - Essential (primary) hypertension (8) Unsteady gait Assessment/Plan: -fall precaution -PT Code(s): R26.81 - UNSTEADINESS ON FEET (9) Venous stasis ulcer Assessment/Plan: -Vascular on board -CTA with B/l lower extremity runoff shows evaluation of the SFA and popliteal arteries limited due to motion, moderate to high grade stenosis in range 70-90% suspected in SFA at the level of adductor canal and moderate 50-70% stenosis in R popliteal artery, occluded R SENIOR FRONT END DEVELOPER, patent GIL to the level of the ankle with occlusion of dorsalis pedis artery, patent peroneal artery providing flow to foot via plantar artery, very diminutive flow in ethe distal L SENIOR FRONT END DEVELOPER with occluded peroneal artery and predmonent flow to the foot provided by SENIOR FRONT END DEVELOPER with patent but diminutive flow in the plantar artery -POD #5 RLE Angiogram -ID on board -no leukocytosis -afebrile -BC neg -Zosyn Code(s): I83.009 - VARICOSE VEINS OF UNSP LOWER EXTREMITY W ULCER OF UNSP SITE; L97.909 - NON-PRS CHRONIC ULC UNSP PRT OF UNSP LOW LEG W UNSP SEVERITY Qualifiers: Laterality: unspecified laterality Non-pressure ulcer stage: limited to breakdown of skin (10) Chronic heel ulcer Assessment/Plan: -Podiatry on board -for OR with podiatry for wound debridement and apply Theraskin graft -NPO after midnight -Cardiology and Pulmonary consult Code(s): L97.409 - NON-PRS CHRONIC ULCER OF UNSP HEEL AND MIDFOOT W UNSP SEVERT Qualifiers: Laterality: unspecified laterality
[2019-04-02 08:34] LABS: HEMATOCRIT 26.9 % (35.4-49); HEMOGLOBIN 9.7 GM/dL (11.7-16.9); MCH 34.5 pg (25.7-33.7); MCHC 35.9 g/dl (32.0-35.9); MEAN CELL VOLUME 96.2 fl (80-96); MEAN PLT VOLUME 8.9 fl (7.5-11.1); PLATELET COUNT 189 K/MM3 (134-434); RDW 14.9 % (11.9-15.9); WHITE BLOOD COUNT 4.8 K/mm3 (4.0-10.0)
[2019-04-02 09:09] LABS: BILIRUBIN,TOTAL 0.5 mg/dL (0.2-1); BLOOD UREA NITROGEN 19.7 mg/dL (7-18); CALCIUM 9.6 mg/dL (8.5-10.1); CREATININE 1.3 mg/dL (0.55-1.3); POTASSIUM 4.3 mmol/L (3.5-5.1); TOT PROT 7.5 g/dl (6.4-8.2)
[2019-04-02] MEDS: FAMOTIDINE 20 MG TABLET PO SCH (09:27)
[2019-04-02] MEDS: POTASSIUM CHLORIDE ORAL LIQUID 20 MEQ/15 ML PO SCH ×2 (09:27→22:57)
[2019-04-02] MEDS: FOLIC ACID 1 MG TABLET (FP) PO SCH (09:28)
[2019-04-02] MEDS: METOPROLOL TARTRATE 25 MG TABLET (FP) PO SCH (09:28)
[2019-04-02] MEDS: MULTIVITAMINS (DAILY MVI) TABLET (FP) PO SCH (09:28)
[2019-04-02] MEDS: MINERAL OIL/PET HY-PHL TOPICAL OINTMENT 454 GM JAR TP SCH ×2 (09:28→22:57)
[2019-04-02] MEDS: IRON POLYSACCHARIDES 150 MG CAPSULE PO SCH (09:29)
[2019-04-02] MEDS: ASPIRIN 81 MG CHEWABLE TABLETS PO SCH (09:29)
[2019-04-02] MEDS: ZINC SULFATE 220 MG CAPSULE (FP) PO SCH (09:30)
[2019-04-02] MEDS: LISINOPRIL 5 MG TABLET (FP) PO SCH ×2 (09:30→10:01)
[2019-04-02] MEDS: COLLAGENASE CLOSTRIDIUM HIST. 30 GRAMS TUBE TP SCH ×2 (09:30→17:26)
[2019-04-02] MEDS: ASCORBIC ACID 250 MG TABLET (FP) PO SCH (09:31)
--- NOTE | 2019-04-02 10:02 | PN ---
Progress Note (short form) - Note Progress Note: PULMONARY Denies shortness of breath, cough or wheezing. Vital Signs Period Temp Pulse Resp BP Sys/Brewster Pulse Ox Last 24 Hr 97.6 F-98.5 F 70-89 20-20 107-138/52-65 96 Gen: NAD at rest Heart: RRR Lung: decreased breath sounds at the bases Abd: soft, nontender Ext: trace edema CBC, BMP 04/02/19 07:50 04/02/19 07:50 Active Medications Ascorbic Acid (Vitamin C -) 250 mg PO DAILY [facility] [place] Last Admin: 04/02/19 09:31 Dose: 250 mg Aspirin (Asa -) 81 mg PO DAILY [facility] Last Admin: 04/02/19 09:29 Dose: Not Given Collagenase (Santyl -) 1 applic TP DAILY [facility]; Protocol Last Admin: 04/02/19 09:30 Dose: Not Given Emollient Ointment (Aquaphor -) 1 applic TP BID [facility] [place] Last Admin: 04/02/19 09:28 Dose: 1 applic Famotidine (Pepcid -) 20 mg PO DAILY [facility] [place] Last Admin: 04/02/19 09:27 Dose: 20 mg Fentanyl (Sublimaze Injection -) 25 mcg IVPUSH Q5M PRN PRN Reason: PAIN-PACU ORDER X 4 DOSES ONLY Folic Acid (Folic Acid -) 1 mg PO DAILY [facility] [place] Last Admin: 04/02/19 09:28 Dose: 1 mg Furosemide (Lasix -) 40 mg PO BID@0600,1400 [facility] Last Admin: 04/02/19 06:15 Dose: 40 mg Gabapentin (Neurontin -) 100 mg PO HS [facility] [place] Last Admin: 04/01/19 22:19 Dose: 100 mg Lactated Ringer's (Lactated Ringers Solution) 1,000 mls @ 75 mls/hr IV ASDIR [facility] [place] Last Admin: 04/01/19 22:18 Dose: 75 mls/hr Piperacillin Sod/Tazobactam (Sod 3.375 gm/ Dextrose) 50 mls @ 100 mls/hr IVPB Q8H-IV [facility]; Protocol Last Admin: 04/02/19 09:28 Dose: 100 mls/hr Sodium Chloride (Normal Saline -) 1,000 mls @ 42 mls/hr IV ASDIR [facility] [place] Last Admin: 04/02/19 01:30 Dose: 42 mls/hr Lisinopril (Prinivil) 2.5 mg PO DAILY [facility] Last Admin: 04/02/19 10:01 Dose: 2.5 mg Metoprolol Tartrate (Lopressor -) 25 mg PO DAILY [facility] Last Admin: 04/02/19 09:28 Dose: 25 mg Multivitamins/Minerals/Vitamin C (Tab-A-Vit -) 1 tab PO DAILY [facility] [place] Last Admin: 04/02/19 09:28 Dose: 1 tab Ondansetron HCl (Zofran Injection) 4 mg IVPUSH Q6H PRN PRN Reason: NAUSEA AND/OR VOMITING Petrolatum (Sensi-Care Protective Ointment) 1 applic TP PRN PRN PRN Reason: HYGEINE Polysaccharide Iron Complex (Niferex-150 -) 150 mg PO DAILY [facility] Last Admin: 04/02/19 09:29 Dose: 150 mg Potassium Chloride (Potassium Chloride Oral Liquid) 40 meq PO BID [facility] Last Admin: 04/02/19 09:27 Dose: 40 meq Zinc Sulfate (Orazinc -) 220 mg PO DAILY [facility] Last Admin: 04/02/19 09:30 Dose: 220 mg A/P Cellulitis Necrotic Foot Ulcers HTN DM Hyperlipidemia CAD PAD - continue antibiotics - wound care - for wound debridement - no pulmonary history and pt asymptomatic at this time - no pulmonary contraindications for planned surgery - outpt PFTs - DVT prophylaxis
--- NOTE | 2019-04-02 10:19 | PN ---
Progress Note, Physician History of Present Illness: stable no new issues - Current Medication List Current Medications: Active Medications Ascorbic Acid (Vitamin C -) 250 mg PO DAILY [facility] Last Admin: 04/02/19 09:31 Dose: 250 mg Aspirin (Asa -) 81 mg PO DAILY [facility] Last Admin: 04/02/19 09:29 Dose: Not Given Collagenase (Santyl -) 1 applic TP DAILY [facility]; Protocol Last Admin: 04/02/19 09:30 Dose: Not Given Emollient Ointment (Aquaphor -) 1 applic TP BID [facility] Last Admin: 04/02/19 09:28 Dose: 1 applic Famotidine (Pepcid -) 20 mg PO DAILY [facility] Last Admin: 04/02/19 09:27 Dose: 20 mg Fentanyl (Sublimaze Injection -) 25 mcg IVPUSH Q5M PRN PRN Reason: PAIN-PACU ORDER X 4 DOSES ONLY Folic Acid (Folic Acid -) 1 mg PO DAILY [facility] Last Admin: 04/02/19 09:28 Dose: 1 mg Furosemide (Lasix -) 40 mg PO BID@0600,1400 [facility] Last Admin: 04/02/19 06:15 Dose: 40 mg Gabapentin (Neurontin -) 100 mg PO HS [facility] Last Admin: 04/01/19 22:19 Dose: 100 mg Lactated Ringer's (Lactated Ringers Solution) 1,000 mls @ 75 mls/hr IV ASDIR [facility] Last Admin: 04/01/19 22:18 Dose: 75 mls/hr Piperacillin Sod/Tazobactam (Sod 3.375 gm/ Dextrose) 50 mls @ 100 mls/hr IVPB Q8H-IV [facility]; Protocol Last Admin: 04/02/19 09:28 Dose: 100 mls/hr Sodium Chloride (Normal Saline -) 1,000 mls @ 42 mls/hr IV ASDIR [facility] Last Admin: 04/02/19 01:30 Dose: 42 mls/hr Lisinopril (Prinivil) 2.5 mg PO DAILY [facility] Last Admin: 04/02/19 10:01 Dose: 2.5 mg Metoprolol Tartrate (Lopressor -) 25 mg PO DAILY [facility] Last Admin: 04/02/19 09:28 Dose: 25 mg Multivitamins/Minerals/Vitamin C (Tab-A-Vit -) 1 tab PO DAILY [facility] Last Admin: 04/02/19 09:28 Dose: 1 tab Ondansetron HCl (Zofran Injection) 4 mg IVPUSH Q6H PRN PRN Reason: NAUSEA AND/OR VOMITING Petrolatum (Sensi-Care Protective Ointment) 1 applic TP PRN PRN PRN Reason: HYGEINE Polysaccharide Iron Complex (Niferex-150 -) 150 mg PO DAILY [facility] Last Admin: 04/02/19 09:29 Dose: 150 mg Potassium Chloride (Potassium Chloride Oral Liquid) 40 meq PO BID [facility] Last Admin: 04/02/19 09:27 Dose: 40 meq Zinc Sulfate (Orazinc -) 220 mg PO DAILY [facility] Last Admin: 04/02/19 09:30 Dose: 220 mg - Objective Vital Signs: Vital Signs Temperature 98.1 F 04/02/19 06:58 Pulse Rate 80 04/02/19 06:58 Respiratory Rate 20 04/02/19 06:58 Blood Pressure 138/65 04/02/19 06:58 O2 Sat by Pulse Oximetry (%) 96 04/01/19 19:55 Constitutional: Yes: No Distress, Calm Cardiovascular: Yes: S1, S2 Respiratory: Yes: Regular, CTA Bilaterally Gastrointestinal: Yes: Normal Bowel Sounds, Soft Musculoskeletal: Yes: WNL Extremities: Yes: Other Wound/Incision: Yes: Dressing Dry and Intact Neurological: Yes: Other Psychiatric: Yes: Other Labs: CBC, BMP 04/02/19 07:50 04/02/19 07:50 INR, PTT INR 1.12 (0.83-1.09) H 03/31/19 07:05 Assessment/Plan roblem List - Problems (1) PAD (peripheral artery disease) Code(s): I73.9 - PERIPHERAL VASCULAR DISEASE, UNSPECIFIED (2) Anemia Code(s): D64.9 - ANEMIA, UNSPECIFIED Qualifiers: Anemia type: unspecified type Qualified Code(s): D64.9 - Anemia, unspecified (3) CAD (coronary artery disease) Code(s): I25.10 - ATHSCL HEART DISEASE OF [place] CORONARY ARTERY W/O ANG PCTRS Qualifiers: Coronary Disease-Associated Artery/Lesion type: [place] artery [place] vs. transplanted heart: [place] heart Associated angina: angina presence unspecified Qualified Code(s): I25.10 - Atherosclerotic heart disease of [place] coronary artery without angina pectoris (4) CVA (cerebral vascular accident) Code(s): I63.9 - CEREBRAL INFARCTION, UNSPECIFIED Qualifiers: CVA mechanism: unspecified Qualified Code(s): I63.9 - Cerebral infarction, unspecified (5) Diabetes Code(s): E11.9 - TYPE 2 DIABETES MELLITUS WITHOUT COMPLICATIONS (6) HTN (hypertension) Code(s): I10 - ESSENTIAL (PRIMARY) HYPERTENSION Qualifiers: Hypertension type: essential hypertension Qualified Code(s): I10 - Essential (primary) hypertension (7) Unsteady gait Code(s): R26.81 - UNSTEADINESS ON FEET (8) Venous stasis ulcer Code(s): I83.009 - VARICOSE VEINS OF UNSP LOWER EXTREMITY W ULCER OF UNSP SITE; L97.909 - NON-PRS CHRONIC ULC UNSP PRT OF UNSP LOW LEG W UNSP SEVERITY Qualifiers: Laterality: unspecified laterality Non-pressure ulcer stage: limited to breakdown of skin plan continue current mgmt plan for debridement wound care rest as per the team
[2019-04-02] MEDS ORDERED: DEXAMETHASONE SOD PHOSPHATE 4 MG/1 ML VIAL ONE (11:21)
[2019-04-02] MEDS ORDERED: LIDOCAINE HCL 1%, 10 MG/ML (20ML VIAL) ONE (11:21)
[2019-04-02] MEDS ORDERED: MIDAZOLAM HCL 2 MG/2 ML SINGLE DOSE VIAL ONE (12:13)
[2019-04-02] MEDS ORDERED: PROPOFOL 20 ML ONE ×3 (12:14)
[2019-04-02] MEDS ORDERED: SUCCINYLCHOLINE CHLORIDE 200 MG/10 ML SYRINGE ONE (12:15)
[2019-04-02] MEDS ORDERED: PT OWN MED DRAWER 7, Y5N ONE ×2 (12:29)
[2019-04-02] MEDS ORDERED: BUPIVACAINE HCL/PF 0.5% (5 MG/ML) 30 ML VIAL IJ ONE (12:32)
[2019-04-02] MEDS ORDERED: LIDOCAINE HCL 1%, 10 MG/ML (20ML VIAL) SNB ONE (12:32)
[2019-04-02] MEDS ORDERED: BACITRACIN 50,000 UNITS VIAL TP ONE (12:45)
--- NOTE | 2019-04-02 13:30 | OP ---
Operative Note - Note: Operative Date: 04/02/19 Pre-Operative Diagnosis: Wounds with necrosis x 3 right foot Operation: Debridement wounds x 3 with application of Theraskin x 2. Findings: necrotic skin Post-Operative Diagnosis: Same as Pre-op Surgeon: Arabella José Help Desk Team Leader: Marilu Reid Anesthesia: Local, MAC Specimens Removed: skin and soft tissue Estimated Blood Loss (mls): 10 Instrument used (Debridements only): 15 blade Operative Report Dictated: Yes
[2019-04-02] MEDS ORDERED: ZINC OXIDE/PETROLATUM,WHITE 1 APPLIC OINT...G. TP PRN (13:48)
[2019-04-02] MEDS ORDERED: ONDANSETRON 4 MG/2 ML VIAL IVPUSH PRN (13:48)
[2019-04-02] MEDS ORDERED: LACTATED RINGERS SOLUTION 1,000 ML IV SCH (13:48)
[2019-04-02] MEDS: SODIUM CHLORIDE 1,000 ML IV SCH (14:25)
[2019-04-02 16:05] VITALS: BMI 37.2
[2019-04-02] MEDS ORDERED: INSULIN (NOVOLOG) ASPART 100 UNITS/ML 10ML VIAL ONE (17:55)
[2019-04-02] MEDS ORDERED: GABAPENTIN 100 MG CAPSULE PO SCH (22:00)
[2019-04-03] MEDS ORDERED: DEXTROSE 5%-WATER - 50 ML IVPB ONE ×2 (01:23→09:08)
[2019-04-03] MEDS ORDERED: PIPERACILLIN/TAZOBACTAM 3.375 GM VIAL IVPB ONE ×2 (01:23→09:08)
[2019-04-03] MEDS: PIPERACILLIN/TAZOB 3.375 GM 3.375 GM in DEXTROSE 5%-WATER - 50 ML IVPB SCH ×2 (02:00→09:55)
[2019-04-03] MEDS: FUROSEMIDE 40 MG TABLET (FP) PO SCH ×2 (06:17→13:52)
[2019-04-03] MEDS ORDERED: PT OWN MED DRAWER 7, Y5N ONE (09:08)
--- NOTE | 2019-04-03 09:45 | DS ---
Physical Examination Vital Signs: Vital Signs Temperature 97.9 F 04/03/19 06:33 Pulse Rate 80 04/03/19 06:33 Respiratory Rate 20 04/03/19 06:33 Blood Pressure 124/67 04/03/19 06:33 O2 Sat by Pulse Oximetry (%) 97 04/02/19 21:00 Cardiovascular: Yes: S1, S2 Respiratory: Yes: Regular, CTA Bilaterally Gastrointestinal: Yes: Normal Bowel Sounds, Soft Edema: Yes Wound/Incision: Yes: Dressing Dry and Intact Labs: CBC, BMP 04/02/19 07:50 04/02/19 07:50 Discharge Summary Problems reviewed: Yes Reason For Visit: ULCER OF FOOT Current Active Problems Chronic heel ulcer (Acute) Hypokalemia (Acute) PAD (peripheral artery disease) (Acute) Ulcer (Acute) Hospital Course: -- Problems (1) Hypokalemia Assessment/Plan: -K 4.4 -resolved -KCl 40mEq BID Code(s): E87.6 - HYPOKALEMIA (2) PAD (peripheral artery disease) Assessment/Plan: -Vascular on board -CTA with B/l lower extremity runoff shows evaluation of the SFA and popliteal arteries limited due to motion, moderate to high grade stenosis in range 70-90% suspected in SFA at the level of adductor canal and moderate 50-70% stenosis in R popliteal artery, occluded R FINANCE CONSULTANT, patent GIL to the level of the ankle with occlusion of dorsalis pedis artery, patent peroneal artery providing flow to foot via plantar artery, very diminutive flow in ethe distal L FINANCE CONSULTANT with occluded peroneal artery and predmonent flow to the foot provided by FINANCE CONSULTANT with patent but diminutive flow in the plantar artery -POD #5 RLE Angiogram Code(s): I73.9 - PERIPHERAL VASCULAR DISEASE, UNSPECIFIED (3) Anemia Assessment/Plan: -Hg 9.6 -monitor Hg daily -trnasfuse for Hg <8.0 -anemia profile shows low Iron, low TIBC, low Iron Sat, -Iron Polysaccharide Code(s): D64.9 - ANEMIA, UNSPECIFIED Qualifiers: Anemia type: unspecified type Qualified Code(s): D64.9 - Anemia, unspecified (4) CAD (coronary artery disease) Assessment/Plan: -Aspirin Code(s): I25.10 - ATHSCL HEART DISEASE OF [place] CORONARY ARTERY W/O ANG PCTRS Qualifiers: Coronary Disease-Associated Artery/Lesion type: [place] artery [place] vs. transplanted heart: [place] heart Associated angina: angina presence unspecified Qualified Code(s): I25.10 - Atherosclerotic heart disease of [place] coronary artery without angina pectoris (5) CVA (cerebral vascular accident) Assessment/Plan: -aspirin -PT -fall precaution Code(s): I63.9 - CEREBRAL INFARCTION, UNSPECIFIED Qualifiers: CVA mechanism: unspecified Qualified Code(s): I63.9 - Cerebral infarction, unspecified (6) Diabetes Assessment/Plan: -BGM ACHS -ISS -HgA1c 4.3% Code(s): E11.9 - TYPE 2 DIABETES MELLITUS WITHOUT COMPLICATIONS (7) HTN (hypertension) Assessment/Plan: -Lisinopril, Metoprolol -low Na diet Code(s): I10 - ESSENTIAL (PRIMARY) HYPERTENSION Qualifiers: Hypertension type: essential hypertension Qualified Code(s): I10 - Essential (primary) hypertension (8) Unsteady gait Assessment/Plan: -fall precaution -PT Code(s): R26.81 - UNSTEADINESS ON FEET (9) Venous stasis ulcer Assessment/Plan: -Vascular on board -CTA with B/l lower extremity runoff shows evaluation of the SFA and popliteal arteries limited due to motion, moderate to high grade stenosis in range 70-90% suspected in SFA at the level of adductor canal and moderate 50-70% stenosis in R popliteal artery, occluded R FINANCE CONSULTANT, patent GIL to the level of the ankle with occlusion of dorsalis pedis artery, patent peroneal artery providing flow to foot via plantar artery, very diminutive flow in ethe distal L FINANCE CONSULTANT with occluded peroneal artery and predmonent flow to the foot provided by FINANCE CONSULTANT with patent but diminutive flow in the plantar artery -POD #5 RLE Angiogram -ID on board -no leukocytosis -afebrile -BC neg -Zosyn Code(s): I83.009 - VARICOSE VEINS OF UNSP LOWER EXTREMITY W ULCER OF UNSP SITE; L97.909 - NON-PRS CHRONIC ULC UNSP PRT OF UNSP LOW LEG W UNSP SEVERITY Qualifiers: Laterality: unspecified laterality Non-pressure ulcer stage: limited to breakdown of skin (10) Chronic heel ulcer Assessment/Plan: -Podiatry on board -OR with podiatry for wound debridement Operative Date: 04/02/19 Pre-Operative Diagnosis: Wounds with necrosis x 3 right foot Operation: Debridement wounds x 3 with application of Theraskin x 2. Findings: necrotic skin Post-Operative Diagnosis: Same as Pre-op Surgeon: Arabella José -NPO after midnight -Cardiology and Pulmonary consult Code(s): L97.409 - NON-PRS CHRONIC ULCER OF UNSP HEEL AND MIDFOOT W UNSP SEVERT Qualifiers: Laterality: unspecified laterality Condition: Stable - Instructions Diet, Activity, Other Instructions: -Follow up with GI for repeat colonoscopy Referrals: Ani Ivy MD [Primary Care Provider] - Gustavo Elise MD [Staff Physician] - - Home Medications Comprehensive Discharge Medication List: Ambulatory Orders Aspirin [ASA -] 81 mg PO DAILY #30 tab.chew 06/18/15 Folic Acid 1 mg PO DAILY #30 tablet 06/18/15 Glipizide [Glipizide ER] 2.5 mg PO DAILY 01/26/16 metFORMIN HCL [Metformin ER Osmotic] 1,000 mg PO DAILY 01/26/16 Cholecalciferol (Vitamin D3) [Vitamin D3] 2,000 unit PO DAILY 01/27/16 Furosemide 40 tab PO BID 05/18/18 Cholecalciferol (Vitamin D3) [Vitamin D3] 2,000 unit PO DAILY 03/19/19 Famotidine 20 mg PO DAILY 03/19/19 Gabapentin 100 mg PO HS 03/19/19 Lisinopril [Zestril] 2.5 mg PO DAILY 03/19/19 Metoprolol Tartrate 25 mg PO DAILY 03/19/19 Ascorbic Acid [Vitamin C -] 250 mg PO DAILY tablet 03/29/19 Collagenase Clostridium Hist. [Santyl -] 1 applic TP DAILY tube 03/29/19 Fentanyl Injection [Sublimaze Injection -] 25 mcg IVPUSH Q5M PRN ampul MDD 1 Furosemide [Lasix -] 40 mg PO BID@0600,1400 tablet 03/29/19 Iron Polysaccharides [Niferex-150 -] 150 mg PO DAILY capsule 03/29/19 Multivitamins [Multivit ([facility] Formulary)] 1 tab PO DAILY tab 03/29/19 Potassium Chloride [Potassium Chloride Oral Liquid] 40 meq PO BID cup 03/29/19 Zinc Sulfate [Orazinc -] 220 mg PO DAILY capsule 03/29/19 Amox-Tr/K Cl [Augmentin - 500Mg Tablet] 1 tab PO BID #20 tablet 03/30/19
[2019-04-03] MEDS: MINERAL OIL/PET HY-PHL TOPICAL OINTMENT 454 GM JAR TP SCH (09:59)
[2019-04-03] MEDS: POTASSIUM CHLORIDE ORAL LIQUID 20 MEQ/15 ML PO SCH (09:59)
[2019-04-03] MEDS ORDERED: ASPIRIN 81 MG CHEWABLE TABLETS PO SCH (10:00)
[2019-04-03] MEDS ORDERED: MULTIVITAMINS (DAILY MVI) TABLET (FP) PO SCH (10:00)
[2019-04-03] MEDS ORDERED: FOLIC ACID 1 MG TABLET (FP) PO SCH (10:00)
[2019-04-03] MEDS ORDERED: IRON POLYSACCHARIDES 150 MG CAPSULE PO SCH (10:00)
[2019-04-03] MEDS ORDERED: FAMOTIDINE 20 MG TABLET PO SCH (10:00)
[2019-04-03] MEDS ORDERED: ASCORBIC ACID 250 MG TABLET (FP) PO SCH (10:00)
[2019-04-03] MEDS ORDERED: LISINOPRIL 5 MG TABLET (FP) PO SCH (10:00)
[2019-04-03] MEDS ORDERED: ZINC SULFATE 220 MG CAPSULE (FP) PO SCH (10:00)
[2019-04-03] MEDS ORDERED: METOPROLOL TARTRATE 25 MG TABLET (FP) PO SCH (10:00)
--- NOTE | 2019-04-03 10:01 | PN ---
Progress Note (short form) - Note Progress Note: PULMONARY s/p debridement. Denies shortness of breath, cough or wheezing. Vital Signs Period Temp Pulse Resp BP Sys/Brewster Pulse Ox Last 24 Hr 97.4 F-98.5 F 61-80 18-20 106-125/54-67 92-100 Gen: NAD at rest Heart: RRR Lung: decreased breath sounds at the bases Abd: soft, nontender Ext: trace edema CBC, BMP 04/02/19 07:50 04/02/19 07:50 Active Medications Ascorbic Acid (Vitamin C -) 250 mg PO DAILY [facility] Aspirin (Asa -) 81 mg PO DAILY [facility] Collagenase (Santyl -) 1 applic TP DAILY [facility]; Protocol Last Admin: 04/02/19 17:26 Dose: Not Given Emollient Ointment (Aquaphor -) 1 applic TP BID [facility] Last Admin: 04/02/19 22:57 Dose: 1 applic Famotidine (Pepcid -) 20 mg PO DAILY [facility] Fentanyl (Sublimaze Injection -) 25 mcg IVPUSH [id number] PRN PRN Reason: PAIN-PACU ORDER X 4 DOSES ONLY Folic Acid (Folic Acid -) 1 mg PO DAILY [facility] Furosemide (Lasix -) 40 mg PO BID@0600,1400 [facility] Last Admin: 04/03/19 06:17 Dose: 40 mg Gabapentin (Neurontin -) 100 mg PO HS [facility] Last Admin: 04/02/19 22:57 Dose: 100 mg Sodium Chloride (Normal Saline -) 1,000 mls @ 42 mls/hr IV ASDIR [facility] Last Admin: 04/02/19 14:25 Dose: 0 mls Piperacillin Sod/Tazobactam (Sod 3.375 gm/ Dextrose) 50 mls @ 100 mls/hr IVPB Q8H-IV [facility]; Protocol Last Admin: 04/03/19 02:00 Dose: 100 mls/hr Lisinopril (Prinivil) 2.5 mg PO DAILY [facility] Metoprolol Tartrate (Lopressor -) 25 mg PO DAILY [facility] Multivitamins/Minerals/Vitamin C (Tab-A-Vit -) 1 tab PO DAILY [facility] Ondansetron HCl (Zofran Injection) 4 mg IVPUSH Q6H PRN PRN Reason: NAUSEA AND/OR VOMITING Petrolatum (Sensi-Care Protective Ointment) 1 applic TP PRN PRN PRN Reason: HYGEINE Polysaccharide Iron Complex (Niferex-150 -) 150 mg PO DAILY [facility] Potassium Chloride (Potassium Chloride Oral Liquid) 40 meq PO BID [facility] Last Admin: 04/02/19 22:57 Dose: 40 meq Zinc Sulfate (Orazinc -) 220 mg PO DAILY [facility] A/P Cellulitis Necrotic Foot Ulcers HTN DM Hyperlipidemia CAD PAD - continue antibiotics - wound care - outpt PFTs - DVT prophylaxis - d/c planning in progress
--- NOTE | 2019-04-03 11:47 | PN ---
Progress Note, Physician History of Present Illness: s/p debridement - Current Medication List Current Medications: Active Medications Ascorbic Acid (Vitamin C -) 250 mg PO DAILY [facility] Last Admin: 04/03/19 09:57 Dose: 250 mg Aspirin (Asa -) 81 mg PO DAILY [facility] Last Admin: 04/03/19 09:56 Dose: 81 mg Collagenase (Santyl -) 1 applic TP DAILY [facility]; Protocol Last Admin: 04/02/19 17:26 Dose: Not Given Emollient Ointment (Aquaphor -) 1 applic TP BID [facility] Last Admin: 04/03/19 09:59 Dose: 1 applic Famotidine (Pepcid -) 20 mg PO DAILY [facility] Last Admin: 04/03/19 09:57 Dose: 20 mg Fentanyl (Sublimaze Injection -) 25 mcg IVPUSH [id number] PRN PRN Reason: PAIN-PACU ORDER X 4 DOSES ONLY Folic Acid (Folic Acid -) 1 mg PO DAILY [facility] Last Admin: 04/03/19 09:58 Dose: 1 mg Furosemide (Lasix -) 40 mg PO BID@0600,1400 [facility] Last Admin: 04/03/19 06:17 Dose: 40 mg Gabapentin (Neurontin -) 100 mg PO HS [facility] Last Admin: 04/02/19 22:57 Dose: 100 mg Sodium Chloride (Normal Saline -) 1,000 mls @ 42 mls/hr IV ASDIR [facility] Last Admin: 04/02/19 14:25 Dose: 0 mls Piperacillin Sod/Tazobactam (Sod 3.375 gm/ Dextrose) 50 mls @ 100 mls/hr IVPB Q8H-IV [facility]; Protocol Last Admin: 04/03/19 09:55 Dose: 100 mls/hr Lisinopril (Prinivil) 2.5 mg PO DAILY [facility] Last Admin: 04/03/19 09:58 Dose: 2.5 mg Metoprolol Tartrate (Lopressor -) 25 mg PO DAILY [facility] Last Admin: 04/03/19 09:57 Dose: 25 mg Multivitamins/Minerals/Vitamin C (Tab-A-Vit -) 1 tab PO DAILY [facility] Last Admin: 04/03/19 09:58 Dose: 1 tab Ondansetron HCl (Zofran Injection) 4 mg IVPUSH Q6H PRN PRN Reason: NAUSEA AND/OR VOMITING Petrolatum (Sensi-Care Protective Ointment) 1 applic TP PRN PRN PRN Reason: HYGEINE Polysaccharide Iron Complex (Niferex-150 -) 150 mg PO DAILY [facility] Last Admin: 04/03/19 09:57 Dose: 150 mg Potassium Chloride (Potassium Chloride Oral Liquid) 40 meq PO BID [facility] Last Admin: 04/03/19 09:59 Dose: 40 meq Zinc Sulfate (Orazinc -) 220 mg PO DAILY [facility] Last Admin: 04/03/19 09:57 Dose: 220 mg - Objective Vital Signs: Vital Signs Temperature 97.9 F 04/03/19 06:33 Pulse Rate 80 04/03/19 06:33 Respiratory Rate 20 04/03/19 06:33 Blood Pressure 124/67 04/03/19 06:33 O2 Sat by Pulse Oximetry (%) 97 04/02/19 21:00 Constitutional: Yes: No Distress, Calm Cardiovascular: Yes: S1, S2 Respiratory: Yes: Regular, CTA Bilaterally Musculoskeletal: Yes: WNL Extremities: Yes: Other Wound/Incision: Yes: Dressing Dry and Intact Neurological: Yes: Alert, Oriented Psychiatric: Yes: Alert, Oriented Labs: CBC, BMP 04/02/19 07:50 04/02/19 07:50 INR, PTT INR 1.12 (0.83-1.09) H 03/31/19 07:05 Assessment/Plan roble List - Problems (1) PAD (peripheral artery disease) Code(s): I73.9 - PERIPHERAL VASCULAR DISEASE, UNSPECIFIED (2) Anemia Code(s): D64.9 - ANEMIA, UNSPECIFIED Qualifiers: Anemia type: unspecified type Qualified Code(s): D64.9 - Anemia, unspecified (3) CAD (coronary artery disease) Code(s): I25.10 - ATHSCL HEART DISEASE OF [place] CORONARY ARTERY W/O ANG PCTRS Qualifiers: Coronary Disease-Associated Artery/Lesion type: [place] artery [place] vs. transplanted heart: [place] heart Associated angina: angina presence unspecified Qualified Code(s): I25.10 - Atherosclerotic heart disease of [place] coronary artery without angina pectoris (4) CVA (cerebral vascular accident) Code(s): I63.9 - CEREBRAL INFARCTION, UNSPECIFIED Qualifiers: CVA mechanism: unspecified Qualified Code(s): I63.9 - Cerebral infarction, unspecified (5) Diabetes Code(s): E11.9 - TYPE 2 DIABETES MELLITUS WITHOUT COMPLICATIONS (6) HTN (hypertension) Code(s): I10 - ESSENTIAL (PRIMARY) HYPERTENSION Qualifiers: Hypertension type: essential hypertension Qualified Code(s): I10 - Essential (primary) hypertension (7) Unsteady gait Code(s): R26.81 - UNSTEADINESS ON FEET (8) Venous stasis ulcer Code(s): I83.009 - VARICOSE VEINS OF UNSP LOWER EXTREMITY W ULCER OF UNSP SITE; L97.909 - NON-PRS CHRONIC ULC UNSP PRT OF [place] LOW LEG W UNSP SEVERITY Qualifiers: Laterality: unspecified laterality Non-pressure ulcer stage: limited to breakdown of skin plan continue current mgmt plan for debridement wound care rest as per the team can stop abx
[2019-04-03] MEDS: COLLAGENASE CLOSTRIDIUM HIST. 30 GRAMS TUBE TP SCH (13:50)
[2019-04-03] MEDS: SODIUM CHLORIDE 1,000 ML IV SCH (13:51)
[2019-04-03 15:11] VITALS: BP 120/70; PULSE 72; TEMP 98
--- NOTE | 2019-04-03 16:50 | PATH ---
Surgical Pathology Report Patient Name: TONJA BOND Med. Rec. #: [id number] /Age/Gender: 1950 (Age: 68) / M Account: [id number] Location: [facility] MED/SURG Taken: 04/02/2019 Received: 04/02/2019 Reported: 04/03/2019 Physicians: Arabella José DPM Specimen(s) Received RIGHT FOOT SKIN AND TENDON Clinical History Ulcer of right foot Final Diagnosis SKIN AND TENDON RIGHT FOOT, EXCISION: PORTIONS OF SKIN AND FIBROCONNECTIVE TISSUE WITH GANGRENOUS NECROSIS, MARKED ACUTE AND CHRONIC INFLAMMATION WITH ABSCESS FORMATION. Electronically Signed Quiana Herring M.D. Gross Description Received in formalin labeled "skin and tendon right foot," is a 3.8 x 2.6 x 0.4 cm aggregate of multiple necrotic portions of skin and soft tissue. Capacity Analyst sections are submitted in one cassette. /04/02/2019 [place]/04/02/2019
--- NOTE | 2019-04-09 09:08 | OP ---
DATE OF OPERATION: 04/02/2019 COMMENT: Of note, patient's name and MRN are not accessible. Please look up April 02, with Dr. José, the only surgery he had that day. SURGEON: Arabella José DPM. AUTOMATIC TRANSMISSION MECHANIC: Marilu Reid DPM. PREOPERATIVE DIAGNOSIS: Right foot chronic infected wound. POSTOPERATIVE DIAGNOSIS: Right foot chronic infected wound. PROCEDURE: Right foot wound debridement and TheraSkin graft application. ANESTHESIA: MAC with local. HEMOSTASIS: None. ESTIMATED BLOOD LOSS: Less than 2 mL. DESCRIPTION OF PROCEDURE: After proper verbal and written consent was obtained, the patient was brought into the operating room and placed in a supine position on the operating room table. After adequate IV sedation administered by the anesthesia team, a local infiltrate block was administered to the right foot utilizing a 1 to 1 mix of 1% lidocaine plain and 0.5% Marcaine plain with a total of 20 mL utilized. The right foot was then prepped and draped, usual sterile technique. The ankle and surgical foot was well padded using an adequate amount of Webril and a tourniquet was then placed overlying. The foot was then exsanguinated using an Esmarch bandage, and the ankle tourniquet was subsequently inflated to 250 mmHg. Attention was then directed to the right foot sub 5th metatarsal base wound. At this time, the wound was noted to consist of largely fibrotic wound base. Using a 15-blade and forceps followed by a rongeur, sharp surgical debridement was performed until a granular wound base was revealed. Care was taken to avoid any neurovascular structures. Sharp and blunt dissection was continued in preparation for the application of TheraSkin skin graft. The surgical site was then copiously irrigated with normal saline that had antibiotic irrigation. At this time, the biologically active cryopreserved human skin allograft consisting of both epidermal and dermal layers was retrieved from the sterile packaging and prepped for application. The said TheraSkin was then placed within the wound margins in its entirety, and affixed to the circumferential skin using 5-0 nylon sutures. Adequate wound coverage was noted with no buckling no sloughing. Attention was then directed to the right sub 1st metatarsophalangeal joint wound. At this time, the wound was noted to consist of largely fibrotic wound base. Using a 15-blade and forceps followed by a rongeur, sharp surgical debridement was performed until a granular wound base was revealed. Care was then taken to avoid any neurovascular structures. Sharp and blunt dissection was continued in preparation for the application of the remaining TheraSkin skin graft. The surgical site was then copiously irrigated with normal saline that had antibiotic added to it. At this time, the biologically active cryopreserved human skin allograft consisting of both epidermal and dermal layers was retrieved and prepped for further application. The said TheraSkin was then placed within the margins of the 1st metatarsophalangeal joint wound in entirety and affixed to the circumferential skin using 5-0 nylon sutures. Adequate wound coverage was noted with no buckling nor sloughing. At this time, the graft sites were then covered with a sterile, lightly compressive dressing consisting of 4x4s, ABD pads, Mj, and light Coban. No bleeding was noted through the dressing. The patient tolerated the procedure and anesthesia well. The patient left the operating room with the anesthesia team and was transferred to the PACU recovery room in good condition with vital signs stable and neurovascular status intact. Capillary refill time was less than 3 seconds to all digits of the right foot. Marilu Reid DPM, dictating for BRIGITTE Figueredo DPM BS/[id number]
--- NOTE | 2019-04-11 21:56 | OP ---
DATE OF OPERATION: 03/27/2019 PREOPERATIVE DIAGNOSIS: Right plantar foot ulcer. POSTOPERATIVE DIAGNOSIS: Right plantar foot ulcer. PROCEDURE: CO2 aortogram, right lower extremity angiogram. SURGEON: Enzo Temple DO ANESTHESIA: Fractional. BLOOD LOSS: 20 mL. Patient is a 68-year-old male with a right plantar foot ulcer that has been there for about 4-1/2 weeks. It was decided that he would need an angiogram to see the runoff into his foot. Patient was cleared from a cardiology standpoint. Patient was consented for the procedure, understanding all risks, benefits, and alternatives. He was then taken to the operating room. Once in the operating room, he was laid on the operating table in supine manner, and the areas of the right and left groins were prepped and draped in a sterile surgical manner. We then injected 10 mL of lidocaine 1% over the left common femoral artery. Under ultrasound guidance, we were able to visualize the left common femoral artery. Next, 10 mL of lidocaine 1% were injected there. We then took our micropuncture needle, punctured the left common femoral artery. Micropuncture wire was inserted. Micropuncture sheath was inserted, and a traditional 5-Sinhala sheath was inserted. We then placed a 0.035 floppy guidewire up into the aorta, followed by an Omni Flush catheter. We then shot a CO2 aortogram which showed that the aorta and iliac arteries were without any disease. We then went up and over using our 0.035 floppy guidewire and our Omni Flush catheter followed. We shot a CO2 angiogram of the right lower extremity, showing that the common femoral artery, the profunda, and the SFA were patent. The popliteal artery was patent. TP trunk was patent. Patient had 2-vessel runoff in the form of DP and PT going into the foot. At this point, there was no more intervention needed. There were no areas of stenosis at this point. At this point, we brought our Omni Flush catheter up and over. We then removed our sheath from the left groin. Pressure was held there for 5 minutes. After which, there was no bleeding. Area was wet and dried, and Dermabond was placed. Patient tolerated the procedure with no complications. Patient transferred to PACU in stable condition. ENZO TEMPLE DO RESIDENTIAL CARE FACILITY MANAGER/[id number]
--- NOTE | 2019-04-12 09:50 | PN ---
Progress Note (short form) - Note Progress Note: This is addendum to the Operative report for procedure 04/02/19. The depth of my debridement went down to muscle and soft tissue. Please see operative 04/02/19. [facility] [address] [place] [address] [place] [address] Name: TONJA BOND [facility] Rec Number: [id number] Date of : 1950 Attending: Ani Ivy Admit Date: 03/19/19 Age/Sex: 68/M Operative Report DATE OF OPERATION: 04/02/2019 COMMENT: Of note, patient's name and MRN are not accessible. Please look up April 02, with Dr. José, the only surgery he had that day. SURGEON: Arabella José DPM. WHITING CAN WORKER: Marilu Reid DPM. PREOPERATIVE DIAGNOSIS: Right foot chronic infected wound. POSTOPERATIVE DIAGNOSIS: Right foot chronic infected wound. PROCEDURE: Right foot wound debridement and TheraSkin graft application. ANESTHESIA: MAC with local. HEMOSTASIS: None. ESTIMATED BLOOD LOSS: Less than 2 mL. DESCRIPTION OF PROCEDURE: After proper verbal and written consent was obtained, the patient was brought into the operating room and placed in a supine position on the operating room table. After adequate IV sedation administered by the anesthesia team, a local infiltrate block was administered to the right foot utilizing a 1 to 1 mix of 1% lidocaine plain and 0.5% Marcaine plain with a total of 20 mL utilized. The right foot was then prepped and draped, usual sterile technique. The ankle and surgical foot was well padded using an adequate amount of Webril and a tourniquet was then placed overlying. The foot was then exsanguinated using an Esmarch bandage, and the ankle tourniquet was subsequently inflated to 250 mmHg. Attention was then directed to the right foot sub 5th metatarsal base wound. At this time, the wound was noted to consist of largely fibrotic wound base. Using a 15-blade and forceps followed by a rongeur, sharp surgical debridement was performed until a granular wound base was revealed. Care was taken to avoid any neurovascular structures. Sharp and blunt dissection was continued in preparation for the application of TheraSkin skin graft. The surgical site was then copiously irrigated with normal saline that had antibiotic irrigation. At this time, the biologically active cryopreserved human skin allograft con sisting of both epidermal and dermal layers was retrieved from the sterile packaging and prepped for application. The said TheraSkin was then placed within the wound margins in its entirety, and affixed to the circumferential skin using 5-0 nylon sutures. Adequate wound coverage was noted with no buckling no sloughing. Attention was then directed to the right sub 1st metatarsophalangeal joint woun d. At this time, the wound was noted to consist of largely fibrotic wound base. Using a 15-blade and forceps followed by a rongeur, sharp surgical debridement was performed until a granular wound base was revealed. Care was then taken to avoid any neurovascular structures. Sharp and blunt dissection was continued in preparation for the application of the remaining TheraSkin skin graft. The surgical site was then copiously irrigated with normal saline that had antibiotic added to it. At this time, the biologically active cryopreserved human skin allograft consisting of both epidermal and dermal layers was retrieved and prepped for further application. The said TheraSkin was then placed within the margins of the 1st metatarsophalangeal joint wound in entirety and affixed to the circumferential skin using 5-0 nylon sutures. Adequate wound coverage was noted with no buckling nor sloughing. At this time, the graft sites were then covered with a sterile, lightly compressive dressing consisting of 4x4s, ABD pads, Mj, and light Coban. No bleeding was noted through the dressing. The patient tolerated the procedure and anesthesia well. The patient left the operating room with the anesthesia team and was transferred to the PACU recovery room in good condition with vital signs stable and neurovascular status intact. Capillary refill time was less than 3 seconds to all digits of the right foot. Marilu Reid DPM, dictating for BRIGITTE Figueredo DPM BS/[id number] <Electronically signed by Arabella José DPM> <<Signature on File>> 04/12/19 0855 2
== END 2019-04-03 15:20 | DRG 622 ==
LOC: JER 11:26 → JERBED 17:12 → J8W 23:33
PROVIDERS: ADMIT Family Medicine; ATTEND Family Medicine
PROC: B40DYZZ Plain Radiography of Aorta and Bilateral Lower Extremity Arteries using Other Contrast (ICD-10-PCS; 2019-03-27)
PROC: 0HRMXK4 Replacement of Right Foot Skin with Nonautologous Tissue Substitute, Partial Thickness, External Approach (ICD-10-PCS; 2019-04-02)
PROC: 0KBS0ZZ Excision of Right Lower Leg Muscle, Open Approach (ICD-10-PCS; principal; 2019-04-02 11:30)
DX: E11.621 Type 2 diabetes mellitus with foot ulcer (principal); L89.323 Pressure ulcer of left buttock, stage 3; L89.313 Pressure ulcer of right buttock, stage 3; I50.33 Acute on chronic diastolic (congestive) heart failure; E11.52 Type 2 diabetes mellitus with diabetic peripheral angiopathy with gangrene; L97.919 Non-pressure chronic ulcer of unspecified part of right lower leg with unspecified severity; L97.929 Non-pressure chronic ulcer of unspecified part of left lower leg with unspecified severity; L03.115 Cellulitis of right lower limb; L03.116 Cellulitis of left lower limb; N17.9 Acute kidney failure, unspecified; I25.10 Atherosclerotic heart disease of native coronary artery without angina pectoris; I10 Essential (primary) hypertension; E87.6 Hypokalemia; Z86.73 Personal history of transient ischemic attack (TIA), and cerebral infarction without residual deficits; E78.5 Hyperlipidemia, unspecified; R26.81 Unsteadiness on feet; D64.9 Anemia, unspecified; E66.9 Obesity, unspecified; Z68.36 Body mass index [BMI] 36.0-36.9, adult
CPT/HCPCS: 36415; 71045-TC-FY; 73590-TC-LT-FY; 73590-TC-RT-FY; 73630-TC-LT; 73630-TC-RT-FY; 75635-TC; 80048; 80053; 82607; 82728; 82962; 83036; 83540; 83550; 84439; 84443; 85025; 85027; 85610; 85651; 86140; 86850; 86900; 86901; 87040; 87070; 87205; 88304-TC; 93005; 93010; 93306-TC; 93970-TC; 94760; 97116-GP; 97161-GP; 99285-25; G0463-25; J1644; J7030; Q9967

== ENCOUNTER 2020-02-09 12:10 | Inpatient (IN) | payer OTHER, BC ==
[2020-02-09 13:27] LABS: BASO % 0.7 % (0-2.0); HEMATOCRIT 25.7 % (35.4-49); HEMOGLOBIN 8.8 GM/dL (11.7-16.9); LYMPH % 11.9 % (8-40); MCH 33.3 pg (25.7-33.7); MEAN CELL VOLUME 97.8 fl (80-96); MEAN PLT VOLUME 9.4 fl (7.5-11.1); MONO % 7.4 % (3.8-10.2); PLATELET COUNT 144 K/MM3 (134-434); RBC 2.63 M/mm3 (4.00-5.60); RDW 15.4 % (11.9-15.9); WHITE BLOOD COUNT 5.7 K/mm3 (4.0-10.0)
[2020-02-09 13:47] LABS: CHLORIDE 110 mmol/L (98-107); SODIUM 137 mmol/L (136-145)
[2020-02-09 13:51] LABS: ALBUMIN 3.6 g/dl (3.4-5.0); ANION GAP 7 MMOL/L (8-16); BLOOD UREA NITROGEN 73.3 mg/dL (7-18); CALCIUM 8.5 mg/dL (8.5-10.1); CO2 20 mmol/L (21-32); GLUCOSE,RANDOM 109 mg/dL (74-106)
[2020-02-09 13:54] LABS: SGOT/AST 33 U/L (15-37); SGPT/ALT 32 U/L (13-61)
[2020-02-09 13:56] LABS: TOT PROT 8.4 g/dl (6.4-8.2)
[2020-02-09 13:57] LABS: ALK PHOS 72 U/L (45-117)
[2020-02-09 14:21] LABS: BILIRUBIN,TOTAL 0.3 mg/dL (0.2-1)
[2020-02-09] MEDS ORDERED: LACTATED RINGERS SOLUTION 1000 ML INFUS.BAG IV ONE (16:17)
[2020-02-09] MEDS ORDERED: LACTULOSE 20 GM/30 ML UDC (FOR ORAL USE ONLY) PO ONE (16:26)
[2020-02-09] MEDS ORDERED: CEFTRIAXONE 1,000 MG in DEXTROSE 5%-WATER - 50 ML IVPB ONE (16:53)
[2020-02-09] MEDS ORDERED: AZITHROMYCIN IVPB 500 MG in DEXTROSE 5%-WATER - 250 ML IVPB ONE (16:53)
[2020-02-09] MEDS ORDERED: LACTULOSE 20 GM/30 ML UDC (FOR ORAL USE ONLY) PO PRN (17:32)
[2020-02-09] MEDS ORDERED: LACTULOSE 20 GM/30 ML UDC (FOR ORAL USE ONLY) ONE (18:15)
[2020-02-09] MEDS ORDERED: CEFTRIAXONE 1 GM/50 ML BAG ONE (18:16)
[2020-02-09] MEDS ORDERED: AZITHROMYCIN IVPB 500 MG/250 ML BAG IVPB ONE (18:16)
[2020-02-09] MEDS: SODIUM CHLORIDE 1,000 ML IV SCH (18:25)
[2020-02-09] MEDS ORDERED: GABAPENTIN 100 MG CAPSULE PO SCH (22:00)
[2020-02-09] MEDS ORDERED: DEXAMETHASONE SOD PHOSPHATE 10 MG/1 ML VIAL IVPB ONE (23:06)
[2020-02-10] MEDS: SODIUM CHLORIDE 1,000 ML IV SCH ×2 (02:41→17:54)
[2020-02-10] MEDS ORDERED: FUROSEMIDE 40 MG TABLET (FP) PO SCH (06:00)
[2020-02-10] MEDS: INSULIN SLIDING SCALE (NOVOLOG) 1 VIAL SQ SCH ×3 (06:30→15:29)
[2020-02-10] MEDS: METOPROLOL TARTRATE 25 MG TABLET (FP) PO SCH ×2 (08:50→09:10)
[2020-02-10] MEDS: FAMOTIDINE 20 MG TABLET PO SCH ×2 (08:50→09:10)
[2020-02-10] MEDS: ASPIRIN 81 MG CHEWABLE TABLETS PO SCH ×2 (08:50→09:10)
[2020-02-10] MEDS: ENOXAPARIN NA (PORCINE) 40 MG/0.4 ML DISP.SYRIN SQ SCH (09:10)
[2020-02-10 09:19] LABS: BASO % 0.1 % (0-2.0); EOS % 0.6 % (0-4.5); HEMOGLOBIN 8.9 GM/dL (11.7-16.9); LYMPH % 5.8 % (8-40); MCH 37.1 pg (25.7-33.7); MEAN CELL VOLUME 100.3 fl (80-96); MEAN PLT VOLUME 9.3 fl (7.5-11.1); MONO % 1.5 % (3.8-10.2); PLATELET COUNT 129 K/MM3 (134-434); RBC 2.39 M/mm3 (4.00-5.60); RDW 15.2 % (11.9-15.9); WHITE BLOOD COUNT 4.8 K/mm3 (4.0-10.0)
[2020-02-10 09:32] LABS: ALBUMIN 3.3 g/dl (3.4-5.0); BLOOD UREA NITROGEN 58.3 mg/dL (7-18); CALCIUM 8.6 mg/dL (8.5-10.1); MAGNESIUM 2.2 mg/dL (1.8-2.4)
[2020-02-10 09:34] LABS: CREATININE 1.5 mg/dL (0.55-1.3)
[2020-02-10 09:35] LABS: BILIRUBIN,TOTAL 0.3 mg/dL (0.2-1); TOT PROT 8.1 g/dl (6.4-8.2)
[2020-02-10] MEDS ORDERED: IRON POLYSACCHARIDES 150 MG CAPSULE PO SCH (10:00)
[2020-02-10] MEDS ORDERED: LISINOPRIL 5 MG TABLET PO SCH (10:00)
[2020-02-10 10:14] LABS: ANISOCYTOSIS 0; MACROCYTOSIS 0; PLATELET ESTIMATE DECREASED
[2020-02-10] MEDS ORDERED: REMDESIVIR 200 MG in SODIUM CHLORIDE 210 ML IVPB ONE (17:00)
[2020-02-10] MEDS: ASCORBIC ACID 500 MG TABLET (FP) PO SCH (22:04)
[2020-02-10] MEDS: NYSTATIN POWDER 100,000 UNITS/GM - 15 GM TOPICAL POWDER TP SCH (22:04)
[2020-02-11] MEDS: INSULIN SLIDING SCALE (NOVOLOG) 1 VIAL SQ SCH ×3 (06:08→16:03)
[2020-02-11] MEDS: ASCORBIC ACID 500 MG TABLET (FP) PO SCH ×2 (09:04→21:54)
[2020-02-11] MEDS: FAMOTIDINE 20 MG TABLET PO SCH (09:04)
[2020-02-11] MEDS: ASPIRIN 81 MG CHEWABLE TABLETS PO SCH (09:04)
[2020-02-11] MEDS: NYSTATIN POWDER 100,000 UNITS/GM - 15 GM TOPICAL POWDER TP SCH ×2 (09:04→21:55)
[2020-02-11] MEDS: ENOXAPARIN NA (PORCINE) 40 MG/0.4 ML DISP.SYRIN SQ SCH (09:04)
[2020-02-11] MEDS: CHOLECALCIFEROL (VIT D3) 1,000 UNIT (25 MCG) TABLET PO SCH (09:04)
[2020-02-11] MEDS: ZINC SULFATE 220 MG CAPSULE (FP) PO SCH (09:04)
[2020-02-11] MEDS: METOPROLOL TARTRATE 25 MG TABLET (FP) PO SCH ×2 (09:04→21:54)
[2020-02-11 09:33] LABS: BASO % 0.3 % (0-2.0); EOS % 0.9 % (0-4.5); HEMATOCRIT 23.8 % (35.4-49); HEMOGLOBIN 8.6 GM/dL (11.7-16.9); LYMPH % 10.3 % (8-40); MCH 37.1 pg (25.7-33.7); MCHC 36.2 g/dl (32.0-35.9); MEAN CELL VOLUME 102.5 fl (80-96); MEAN PLT VOLUME 9.8 fl (7.5-11.1); MONO % 5.2 % (3.8-10.2); NEUT % 83.3 % (42.8-82.8); PLATELET COUNT 134 K/MM3 (134-434); RBC 2.32 M/mm3 (4.00-5.60); RDW 15.1 % (11.9-15.9); WHITE BLOOD COUNT 5.9 K/mm3 (4.0-10.0)
[2020-02-11 09:59] LABS: CALCIUM 8.7 mg/dL (8.5-10.1)
[2020-02-11 10:00] LABS: BLOOD UREA NITROGEN 46.2 mg/dL (7-18)
[2020-02-11 10:02] LABS: CREATININE 1.3 mg/dL (0.55-1.3)
[2020-02-11 10:03] LABS: ALBUMIN 3.3 g/dl (3.4-5.0)
[2020-02-11 10:03] LABS: PHOSPHOROUS 2.8 mg/dL (2.5-4.9)
[2020-02-11 10:06] LABS: BILIRUBIN,DIRECT 0.1 mg/dL (0.0-0.2)
[2020-02-11 10:07] LABS: BILIRUBIN,TOTAL 0.4 mg/dL (0.2-1)
[2020-02-11 11:00] LABS: CALCIUM 8.6 mg/dL (8.5-10.1)
[2020-02-11 11:01] LABS: BLOOD UREA NITROGEN 48.4 mg/dL (7-18)
[2020-02-11 11:03] LABS: CREATININE 1.3 mg/dL (0.55-1.3)
[2020-02-11] MEDS ORDERED: ENOXAPARIN NA (PORCINE) 60 MG/0.6 ML DISP.SYRIN SQ SCH (13:32)
[2020-02-11] MEDS: REMDESIVIR 100 MG in SODIUM CHLORIDE 230 ML IVPB SCH (17:48)
[2020-02-11] MEDS: ATORVASTATIN CA 40 MG TABLET (FP) PO SCH (21:54)
[2020-02-11] MEDS: ENOXAPARIN NA (PORCINE) 100 MG/1 ML DISP.SYRIN SQ SCH (21:54)
[2020-02-11] MEDS: GABAPENTIN 100 MG CAPSULE PO SCH (21:54)
[2020-02-12] MEDS: INSULIN SLIDING SCALE (NOVOLOG) 1 VIAL SQ SCH ×3 (06:49→16:25)
[2020-02-12] MEDS ORDERED: ACETAMINOPHEN 325 MG TABLET (FP) ONE (08:31)
[2020-02-12] MEDS: ASPIRIN 81 MG CHEWABLE TABLETS PO SCH (09:38)
[2020-02-12] MEDS: THIAMINE HCL 100 MG TABLET (FP) PO SCH (09:39)
[2020-02-12] MEDS: FOLIC ACID 1 MG TABLET (FP) PO SCH (09:39)
[2020-02-12] MEDS: CHOLECALCIFEROL (VIT D3) 1,000 UNIT (25 MCG) TABLET PO SCH (09:39)
[2020-02-12] MEDS: ZINC SULFATE 220 MG CAPSULE (FP) PO SCH (09:39)
[2020-02-12] MEDS: METOPROLOL TARTRATE 25 MG TABLET (FP) PO SCH ×2 (09:39→21:04)
[2020-02-12] MEDS: FAMOTIDINE 20 MG TABLET PO SCH (09:39)
[2020-02-12] MEDS: ASCORBIC ACID 500 MG TABLET (FP) PO SCH ×2 (09:39→21:04)
[2020-02-12] MEDS: MULTIVITAMINS (DAILY MVI) TABLET (FP) PO SCH (09:39)
[2020-02-12] MEDS: NYSTATIN POWDER 100,000 UNITS/GM - 15 GM TOPICAL POWDER TP SCH ×2 (09:39→21:04)
[2020-02-12] MEDS: ENOXAPARIN NA (PORCINE) 100 MG/1 ML DISP.SYRIN SQ SCH ×2 (09:40→21:02)
[2020-02-12 11:15] LABS: BASO % 0.2 % (0-2.0); EOS % 7.4 % (0-4.5); HEMATOCRIT 25.6 % (35.4-49); HEMOGLOBIN 8.8 GM/dL (11.7-16.9); LYMPH % 16.8 % (8-40); MCH 33.9 pg (25.7-33.7); MCHC 34.5 g/dl (32.0-35.9); MEAN CELL VOLUME 98.2 fl (80-96); MONO % 12.7 % (3.8-10.2); NEUT % 62.9 % (42.8-82.8); PLATELET COUNT 129 K/MM3 (134-434); RDW 15.5 % (11.9-15.9); WHITE BLOOD COUNT 4.4 K/mm3 (4.0-10.0)
[2020-02-12 11:33] LABS: CALCIUM 8.4 mg/dL (8.5-10.1)
[2020-02-12 11:34] LABS: MAGNESIUM 1.7 mg/dL (1.8-2.4)
[2020-02-12 11:35] LABS: BLOOD UREA NITROGEN 37.2 mg/dL (7-18)
[2020-02-12 11:37] LABS: CREATININE 1.2 mg/dL (0.55-1.3); PHOSPHOROUS 3.4 mg/dL (2.5-4.9)
[2020-02-12 11:38] LABS: BILIRUBIN,TOTAL 0.4 mg/dL (0.2-1)
[2020-02-12 11:39] LABS: TOT PROT 7.4 g/dl (6.4-8.2)
[2020-02-12 11:59] LABS: URINE APPEARANCE CLEAR; URINE BILIRUBIN NEGATIVE (NEGATIVE); URINE COLOR YELLOW; URINE GLUCOSE (UA) NEGATIVE (NEGATIVE); URINE KETONE NEGATIVE (NEGATIVE); URINE LEUK ESTERASE NEGATIVE (NEGATIVE); URINE NITRITE NEGATIVE (NEGATIVE); URINE PROTEIN NEGATIVE (NEGATIVE); URINE UROBILINOGEN 0.2 mg/dL (0.2-1.0)
[2020-02-12 12:10] LABS: ERYTHROCYTE SEDIMENTATION RATE 86 mm/hr (0-20)
[2020-02-12] MEDS: REMDESIVIR 100 MG in SODIUM CHLORIDE 230 ML IVPB SCH (16:25)
[2020-02-12] MEDS: ATORVASTATIN CA 40 MG TABLET (FP) PO SCH (21:02)
[2020-02-12] MEDS: GABAPENTIN 100 MG CAPSULE PO SCH (21:03)
[2020-02-13] MEDS: INSULIN SLIDING SCALE (NOVOLOG) 1 VIAL SQ SCH ×3 (07:27→17:16)
[2020-02-13 09:07] LABS: BASO % 0.3 % (0-2.0); EOS % 8.1 % (0-4.5); HEMATOCRIT 25.4 % (35.4-49); HEMOGLOBIN 9.3 GM/dL (11.7-16.9); LYMPH % 21.3 % (8-40); MCH 36.7 pg (25.7-33.7); MCHC 36.7 g/dl (32.0-35.9); MEAN CELL VOLUME 99.9 fl (80-96); MEAN PLT VOLUME 9.4 fl (7.5-11.1); MONO % 12.2 % (3.8-10.2); NEUT % 58.1 % (42.8-82.8); PLATELET COUNT 125 K/MM3 (134-434); RBC 2.54 M/mm3 (4.00-5.60); RDW 15.6 % (11.9-15.9); WHITE BLOOD COUNT 3.5 K/mm3 (4.0-10.0)
[2020-02-13 09:27] LABS: CALCIUM 8.5 mg/dL (8.5-10.1)
[2020-02-13 09:28] LABS: ALBUMIN 3.1 g/dl (3.4-5.0); BLOOD UREA NITROGEN 30.7 mg/dL (7-18); MAGNESIUM 1.7 mg/dL (1.8-2.4)
[2020-02-13 09:31] LABS: PHOSPHOROUS 3.3 mg/dL (2.5-4.9)
[2020-02-13 09:32] LABS: BILIRUBIN,TOTAL 0.7 mg/dL (0.2-1); TOT PROT 7.6 g/dl (6.4-8.2)
[2020-02-13] MEDS: ZINC SULFATE 220 MG CAPSULE (FP) PO SCH (10:37)
[2020-02-13] MEDS: CYANOCOBALAMIN (VITAMIN B-12) 100 MCG TABLET PO SCH (10:38)
[2020-02-13] MEDS: ASCORBIC ACID 500 MG TABLET (FP) PO SCH ×2 (10:38→21:10)
[2020-02-13] MEDS: NYSTATIN POWDER 100,000 UNITS/GM - 15 GM TOPICAL POWDER TP SCH ×2 (10:38→21:11)
[2020-02-13] MEDS: FAMOTIDINE 20 MG TABLET PO SCH (10:38)
[2020-02-13] MEDS: METOPROLOL TARTRATE 25 MG TABLET (FP) PO SCH ×2 (10:38→21:10)
[2020-02-13] MEDS: THIAMINE HCL 100 MG TABLET (FP) PO SCH (10:38)
[2020-02-13] MEDS: FOLIC ACID 1 MG TABLET (FP) PO SCH (10:38)
[2020-02-13] MEDS: MULTIVITAMINS (DAILY MVI) TABLET (FP) PO SCH (10:38)
[2020-02-13] MEDS: CHOLECALCIFEROL (VIT D3) 1,000 UNIT (25 MCG) TABLET PO SCH (10:38)
[2020-02-13] MEDS: ASPIRIN 81 MG CHEWABLE TABLETS PO SCH (10:38)
[2020-02-13] MEDS: ENOXAPARIN NA (PORCINE) 100 MG/1 ML DISP.SYRIN SQ SCH ×2 (10:38→21:10)
[2020-02-13] MEDS ORDERED: MAGNESIUM OXIDE 400 MG TABLET (FP) PO ONE (13:15)
[2020-02-13] MEDS: REMDESIVIR 100 MG in SODIUM CHLORIDE 230 ML IVPB SCH (16:55)
[2020-02-13] MEDS: ATORVASTATIN CA 40 MG TABLET (FP) PO SCH (21:10)
[2020-02-13] MEDS: GABAPENTIN 100 MG CAPSULE PO SCH (21:10)
[2020-02-14] MEDS: INSULIN SLIDING SCALE (NOVOLOG) 1 VIAL SQ SCH ×3 (06:09→16:20)
[2020-02-14 08:49] LABS: BASO % 0.3 % (0-2.0); EOS % 7.2 % (0-4.5); HEMATOCRIT 27.6 % (35.4-49); HEMOGLOBIN 9.8 GM/dL (11.7-16.9); LYMPH % 22.6 % (8-40); MCH 35.5 pg (25.7-33.7); MCHC 35.5 g/dl (32.0-35.9); MEAN CELL VOLUME 100.1 fl (80-96); MEAN PLT VOLUME 9.2 fl (7.5-11.1); MONO % 14.5 % (3.8-10.2); NEUT % 55.4 % (42.8-82.8); PLATELET COUNT 135 K/MM3 (134-434); RBC 2.76 M/mm3 (4.00-5.60); RDW 15.7 % (11.9-15.9); WHITE BLOOD COUNT 4.2 K/mm3 (4.0-10.0)
[2020-02-14 09:18] LABS: ALBUMIN 3.2 g/dl (3.4-5.0); BLOOD UREA NITROGEN 23.2 mg/dL (7-18); CALCIUM 8.7 mg/dL (8.5-10.1)
[2020-02-14 09:19] LABS: MAGNESIUM 1.6 mg/dL (1.8-2.4)
[2020-02-14 09:20] LABS: BILIRUBIN,TOTAL 0.4 mg/dL (0.2-1); PHOSPHOROUS 3.2 mg/dL (2.5-4.9); TOT PROT 7.6 g/dl (6.4-8.2)
[2020-02-14] MEDS: ASPIRIN 81 MG CHEWABLE TABLETS PO SCH (09:24)
[2020-02-14] MEDS: ENOXAPARIN NA (PORCINE) 100 MG/1 ML DISP.SYRIN SQ SCH ×2 (09:25→21:43)
[2020-02-14] MEDS: CYANOCOBALAMIN (VITAMIN B-12) 100 MCG TABLET PO SCH (09:25)
[2020-02-14] MEDS: MULTIVITAMINS (DAILY MVI) TABLET (FP) PO SCH (09:25)
[2020-02-14] MEDS: CHOLECALCIFEROL (VIT D3) 1,000 UNIT (25 MCG) TABLET PO SCH (09:25)
[2020-02-14] MEDS: FOLIC ACID 1 MG TABLET (FP) PO SCH (09:25)
[2020-02-14] MEDS: THIAMINE HCL 100 MG TABLET (FP) PO SCH (09:25)
[2020-02-14] MEDS: METOPROLOL TARTRATE 25 MG TABLET (FP) PO SCH ×2 (09:25→21:43)
[2020-02-14] MEDS: ASCORBIC ACID 500 MG TABLET (FP) PO SCH ×2 (09:25→21:43)
[2020-02-14] MEDS: ZINC SULFATE 220 MG CAPSULE (FP) PO SCH (09:25)
[2020-02-14] MEDS: NYSTATIN POWDER 100,000 UNITS/GM - 15 GM TOPICAL POWDER TP SCH ×2 (09:26→21:44)
[2020-02-14] MEDS: FAMOTIDINE 20 MG TABLET PO SCH (09:26)
[2020-02-14] MEDS ORDERED: MAGNESIUM SULF 50% (8.12 MEQ/2 ML-1 GM VIAL) IVPB ONE ×2 (09:38→11:10)
[2020-02-14] MEDS: REMDESIVIR 100 MG in SODIUM CHLORIDE 230 ML IVPB SCH (16:14)
[2020-02-14] MEDS: GABAPENTIN 100 MG CAPSULE PO SCH (21:43)
[2020-02-14] MEDS: ATORVASTATIN CA 40 MG TABLET (FP) PO SCH (21:43)
[2020-02-15] MEDS: INSULIN SLIDING SCALE (NOVOLOG) 1 VIAL SQ SCH ×3 (06:22→16:53)
[2020-02-15 09:58] LABS: BASO % 0.4 % (0-2.0); EOS % 4.9 % (0-4.5); HEMATOCRIT 25.8 % (35.4-49); LYMPH % 17.7 % (8-40); MCH 33.3 pg (25.7-33.7); MEAN CELL VOLUME 95.1 fl (80-96); MEAN PLT VOLUME 9.4 fl (7.5-11.1); MONO % 10.5 % (3.8-10.2); NEUT % 66.5 % (42.8-82.8); PLATELET COUNT 143 K/MM3 (134-434); RBC 2.72 M/mm3 (4.00-5.60); RDW 15.1 % (11.9-15.9); WHITE BLOOD COUNT 4.6 K/mm3 (4.0-10.0)
[2020-02-15 10:17] LABS: CALCIUM 8.2 mg/dL (8.5-10.1)
[2020-02-15 10:21] LABS: BILIRUBIN,TOTAL 0.3 mg/dL (0.2-1); TOT PROT 7.2 g/dl (6.4-8.2)
[2020-02-15 10:22] LABS: CREATININE 0.9 mg/dL (0.55-1.3)
[2020-02-15] MEDS: ASPIRIN 81 MG CHEWABLE TABLETS PO SCH (11:08)
[2020-02-15] MEDS: ZINC SULFATE 220 MG CAPSULE (FP) PO SCH (11:08)
[2020-02-15] MEDS: CHOLECALCIFEROL (VIT D3) 1,000 UNIT (25 MCG) TABLET PO SCH (11:08)
[2020-02-15] MEDS: NYSTATIN POWDER 100,000 UNITS/GM - 15 GM TOPICAL POWDER TP SCH ×2 (11:09→21:39)
[2020-02-15] MEDS: FOLIC ACID 1 MG TABLET (FP) PO SCH (11:09)
[2020-02-15] MEDS: ENOXAPARIN NA (PORCINE) 100 MG/1 ML DISP.SYRIN SQ SCH ×2 (11:09→21:38)
[2020-02-15] MEDS: MULTIVITAMINS (DAILY MVI) TABLET (FP) PO SCH (11:09)
[2020-02-15] MEDS: ASCORBIC ACID 500 MG TABLET (FP) PO SCH ×2 (11:09→21:38)
[2020-02-15] MEDS: METOPROLOL TARTRATE 25 MG TABLET (FP) PO SCH ×2 (11:09→21:38)
[2020-02-15 11:14] LABS: ERYTHROCYTE SEDIMENTATION RATE 65 mm/hr (0-20)
[2020-02-15] MEDS: FAMOTIDINE 20 MG TABLET PO SCH (11:15)
[2020-02-15] MEDS: CYANOCOBALAMIN (VITAMIN B-12) 100 MCG TABLET PO SCH (11:16)
[2020-02-15] MEDS: THIAMINE HCL 100 MG TABLET (FP) PO SCH (11:16)
[2020-02-15] MEDS: LISINOPRIL 5 MG TABLET PO SCH (14:09)
[2020-02-15] MEDS: ATORVASTATIN CA 40 MG TABLET (FP) PO SCH (21:38)
[2020-02-15] MEDS: GABAPENTIN 100 MG CAPSULE PO SCH (21:38)
[2020-02-16] MEDS: INSULIN SLIDING SCALE (NOVOLOG) 1 VIAL SQ SCH ×3 (07:17→17:18)
[2020-02-16 09:26] LABS: HEMATOCRIT 25.8 % (35.4-49); HEMOGLOBIN 9.4 GM/dL (11.7-16.9); MCH 35.5 pg (25.7-33.7); MCHC 36.2 g/dl (32.0-35.9); MEAN CELL VOLUME 97.9 fl (80-96); MEAN PLT VOLUME 9.4 fl (7.5-11.1); PLATELET COUNT 169 K/MM3 (134-434); RBC 2.64 M/mm3 (4.00-5.60); RDW 15.4 % (11.9-15.9); WHITE BLOOD COUNT 5.2 K/mm3 (4.0-10.0)
[2020-02-16 09:42] LABS: BILIRUBIN,TOTAL 0.5 mg/dL (0.2-1); TOT PROT 7.7 g/dl (6.4-8.2)
[2020-02-16 09:55] LABS: ALBUMIN 3.2 g/dl (3.4-5.0); CALCIUM 8.5 mg/dL (8.5-10.1)
[2020-02-16 09:56] LABS: BLOOD UREA NITROGEN 20.3 mg/dL (7-18); MAGNESIUM 1.7 mg/dL (1.8-2.4)
[2020-02-16 10:01] LABS: CREATININE 0.9 mg/dL (0.55-1.3)
[2020-02-16] MEDS: MULTIVITAMINS (DAILY MVI) TABLET (FP) PO SCH (10:23)
[2020-02-16] MEDS: METOPROLOL TARTRATE 25 MG TABLET (FP) PO SCH ×2 (10:23→21:31)
[2020-02-16] MEDS: ASPIRIN 81 MG CHEWABLE TABLETS PO SCH (10:23)
[2020-02-16] MEDS: FOLIC ACID 1 MG TABLET (FP) PO SCH (10:23)
[2020-02-16] MEDS: ASCORBIC ACID 500 MG TABLET (FP) PO SCH ×2 (10:23→21:31)
[2020-02-16] MEDS: ENOXAPARIN NA (PORCINE) 100 MG/1 ML DISP.SYRIN SQ SCH ×2 (10:25→21:31)
[2020-02-16] MEDS: CHOLECALCIFEROL (VIT D3) 1,000 UNIT (25 MCG) TABLET PO SCH (10:25)
[2020-02-16] MEDS: LISINOPRIL 5 MG TABLET PO SCH (10:25)
[2020-02-16] MEDS: NYSTATIN POWDER 100,000 UNITS/GM - 15 GM TOPICAL POWDER TP SCH ×2 (10:26→21:31)
[2020-02-16] MEDS: ZINC SULFATE 220 MG CAPSULE (FP) PO SCH (10:26)
[2020-02-16] MEDS: GABAPENTIN 100 MG CAPSULE PO SCH (21:31)
[2020-02-16] MEDS: ATORVASTATIN CA 40 MG TABLET (FP) PO SCH (21:31)
[2020-02-17] MEDS: INSULIN SLIDING SCALE (NOVOLOG) 1 VIAL SQ SCH ×3 (06:13→16:38)
[2020-02-17] MEDS ORDERED: MAGNESIUM OXIDE 400 MG TABLET (FP) PO ONE (08:04)
[2020-02-17] MEDS: ENOXAPARIN NA (PORCINE) 100 MG/1 ML DISP.SYRIN SQ SCH ×3 (10:15→22:00)
[2020-02-17] MEDS: ASCORBIC ACID 500 MG TABLET (FP) PO SCH ×2 (10:15→21:52)
[2020-02-17] MEDS: ASPIRIN 81 MG CHEWABLE TABLETS PO SCH (10:15)
[2020-02-17] MEDS: CHOLECALCIFEROL (VIT D3) 1,000 UNIT (25 MCG) TABLET PO SCH (10:15)
[2020-02-17] MEDS: LISINOPRIL 5 MG TABLET PO SCH (10:15)
[2020-02-17] MEDS: MULTIVITAMINS (DAILY MVI) TABLET (FP) PO SCH (10:16)
[2020-02-17] MEDS: FOLIC ACID 1 MG TABLET (FP) PO SCH (10:16)
[2020-02-17] MEDS: METOPROLOL TARTRATE 25 MG TABLET (FP) PO SCH ×2 (10:16→21:52)
[2020-02-17] MEDS: ZINC SULFATE 220 MG CAPSULE (FP) PO SCH (10:17)
[2020-02-17] MEDS: NYSTATIN POWDER 100,000 UNITS/GM - 15 GM TOPICAL POWDER TP SCH ×2 (10:17→21:54)
[2020-02-17] MEDS: GABAPENTIN 100 MG CAPSULE PO SCH (21:52)
[2020-02-17] MEDS: ATORVASTATIN CA 40 MG TABLET (FP) PO SCH (21:52)
[2020-02-18] MEDS: INSULIN SLIDING SCALE (NOVOLOG) 1 VIAL SQ SCH ×3 (06:34→16:44)
[2020-02-18] MEDS: FUROSEMIDE 40 MG TABLET (FP) PO SCH ×2 (06:37→14:51)
[2020-02-18] MEDS: METOPROLOL TARTRATE 25 MG TABLET (FP) PO SCH ×2 (11:07→22:05)
[2020-02-18] MEDS: ASPIRIN 81 MG CHEWABLE TABLETS PO SCH (11:07)
[2020-02-18] MEDS: FOLIC ACID 1 MG TABLET (FP) PO SCH (11:07)
[2020-02-18] MEDS: MULTIVITAMINS (DAILY MVI) TABLET (FP) PO SCH (11:08)
[2020-02-18] MEDS: ASCORBIC ACID 500 MG TABLET (FP) PO SCH ×2 (11:08→22:07)
[2020-02-18] MEDS: ZINC SULFATE 220 MG CAPSULE (FP) PO SCH (11:08)
[2020-02-18] MEDS: ENOXAPARIN NA (PORCINE) 100 MG/1 ML DISP.SYRIN SQ SCH ×2 (11:08→22:08)
[2020-02-18] MEDS: LISINOPRIL 5 MG TABLET PO SCH (11:09)
[2020-02-18] MEDS: NYSTATIN POWDER 100,000 UNITS/GM - 15 GM TOPICAL POWDER TP SCH ×2 (11:09→22:08)
[2020-02-18] MEDS: CHOLECALCIFEROL (VIT D3) 1,000 UNIT (25 MCG) TABLET PO SCH (11:11)
[2020-02-18] MEDS ORDERED: INSULIN (NOVOLOG) ASPART 100 UNITS/ML 10ML VIAL ONE (11:17)
[2020-02-18] MEDS: GABAPENTIN 100 MG CAPSULE PO SCH (22:07)
[2020-02-18] MEDS: ATORVASTATIN CA 40 MG TABLET (FP) PO SCH (22:07)
[2020-02-19] MEDS: INSULIN SLIDING SCALE (NOVOLOG) 1 VIAL SQ SCH ×2 (06:21→11:35)
[2020-02-19] MEDS: FUROSEMIDE 40 MG TABLET (FP) PO SCH ×2 (06:26→14:25)
[2020-02-19] MEDS ORDERED: PT OWN MED DRAWER 7, Y5N ONE (09:02)
[2020-02-19] MEDS: ASPIRIN 81 MG CHEWABLE TABLETS PO SCH (09:12)
[2020-02-19] MEDS: CHOLECALCIFEROL (VIT D3) 1,000 UNIT (25 MCG) TABLET PO SCH (09:13)
[2020-02-19] MEDS: ZINC SULFATE 220 MG CAPSULE (FP) PO SCH (09:14)
[2020-02-19] MEDS: ASCORBIC ACID 500 MG TABLET (FP) PO SCH (09:14)
[2020-02-19] MEDS: MULTIVITAMINS (DAILY MVI) TABLET (FP) PO SCH (09:15)
[2020-02-19] MEDS: METOPROLOL TARTRATE 25 MG TABLET (FP) PO SCH (09:15)
[2020-02-19] MEDS: FOLIC ACID 1 MG TABLET (FP) PO SCH (09:15)
[2020-02-19] MEDS: LISINOPRIL 5 MG TABLET PO SCH (09:15)
[2020-02-19] MEDS: ENOXAPARIN NA (PORCINE) 100 MG/1 ML DISP.SYRIN SQ SCH (09:16)
[2020-02-19] MEDS: NYSTATIN POWDER 100,000 UNITS/GM - 15 GM TOPICAL POWDER TP SCH (09:17)
[2020-02-19 09:51] LABS: CALCIUM 8.6 mg/dL (8.5-10.1)
[2020-02-19 09:52] LABS: BLOOD UREA NITROGEN 18.5 mg/dL (7-18)
[2020-02-19 13:49] VITALS: BMI 32.1
[2020-02-19 14:26] VITALS: BP 102/44; PULSE 76; TEMP 98
== END 2020-02-19 15:59 | disposition home health service (06) | DRG 177 ==
LOC: JER 12:10 → JERBED 16:27 → J6S 02-10 00:28
PROVIDERS: ADMIT Internal Medicine; ATTEND Internal Medicine
PROC: XW13325 Transfusion of Convalescent Plasma (Nonautologous) into Peripheral Vein, Percutaneous Approach, New Technology Group 5 (ICD-10-PCS; principal; 2020-02-11)
PROC: XW033E5 Introduction of Remdesivir Anti-infective into Peripheral Vein, Percutaneous Approach, New Technology Group 5 (ICD-10-PCS; 2020-02-11)
DX: U07.1 COVID-19 (principal); G93.41 Metabolic encephalopathy; J12.82 Pneumonia due to coronavirus disease 2019; N17.9 Acute kidney failure, unspecified; L97.909 Non-pressure chronic ulcer of unspecified part of unspecified lower leg with unspecified severity; I73.9 Peripheral vascular disease, unspecified; E11.51 Type 2 diabetes mellitus with diabetic peripheral angiopathy without gangrene; E78.5 Hyperlipidemia, unspecified; I25.10 Atherosclerotic heart disease of native coronary artery without angina pectoris; F10.10 Alcohol abuse, uncomplicated; I83.009 Varicose veins of unspecified lower extremity with ulcer of unspecified site; D64.9 Anemia, unspecified; E66.9 Obesity, unspecified; Z68.32 Body mass index [BMI] 32.0-32.9, adult
CPT/HCPCS: 36415; 36430; 70450-TC; 71045-TC-FY; 71250-TC; 76705-TC; 80048; 80053; 80076; 80307; 81003; 82140; 82550; 82565; 82607; 82728; 82746; 82747; 82962; 83036; 83605; 83615; 83735; 83880; 84100; 84156; 84300; 84443; 84484; 85014; 85025; 85027; 85379; 85384; 85651; 86140; 86850; 86900; 86901; 87205; 87899; 93005; 93010; 94761; 97116-GP; 97162-GP; 99285-25; C9399; C9803; J1100; P9017; U0003

== ENCOUNTER 2020-04-14 11:32 | Inpatient (IN) | payer OTHER, BC ==
[2020-04-14 11:57] VITALS: BMI 34.0
[2020-04-14 13:08] LABS: BASO % 0.5 % (0-2.0); HEMATOCRIT 22.3 % (35.4-49); HEMOGLOBIN 8.8 GM/dL (11.7-16.9); LYMPH % 12.1 % (8-40); MCHC 39.6 g/dl (32.0-35.9); MEAN CELL VOLUME 104.6 fl (80-96); NEUT % 75.4 % (42.8-82.8); PLATELET COUNT 147 K/MM3 (134-434); RBC 2.13 M/mm3 (4.00-5.60)
[2020-04-14 13:10] LABS: MCH 41.4 pg (25.7-33.7)
[2020-04-14 16:08] LABS: CHLORIDE 110 mmol/L (98-107); SODIUM 139 mmol/L (136-145)
[2020-04-14 16:10] LABS: ANION GAP 6 MMOL/L (8-16); CALCIUM 8.7 mg/dL (8.5-10.1); CO2 23 mmol/L (21-32)
[2020-04-14 16:11] LABS: ALBUMIN 3.8 g/dl (3.4-5.0); BLOOD UREA NITROGEN 47.7 mg/dL (7-18); GLUCOSE,RANDOM 115 mg/dL (74-106)
[2020-04-14 16:14] LABS: CREATININE 1.1 mg/dL (0.55-1.3); SGOT/AST 11 U/L (15-37); SGPT/ALT 20 U/L (13-61)
[2020-04-14 16:15] LABS: BILIRUBIN,TOTAL 0.3 mg/dL (0.2-1); TOT PROT 7.8 g/dl (6.4-8.2)
[2020-04-14 16:16] LABS: ALK PHOS 56 U/L (45-117)
[2020-04-14 16:19] LABS: N-TERMINAL BNP 805.1 pg/ml (5-125)
[2020-04-14 16:51] LABS: URINE APPEARANCE CLEAR; URINE BILIRUBIN NEGATIVE (NEGATIVE); URINE COLOR YELLOW; URINE GLUCOSE (UA) NEGATIVE (NEGATIVE); URINE KETONE NEGATIVE (NEGATIVE); URINE LEUK ESTERASE NEGATIVE (NEGATIVE); URINE NITRITE NEGATIVE (NEGATIVE); URINE PROTEIN NEGATIVE (NEGATIVE); URINE UROBILINOGEN 0.2 mg/dL (0.2-1.0)
[2020-04-14] MEDS ORDERED: LORazepam 1 MG TABLET PO PRN (22:20)
[2020-04-14] MEDS ORDERED: LORazepam 1 MG TABLET ONE (22:54)
[2020-04-14] MEDS: LORazepam 1 MG TABLET PO SCH (22:59)
[2020-04-14] MEDS ORDERED: ALBUTEROL SO4 0.083% IH SOL 2.5 MG/3 ML VIAL.NEB. NEB PRN (23:35)
[2020-04-15] MEDS: LORazepam 1 MG TABLET PO SCH ×2 (06:05→10:56)
[2020-04-15 07:38] LABS: POTASSIUM 3.9 mmol/L (3.5-5.1)
[2020-04-15 07:39] LABS: CALCIUM 8.8 mg/dL (8.5-10.1)
[2020-04-15 07:40] LABS: ALBUMIN 3.4 g/dl (3.4-5.0); BLOOD UREA NITROGEN 35.2 mg/dL (7-18); MAGNESIUM 2.2 mg/dL (1.8-2.4)
[2020-04-15 07:43] LABS: CREATININE 0.9 mg/dL (0.55-1.3); PHOSPHOROUS 3.7 mg/dL (2.5-4.9)
[2020-04-15 07:45] LABS: BILIRUBIN,TOTAL 0.4 mg/dL (0.2-1); TOT PROT 7.3 g/dl (6.4-8.2)
[2020-04-15] MEDS: ALBUTEROL SO4 2.5/IPRATROPIUM 0.5 INH SOL 3 ML VIAL.NEB. NEB SCH ×4 (08:27→20:25)
[2020-04-15 09:43] LABS: BASO % 0.7 % (0-2.0); EOS % 5.4 % (0-4.5); MCH 33.2 pg (25.7-33.7); MEAN PLT VOLUME 8.7 fl (7.5-11.1); NEUT % 66.9 % (42.8-82.8); PLATELET COUNT 143 K/MM3 (134-434); RBC 2.71 M/mm3 (4.00-5.60); RDW 15.6 % (11.9-15.9); WHITE BLOOD COUNT 4.8 K/mm3 (4.0-10.0)
[2020-04-15 09:47] LABS: MCHC 34.6 g/dl (32.0-35.9)
[2020-04-15] MEDS ORDERED: ENOXAPARIN NA (PORCINE) 40 MG/0.4 ML DISP.SYRIN SQ SCH (10:00)
[2020-04-15] MEDS ORDERED: PT OWN MED DRAWER 7, Y5N ONE (10:52)
[2020-04-15] MEDS: PANTOPRAZOLE 40 MG TABLET PO SCH (10:55)
[2020-04-15] MEDS: METOPROLOL TARTRATE 25 MG TABLET (FP) PO SCH ×2 (10:55→21:09)
[2020-04-15] MEDS: NYSTATIN POWDER 100,000 UNITS/GM - 15 GM TOPICAL POWDER TP SCH ×2 (10:58→21:09)
[2020-04-15] MEDS ORDERED: APIXABAN 5 MG TABLET PO SCH (11:15)
[2020-04-15] MEDS ORDERED: LORazepam 0.5 MG TABLET PO PRN (12:55)
[2020-04-15] MEDS: FUROSEMIDE 40 MG/4 ML INJECTABLE VIAL IVPUSH SCH (13:30)
[2020-04-15 14:52] LABS: URINE BENZODIAZEPINES NEGATIVE ng/ml (CUTOFF=200)
[2020-04-15 14:53] LABS: METHADONE, UR NEGATIVE ng/ml (CUTOFF=300); OPIATES, URI NEGATIVE ng/ml (CUTOFF=300); PHENCYCLIDINE,URINE NEGATIVE ng/ml (CUTOFF=25)
[2020-04-15 14:54] LABS: COCAINE, UR NEGATIVE ng/ml (CUTOFF=300); URINE AMPHETAMINES NEGATIVE ng/ml (CUTOFF=500); URINE BARBITURATES NEGATIVE ng/ml (CUTOFF=200)
[2020-04-15] MEDS: ASCORBIC ACID 500 MG TABLET (FP) PO SCH (21:09)
[2020-04-15] MEDS: ATORVASTATIN CA 40 MG TABLET (FP) PO SCH (21:09)
[2020-04-15] MEDS: GABAPENTIN 100 MG CAPSULE PO SCH (21:09)
[2020-04-16] MEDS ORDERED: ACETAMINOPHEN 325 MG TABLET (FP) PO PRN (02:47)
[2020-04-16] MEDS ORDERED: LORazepam 1 MG TABLET PO SCH (05:00)
[2020-04-16 07:13] LABS: BASO % 0.6 % (0-2.0); EOS % 4.4 % (0-4.5); HEMATOCRIT 20.3 % (35.4-49); HEMOGLOBIN 8.9 GM/dL (11.7-16.9); LYMPH % 14.3 % (8-40); MCHC 44.1 g/dl (32.0-35.9); MEAN CELL VOLUME 105.5 fl (80-96); MEAN PLT VOLUME 8.7 fl (7.5-11.1); MONO % 9.5 % (3.8-10.2); NEUT % 71.2 % (42.8-82.8); PLATELET COUNT 142 K/MM3 (134-434); RBC 1.92 M/mm3 (4.00-5.60); RDW 15.6 % (11.9-15.9); WHITE BLOOD COUNT 5.1 K/mm3 (4.0-10.0)
[2020-04-16 07:16] LABS: MCH 46.5 pg (25.7-33.7)
[2020-04-16 07:33] LABS: POTASSIUM 4.2 mmol/L (3.5-5.1)
[2020-04-16 07:43] LABS: ALBUMIN 3.5 g/dl (3.4-5.0); BLOOD UREA NITROGEN 31.9 mg/dL (7-18)
[2020-04-16 07:47] LABS: BILIRUBIN,TOTAL 0.3 mg/dL (0.2-1); TOT PROT 7.6 g/dl (6.4-8.2)
[2020-04-16] MEDS: ALBUTEROL SO4 2.5/IPRATROPIUM 0.5 INH SOL 3 ML VIAL.NEB. NEB SCH ×4 (07:53→20:17)
[2020-04-16 09:09] LABS: ANISOCYTOSIS 1+; MACROCYTOSIS 1+; PLATELET ESTIMATE DECREASED
[2020-04-16] MEDS: MULTIVITAMINS (DAILY MVI) TABLET (FP) PO SCH (09:48)
[2020-04-16] MEDS: CHOLECALCIFEROL (VIT D3) 1,000 UNIT (25 MCG) TABLET PO SCH (09:48)
[2020-04-16] MEDS: CYANOCOBALAMIN (VITAMIN B-12) 100 MCG TABLET PO SCH (09:48)
[2020-04-16] MEDS: FUROSEMIDE 40 MG/4 ML INJECTABLE VIAL IVPUSH SCH (09:48)
[2020-04-16] MEDS: PANTOPRAZOLE 40 MG TABLET PO SCH (09:48)
[2020-04-16] MEDS: THIAMINE HCL 100 MG TABLET (FP) PO SCH (09:48)
[2020-04-16] MEDS: ENOXAPARIN NA (PORCINE) 40 MG/0.4 ML DISP.SYRIN SQ SCH (09:48)
[2020-04-16] MEDS: METOPROLOL TARTRATE 25 MG TABLET (FP) PO SCH ×2 (09:49→21:48)
[2020-04-16] MEDS: ASCORBIC ACID 500 MG TABLET (FP) PO SCH ×2 (09:50→21:48)
[2020-04-16] MEDS: NYSTATIN POWDER 100,000 UNITS/GM - 15 GM TOPICAL POWDER TP SCH ×2 (09:51→21:51)
[2020-04-16] MEDS: ATORVASTATIN CA 40 MG TABLET (FP) PO SCH (21:48)
[2020-04-17] MEDS ORDERED: LORazepam 0.5 MG TABLET PO PRN
[2020-04-17] MEDS ORDERED: LORazepam 0.5 MG TABLET PO SCH (05:00)
[2020-04-17 07:56] LABS: ALBUMIN 3.5 g/dl (3.4-5.0)
[2020-04-17 08:00] LABS: BILIRUBIN,TOTAL 0.4 mg/dL (0.2-1); TOT PROT 7.6 g/dl (6.4-8.2)
[2020-04-17] MEDS: ALBUTEROL SO4 2.5/IPRATROPIUM 0.5 INH SOL 3 ML VIAL.NEB. NEB SCH ×4 (08:28→20:20)
[2020-04-17 08:38] LABS: BASO % 0.6 % (0-2.0); EOS % 4.7 % (0-4.5); HEMATOCRIT 27.3 % (35.4-49); HEMOGLOBIN 9.3 GM/dL (11.7-16.9); LYMPH % 15.8 % (8-40); MCH 32.6 pg (25.7-33.7); MEAN CELL VOLUME 96.1 fl (80-96); MEAN PLT VOLUME 8.9 fl (7.5-11.1); MONO % 9.2 % (3.8-10.2); NEUT % 69.7 % (42.8-82.8); PLATELET COUNT 144 K/MM3 (134-434); RBC 2.84 M/mm3 (4.00-5.60); RDW 15.4 % (11.9-15.9); WHITE BLOOD COUNT 5.8 K/mm3 (4.0-10.0)
[2020-04-17] MEDS: ENOXAPARIN NA (PORCINE) 40 MG/0.4 ML DISP.SYRIN SQ SCH (10:50)
[2020-04-17] MEDS: NYSTATIN POWDER 100,000 UNITS/GM - 15 GM TOPICAL POWDER TP SCH ×2 (10:50→21:28)
[2020-04-17] MEDS: MULTIVITAMINS (DAILY MVI) TABLET (FP) PO SCH (10:50)
[2020-04-17] MEDS: ASCORBIC ACID 500 MG TABLET (FP) PO SCH ×2 (10:50→21:26)
[2020-04-17] MEDS: FUROSEMIDE 40 MG/4 ML INJECTABLE VIAL IVPUSH SCH (10:50)
[2020-04-17] MEDS: METOPROLOL TARTRATE 25 MG TABLET (FP) PO SCH ×2 (10:50→21:25)
[2020-04-17] MEDS: PANTOPRAZOLE 40 MG TABLET PO SCH (10:50)
[2020-04-17] MEDS: CHOLECALCIFEROL (VIT D3) 1,000 UNIT (25 MCG) TABLET PO SCH (10:50)
[2020-04-17] MEDS: THIAMINE HCL 100 MG TABLET (FP) PO SCH (10:50)
[2020-04-17] MEDS: CYANOCOBALAMIN (VITAMIN B-12) 100 MCG TABLET PO SCH (10:51)
[2020-04-17] MEDS: methylPREDNISolone NA SUCC 40 MG/1 ML VIAL IVPUSH SCH ×2 (10:53→17:19)
[2020-04-17] MEDS ORDERED: PT OWN MED DRAWER 7, Y5N ONE (13:03)
[2020-04-17] MEDS: guaiFENesin/D-METHORPHAN TAB.ER.12H PO SCH ×2 (14:37→21:27)
[2020-04-17] MEDS ORDERED: POLYETHYLENE GLYCOL 3350 119 GM BTL PO ONE (18:01)
[2020-04-17] MEDS: ATORVASTATIN CA 40 MG TABLET (FP) PO SCH (21:26)
[2020-04-18] MEDS: methylPREDNISolone NA SUCC 40 MG/1 ML VIAL IVPUSH SCH ×3 (01:30→18:11)
[2020-04-18] MEDS ORDERED: LORazepam 0.5 MG TABLET PO ONE (05:00)
[2020-04-18 06:50] LABS: POTASSIUM 4.2 mmol/L (3.5-5.1)
[2020-04-18 06:52] LABS: CALCIUM 9.7 mg/dL (8.5-10.1)
[2020-04-18 06:53] LABS: ALBUMIN 3.8 g/dl (3.4-5.0); BLOOD UREA NITROGEN 34.7 mg/dL (7-18)
[2020-04-18 06:56] LABS: CREATININE 1.1 mg/dL (0.55-1.3)
[2020-04-18 06:57] LABS: BILIRUBIN,TOTAL 0.5 mg/dL (0.2-1); TOT PROT 8.3 g/dl (6.4-8.2)
[2020-04-18 07:00] LABS: BASO % 0.1 % (0-2.0); HEMATOCRIT 27.9 % (35.4-49); HEMOGLOBIN 9.9 GM/dL (11.7-16.9); MCH 35.6 pg (25.7-33.7); MCHC 35.5 g/dl (32.0-35.9); MEAN CELL VOLUME 100.4 fl (80-96); MEAN PLT VOLUME 9.5 fl (7.5-11.1); MONO % 1.7 % (3.8-10.2); NEUT % 94.2 % (42.8-82.8); PLATELET COUNT 154 K/MM3 (134-434); RBC 2.78 M/mm3 (4.00-5.60); RDW 15.4 % (11.9-15.9); WHITE BLOOD COUNT 9.6 K/mm3 (4.0-10.0)
[2020-04-18] MEDS: ALBUTEROL SO4 2.5/IPRATROPIUM 0.5 INH SOL 3 ML VIAL.NEB. NEB SCH ×4 (08:14→20:10)
[2020-04-18] MEDS: ASCORBIC ACID 500 MG TABLET (FP) PO SCH ×2 (09:57→21:36)
[2020-04-18] MEDS: CHOLECALCIFEROL (VIT D3) 1,000 UNIT (25 MCG) TABLET PO SCH (09:57)
[2020-04-18] MEDS: PANTOPRAZOLE 40 MG TABLET PO SCH (09:57)
[2020-04-18] MEDS: FUROSEMIDE 40 MG/4 ML INJECTABLE VIAL IVPUSH SCH (09:58)
[2020-04-18] MEDS: METOPROLOL TARTRATE 25 MG TABLET (FP) PO SCH ×2 (09:58→21:36)
[2020-04-18] MEDS: NYSTATIN POWDER 100,000 UNITS/GM - 15 GM TOPICAL POWDER TP SCH ×2 (09:59→21:36)
[2020-04-18] MEDS: guaiFENesin/D-METHORPHAN TAB.ER.12H PO SCH ×2 (09:59→21:36)
[2020-04-18] MEDS: POLYETHYLENE GLYCOL 3350 119 GM BTL PO SCH (09:59)
[2020-04-18] MEDS: ENOXAPARIN NA (PORCINE) 40 MG/0.4 ML DISP.SYRIN SQ SCH (09:59)
[2020-04-18] MEDS: THIAMINE HCL 100 MG TABLET (FP) PO SCH (10:00)
[2020-04-18] MEDS: MULTIVITAMINS (DAILY MVI) TABLET (FP) PO SCH (10:00)
[2020-04-18] MEDS: CYANOCOBALAMIN (VITAMIN B-12) 100 MCG TABLET PO SCH (11:14)
[2020-04-18 11:46] LABS: ANISOCYTOSIS 1+; MACROCYTOSIS 1+; OVALOCYTE 1+; PLATELET ESTIMATE NORMAL
[2020-04-18] MEDS: ATORVASTATIN CA 40 MG TABLET (FP) PO SCH (21:36)
[2020-04-18] MEDS: GABAPENTIN 100 MG CAPSULE PO SCH (21:36)
[2020-04-19] MEDS: methylPREDNISolone NA SUCC 40 MG/1 ML VIAL IVPUSH SCH ×2 (01:22→10:30)
[2020-04-19 07:57] LABS: BASO % 0.3 % (0-2.0); HEMOGLOBIN 9.3 GM/dL (11.7-16.9); LYMPH % 4.8 % (8-40); MEAN PLT VOLUME 9.7 fl (7.5-11.1); MONO % 2.6 % (3.8-10.2); NEUT % 92.3 % (42.8-82.8); PLATELET COUNT 147 K/MM3 (134-434); RBC 2.22 M/mm3 (4.00-5.60); RDW 15.1 % (11.9-15.9); WHITE BLOOD COUNT 7.9 K/mm3 (4.0-10.0)
[2020-04-19 08:17] LABS: POTASSIUM 4.4 mmol/L (3.5-5.1)
[2020-04-19 08:25] LABS: ALBUMIN 3.6 g/dl (3.4-5.0); CALCIUM 8.6 mg/dL (8.5-10.1)
[2020-04-19 08:26] LABS: BLOOD UREA NITROGEN 51.2 mg/dL (7-18)
[2020-04-19 08:29] LABS: CREATININE 1.2 mg/dL (0.55-1.3)
[2020-04-19 08:30] LABS: BILIRUBIN,TOTAL 0.6 mg/dL (0.2-1); TOT PROT 7.8 g/dl (6.4-8.2)
[2020-04-19] MEDS: ALBUTEROL SO4 2.5/IPRATROPIUM 0.5 INH SOL 3 ML VIAL.NEB. NEB SCH (08:40)
[2020-04-19 09:33] LABS: MACROCYTOSIS 1+
[2020-04-19] MEDS ORDERED: PT OWN MED DRAWER 7, Y5N ONE (09:45)
[2020-04-19] MEDS: PANTOPRAZOLE 40 MG TABLET PO SCH (09:46)
[2020-04-19] MEDS: MULTIVITAMINS (DAILY MVI) TABLET (FP) PO SCH (09:46)
[2020-04-19] MEDS: THIAMINE HCL 100 MG TABLET (FP) PO SCH (09:46)
[2020-04-19] MEDS: CHOLECALCIFEROL (VIT D3) 1,000 UNIT (25 MCG) TABLET PO SCH (09:47)
[2020-04-19] MEDS: METOPROLOL TARTRATE 25 MG TABLET (FP) PO SCH (09:47)
[2020-04-19] MEDS: CYANOCOBALAMIN (VITAMIN B-12) 100 MCG TABLET PO SCH (09:48)
[2020-04-19] MEDS: ASCORBIC ACID 500 MG TABLET (FP) PO SCH (09:49)
[2020-04-19] MEDS: ENOXAPARIN NA (PORCINE) 40 MG/0.4 ML DISP.SYRIN SQ SCH (09:49)
[2020-04-19] MEDS: guaiFENesin/D-METHORPHAN TAB.ER.12H PO SCH (09:50)
[2020-04-19 10:28] LABS: HEMATOCRIT 27.5 % (35.4-49)
[2020-04-19 10:29] LABS: MCH 32.4 pg (25.7-33.7); MCHC 33.6 g/dl (32.0-35.9); MEAN CELL VOLUME 96.5 fl (80-96)
[2020-04-19] MEDS: POLYETHYLENE GLYCOL 3350 119 GM BTL PO SCH (10:30)
[2020-04-19] MEDS: FUROSEMIDE 40 MG/4 ML INJECTABLE VIAL IVPUSH SCH (10:30)
[2020-04-19] MEDS: NYSTATIN POWDER 100,000 UNITS/GM - 15 GM TOPICAL POWDER TP SCH (10:30)
[2020-04-19 10:51] VITALS: BP 119/57; PULSE 76; TEMP 98.8
== END 2020-04-19 13:51 | disposition home health service (06) | DRG 291 ==
LOC: JER 11:32 → OBSVTOIN 20:21 → JERBED 20:21 → J4W 04-15 03:38
PROVIDERS: ADMIT Internal Medicine; ATTEND Family Medicine
DX: I11.0 Hypertensive heart disease with heart failure (principal); G92 Toxic encephalopathy; E72.20 Disorder of urea cycle metabolism, unspecified; J44.1 Chronic obstructive pulmonary disease with (acute) exacerbation; I50.33 Acute on chronic diastolic (congestive) heart failure; I25.10 Atherosclerotic heart disease of native coronary artery without angina pectoris; E78.5 Hyperlipidemia, unspecified; E66.9 Obesity, unspecified; Z68.32 Body mass index [BMI] 32.0-32.9, adult; D64.9 Anemia, unspecified; F10.10 Alcohol abuse, uncomplicated; Z86.16 Personal history of COVID-19; Z86.73 Personal history of transient ischemic attack (TIA), and cerebral infarction without residual deficits; E11.51 Type 2 diabetes mellitus with diabetic peripheral angiopathy without gangrene
CPT/HCPCS: 36415; 71045-TC-FY; 71275-TC; 80053; 80061; 80307; 81003; 82140; 82728; 82962; 83721; 83735; 83880; 84100; 84443; 85025; 85379; 86140; 87086; 93005; 93010; 93306-TC; 93970-TC; 94640; 94761; 97116-GP; 97161-GP; 99285-25; C9803; Q9967; U0003

== ENCOUNTER 2020-06-16 21:04 | Inpatient (IN) | payer OTHER, BC ==
[2020-06-16 21:13] VITALS: BMI 32.5
[2020-06-16] MEDS ORDERED: NITROGLYCERIN SUBLINGUAL 1/150 0.4 MG TAB SL ONE (21:33)
[2020-06-16] MEDS ORDERED: NITROGLYCERIN SUBLINGUAL 1/150 0.4 MG TAB ONE (21:37)
[2020-06-16 22:10] LABS: CHLORIDE 108 mmol/L (98-107); SODIUM 140 mmol/L (136-145)
[2020-06-16 22:12] LABS: ALBUMIN 4.2 g/dl (3.4-5.0); ANION GAP 6 MMOL/L (8-16); BLOOD UREA NITROGEN 37.6 mg/dL (7-18); CALCIUM 8.7 mg/dL (8.5-10.1); CO2 26 mmol/L (21-32); GLUCOSE,RANDOM 152 mg/dL (74-106)
[2020-06-16 22:15] LABS: CREATININE 1.4 mg/dL (0.55-1.3); SGOT/AST 14 U/L (15-37); SGPT/ALT 23 U/L (13-61)
[2020-06-16] MEDS ORDERED: FUROSEMIDE 40 MG/4 ML INJECTABLE VIAL IVPUSH ONE (22:15)
[2020-06-16 22:17] LABS: BILIRUBIN,TOTAL 0.4 mg/dL (0.2-1); TOT PROT 8.2 g/dl (6.4-8.2)
[2020-06-16 22:18] LABS: ALK PHOS 86 U/L (45-117)
[2020-06-16 22:21] LABS: N-TERMINAL BNP 982.4 pg/ml (5-125)
[2020-06-16] MEDS ORDERED: FUROSEMIDE 40 MG/4 ML INJECTABLE VIAL ONE (22:22)
[2020-06-16 22:40] LABS: BASO % 0.7 % (0-2.0); EOS % 3.7 % (0-4.5); HEMATOCRIT 30.8 % (35.4-49); HEMOGLOBIN 10.5 GM/dL (11.7-16.9); LYMPH % 6.2 % (8-40); MCH 32.7 pg (25.7-33.7); MCHC 34.1 g/dl (32.0-35.9); MEAN PLT VOLUME 9.3 fl (7.5-11.1); NEUT % 85.4 % (42.8-82.8); PLATELET COUNT 186 K/MM3 (134-434); RBC 3.21 M/mm3 (4.00-5.60); RDW 14.9 % (11.9-15.9); WHITE BLOOD COUNT 10.7 K/mm3 (4.0-10.0)
[2020-06-16 22:45] LABS: INR 1.3 (0.83-1.09); PROTHROMBIN TIME (PATIENT) 15.9 SEC (9.7-13.0)
[2020-06-16 22:47] LABS: ACTIVATED PTT 32.9 SECONDS (25.2-36.5)
[2020-06-17 00:06] LABS: PLATELET ESTIMATE DECREASED
[2020-06-17 00:08] LABS: ROULEAU 1+
[2020-06-17 05:08] LABS: BASO % 0.8 % (0-2.0); EOS % 2.2 % (0-4.5); HEMATOCRIT 27.5 % (35.4-49); HEMOGLOBIN 9.6 GM/dL (11.7-16.9); LYMPH % 10.1 % (8-40); MCH 33.6 pg (25.7-33.7); MEAN CELL VOLUME 96.2 fl (80-96); MEAN PLT VOLUME 8.1 fl (7.5-11.1); MONO % 10.3 % (3.8-10.2); NEUT % 76.6 % (42.8-82.8); PLATELET COUNT 168 K/MM3 (134-434); RBC 2.86 M/mm3 (4.00-5.60); RDW 15.1 % (11.9-15.9); WHITE BLOOD COUNT 7.7 K/mm3 (4.0-10.0)
[2020-06-17 05:26] LABS: CHLORIDE 108 mmol/L (98-107); SODIUM 140 mmol/L (136-145)
[2020-06-17 05:30] LABS: ALBUMIN 3.8 g/dl (3.4-5.0); ANION GAP 4 MMOL/L (8-16); BLOOD UREA NITROGEN 36.3 mg/dL (7-18); CALCIUM 8.5 mg/dL (8.5-10.1); CO2 28 mmol/L (21-32)
[2020-06-17 05:31] LABS: GLUCOSE,RANDOM 120 mg/dL (74-106)
[2020-06-17 05:33] LABS: SGOT/AST 10 U/L (15-37); SGPT/ALT 19 U/L (13-61)
[2020-06-17 05:34] LABS: CREATININE 1.1 mg/dL (0.55-1.3)
[2020-06-17 05:35] LABS: BILIRUBIN,TOTAL 0.4 mg/dL (0.2-1); TOT PROT 7.4 g/dl (6.4-8.2)
[2020-06-17 05:36] LABS: ALK PHOS 79 U/L (45-117)
[2020-06-17 09:49] LABS: CHOLESTEROL 114 mg/dL (50-200); TRIGLYCERIDES 38 mg/dL (0-150)
[2020-06-17 09:50] LABS: LDL CHOLESTEROL (ONLY SJRH) 42 mg/dL (5-100)
[2020-06-17 09:53] LABS: HDL CHOLESTEROL 57 mg/dL (40-60)
[2020-06-17] MEDS: ALBUTEROL SO4 2.5/IPRATROPIUM 0.5 INH SOL 3 ML VIAL.NEB. NEB SCH ×3 (12:04→20:55)
[2020-06-17] MEDS ORDERED: ceFAZolin SODIUM 1 GM VIAL ONE (18:11)
[2020-06-17] MEDS ORDERED: DEXTROSE 5%-WATER - 50 ML IVPB ONE (18:11)
[2020-06-17] MEDS: CEFAZOLIN 1 GM in DEXTROSE 5%-WATER - 50 ML IVPB SCH (18:23)
[2020-06-17] MEDS: ATORVASTATIN CA 40 MG TABLET (FP) PO SCH (21:31)
[2020-06-17] MEDS: METOPROLOL TARTRATE 25 MG TABLET (FP) PO SCH ×2 (21:32→23:45)
[2020-06-17] MEDS: POLYETHYLENE GLYCOL 3350 119 GM BTL PO SCH (23:46)
[2020-06-17] MEDS: FUROSEMIDE 40 MG/4 ML INJECTABLE VIAL IVPUSH SCH (23:47)
[2020-06-17] MEDS: PANTOPRAZOLE 40 MG TABLET PO SCH (23:47)
[2020-06-18] MEDS ORDERED: ceFAZolin SODIUM 1 GM VIAL ONE ×2 (01:45→09:17)
[2020-06-18] MEDS ORDERED: DEXTROSE 5%-WATER - 50 ML IVPB ONE ×2 (01:45→09:17)
[2020-06-18] MEDS: CEFAZOLIN 1 GM in DEXTROSE 5%-WATER - 50 ML IVPB SCH ×3 (01:57→09:22)
[2020-06-18] MEDS: ALBUTEROL SO4 2.5/IPRATROPIUM 0.5 INH SOL 3 ML VIAL.NEB. NEB SCH ×4 (08:00→20:42)
[2020-06-18 08:24] LABS: CHLORIDE 107 mmol/L (98-107); SODIUM 140 mmol/L (136-145)
[2020-06-18 08:36] LABS: BLOOD UREA NITROGEN 27.8 mg/dL (7-18); CALCIUM 8.8 mg/dL (8.5-10.1)
[2020-06-18 08:37] LABS: ALBUMIN 3.6 g/dl (3.4-5.0); ANION GAP 4 MMOL/L (8-16); CO2 29 mmol/L (21-32); GLUCOSE,RANDOM 122 mg/dL (74-106)
[2020-06-18 08:39] LABS: BILIRUBIN,TOTAL 0.4 mg/dL (0.2-1); TOT PROT 7.2 g/dl (6.4-8.2)
[2020-06-18 08:40] LABS: ALK PHOS 75 U/L (45-117); SGOT/AST 9 U/L (15-37); SGPT/ALT 16 U/L (13-61)
[2020-06-18] MEDS: PANTOPRAZOLE 40 MG TABLET PO SCH (09:20)
[2020-06-18] MEDS: FUROSEMIDE 40 MG/4 ML INJECTABLE VIAL IVPUSH SCH (09:20)
[2020-06-18] MEDS: METOPROLOL TARTRATE 25 MG TABLET (FP) PO SCH ×2 (09:20→21:06)
[2020-06-18] MEDS: POLYETHYLENE GLYCOL 3350 119 GM BTL PO SCH (09:22)
[2020-06-18 09:25] LABS: BASO % 0.7 % (0-2.0); EOS % 3.5 % (0-4.5); HEMATOCRIT 28.6 % (35.4-49); HEMOGLOBIN 9.8 GM/dL (11.7-16.9); LYMPH % 10.8 % (8-40); MCHC 34.3 g/dl (32.0-35.9); MEAN CELL VOLUME 96.1 fl (80-96); MEAN PLT VOLUME 9.1 fl (7.5-11.1); MONO % 8.8 % (3.8-10.2); NEUT % 76.2 % (42.8-82.8); PLATELET COUNT 176 K/MM3 (134-434); RBC 2.97 M/mm3 (4.00-5.60); RDW 15.3 % (11.9-15.9); WHITE BLOOD COUNT 6.9 K/mm3 (4.0-10.0)
[2020-06-18] MEDS ORDERED: FLU VACCINE (FLULAVAL) PF 60 MCG/0.5 ML SYRINGE 2020-2021 IM ONE (10:00)
[2020-06-18] MEDS: guaiFENesin 600 MG TABLET.ER (FP) PO SCH ×2 (13:39→21:06)
[2020-06-18] MEDS ORDERED: IRON SUCROSE INJECTION 100 MG in SODIUM CHLORIDE 95 ML IVPB ONE (14:00)
[2020-06-18] MEDS ORDERED: ACETAMINOPHEN 325 MG TABLET (FP) PO PRN (14:25)
[2020-06-18] MEDS: GABAPENTIN 100 MG CAPSULE PO SCH ×2 (15:07→21:06)
[2020-06-18] MEDS: ATORVASTATIN CA 40 MG TABLET (FP) PO SCH (21:06)
[2020-06-19] MEDS: ALBUTEROL SO4 2.5/IPRATROPIUM 0.5 INH SOL 3 ML VIAL.NEB. NEB SCH ×4 (08:00→20:49)
[2020-06-19 08:33] LABS: BLOOD UREA NITROGEN 38.7 mg/dL (7-18); CALCIUM 8.6 mg/dL (8.5-10.1)
[2020-06-19 08:34] LABS: MAGNESIUM 2.2 mg/dL (1.8-2.4)
[2020-06-19 08:37] LABS: CREATININE 1.2 mg/dL (0.55-1.3); PHOSPHOROUS 4.1 mg/dL (2.5-4.9)
[2020-06-19] MEDS: FUROSEMIDE 40 MG TABLET (FP) PO SCH (10:59)
[2020-06-19] MEDS: ASPIRIN 81 MG CHEWABLE TABLETS PO SCH (10:59)
[2020-06-19] MEDS: PANTOPRAZOLE 40 MG TABLET PO SCH (10:59)
[2020-06-19] MEDS: guaiFENesin 600 MG TABLET.ER (FP) PO SCH ×2 (10:59→22:28)
[2020-06-19] MEDS: METOPROLOL TARTRATE 25 MG TABLET (FP) PO SCH ×2 (10:59→22:27)
[2020-06-19] MEDS: MULTIVITAMINS (DAILY MVI) TABLET (FP) PO SCH (10:59)
[2020-06-19] MEDS: GABAPENTIN 100 MG CAPSULE PO SCH ×2 (11:00→22:28)
[2020-06-19] MEDS: CYANOCOBALAMIN 1,000 MCG TABLET (FP) PO SCH (11:00)
[2020-06-19] MEDS: IRON POLYSACCHARIDES 150 MG CAPSULE PO SCH (11:00)
[2020-06-19] MEDS: POLYETHYLENE GLYCOL 3350 119 GM BTL PO SCH (11:00)
[2020-06-19 11:33] LABS: HEMATOCRIT 27.3 % (35.4-49); HEMOGLOBIN 9.3 GM/dL (11.7-16.9); MCH 32.4 pg (25.7-33.7); MCHC 34.1 g/dl (32.0-35.9); MEAN CELL VOLUME 94.8 fl (80-96); PLATELET COUNT 174 K/MM3 (134-434); RBC 2.88 M/mm3 (4.00-5.60)
[2020-06-19] MEDS ORDERED: IRON SUCROSE INJECTION 200 MG in SODIUM CHLORIDE 90 ML IVPB ONE (15:00)
[2020-06-19] MEDS ORDERED: PT OWN MED DRAWER 7, Y5N ONE (17:57)
[2020-06-19] MEDS: ATORVASTATIN CA 40 MG TABLET (FP) PO SCH (22:27)
[2020-06-20] MEDS: ALBUTEROL SO4 2.5/IPRATROPIUM 0.5 INH SOL 3 ML VIAL.NEB. NEB SCH ×2 (08:10→11:35)
[2020-06-20 09:04] LABS: BLOOD UREA NITROGEN 35.8 mg/dL (7-18)
[2020-06-20 09:05] LABS: MAGNESIUM 2.3 mg/dL (1.8-2.4)
[2020-06-20 09:08] LABS: CREATININE 1.1 mg/dL (0.55-1.3); PHOSPHOROUS 4.1 mg/dL (2.5-4.9)
[2020-06-20 09:45] LABS: BASO % 0.8 % (0-2.0); HEMATOCRIT 25.2 % (35.4-49); HEMOGLOBIN 9.4 GM/dL (11.7-16.9); LYMPH % 14.2 % (8-40); MCH 37.1 pg (25.7-33.7); MCHC 37.2 g/dl (32.0-35.9); MEAN CELL VOLUME 99.7 fl (80-96); MEAN PLT VOLUME 8.9 fl (7.5-11.1); MONO % 10.9 % (3.8-10.2); NEUT % 69.1 % (42.8-82.8); PLATELET COUNT 162 K/MM3 (134-434); RBC 2.52 M/mm3 (4.00-5.60); RDW 15.3 % (11.9-15.9); WHITE BLOOD COUNT 5.3 K/mm3 (4.0-10.0)
[2020-06-20] MEDS: PANTOPRAZOLE 40 MG TABLET PO SCH (11:00)
[2020-06-20] MEDS: FUROSEMIDE 40 MG TABLET (FP) PO SCH (11:00)
[2020-06-20] MEDS: IRON POLYSACCHARIDES 150 MG CAPSULE PO SCH (11:00)
[2020-06-20] MEDS: ASPIRIN 81 MG CHEWABLE TABLETS PO SCH (11:00)
[2020-06-20] MEDS: CYANOCOBALAMIN 1,000 MCG TABLET (FP) PO SCH (11:00)
[2020-06-20] MEDS: METOPROLOL TARTRATE 25 MG TABLET (FP) PO SCH (11:00)
[2020-06-20] MEDS: GABAPENTIN 100 MG CAPSULE PO SCH (11:00)
[2020-06-20] MEDS: POLYETHYLENE GLYCOL 3350 119 GM BTL PO SCH (11:01)
[2020-06-20] MEDS: guaiFENesin 600 MG TABLET.ER (FP) PO SCH (11:01)
[2020-06-20] MEDS: MULTIVITAMINS (DAILY MVI) TABLET (FP) PO SCH (11:01)
[2020-06-20 17:57] VITALS: BP 133/64; PULSE 99; TEMP 98
== END 2020-06-20 15:29 | disposition home or self-care (01) | DRG 292 ==
LOC: JER 21:04 → JERBED 21:49 → J4W 06-17 15:44 → J5S 06-18 18:39
PROVIDERS: ADMIT Internal Medicine; ATTEND Family Medicine
DX: I11.0 Hypertensive heart disease with heart failure (principal); N17.9 Acute kidney failure, unspecified; I69.354 Hemiplegia and hemiparesis following cerebral infarction affecting left non-dominant side; I25.10 Atherosclerotic heart disease of native coronary artery without angina pectoris; I50.33 Acute on chronic diastolic (congestive) heart failure; Z86.16 Personal history of COVID-19; E11.51 Type 2 diabetes mellitus with diabetic peripheral angiopathy without gangrene; E66.9 Obesity, unspecified; I87.2 Venous insufficiency (chronic) (peripheral); D64.9 Anemia, unspecified; Z68.34 Body mass index [BMI] 34.0-34.9, adult
CPT/HCPCS: 36415; 71045-TC-FY; 80048; 80053; 80061; 80307; 82140; 82550; 82728; 83036; 83540; 83550; 83721; 83735; 83880; 84100; 84443; 84484; 85025; 85027; 85610; 85730; 93005; 93010; 94640; 97116-GP; 97162-GP; 99285-25; C9803; G0008; J1756; Q2036; U0003; U0005

== ENCOUNTER 2021-07-17 07:39 | Inpatient (IN) | payer OTHER, BC ==
[2021-07-17] MEDS ORDERED: VANCOMYCIN 1 GM in D5W (PRE-DOCKED) 1,000 MG/250 ML IVPB ONE (08:59)
[2021-07-17] MEDS ORDERED: PIPERACILLIN/TAZOB 4.5 GM 4.5 GM in DEXTROSE 5%-WATER 100 ML IVPB ONE (08:59)
[2021-07-17] MEDS ORDERED: PIPERACILLIN/TAZOB 4.5 GM 4.5 GM/100 ML BAG IVPB ONE (09:58)
[2021-07-17] MEDS ORDERED: VANCOMYCIN 1 GRAM (PRE-DOCKED) 1,000 MG/250 ML BAG IVPB ONE (09:58)
[2021-07-17 10:56] LABS: INR 1.2 (0.83-1.09); PROTHROMBIN TIME (PATIENT) 13.8 SEC (9.7-13.0)
[2021-07-17 11:05] LABS: CHLORIDE 101 mmol/L (98-107); SODIUM 137 mmol/L (136-145)
[2021-07-17 11:07] LABS: ANION GAP 7 MMOL/L (8-16); CALCIUM 9.3 mg/dL (8.5-10.1); CO2 28 mmol/L (21-32); GLUCOSE,RANDOM 103 mg/dL (74-106)
[2021-07-17 11:08] LABS: ALBUMIN 3.8 g/dl (3.4-5.0); BLOOD UREA NITROGEN 16.6 mg/dL (7-18)
[2021-07-17 11:10] LABS: SGOT/AST 16 U/L (15-37); SGPT/ALT 20 U/L (13-61)
[2021-07-17 11:11] LABS: CREATININE 0.8 mg/dL (0.55-1.3)
[2021-07-17 11:12] LABS: BILIRUBIN,TOTAL 0.6 mg/dL (0.2-1); TOT PROT 8.2 g/dl (6.4-8.2)
[2021-07-17 11:13] LABS: ALK PHOS 79 U/L (45-117)
[2021-07-17 12:11] LABS: BASO % 0.6 % (0-2.0); EOS % 2.5 % (0-4.5); HEMATOCRIT 22.6 % (35.4-49); HEMOGLOBIN 7.8 GM/dL (11.7-16.9); LYMPH % 12.7 % (8-40); MCH 31.9 pg (25.7-33.7); MCHC 34.6 g/dl (32.0-35.9); MEAN PLT VOLUME 8.5 fl (7.5-11.1); MONO % 7.5 % (3.8-10.2); NEUT % 76.7 % (42.8-82.8); PLATELET COUNT 180 10^3/uL (134-434); RBC 2.46 M/mm3 (4.00-5.60); RDW 15.4 % (11.9-15.9); WHITE BLOOD COUNT 6.4 K/mm3 (4.0-10.0)
[2021-07-17 12:24] LABS: ERYTHROCYTE SEDIMENTATION RATE 63 mm/hr (0-20)
[2021-07-17] MEDS: PIPERACILLIN/TAZOB 3.375 GM 3.375 GM in DEXTROSE 5%-WATER - 50 ML IVPB SCH (20:33)
[2021-07-17] MEDS ORDERED: POLYETHYLENE GLYCOL (HEALTHYLAX) 3350 17 GM PACKET PO PRN (21:24)
[2021-07-17] MEDS ORDERED: PANTOPRAZOLE 40 MG TABLET PO ONE (22:05)
[2021-07-17] MEDS: PANTOPRAZOLE 40 MG TABLET PO SCH (22:15)
[2021-07-18] MEDS ORDERED: PIPERACILLIN/TAZOBACTAM 3.375 GM VIAL IVPB ONE ×3 (01:47→17:11)
[2021-07-18] MEDS ORDERED: DEXTROSE 5%-WATER - 50 ML IVPB ONE ×3 (01:47→17:11)
[2021-07-18] MEDS: PIPERACILLIN/TAZOB 3.375 GM 3.375 GM in DEXTROSE 5%-WATER - 50 ML IVPB SCH ×3 (01:48→17:18)
[2021-07-18] MEDS ORDERED: ACETAMINOPHEN 1000 MG/100 ML BAG IVPB PRN (06:40)
[2021-07-18] MEDS: PANTOPRAZOLE 40 MG TABLET PO SCH (09:14)
[2021-07-18] MEDS: METOPROLOL TARTRATE 25 MG TABLET (FP) PO SCH ×2 (09:14→21:40)
[2021-07-18] MEDS: FOLIC ACID 1 MG TABLET (FP) PO SCH (09:51)
[2021-07-18] MEDS: THIAMINE HCL 100 MG TABLET (FP) PO SCH (09:51)
[2021-07-18] MEDS: MULTIVITAMINS THER W-MINERALS COMBO TABLET (FP) PO SCH (09:51)
[2021-07-18] MEDS ORDERED: LISINOPRIL 5 MG TABLET PO SCH (10:00)
[2021-07-18 10:34] LABS: CALCIUM 9.3 mg/dL (8.5-10.1); CREATININE 0.8 mg/dL (0.55-1.3); MAGNESIUM 1.7 mg/dL (1.8-2.4)
[2021-07-18 11:52] LABS: BASO % 0.7 % (0-2.0); EOS % 3.2 % (0-4.5); HEMATOCRIT 34.6 % (35.4-49); HEMOGLOBIN 11.9 GM/dL (11.7-16.9); LYMPH % 9.1 % (8-40); MCH 30.8 pg (25.7-33.7); MCHC 34.3 g/dl (32.0-35.9); MEAN CELL VOLUME 89.9 fl (80-96); MEAN PLT VOLUME 8.2 fl (7.5-11.1); MONO % 7.8 % (3.8-10.2); NEUT % 79.2 % (42.8-82.8); PLATELET COUNT 177 10^3/uL (134-434); RBC 3.85 M/mm3 (4.00-5.60); RDW 15.9 % (11.9-15.9); WHITE BLOOD COUNT 6.7 K/mm3 (4.0-10.0)
[2021-07-18] MEDS: GABAPENTIN 100 MG CAPSULE PO SCH (21:40)
[2021-07-18] MEDS: ATORVASTATIN CA 40 MG TABLET (FP) PO SCH (21:40)
[2021-07-18] MEDS: HEPARIN NA (PORCINE) 5,000 UNITS/ML 1ML VIAL SQ SCH (21:40)
[2021-07-19] MEDS ORDERED: PIPERACILLIN/TAZOBACTAM 3.375 GM VIAL IVPB ONE ×3 (00:50→17:11)
[2021-07-19] MEDS ORDERED: DEXTROSE 5%-WATER - 50 ML IVPB ONE ×3 (00:50→17:11)
[2021-07-19] MEDS: PIPERACILLIN/TAZOB 3.375 GM 3.375 GM in DEXTROSE 5%-WATER - 50 ML IVPB SCH ×3 (01:02→17:32)
[2021-07-19] MEDS: METOPROLOL TARTRATE 25 MG TABLET (FP) PO SCH ×2 (09:23→22:23)
[2021-07-19] MEDS: FOLIC ACID 1 MG TABLET (FP) PO SCH (09:23)
[2021-07-19] MEDS: THIAMINE HCL 100 MG TABLET (FP) PO SCH (09:23)
[2021-07-19] MEDS: PANTOPRAZOLE 40 MG TABLET PO SCH (09:23)
[2021-07-19] MEDS: MULTIVITAMINS THER W-MINERALS COMBO TABLET (FP) PO SCH (09:23)
[2021-07-19] MEDS: HEPARIN NA (PORCINE) 5,000 UNITS/ML 1ML VIAL SQ SCH ×2 (09:23→22:21)
[2021-07-19] MEDS: LISINOPRIL 5 MG TABLET PO SCH (09:23)
[2021-07-19 09:50] LABS: ALBUMIN 3.7 g/dl (3.4-5.0); BLOOD UREA NITROGEN 12.4 mg/dL (7-18); CALCIUM 9.2 mg/dL (8.5-10.1)
[2021-07-19 09:53] LABS: CREATININE 0.9 mg/dL (0.55-1.3)
[2021-07-19 09:55] LABS: BILIRUBIN,TOTAL 0.8 mg/dL (0.2-1); TOT PROT 8.1 g/dl (6.4-8.2)
[2021-07-19 10:43] LABS: BASO % 0.5 % (0-2.0); EOS % 4.4 % (0-4.5); HEMOGLOBIN 12.6 GM/dL (11.7-16.9); LYMPH % 11.9 % (8-40); MCH 30.7 pg (25.7-33.7); MCHC 34.1 g/dl (32.0-35.9); MEAN CELL VOLUME 90.1 fl (80-96); MONO % 7.3 % (3.8-10.2); NEUT % 75.9 % (42.8-82.8); PLATELET COUNT 175 10^3/uL (134-434); RBC 4.11 M/mm3 (4.00-5.60); RDW 15.9 % (11.9-15.9)
[2021-07-19] MEDS: AMINO ACIDS/PROTEIN HYDROLYS 30 ML LIQUID.PKT PO SCH (17:33)
[2021-07-19] MEDS: ATORVASTATIN CA 40 MG TABLET (FP) PO SCH (22:21)
[2021-07-19] MEDS: GABAPENTIN 100 MG CAPSULE PO SCH (22:21)
[2021-07-20] MEDS ORDERED: PIPERACILLIN/TAZOBACTAM 3.375 GM VIAL IVPB ONE ×3 (02:51→16:54)
[2021-07-20] MEDS ORDERED: DEXTROSE 5%-WATER - 50 ML IVPB ONE ×3 (02:52→16:54)
[2021-07-20] MEDS: PIPERACILLIN/TAZOB 3.375 GM 3.375 GM in DEXTROSE 5%-WATER - 50 ML IVPB SCH ×3 (02:57→17:12)
[2021-07-20] MEDS: AMINO ACIDS/PROTEIN HYDROLYS 30 ML LIQUID.PKT PO SCH ×2 (08:46→17:11)
[2021-07-20] MEDS: HEPARIN NA (PORCINE) 5,000 UNITS/ML 1ML VIAL SQ SCH ×2 (09:30→21:45)
[2021-07-20] MEDS: FOLIC ACID 1 MG TABLET (FP) PO SCH (09:31)
[2021-07-20] MEDS: THIAMINE HCL 100 MG TABLET (FP) PO SCH (09:31)
[2021-07-20] MEDS: PANTOPRAZOLE 40 MG TABLET PO SCH (09:31)
[2021-07-20] MEDS: LISINOPRIL 5 MG TABLET PO SCH (09:31)
[2021-07-20] MEDS: METOPROLOL TARTRATE 25 MG TABLET (FP) PO SCH ×2 (09:31→21:46)
[2021-07-20] MEDS: MULTIVITAMINS THER W-MINERALS COMBO TABLET (FP) PO SCH (09:32)
[2021-07-20] MEDS: ATORVASTATIN CA 40 MG TABLET (FP) PO SCH (21:46)
[2021-07-20] MEDS: GABAPENTIN 100 MG CAPSULE PO SCH (21:47)
[2021-07-21] MEDS ORDERED: PIPERACILLIN/TAZOBACTAM 3.375 GM VIAL IVPB ONE ×3 (00:43→17:23)
[2021-07-21] MEDS ORDERED: DEXTROSE 5%-WATER - 50 ML IVPB ONE ×3 (00:43→17:23)
[2021-07-21] MEDS: PIPERACILLIN/TAZOB 3.375 GM 3.375 GM in DEXTROSE 5%-WATER - 50 ML IVPB SCH ×3 (01:13→17:38)
[2021-07-21] MEDS: PANTOPRAZOLE 40 MG TABLET PO SCH (09:36)
[2021-07-21] MEDS: FOLIC ACID 1 MG TABLET (FP) PO SCH (09:37)
[2021-07-21] MEDS: METOPROLOL TARTRATE 25 MG TABLET (FP) PO SCH ×2 (09:37→21:21)
[2021-07-21] MEDS: LISINOPRIL 5 MG TABLET PO SCH (09:37)
[2021-07-21] MEDS: MULTIVITAMINS THER W-MINERALS COMBO TABLET (FP) PO SCH (09:37)
[2021-07-21] MEDS: THIAMINE HCL 100 MG TABLET (FP) PO SCH (09:37)
[2021-07-21] MEDS: HEPARIN NA (PORCINE) 5,000 UNITS/ML 1ML VIAL SQ SCH ×2 (09:37→21:21)
[2021-07-21] MEDS: AMINO ACIDS/PROTEIN HYDROLYS 30 ML LIQUID.PKT PO SCH ×2 (09:38→17:40)
[2021-07-21] MEDS: COLLAGENASE CLOSTRIDIUM HIST. 30 GRAMS TUBE TP SCH (12:53)
[2021-07-21] MEDS: GABAPENTIN 100 MG CAPSULE PO SCH (21:21)
[2021-07-21] MEDS: ATORVASTATIN CA 40 MG TABLET (FP) PO SCH (21:21)
[2021-07-22] MEDS ORDERED: PIPERACILLIN/TAZOBACTAM 3.375 GM VIAL IVPB ONE ×3 (01:23→17:18)
[2021-07-22] MEDS ORDERED: DEXTROSE 5%-WATER - 50 ML IVPB ONE ×2 (01:24→17:18)
[2021-07-22] MEDS: PIPERACILLIN/TAZOB 3.375 GM 3.375 GM in DEXTROSE 5%-WATER - 50 ML IVPB SCH ×3 (01:32→17:22)
[2021-07-22] MEDS: PANTOPRAZOLE 40 MG TABLET PO SCH (09:11)
[2021-07-22] MEDS: METOPROLOL TARTRATE 25 MG TABLET (FP) PO SCH ×2 (09:11→21:24)
[2021-07-22] MEDS: LISINOPRIL 5 MG TABLET PO SCH (09:12)
[2021-07-22] MEDS: AMINO ACIDS/PROTEIN HYDROLYS 30 ML LIQUID.PKT PO SCH ×2 (09:12→17:22)
[2021-07-22] MEDS: MULTIVITAMINS THER W-MINERALS COMBO TABLET (FP) PO SCH (09:12)
[2021-07-22] MEDS: HEPARIN NA (PORCINE) 5,000 UNITS/ML 1ML VIAL SQ SCH ×2 (09:12→21:25)
[2021-07-22] MEDS: FOLIC ACID 1 MG TABLET (FP) PO SCH (09:12)
[2021-07-22] MEDS: THIAMINE HCL 100 MG TABLET (FP) PO SCH (09:12)
[2021-07-22] MEDS: COLLAGENASE CLOSTRIDIUM HIST. 30 GRAMS TUBE TP SCH (11:25)
[2021-07-22] MEDS: ATORVASTATIN CA 40 MG TABLET (FP) PO SCH (21:24)
[2021-07-22] MEDS: GABAPENTIN 100 MG CAPSULE PO SCH (21:25)
[2021-07-23] MEDS ORDERED: DEXTROSE 5%-WATER - 50 ML IVPB ONE ×3 (00:57→17:05)
[2021-07-23] MEDS ORDERED: PIPERACILLIN/TAZOBACTAM 3.375 GM VIAL IVPB ONE ×3 (00:57→17:05)
[2021-07-23] MEDS: PIPERACILLIN/TAZOB 3.375 GM 3.375 GM in DEXTROSE 5%-WATER - 50 ML IVPB SCH ×3 (01:45→17:19)
[2021-07-23] MEDS: AMINO ACIDS/PROTEIN HYDROLYS 30 ML LIQUID.PKT PO SCH ×2 (08:37→17:19)
[2021-07-23] MEDS: HEPARIN NA (PORCINE) 5,000 UNITS/ML 1ML VIAL SQ SCH ×2 (10:41→22:54)
[2021-07-23] MEDS: FOLIC ACID 1 MG TABLET (FP) PO SCH (10:42)
[2021-07-23] MEDS: METOPROLOL TARTRATE 25 MG TABLET (FP) PO SCH ×2 (10:42→22:54)
[2021-07-23] MEDS: MULTIVITAMINS THER W-MINERALS COMBO TABLET (FP) PO SCH (10:42)
[2021-07-23] MEDS: PANTOPRAZOLE 40 MG TABLET PO SCH (10:42)
[2021-07-23] MEDS: THIAMINE HCL 100 MG TABLET (FP) PO SCH (10:42)
[2021-07-23] MEDS: LISINOPRIL 5 MG TABLET PO SCH (10:43)
[2021-07-23 12:07] VITALS: BMI 29.7
[2021-07-23] MEDS: COLLAGENASE CLOSTRIDIUM HIST. 30 GRAMS TUBE TP SCH (17:19)
[2021-07-23] MEDS: GABAPENTIN 100 MG CAPSULE PO SCH (22:54)
[2021-07-23] MEDS: ATORVASTATIN CA 40 MG TABLET (FP) PO SCH (22:54)
[2021-07-24] MEDS ORDERED: PIPERACILLIN/TAZOBACTAM 3.375 GM VIAL IVPB ONE ×2 (01:52→09:04)
[2021-07-24] MEDS ORDERED: DEXTROSE 5%-WATER - 50 ML IVPB ONE ×2 (01:52→09:04)
[2021-07-24] MEDS: PIPERACILLIN/TAZOB 3.375 GM 3.375 GM in DEXTROSE 5%-WATER - 50 ML IVPB SCH ×2 (02:04→09:17)
[2021-07-24] MEDS: AMINO ACIDS/PROTEIN HYDROLYS 30 ML LIQUID.PKT PO SCH (08:22)
[2021-07-24] MEDS: METOPROLOL TARTRATE 25 MG TABLET (FP) PO SCH (09:17)
[2021-07-24] MEDS: HEPARIN NA (PORCINE) 5,000 UNITS/ML 1ML VIAL SQ SCH (09:18)
[2021-07-24] MEDS: THIAMINE HCL 100 MG TABLET (FP) PO SCH (09:18)
[2021-07-24] MEDS: MULTIVITAMINS THER W-MINERALS COMBO TABLET (FP) PO SCH (09:18)
[2021-07-24] MEDS: PANTOPRAZOLE 40 MG TABLET PO SCH (09:18)
[2021-07-24] MEDS: FOLIC ACID 1 MG TABLET (FP) PO SCH (09:18)
[2021-07-24] MEDS: LISINOPRIL 5 MG TABLET PO SCH (09:18)
[2021-07-24 14:18] VITALS: BP 137/69; PULSE 76; TEMP 98
[2021-07-24] MEDS: COLLAGENASE CLOSTRIDIUM HIST. 30 GRAMS TUBE TP SCH (15:19)
== END 2021-07-24 17:34 | DRG 638 ==
LOC: JER 07:39 → JERBED 09:00 → J6S 07-18 01:31
PROVIDERS: ADMIT Internal Medicine; ATTEND Family Medicine
PROC: 30233N1 Transfusion of Nonautologous Red Blood Cells into Peripheral Vein, Percutaneous Approach (ICD-10-PCS; 2021-07-17)
PROC: 02HV33Z Insertion of Infusion Device into Superior Vena Cava, Percutaneous Approach (ICD-10-PCS; principal; 2021-07-24)
PROC: B518ZZA Fluoroscopy of Superior Vena Cava, Guidance (ICD-10-PCS; 2021-07-24)
DX: E11.69 Type 2 diabetes mellitus with other specified complication (principal); M86.171 Other acute osteomyelitis, right ankle and foot; I50.32 Chronic diastolic (congestive) heart failure; L97.818 Non-pressure chronic ulcer of other part of right lower leg with other specified severity; L97.828 Non-pressure chronic ulcer of other part of left lower leg with other specified severity; I11.0 Hypertensive heart disease with heart failure; I25.10 Atherosclerotic heart disease of native coronary artery without angina pectoris; D64.9 Anemia, unspecified; F10.10 Alcohol abuse, uncomplicated; E78.5 Hyperlipidemia, unspecified; E11.51 Type 2 diabetes mellitus with diabetic peripheral angiopathy without gangrene; I83.018 Varicose veins of right lower extremity with ulcer other part of lower leg; I83.028 Varicose veins of left lower extremity with ulcer other part of lower leg; Z86.73 Personal history of transient ischemic attack (TIA), and cerebral infarction without residual deficits
CPT/HCPCS: 36415; 36430; 36569; 71046-TC-FY; 73630-TC-RT-FY; 80048; 80053; 82272; 83735; 85025; 85610; 85651; 86140; 86850; 86900; 86901; 86922; 87040; 93005; 93010; 93922; 93925-TC; 97116-GP; 97162-GP; 99285-25; C9803-CS; G0463-25; J1644; P9058; U0003; U0005

== ENCOUNTER 2022-11-18 11:50 | Inpatient (IN) | payer OTHER, BC ==
[2022-11-18] MEDS ORDERED: PIPERACILLIN/TAZOB 4.5 GM 4.5 GM in DEXTROSE 5%-WATER 100 ML IVPB ONE (13:12)
[2022-11-18] MEDS ORDERED: VANCOMYCIN 1,000 MG in DEXTROSE 5%-WATER - 250 ML IVPB ONE (13:12)
[2022-11-18] MEDS ORDERED: PIPERACILLIN/TAZOB 4.5 GM 4.5 GM/100 ML BAG IVPB ONE (13:20)
[2022-11-18] MEDS ORDERED: VANCOMYCIN 1 GRAM (PRE-DOCKED) 1,000 MG/250 ML BAG IVPB ONE (13:21)
[2022-11-18 14:35] LABS: POTASSIUM 4.8 mmol/L (3.5-5.1)
[2022-11-18 14:37] LABS: ALBUMIN 4.1 g/dl (3.4-5.0); BLOOD UREA NITROGEN 31.2 mg/dL (7-18); CALCIUM 8.9 mg/dL (8.5-10.1)
[2022-11-18 14:39] LABS: CREATININE 1.4 mg/dL (0.55-1.3)
[2022-11-18 14:43] LABS: BILIRUBIN,TOTAL 0.4 mg/dL (0.2-1); TOT PROT 7.8 g/dl (6.4-8.2)
[2022-11-18 15:08] LABS: BASO % 0.6 % (0-2.0); EOS % 3.7 % (0-4.5); HEMATOCRIT 35.4 % (35.4-49); HEMOGLOBIN 12.1 GM/dL (11.7-16.9); LYMPH % 13.3 % (8-40); MCH 31.7 pg (25.7-33.7); MCHC 34.2 g/dl (32.0-35.9); MEAN CELL VOLUME 92.7 fl (80-96); MEAN PLT VOLUME 8.6 fl (7.5-11.1); MONO % 7.3 % (3.8-10.2); NEUT % 75.1 % (42.8-82.8); PLATELET COUNT 185 10^3/uL (134-434); RBC 3.81 M/mm3 (4.00-5.60); RDW 14.1 % (11.9-15.9); WHITE BLOOD COUNT 7.1 K/mm3 (4.0-10.0)
[2022-11-18] MEDS ORDERED: VANCOMYCIN 1,000 MG in DEXTROSE 5%-WATER - 250 ML IVPB SCH (21:15)
[2022-11-18] MEDS ORDERED: ATORVASTATIN CA 40 MG TABLET (FP) ONE (21:43)
[2022-11-18] MEDS ORDERED: METOPROLOL TARTRATE 25 MG TABLET (FP) ONE (21:43)
[2022-11-18] MEDS: ATORVASTATIN CA 40 MG TABLET (FP) PO SCH (21:48)
[2022-11-18] MEDS: METOPROLOL TARTRATE 25 MG TABLET (FP) PO SCH (21:48)
[2022-11-19] MEDS: ASPIRIN 81 MG CHEWABLE TABLETS PO SCH (09:52)
[2022-11-19] MEDS: PANTOPRAZOLE 40 MG TABLET PO SCH (09:52)
[2022-11-19] MEDS: ENOXAPARIN NA (PORCINE) 40 MG/0.4 ML DISP.SYRIN SQ SCH (09:52)
[2022-11-19] MEDS: LISINOPRIL 5 MG TABLET PO SCH (09:52)
[2022-11-19] MEDS: FUROSEMIDE 40 MG TABLET (FP) PO SCH (09:52)
[2022-11-19] MEDS: MULTIVITAMINS (DAILY MVI) TABLET (FP) PO SCH (09:52)
[2022-11-19] MEDS: METOPROLOL TARTRATE 25 MG TABLET (FP) PO SCH ×2 (09:52→21:17)
[2022-11-19] MEDS ORDERED: PIPERACILLIN/TAZOB 4.5 GM 4.5 GM in DEXTROSE 5%-WATER 100 ML IVPB SCH (10:00)
[2022-11-19 10:38] LABS: POTASSIUM 4.1 mmol/L (3.5-5.1)
[2022-11-19 10:48] LABS: BLOOD UREA NITROGEN 23.8 mg/dL (7-18)
[2022-11-19 10:51] LABS: CREATININE 1.2 mg/dL (0.55-1.3)
[2022-11-19 11:07] LABS: BASO % 0.7 % (0-2.0); EOS % 4.2 % (0-4.5); HEMATOCRIT 30.9 % (35.4-49); HEMOGLOBIN 10.4 GM/dL (11.7-16.9); LYMPH % 9.6 % (8-40); MCH 31.9 pg (25.7-33.7); MCHC 33.8 g/dl (32.0-35.9); MEAN CELL VOLUME 94.5 fl (80-96); MEAN PLT VOLUME 8.4 fl (7.5-11.1); MONO % 8.8 % (3.8-10.2); NEUT % 76.7 % (42.8-82.8); PLATELET COUNT 183 10^3/uL (134-434); RBC 3.27 M/mm3 (4.00-5.60); RDW 13.9 % (11.9-15.9); WHITE BLOOD COUNT 7.7 K/mm3 (4.0-10.0)
[2022-11-19] MEDS ORDERED: ACETAMINOPHEN 325 MG TABLET (FP) PO PRN (13:50)
[2022-11-19] MEDS ORDERED: VANCOMYCIN/WATER FOR INJ (PEG) 1,000 MG/200 ML BAG IVPB SCH (14:00)
[2022-11-19] MEDS: CEFAZOLIN 1 GM in DEXTROSE 5%-WATER - 50 ML IVPB SCH (17:20)
[2022-11-19] MEDS: ATORVASTATIN CA 40 MG TABLET (FP) PO SCH (21:17)
[2022-11-20] MEDS: CEFAZOLIN 1 GM in DEXTROSE 5%-WATER - 50 ML IVPB SCH ×3 (01:25→17:42)
[2022-11-20] MEDS: FUROSEMIDE 40 MG TABLET (FP) PO SCH (09:37)
[2022-11-20] MEDS: METOPROLOL TARTRATE 25 MG TABLET (FP) PO SCH ×2 (09:37→21:38)
[2022-11-20] MEDS: ASPIRIN 81 MG CHEWABLE TABLETS PO SCH (09:37)
[2022-11-20] MEDS: MULTIVITAMINS (DAILY MVI) TABLET (FP) PO SCH (09:37)
[2022-11-20] MEDS: ENOXAPARIN NA (PORCINE) 40 MG/0.4 ML DISP.SYRIN SQ SCH (09:38)
[2022-11-20] MEDS: LISINOPRIL 5 MG TABLET PO SCH (09:38)
[2022-11-20] MEDS: PANTOPRAZOLE 40 MG TABLET PO SCH (09:38)
[2022-11-20 14:03] VITALS: BMI 37.5
[2022-11-20] MEDS: ATORVASTATIN CA 40 MG TABLET (FP) PO SCH (21:38)
[2022-11-21] MEDS: CEFAZOLIN 1 GM in DEXTROSE 5%-WATER - 50 ML IVPB SCH ×3 (01:18→17:21)
[2022-11-21] MEDS: ASPIRIN 81 MG CHEWABLE TABLETS PO SCH (09:30)
[2022-11-21] MEDS: FUROSEMIDE 40 MG TABLET (FP) PO SCH (09:30)
[2022-11-21] MEDS: METOPROLOL TARTRATE 25 MG TABLET (FP) PO SCH ×2 (09:30→21:23)
[2022-11-21] MEDS: LISINOPRIL 5 MG TABLET PO SCH (09:30)
[2022-11-21] MEDS: PANTOPRAZOLE 40 MG TABLET PO SCH (09:30)
[2022-11-21] MEDS: MULTIVITAMINS (DAILY MVI) TABLET (FP) PO SCH (09:30)
[2022-11-21] MEDS: ENOXAPARIN NA (PORCINE) 40 MG/0.4 ML DISP.SYRIN SQ SCH (09:30)
[2022-11-21 10:56] LABS: CALCIUM 8.8 mg/dL (8.5-10.1)
[2022-11-21 10:57] LABS: BLOOD UREA NITROGEN 21.5 mg/dL (7-18)
[2022-11-21 11:01] LABS: CREATININE 1.4 mg/dL (0.55-1.3)
[2022-11-21 11:06] LABS: BASO % 1.1 % (0-2.0); EOS % 4.1 % (0-4.5); HEMATOCRIT 35.6 % (35.4-49); HEMOGLOBIN 12.4 GM/dL (11.7-16.9); LYMPH % 11.6 % (8-40); MCH 31.9 pg (25.7-33.7); MCHC 34.8 g/dl (32.0-35.9); MEAN CELL VOLUME 91.8 fl (80-96); MEAN PLT VOLUME 8.5 fl (7.5-11.1); MONO % 9.4 % (3.8-10.2); NEUT % 73.8 % (42.8-82.8); PLATELET COUNT 194 10^3/uL (134-434); RBC 3.88 M/mm3 (4.00-5.60); RDW 14.2 % (11.9-15.9); WHITE BLOOD COUNT 9.3 K/mm3 (4.0-10.0)
[2022-11-21] MEDS: COLLAGENASE CLOSTRIDIUM HIST. 30 GRAMS TUBE TP SCH (11:33)
[2022-11-21] MEDS: ATORVASTATIN CA 40 MG TABLET (FP) PO SCH (21:23)
[2022-11-22] MEDS: CEFAZOLIN 1 GM in DEXTROSE 5%-WATER - 50 ML IVPB SCH ×3 (02:25→18:00)
[2022-11-22] MEDS: MULTIVITAMINS (DAILY MVI) TABLET (FP) PO SCH (10:46)
[2022-11-22] MEDS: PANTOPRAZOLE 40 MG TABLET PO SCH (10:46)
[2022-11-22] MEDS: COLLAGENASE CLOSTRIDIUM HIST. 30 GRAMS TUBE TP SCH (10:46)
[2022-11-22] MEDS: ENOXAPARIN NA (PORCINE) 40 MG/0.4 ML DISP.SYRIN SQ SCH (10:46)
[2022-11-22] MEDS: ASPIRIN 81 MG CHEWABLE TABLETS PO SCH (10:46)
[2022-11-22] MEDS: METOPROLOL TARTRATE 25 MG TABLET (FP) PO SCH ×2 (11:12→21:47)
[2022-11-22] MEDS: LISINOPRIL 5 MG TABLET PO SCH (11:15)
[2022-11-22] MEDS: FUROSEMIDE 40 MG TABLET (FP) PO SCH (11:15)
[2022-11-22] MEDS: ATORVASTATIN CA 40 MG TABLET (FP) PO SCH (21:46)
[2022-11-23] MEDS: CEFAZOLIN 1 GM in DEXTROSE 5%-WATER - 50 ML IVPB SCH ×2 (01:13→09:30)
[2022-11-23 08:37] VITALS: RESP 19
[2022-11-23] MEDS: ASPIRIN 81 MG CHEWABLE TABLETS PO SCH (09:30)
[2022-11-23] MEDS: LISINOPRIL 5 MG TABLET PO SCH (09:30)
[2022-11-23] MEDS: METOPROLOL TARTRATE 25 MG TABLET (FP) PO SCH (09:30)
[2022-11-23] MEDS: MULTIVITAMINS (DAILY MVI) TABLET (FP) PO SCH (09:30)
[2022-11-23] MEDS: PANTOPRAZOLE 40 MG TABLET PO SCH (09:30)
[2022-11-23] MEDS: FUROSEMIDE 40 MG TABLET (FP) PO SCH (09:30)
[2022-11-23] MEDS: ENOXAPARIN NA (PORCINE) 40 MG/0.4 ML DISP.SYRIN SQ SCH (09:31)
[2022-11-23] MEDS: COLLAGENASE CLOSTRIDIUM HIST. 30 GRAMS TUBE TP SCH (09:36)
[2022-11-23 14:17] VITALS: BP 109/61; PULSE 83; TEMP 98
== END 2022-11-23 17:33 | disposition home health service (06) | DRG 603 ==
LOC: JER 11:50 → JERBED 17:24 → OBSVTOIN 17:24 → J5S 11-19 01:29
PROVIDERS: ADMIT Internal Medicine; ATTEND Family Medicine
DX: L03.116 Cellulitis of left lower limb (principal); I69.354 Hemiplegia and hemiparesis following cerebral infarction affecting left non-dominant side; L97.828 Non-pressure chronic ulcer of other part of left lower leg with other specified severity; L97.818 Non-pressure chronic ulcer of other part of right lower leg with other specified severity; N17.9 Acute kidney failure, unspecified; L03.115 Cellulitis of right lower limb; E11.622 Type 2 diabetes mellitus with other skin ulcer; E78.5 Hyperlipidemia, unspecified; I73.9 Peripheral vascular disease, unspecified; I25.10 Atherosclerotic heart disease of native coronary artery without angina pectoris; I11.0 Hypertensive heart disease with heart failure; I50.9 Heart failure, unspecified; E11.51 Type 2 diabetes mellitus with diabetic peripheral angiopathy without gangrene; Z86.16 Personal history of COVID-19
CPT/HCPCS: 36415; 73590-TC-LT-FY; 80048; 80053; 83036; 85025; 87040; 97597; 99285-25

== ENCOUNTER 2023-01-22 16:20 | Inpatient (IN) | payer OTHER, BC ==
[2023-01-22] MEDS ORDERED: VANCOMYCIN 1 GM PREMIX - 1 GM/200 ML BAG IVPB ONE (17:24)
[2023-01-22] MEDS ORDERED: PIPERACILLIN/TAZOB 4.5 GM 4.5 GM in DEXTROSE 5%-WATER 100 ML IVPB ONE (17:24)
[2023-01-22] MEDS ORDERED: PIPERACILLIN/TAZOB 4.5 GM 4.5 GM/100 ML BAG IVPB ONE (18:00)
[2023-01-22 19:16] LABS: BASO % 0.8 % (0-2.0); EOS % 1.2 % (0-4.5); HEMATOCRIT 28.5 % (35.4-49); HEMOGLOBIN 9.9 GM/dL (11.7-16.9); LYMPH % 7.7 % (8-40); MCH 33.9 pg (25.7-33.7); MCHC 34.9 g/dl (32.0-35.9); MEAN CELL VOLUME 97.4 fl (80-96); MEAN PLT VOLUME 7.6 fl (7.5-11.1); MONO % 11.1 % (3.8-10.2); NEUT % 79.2 % (42.8-82.8); PLATELET COUNT 240 10^3/uL (134-434); RBC 2.93 M/mm3 (4.00-5.60); RDW 14.3 % (11.9-15.9); WHITE BLOOD COUNT 10.4 K/mm3 (4.0-10.0)
[2023-01-22] MEDS ORDERED: VANCOMYCIN 1 GRAM (PRE-DOCKED) 1,000 MG/250 ML BAG IVPB ONE (19:53)
[2023-01-22 20:14] LABS: ALBUMIN 3.3 g/dl (3.4-5.0); BILIRUBIN,TOTAL 0.3 mg/dL (0.2-1); BLOOD UREA NITROGEN 29.1 mg/dL (7-18); CALCIUM 9.4 mg/dL (8.5-10.1); CREATININE 1.1 mg/dL (0.55-1.3); POTASSIUM 4.5 mmol/L (3.5-5.1); TOT PROT 7.6 g/dl (6.4-8.2)
[2023-01-22] MEDS ORDERED: ACETAMINOPHEN 1000 MG/100 ML BAG IVPB ONE (21:52)
[2023-01-22] MEDS ORDERED: ACETAMINOPHEN INJECTION 100 ML IVPB ONE (21:58)
[2023-01-22] MEDS ORDERED: KETOROLAC TROMETHAMINE 15 MG/ML VIAL IVPUSH ONE (22:01)
[2023-01-22] MEDS ORDERED: KETOROLAC TROMETHAMINE 15 MG/ML VIAL ONE (22:09)
[2023-01-22] MEDS ORDERED: METOPROLOL TARTRATE 25 MG TABLET (FP) ONE (22:58)
[2023-01-22] MEDS: METOPROLOL TARTRATE 25 MG TABLET (FP) PO SCH (23:16)
[2023-01-23] MEDS ORDERED: GABAPENTIN 100 MG CAPSULE ONE ×4 (01:42→22:54)
[2023-01-23] MEDS: GABAPENTIN 100 MG CAPSULE PO SCH ×3 (01:47→14:02)
[2023-01-23] MEDS ORDERED: BACITRACIN 0.9 GM PACKET ONE (02:36)
[2023-01-23] MEDS ORDERED: ACETAMINOPHEN 325 MG TABLET (FP) PO PRN (03:00)
[2023-01-23] MEDS ORDERED: VANCOMYCIN HCL 1,500 MG in DEXTROSE 5%-WATER - 250 ML IVPB SCH (07:00)
[2023-01-23] MEDS ORDERED: METOPROLOL TARTRATE 25 MG TABLET (FP) ONE (07:58)
[2023-01-23] MEDS ORDERED: ASPIRIN 81 MG CHEWABLE TABLETS ONE (07:58)
[2023-01-23] MEDS ORDERED: LISINOPRIL 5 MG TABLET ONE (07:58)
[2023-01-23] MEDS ORDERED: PANTOPRAZOLE 40 MG TABLET PO ONE (07:58)
[2023-01-23] MEDS ORDERED: FUROSEMIDE 40 MG/4 ML INJECTABLE VIAL ONE (07:59)
[2023-01-23] MEDS ORDERED: PIPERACILLIN/TAZOB 4.5 GM 4.5 GM/100 ML BAG IVPB ONE ×3 (07:59→22:54)
[2023-01-23] MEDS ORDERED: ENOXAPARIN NA (PORCINE) 40 MG/0.4 ML DISP.SYRIN SQ ONE (07:59)
[2023-01-23] MEDS: VANCOMYCIN PREMIX 1.5 GM 1,500 MG/300 ML BAG IVPB SCH ×2 (08:18→21:05)
[2023-01-23] MEDS: PIPERACILLIN/TAZOB 4.5 GM 4.5 GM in DEXTROSE 5%-WATER 100 ML IVPB SCH ×3 (08:19→23:53)
[2023-01-23] MEDS: ASPIRIN 81 MG CHEWABLE TABLETS PO SCH (08:22)
[2023-01-23] MEDS: METOPROLOL TARTRATE 25 MG TABLET (FP) PO SCH (08:22)
[2023-01-23] MEDS: LISINOPRIL 5 MG TABLET PO SCH (08:22)
[2023-01-23] MEDS: FUROSEMIDE 40 MG/4 ML INJECTABLE VIAL IVPUSH SCH (08:22)
[2023-01-23] MEDS: PANTOPRAZOLE 40 MG TABLET PO SCH (08:22)
[2023-01-23] MEDS: ENOXAPARIN NA (PORCINE) 40 MG/0.4 ML DISP.SYRIN SQ SCH (08:22)
[2023-01-23] MEDS ORDERED: ACETAMINOPHEN 325 MG TABLET (FP) ONE (08:24)
[2023-01-23] MEDS ORDERED: FOLIC ACID 1 MG TABLET (FP) ONE (08:24)
[2023-01-23] MEDS: FOLIC ACID 1 MG TABLET (FP) PO SCH (08:25)
[2023-01-23 08:48] LABS: BASO % 0.6 % (0-2.0); EOS % 2.1 % (0-4.5); HEMATOCRIT 26.8 % (35.4-49); LYMPH % 6.5 % (8-40); MCH 37.5 pg (25.7-33.7); MCHC 37.5 g/dl (32.0-35.9); MEAN PLT VOLUME 8.2 fl (7.5-11.1); MONO % 9.7 % (3.8-10.2); NEUT % 81.1 % (42.8-82.8); PLATELET COUNT 225 10^3/uL (134-434); RBC 2.68 M/mm3 (4.00-5.60); RDW 14.2 % (11.9-15.9); WHITE BLOOD COUNT 8.6 K/mm3 (4.0-10.0)
[2023-01-23 08:53] LABS: POTASSIUM 4.2 mmol/L (3.5-5.1)
[2023-01-23 08:56] LABS: BLOOD UREA NITROGEN 23.6 mg/dL (7-18); CALCIUM 8.8 mg/dL (8.5-10.1)
[2023-01-23 08:59] LABS: CREATININE 1.1 mg/dL (0.55-1.3)
[2023-01-23] MEDS ORDERED: PIPERACILLIN/TAZOB 4.5 GM 4.5 GM in DEXTROSE 5%-WATER 100 ML IVPB SCH (09:00)
[2023-01-23 09:04] LABS: N-TERMINAL BNP 1308.2 pg/ml (5-125)
[2023-01-23] MEDS ORDERED: HEPARIN NA (PORCINE) 5,000 UNITS/ML 1ML VIAL SQ SCH (10:00)
[2023-01-23] MEDS ORDERED: oxyCODONE HCL 5 MG TABLET PO PRN (11:11)
[2023-01-23] MEDS: MULTIVITAMINS (DAILY MVI) TABLET (FP) PO SCH (14:04)
[2023-01-23] MEDS ORDERED: oxyCODONE HCL 5 MG TABLET ONE (17:43)
[2023-01-23] MEDS ORDERED: metoPROLOL SUCCINATE 25 MG TAB.SR.24H (FP) PO ONE (22:54)
[2023-01-23] MEDS ORDERED: ATORVASTATIN CA 40 MG TABLET (FP) ONE (22:54)
[2023-01-24] MEDS: GABAPENTIN 100 MG CAPSULE PO SCH ×4 (00:30→21:37)
[2023-01-24] MEDS: METOPROLOL TARTRATE 25 MG TABLET (FP) PO SCH ×3 (00:30→21:39)
[2023-01-24] MEDS: ATORVASTATIN CA 40 MG TABLET (FP) PO SCH ×2 (00:30→21:37)
[2023-01-24] MEDS ORDERED: PIPERACILLIN/TAZOB 4.5 GM 4.5 GM/100 ML BAG IVPB ONE ×2 (03:03→07:48)
[2023-01-24] MEDS: PIPERACILLIN/TAZOB 4.5 GM 4.5 GM in DEXTROSE 5%-WATER 100 ML IVPB SCH ×2 (03:15→09:54)
[2023-01-24] MEDS ORDERED: GABAPENTIN 100 MG CAPSULE ONE ×2 (05:31→13:28)
[2023-01-24] MEDS ORDERED: VANCOMYCIN 500 MG VIAL (RESTRICTED TO ID ONLY) ONE (07:40)
[2023-01-24] MEDS ORDERED: VANCOMYCIN 1 GRAM (PRE-DOCKED) 1,000 MG/250 ML BAG IVPB ONE (07:40)
[2023-01-24] MEDS: VANCOMYCIN PREMIX 1.5 GM 1,500 MG/300 ML BAG IVPB SCH (07:47)
[2023-01-24] MEDS: LISINOPRIL 5 MG TABLET PO SCH (10:04)
[2023-01-24] MEDS: PANTOPRAZOLE 40 MG TABLET PO SCH (10:04)
[2023-01-24] MEDS: MULTIVITAMINS (DAILY MVI) TABLET (FP) PO SCH (10:04)
[2023-01-24] MEDS: ASPIRIN 81 MG CHEWABLE TABLETS PO SCH (10:04)
[2023-01-24] MEDS: FUROSEMIDE 40 MG/4 ML INJECTABLE VIAL IVPUSH SCH (10:04)
[2023-01-24] MEDS: ENOXAPARIN NA (PORCINE) 40 MG/0.4 ML DISP.SYRIN SQ SCH (10:04)
[2023-01-24] MEDS: FOLIC ACID 1 MG TABLET (FP) PO SCH (10:04)
[2023-01-24] MEDS: SILVER SULFADIAZINE 1% TOP CREAM 50 GM JAR TP SCH (11:26)
[2023-01-24] MEDS ORDERED: ceFAZolin SODIUM 1 GM VIAL ONE (13:29)
[2023-01-24] MEDS: CEFAZOLIN 1 GM in DEXTROSE 5%-WATER - 50 ML IVPB SCH ×2 (13:34→17:55)
[2023-01-25] MEDS: CEFAZOLIN 1 GM in DEXTROSE 5%-WATER - 50 ML IVPB SCH ×3 (01:38→17:41)
[2023-01-25] MEDS: GABAPENTIN 100 MG CAPSULE PO SCH ×3 (06:18→21:30)
[2023-01-25] MEDS: METOPROLOL TARTRATE 25 MG TABLET (FP) PO SCH ×2 (09:20→21:30)
[2023-01-25] MEDS: ASPIRIN 81 MG CHEWABLE TABLETS PO SCH (09:20)
[2023-01-25] MEDS: PANTOPRAZOLE 40 MG TABLET PO SCH (09:20)
[2023-01-25] MEDS: MULTIVITAMINS (DAILY MVI) TABLET (FP) PO SCH (09:20)
[2023-01-25] MEDS: LISINOPRIL 5 MG TABLET PO SCH (09:20)
[2023-01-25] MEDS: ENOXAPARIN NA (PORCINE) 40 MG/0.4 ML DISP.SYRIN SQ SCH (09:20)
[2023-01-25] MEDS: FUROSEMIDE 40 MG TABLET (FP) PO SCH (09:20)
[2023-01-25] MEDS: FOLIC ACID 1 MG TABLET (FP) PO SCH (09:27)
[2023-01-25] MEDS: SILVER SULFADIAZINE 1% TOP CREAM 50 GM JAR TP SCH (09:27)
[2023-01-25] MEDS: ATORVASTATIN CA 40 MG TABLET (FP) PO SCH (21:30)
[2023-01-26] MEDS: CEFAZOLIN 1 GM in DEXTROSE 5%-WATER - 50 ML IVPB SCH ×3 (01:46→17:07)
[2023-01-26] MEDS: GABAPENTIN 100 MG CAPSULE PO SCH ×3 (06:02→22:18)
[2023-01-26 08:42] LABS: ARTERIAL BLD GAS O2 SATURATION 97.9 % (95-98); ARTERIAL BLOOD GAS PO2 120.9 mmHg (80-100); ARTERIAL BLOOD GAS pH 7.289 (7.350-7.450)
[2023-01-26 08:45] LABS: ALLENS TEST POSITIVE
[2023-01-26] MEDS ORDERED: ceFAZolin SODIUM 1 GM VIAL ONE (09:24)
[2023-01-26] MEDS: FOLIC ACID 1 MG TABLET (FP) PO SCH (09:27)
[2023-01-26] MEDS: LISINOPRIL 5 MG TABLET PO SCH (09:27)
[2023-01-26] MEDS: ASPIRIN 81 MG CHEWABLE TABLETS PO SCH (09:27)
[2023-01-26] MEDS: MULTIVITAMINS (DAILY MVI) TABLET (FP) PO SCH (09:27)
[2023-01-26] MEDS: PANTOPRAZOLE 40 MG TABLET PO SCH (09:27)
[2023-01-26] MEDS: METOPROLOL TARTRATE 25 MG TABLET (FP) PO SCH ×2 (09:27→22:18)
[2023-01-26] MEDS: ENOXAPARIN NA (PORCINE) 40 MG/0.4 ML DISP.SYRIN SQ SCH (09:27)
[2023-01-26] MEDS: FUROSEMIDE 40 MG TABLET (FP) PO SCH (09:27)
[2023-01-26 09:36] LABS: BASO % 0.6 % (0-2.0); EOS % 3.4 % (0-4.5); HEMATOCRIT 25.1 % (35.4-49); LYMPH % 12.4 % (8-40); MCH 36.1 pg (25.7-33.7); MCHC 36.1 g/dl (32.0-35.9); MEAN CELL VOLUME 100.2 fl (80-96); MEAN PLT VOLUME 7.9 fl (7.5-11.1); MONO % 11.6 % (3.8-10.2); PLATELET COUNT 219 10^3/uL (134-434); RDW 14.3 % (11.9-15.9); WHITE BLOOD COUNT 6.6 K/mm3 (4.0-10.0)
[2023-01-26 09:50] LABS: POTASSIUM 4.7 mmol/L (3.5-5.1)
[2023-01-26 09:52] LABS: ALBUMIN 2.8 g/dl (3.4-5.0); CALCIUM 8.6 mg/dL (8.5-10.1)
[2023-01-26 09:55] LABS: CREATININE 1.6 mg/dL (0.55-1.3)
[2023-01-26 09:57] LABS: BILIRUBIN,TOTAL 0.4 mg/dL (0.2-1)
[2023-01-26] MEDS: SILVER SULFADIAZINE 1% TOP CREAM 50 GM JAR TP SCH (11:17)
[2023-01-26 13:20] VITALS: BMI 36.3
[2023-01-26] MEDS: ATORVASTATIN CA 40 MG TABLET (FP) PO SCH (22:18)
[2023-01-27] MEDS ORDERED: ceFAZolin SODIUM 1 GM VIAL ONE (02:21)
[2023-01-27] MEDS: CEFAZOLIN 1 GM in DEXTROSE 5%-WATER - 50 ML IVPB SCH ×3 (02:47→17:00)
[2023-01-27] MEDS: GABAPENTIN 100 MG CAPSULE PO SCH ×3 (06:54→22:36)
[2023-01-27] MEDS ORDERED: INSULIN SLIDING SCALE (NOVOLOG) 1 VIAL SQ ONE (07:53)
[2023-01-27 08:50] LABS: POTASSIUM 4.7 mmol/L (3.5-5.1)
[2023-01-27 08:59] LABS: TOT PROT 7.2 g/dl (6.4-8.2)
[2023-01-27 09:06] LABS: BLOOD UREA NITROGEN 34.6 mg/dL (7-18); CALCIUM 8.6 mg/dL (8.5-10.1)
[2023-01-27 09:07] LABS: ALBUMIN 2.8 g/dl (3.4-5.0)
[2023-01-27 09:09] LABS: CREATININE 1.3 mg/dL (0.55-1.3)
[2023-01-27 09:11] LABS: BILIRUBIN,TOTAL 0.4 mg/dL (0.2-1)
[2023-01-27] MEDS: PANTOPRAZOLE 40 MG TABLET PO SCH (09:52)
[2023-01-27] MEDS: METOPROLOL TARTRATE 25 MG TABLET (FP) PO SCH ×2 (09:52→22:36)
[2023-01-27] MEDS: MULTIVITAMINS (DAILY MVI) TABLET (FP) PO SCH (09:52)
[2023-01-27] MEDS: FUROSEMIDE 40 MG TABLET (FP) PO SCH (09:52)
[2023-01-27] MEDS: FOLIC ACID 1 MG TABLET (FP) PO SCH (09:52)
[2023-01-27] MEDS: ENOXAPARIN NA (PORCINE) 40 MG/0.4 ML DISP.SYRIN SQ SCH (09:52)
[2023-01-27] MEDS: ASPIRIN 81 MG CHEWABLE TABLETS PO SCH (09:53)
[2023-01-27] MEDS: SILVER SULFADIAZINE 1% TOP CREAM 50 GM JAR TP SCH (10:46)
[2023-01-27] MEDS: ATORVASTATIN CA 40 MG TABLET (FP) PO SCH (22:36)
[2023-01-28] MEDS: CEFAZOLIN 1 GM in DEXTROSE 5%-WATER - 50 ML IVPB SCH ×3 (01:08→17:04)
[2023-01-28] MEDS: GABAPENTIN 100 MG CAPSULE PO SCH ×3 (05:57→21:13)
[2023-01-28] MEDS: PANTOPRAZOLE 40 MG TABLET PO SCH (10:30)
[2023-01-28] MEDS: FUROSEMIDE 40 MG TABLET (FP) PO SCH (10:30)
[2023-01-28] MEDS: METOPROLOL TARTRATE 25 MG TABLET (FP) PO SCH ×2 (10:30→21:13)
[2023-01-28] MEDS: FOLIC ACID 1 MG TABLET (FP) PO SCH (10:30)
[2023-01-28] MEDS: ASPIRIN 81 MG CHEWABLE TABLETS PO SCH (10:30)
[2023-01-28] MEDS: ENOXAPARIN NA (PORCINE) 40 MG/0.4 ML DISP.SYRIN SQ SCH (10:30)
[2023-01-28] MEDS: MULTIVITAMINS (DAILY MVI) TABLET (FP) PO SCH (10:30)
[2023-01-28] MEDS: SILVER SULFADIAZINE 1% TOP CREAM 50 GM JAR TP SCH (10:42)
[2023-01-28 11:22] LABS: POTASSIUM 4.9 mmol/L (3.5-5.1)
[2023-01-28 11:52] LABS: ALBUMIN 2.9 g/dl (3.4-5.0); BLOOD UREA NITROGEN 33.9 mg/dL (7-18)
[2023-01-28 11:54] LABS: CREATININE 1.2 mg/dL (0.55-1.3)
[2023-01-28 11:56] LABS: BILIRUBIN,TOTAL 0.3 mg/dL (0.2-1); TOT PROT 7.3 g/dl (6.4-8.2)
[2023-01-28 12:00] LABS: HEMATOCRIT 26.3 % (35.4-49); MCH 33.3 pg (25.7-33.7); MCHC 34.1 g/dl (32.0-35.9); MEAN CELL VOLUME 97.7 fl (80-96); MEAN PLT VOLUME 7.6 fl (7.5-11.1); PLATELET COUNT 236 10^3/uL (134-434); RBC 2.69 M/mm3 (4.00-5.60); RDW 14.1 % (11.9-15.9); WHITE BLOOD COUNT 7.9 K/mm3 (4.0-10.0)
[2023-01-28] MEDS: ATORVASTATIN CA 40 MG TABLET (FP) PO SCH (21:13)
[2023-01-28 21:14] VITALS: BP 125/62; PULSE 93; RESP 19
[2023-01-28 22:42] VITALS: TEMP 97
[2023-01-29] MEDS ORDERED: LISINOPRIL 5 MG TABLET PO SCH (10:00)
== END 2023-01-28 22:00 | DRG 603 ==
LOC: JER 16:20 → JERBED 20:40 → OBSVTOIN 01-24 11:02 → J6S 01-24 16:00
PROVIDERS: ADMIT Internal Medicine; ATTEND Family Medicine
DX: L03.116 Cellulitis of left lower limb (principal); L97.818 Non-pressure chronic ulcer of other part of right lower leg with other specified severity; L97.528 Non-pressure chronic ulcer of other part of left foot with other specified severity; N17.9 Acute kidney failure, unspecified; I69.354 Hemiplegia and hemiparesis following cerebral infarction affecting left non-dominant side; I13.0 Hypertensive heart and chronic kidney disease with heart failure and stage 1 through stage 4 chronic kidney disease, or unspecified chronic kidney disease; I50.32 Chronic diastolic (congestive) heart failure; L03.115 Cellulitis of right lower limb; I25.10 Atherosclerotic heart disease of native coronary artery without angina pectoris; E78.5 Hyperlipidemia, unspecified; L85.3 Xerosis cutis; E11.621 Type 2 diabetes mellitus with foot ulcer; D64.9 Anemia, unspecified; E11.51 Type 2 diabetes mellitus with diabetic peripheral angiopathy without gangrene; E11.22 Type 2 diabetes mellitus with diabetic chronic kidney disease; N18.9 Chronic kidney disease, unspecified
CPT/HCPCS: 0241U-QW; 36415; 36600; 70450-TC; 71045-TC-FY; 72170-TC-FY; 73590-TC-LT-FY; 73590-TC-RT-FY; 76775-TC; 80048; 80053; 82272; 82550; 82553; 82728; 82803; 83540; 83550; 83605; 83880; 84466; 85025; 85027; 86140; 93005; 93010; 93925-TC; 93970-TC; 93971-TC; 97162-GP; 99285-25; G0378

== ENCOUNTER 2023-05-12 09:41 | Inpatient (IN) | payer OTHER, BC ==
[2023-05-12] MEDS ORDERED: ALBUTEROL SO4 2.5/IPRATROPIUM 0.5 INH SOL 3 ML VIAL.NEB. NEB ONE (10:52)
[2023-05-12] MEDS ORDERED: PIPERACILLIN/TAZOB 4.5 GM 4.5 GM/100 ML BAG IVPB ONE (10:52)
[2023-05-12] MEDS: PIPERACILLIN/TAZOB 4.5 GM 4.5 GM in DEXTROSE 5%-WATER 100 ML IVPB ONE (10:57)
[2023-05-12] MEDS: ALBUTEROL SO4 2.5/IPRATROPIUM 0.5 INH SOL 3 ML VIAL.NEB. NEB ONE (10:57)
[2023-05-12] MEDS: VANCOMYCIN 1 GM PREMIX - 1 GM/200 ML BAG IVPB ONE (11:04)
[2023-05-12] MEDS ORDERED: VANCOMYCIN 1 GRAM (PRE-DOCKED) 1,000 MG/250 ML BAG IVPB ONE (11:04)
[2023-05-12 11:06] LABS: INR 0.97 (0.83-1.09); PROTHROMBIN TIME (PATIENT) 11.2 SEC (9.7-13.0)
[2023-05-12 11:09] LABS: ACTIVATED PTT 18.7 SECONDS (25.2-36.5)
[2023-05-12 11:23] LABS: BASO % 0.5 % (0-2.0); EOS % 4.8 % (0-4.5); HEMATOCRIT 28.7 % (35.4-49); HEMOGLOBIN 9.8 GM/dL (11.7-16.9); LYMPH % 9.1 % (8-40); MCH 31.4 pg (25.7-33.7); MEAN CELL VOLUME 92.2 fl (80-96); MONO % 7.4 % (3.8-10.2); NEUT % 78.2 % (42.8-82.8); PLATELET COUNT 207 10^3/uL (134-434); POTASSIUM 4.9 mmol/L (3.5-5.1); RBC 3.11 M/mm3 (4.00-5.60); RDW 15.4 % (11.9-15.9); WHITE BLOOD COUNT 10.9 K/mm3 (4.0-10.0)
[2023-05-12 11:25] LABS: CALCIUM 8.6 mg/dL (8.5-10.1)
[2023-05-12 11:26] LABS: ALBUMIN 3.4 g/dl (3.4-5.0); MAGNESIUM 1.9 mg/dL (1.8-2.4)
[2023-05-12 11:26] LABS: VENOUS BASE EXCESS 0.1 mmol/L (-2-2); VENOUS O2 SATURATION 21.9 % (70-80); VENOUS PCO2 58.7 mmHg (38-52); VENOUS PH 7.287 (7.310-7.410)
[2023-05-12 11:29] LABS: CREATININE 1.2 mg/dL (0.55-1.3)
[2023-05-12 11:32] LABS: BILIRUBIN,TOTAL 0.3 mg/dL (0.2-1); TOT PROT 7.7 g/dl (6.4-8.2)
[2023-05-12 11:34] LABS: N-TERMINAL BNP 619.2 pg/ml (5-125)
[2023-05-12] MEDS ORDERED: FUROSEMIDE 40 MG/4 ML INJECTABLE VIAL ONE (13:13)
[2023-05-12] MEDS: FUROSEMIDE 40 MG/4 ML INJECTABLE VIAL IVPUSH ONE ×3 (13:18→17:15)
[2023-05-12] MEDS ORDERED: HEPARIN NA (PORCINE) 5,000 UNITS/ML 1ML VIAL ONE (14:27)
[2023-05-12] MEDS: HEPARIN NA (PORCINE) 5,000 UNITS/ML 1ML VIAL SQ SCH (14:31)
[2023-05-12] MEDS: ALBUTEROL SO4 0.083% IH SOL 2.5 MG/3 ML VIAL.NEB. NEB ONE (17:29)
[2023-05-12] MEDS: methylPREDNISolone NA SUCC 40 MG/1 ML VIAL IVPUSH ONE (17:57)
[2023-05-12] MEDS: PIPERACILLIN/TAZOB 3.375 GM 3.375 GM in DEXTROSE 5%-WATER - 50 ML IVPB SCH (17:57)
[2023-05-12] MEDS ORDERED: PIPERACILLIN/TAZOB 3.375 GM 3.375 GM in DEXTROSE 5%-WATER - 50 ML IVPB SCH (18:00)
[2023-05-12] MEDS: FUROSEMIDE 40 MG/4 ML INJECTABLE VIAL IVPUSH SCH (18:11)
[2023-05-12] MEDS: ATORVASTATIN CA 40 MG TABLET (FP) PO SCH (21:44)
[2023-05-12] MEDS: METOPROLOL TARTRATE 25 MG TABLET (FP) PO SCH (21:44)
[2023-05-12] MEDS ORDERED: CHLORHEXIDINE GLUCONATE 4% CLEANSER FOR DECOLONIZATION TP SCH (22:00)
[2023-05-12] MEDS ORDERED: MUPIROCIN 2% TOPICAL OINTMENT FOR DECOLONIZATION NS SCH (22:00)
[2023-05-13] MEDS: ACETAMINOPHEN 325 MG TABLET (FP) PO PRN (06:05)
[2023-05-13 07:25] LABS: HEMATOCRIT 26.9 % (35.4-49); HEMOGLOBIN 9.3 GM/dL (11.7-16.9); MCH 33.8 pg (25.7-33.7); MCHC 34.6 g/dl (32.0-35.9); MEAN CELL VOLUME 97.7 fl (80-96); MEAN PLT VOLUME 8.2 fl (7.5-11.1); PLATELET COUNT 223 10^3/uL (134-434); RBC 2.75 M/mm3 (4.00-5.60); WHITE BLOOD COUNT 11.9 K/mm3 (4.0-10.0)
[2023-05-13 07:51] LABS: POTASSIUM 4.5 mmol/L (3.5-5.1)
[2023-05-13 08:21] LABS: ANISOCYTOSIS 1+; MACROCYTOSIS 0
[2023-05-13 08:49] LABS: CALCIUM 8.6 mg/dL (8.5-10.1)
[2023-05-13 08:50] LABS: ALBUMIN 3.3 g/dl (3.4-5.0); BLOOD UREA NITROGEN 31.5 mg/dL (7-18); MAGNESIUM 1.9 mg/dL (1.8-2.4)
[2023-05-13 08:53] LABS: CREATININE 1.4 mg/dL (0.55-1.3)
[2023-05-13 08:54] LABS: BILIRUBIN,TOTAL 0.4 mg/dL (0.2-1); TOT PROT 7.4 g/dl (6.4-8.2)
[2023-05-13] MEDS: FOLIC ACID 1 MG TABLET (FP) PO SCH (10:05)
[2023-05-13] MEDS: ASPIRIN 81 MG CHEWABLE TABLETS PO SCH (10:05)
[2023-05-13] MEDS: LISINOPRIL 5 MG TABLET PO SCH (10:05)
[2023-05-13] MEDS: PANTOPRAZOLE 40 MG TABLET PO SCH (10:05)
[2023-05-13] MEDS: traMADol HCL 50 MG TABLET PO PRN (13:22)
[2023-05-13] MEDS: ALBUTEROL SO4 2.5/IPRATROPIUM 0.5 INH SOL 3 ML VIAL.NEB. NEB SCH (15:40)
[2023-05-13 17:52] VITALS: BMI 48.5
[2023-05-14] MEDS: ATORVASTATIN CA 40 MG TABLET (FP) PO SCH (22:36)
[2023-05-14] MEDS: METOPROLOL TARTRATE 25 MG TABLET (FP) PO SCH (22:36)
[2023-05-14] MEDS: HEPARIN NA (PORCINE) 5,000 UNITS/ML 1ML VIAL SQ SCH (22:37)
[2023-05-15] MEDS: PIPERACILLIN/TAZOB 3.375 GM 3.375 GM in DEXTROSE 5%-WATER - 50 ML IVPB SCH (01:17)
[2023-05-15] MEDS: FUROSEMIDE 40 MG/4 ML INJECTABLE VIAL IVPUSH SCH (05:58)
[2023-05-15 06:46] LABS: BASO % 0.4 % (0-2.0); EOS % 2.7 % (0-4.5); HEMATOCRIT 25.3 % (35.4-49); HEMOGLOBIN 8.8 GM/dL (11.7-16.9); LYMPH % 11.2 % (8-40); MCH 34.1 pg (25.7-33.7); MCHC 34.7 g/dl (32.0-35.9); MEAN CELL VOLUME 98.5 fl (80-96); MEAN PLT VOLUME 8.5 fl (7.5-11.1); MONO % 8.9 % (3.8-10.2); NEUT % 76.8 % (42.8-82.8); PLATELET COUNT 203 10^3/uL (134-434); RBC 2.56 M/mm3 (4.00-5.60); RDW 15.3 % (11.9-15.9); WHITE BLOOD COUNT 8.4 K/mm3 (4.0-10.0)
[2023-05-15 07:03] LABS: POTASSIUM 4.4 mmol/L (3.5-5.1)
[2023-05-15 07:08] LABS: CALCIUM 8.1 mg/dL (8.5-10.1)
[2023-05-15 07:12] LABS: CREATININE 2.1 mg/dL (0.55-1.3)
[2023-05-15] MEDS: LISINOPRIL 5 MG TABLET PO SCH (10:22)
[2023-05-15] MEDS: FOLIC ACID 1 MG TABLET (FP) PO SCH (10:22)
[2023-05-15] MEDS: ASPIRIN 81 MG CHEWABLE TABLETS PO SCH (10:22)
[2023-05-15] MEDS: PANTOPRAZOLE 40 MG TABLET PO SCH (10:22)
[2023-05-15] MEDS: ACETAMINOPHEN 325 MG TABLET (FP) PO PRN (12:31)
[2023-05-16 07:13] LABS: HEMATOCRIT 26.1 % (35.4-49); HEMOGLOBIN 8.8 GM/dL (11.7-16.9); MCH 32.5 pg (25.7-33.7); MCHC 33.5 g/dl (32.0-35.9); MEAN CELL VOLUME 96.9 fl (80-96); MEAN PLT VOLUME 8.7 fl (7.5-11.1); PLATELET COUNT 226 10^3/uL (134-434); RDW 15.7 % (11.9-15.9); WHITE BLOOD COUNT 11.1 K/mm3 (4.0-10.0)
[2023-05-16 07:27] LABS: POTASSIUM 4.4 mmol/L (3.5-5.1)
[2023-05-16 07:29] LABS: CALCIUM 8.3 mg/dL (8.5-10.1)
[2023-05-16 07:30] LABS: BLOOD UREA NITROGEN 60.6 mg/dL (7-18)
[2023-05-17] MEDS ORDERED: guaiFENesin/D-METHORPHAN HB 10 ML UNIT-DOSE CUPS PO PRN (08:19)
[2023-05-17 08:58] LABS: BASO % 0.8 % (0-2.0); EOS % 3.6 % (0-4.5); HEMATOCRIT 24.7 % (35.4-49); HEMOGLOBIN 8.3 GM/dL (11.7-16.9); MCH 32.4 pg (25.7-33.7); MCHC 33.8 g/dl (32.0-35.9); MEAN CELL VOLUME 95.8 fl (80-96); MEAN PLT VOLUME 8.8 fl (7.5-11.1); MONO % 8.5 % (3.8-10.2); NEUT % 74.1 % (42.8-82.8); PLATELET COUNT 192 10^3/uL (134-434); RBC 2.57 M/mm3 (4.00-5.60); RDW 15.5 % (11.9-15.9)
[2023-05-17 09:35] LABS: BLOOD UREA NITROGEN 74.5 mg/dL (7-18); CALCIUM 8.2 mg/dL (8.5-10.1)
[2023-05-17 09:36] LABS: BILIRUBIN,TOTAL 0.4 mg/dL (0.2-1); CREATININE 2.2 mg/dL (0.55-1.3)
[2023-05-17] MEDS: TORSEMIDE 20 MG TABLET (FP) PO SCH (10:05)
[2023-05-17] MEDS: AMMONIUM LACTATE 12% LOTION 225 GM BOTTLE TP SCH (10:06)
[2023-05-17 11:56] VITALS: RESP 19
[2023-05-17 16:13] VITALS: BP 99/60; PULSE 90; TEMP 98.2
== END 2023-05-17 17:12 | disposition home or self-care (01) | DRG 291 ==
LOC: JER 09:41 → JERBED 13:41 → OBSVTOIN 13:53 → J5S 14:48 → J4W 20:48
PROVIDERS: ADMIT Family Medicine; ATTEND Family Medicine
DX: I13.0 Hypertensive heart and chronic kidney disease with heart failure and stage 1 through stage 4 chronic kidney disease, or unspecified chronic kidney disease (principal); I50.33 Acute on chronic diastolic (congestive) heart failure; J96.01 Acute respiratory failure with hypoxia; J96.02 Acute respiratory failure with hypercapnia; L03.115 Cellulitis of right lower limb; L03.116 Cellulitis of left lower limb; L97.828 Non-pressure chronic ulcer of other part of left lower leg with other specified severity; L97.818 Non-pressure chronic ulcer of other part of right lower leg with other specified severity; N17.9 Acute kidney failure, unspecified; E11.622 Type 2 diabetes mellitus with other skin ulcer; J44.9 Chronic obstructive pulmonary disease, unspecified; E11.9 Type 2 diabetes mellitus without complications; E78.5 Hyperlipidemia, unspecified; N18.9 Chronic kidney disease, unspecified; I25.10 Atherosclerotic heart disease of native coronary artery without angina pectoris; E11.51 Type 2 diabetes mellitus with diabetic peripheral angiopathy without gangrene; E11.22 Type 2 diabetes mellitus with diabetic chronic kidney disease; B35.1 Tinea unguium; D64.9 Anemia, unspecified; Z86.73 Personal history of transient ischemic attack (TIA), and cerebral infarction without residual deficits
CPT/HCPCS: 0241U-QW; 36415; 71045-TC-FY; 80048; 80053; 82803; 82962; 83540; 83550; 83735; 83880; 84443; 84484; 85025; 85027; 85610; 85730; 87040; 93005; 93010; 93306-TC; 93970-TC; 94640; 97116-GP; 97162-GP; 99285-25; G0378; J1644

== ENCOUNTER 2023-07-16 14:49 | Inpatient (IN) | payer OTHER, BC ==
[2023-07-16 16:35] LABS: BASO % 0.4 % (0-2.0); EOS % 3.1 % (0-4.5); HEMATOCRIT 28.7 % (35.4-49); HEMOGLOBIN 9.7 GM/dL (11.7-16.9); LYMPH % 8.2 % (8-40); MCH 30.9 pg (25.7-33.7); MCHC 33.7 g/dl (32.0-35.9); MEAN CELL VOLUME 91.6 fl (80-96); MEAN PLT VOLUME 8.4 fl (7.5-11.1); MONO % 8.6 % (3.8-10.2); NEUT % 79.7 % (42.8-82.8); PLATELET COUNT 184 10^3/uL (134-434); RBC 3.13 M/mm3 (4.00-5.60); WHITE BLOOD COUNT 11.5 K/mm3 (4.0-10.0)
[2023-07-16 16:38] LABS: VENOUS BASE EXCESS -3.3 mmol/L (-2-2); VENOUS O2 SATURATION 24.4 % (70-80); VENOUS PCO2 53.1 mmHg (38-52); VENOUS PH 7.27 (7.310-7.410)
[2023-07-16 16:42] LABS: INR 1.04 (0.83-1.09)
[2023-07-16 16:44] LABS: ACTIVATED PTT 27.5 SECONDS (25.2-36.5)
[2023-07-16] MEDS: SODIUM CHLORIDE 0.9% 500 ML INFUS.BAG IV ONE (16:55)
[2023-07-16 16:56] LABS: POTASSIUM 3.8 mmol/L (3.5-5.1)
[2023-07-16 16:59] LABS: CALCIUM 8.9 mg/dL (8.5-10.1)
[2023-07-16 17:00] LABS: ALBUMIN 3.7 g/dl (3.4-5.0); BLOOD UREA NITROGEN 50.8 mg/dL (7-18)
[2023-07-16 17:03] LABS: CREATININE 2.3 mg/dL (0.55-1.3)
[2023-07-16 17:04] LABS: BILIRUBIN,TOTAL 0.6 mg/dL (0.2-1); N-TERMINAL BNP 651.4 pg/ml (5-125); TOT PROT 7.2 g/dl (6.4-8.2)
[2023-07-16] MEDS ORDERED: VANCOMYCIN 1 GRAM (PRE-DOCKED) 1,000 MG/250 ML BAG IVPB ONE ×2 (17:25→17:41)
[2023-07-16] MEDS ORDERED: PIPERACILLIN/TAZOB 3.375 GM 3.375 GM/50 ML BAG IVPB ONE ×2 (17:26→17:41)
[2023-07-16] MEDS: PIPERACILLIN/TAZOB 3.375 GM 3.375 GM in DEXTROSE 5%-WATER - 50 ML IVPB ONE (17:51)
[2023-07-16 18:01] LABS: ERYTHROCYTE SEDIMENTATION RATE 92 mm/hr (0-20)
[2023-07-16] MEDS: VANCOMYCIN 1,000 MG in DEXTROSE 5%-WATER - 250 ML IVPB ONE (18:08)
[2023-07-16 18:55] LABS: EPI CELLS 8 /uL (0-25.1); HYALINE CASTS 4 /uL (0-3.1); URINE APPEARANCE CLEAR; URINE BACTERIA 2 /uL (0-1359); URINE BILIRUBIN NEGATIVE (NEGATIVE); URINE COLOR DK YELLOW; URINE GLUCOSE (UA) NEGATIVE (NEGATIVE); URINE KETONE TRACE (NEGATIVE); URINE LEUK ESTERASE TRACE (NEGATIVE); URINE NITRITE NEGATIVE (NEGATIVE); URINE PROTEIN NEGATIVE (NEGATIVE); URINE RBC 23 /uL (0-23.9); URINE WBC 20 /uL (0-25.8)
[2023-07-16] MEDS ORDERED: VANCOMYCIN 1,000 MG in DEXTROSE 5%-WATER - 250 ML IVPB SCH (20:45)
[2023-07-17] MEDS: PIPERACILLIN/TAZOB 3.375 GM 3.375 GM in DEXTROSE 5%-WATER - 50 ML IVPB SCH ×2 (03:08→10:25)
[2023-07-17] MEDS: HEPARIN NA (PORCINE) 5,000 UNITS/ML 1ML VIAL SQ SCH ×2 (03:09→06:20)
[2023-07-17] MEDS: SODIUM CHLORIDE 1,000 ML IV SCH (03:10)
[2023-07-17 07:58] LABS: POTASSIUM 3.7 mmol/L (3.5-5.1)
[2023-07-17 08:02] LABS: CALCIUM 8.3 mg/dL (8.5-10.1)
[2023-07-17 08:03] LABS: MAGNESIUM 1.6 mg/dL (1.8-2.4)
[2023-07-17 08:05] LABS: BLOOD UREA NITROGEN 42.6 mg/dL (7-18)
[2023-07-17 08:06] LABS: CREATININE 1.5 mg/dL (0.55-1.3)
[2023-07-17 08:09] LABS: PHOSPHOROUS 3.2 mg/dL (2.5-4.9)
[2023-07-17 08:16] LABS: HEMATOCRIT 25.9 % (35.4-49); HEMOGLOBIN 9.2 GM/dL (11.7-16.9); MCH 33.7 pg (25.7-33.7); MCHC 35.5 g/dl (32.0-35.9); MEAN PLT VOLUME 8.8 fl (7.5-11.1); PLATELET COUNT 164 10^3/uL (134-434); RBC 2.72 M/mm3 (4.00-5.60); RDW 14.8 % (11.9-15.9); WHITE BLOOD COUNT 7.8 K/mm3 (4.0-10.0)
[2023-07-17] MEDS: CEFAZOLIN SODIUM 2 GM VIAL IVPB SCH (11:02)
[2023-07-17] MEDS: FOLIC ACID 1 MG TABLET (FP) PO SCH (11:05)
[2023-07-17] MEDS: MULTIVITAMINS (DAILY MVI) TABLET (FP) PO SCH (11:05)
[2023-07-17] MEDS: ASPIRIN 81 MG CHEWABLE TABLETS PO SCH (11:05)
[2023-07-17] MEDS: ACETAMINOPHEN 325 MG TABLET (FP) PO PRN (11:05)
[2023-07-17] MEDS: PANTOPRAZOLE 40 MG TABLET PO SCH (11:05)
[2023-07-17] MEDS: CEFAZOLIN SODIUM 2 GM in DEXTROSE 5%-WATER 100 ML IVPB SCH (11:06)
[2023-07-17] MEDS ORDERED: VANCOMYCIN/WATER FOR INJ (PEG) 1,000 MG/200 ML BAG IVPB ONE (20:00)
[2023-07-17] MEDS ORDERED: VANCOMYCIN 1,000 MG in DEXTROSE 5%-WATER - 250 ML IVPB SCH (20:45)
[2023-07-17] MEDS: ATORVASTATIN CA 40 MG TABLET (FP) PO SCH (21:25)
[2023-07-18 14:14] VITALS: BMI 32.1
[2023-07-18] MEDS: COLLAGENASE CLOSTRIDIUM HIST. 30 GRAMS TUBE TP SCH (15:12)
[2023-07-18] MEDS: AMINO ACIDS/PROTEIN HYDROLYS 30 ML LIQUID.PKT PO SCH (17:15)
[2023-07-19] MEDS: ASCORBIC ACID 500 MG TABLET (FP) PO SCH (10:45)
[2023-07-19] MEDS: ZINC SULFATE 220 MG CAPSULE (FP) PO SCH (10:45)
[2023-07-19 13:25] LABS: BASO % 0.6 % (0-2.0); HEMATOCRIT 22.6 % (35.4-49); HEMOGLOBIN 8.4 GM/dL (11.7-16.9); LYMPH % 13.1 % (8-40); MCH 36.2 pg (25.7-33.7); MCHC 36.9 g/dl (32.0-35.9); MEAN PLT VOLUME 8.3 fl (7.5-11.1); MONO % 10.6 % (3.8-10.2); NEUT % 71.7 % (42.8-82.8); PLATELET COUNT 154 10^3/uL (134-434); RBC 2.31 M/mm3 (4.00-5.60); RDW 14.6 % (11.9-15.9); WHITE BLOOD COUNT 5.1 K/mm3 (4.0-10.0)
[2023-07-19 13:56] LABS: CREATININE 0.8 mg/dL (0.55-1.3)
[2023-07-19 13:57] LABS: BILIRUBIN,TOTAL 0.3 mg/dL (0.2-1); TOT PROT 6.1 g/dl (6.4-8.2)
[2023-07-19] MEDS: IRON SUCROSE INJECTION 200 MG in SODIUM CHLORIDE 100 ML IVPB ONE (14:08)
[2023-07-19 14:14] LABS: ALBUMIN 2.7 g/dl (3.4-5.0); BLOOD UREA NITROGEN 13.6 mg/dL (7-18)
[2023-07-20 07:31] LABS: CHLORIDE 109 mmol/L (98-107); SODIUM 141 mmol/L (136-145)
[2023-07-20 07:33] LABS: CALCIUM 7.9 mg/dL (8.5-10.1)
[2023-07-20 07:34] LABS: ALBUMIN 2.7 g/dl (3.4-5.0); ANION GAP 4 mmol/L (4-13); BLOOD UREA NITROGEN 10.6 mg/dL (7-18); CO2 28 mmol/L (21-32); GLUCOSE,RANDOM 118 mg/dL (74-106)
[2023-07-20 07:37] LABS: CREATININE 0.7 mg/dL (0.55-1.3); SGOT/AST 12 U/L (15-37)
[2023-07-20 07:38] LABS: BILIRUBIN,TOTAL 0.2 mg/dL (0.2-1); TOT PROT 6.3 g/dl (6.4-8.2)
[2023-07-20 07:40] LABS: ALK PHOS 61 U/L (45-117)
[2023-07-20 07:42] LABS: SGPT/ALT < 6 U/L (13-61)
[2023-07-20 08:24] LABS: BASO % 0.4 % (0-2.0); EOS % 3.9 % (0-4.5); HEMATOCRIT 24.7 % (35.4-49); HEMOGLOBIN 8.9 GM/dL (11.7-16.9); LYMPH % 15.4 % (8-40); MCH 34.7 pg (25.7-33.7); MCHC 36.3 g/dl (32.0-35.9); MEAN CELL VOLUME 95.7 fl (80-96); MEAN PLT VOLUME 8.2 fl (7.5-11.1); MONO % 10.3 % (3.8-10.2); PLATELET COUNT 169 10^3/uL (134-434); RBC 2.58 M/mm3 (4.00-5.60); WHITE BLOOD COUNT 4.9 K/mm3 (4.0-10.0)
[2023-07-20] MEDS: FERROUS SO4 325 MG TABLET (FP) PO SCH (09:50)
[2023-07-20] MEDS: IRON SUCROSE INJECTION 200 MG in SODIUM CHLORIDE 100 ML IVPB ONE (09:51)
[2023-07-21 06:26] VITALS: PULSE 102
[2023-07-21 11:01] VITALS: BP 133/70; RESP 18; TEMP 97.3
== END 2023-07-21 11:26 | DRG 603 ==
LOC: JER 14:49 → JERBED 17:07 → J4W 23:09
PROVIDERS: ADMIT Internal Medicine; ATTEND Family Medicine
DX: L03.115 Cellulitis of right lower limb (principal); I69.354 Hemiplegia and hemiparesis following cerebral infarction affecting left non-dominant side; I13.0 Hypertensive heart and chronic kidney disease with heart failure and stage 1 through stage 4 chronic kidney disease, or unspecified chronic kidney disease; N17.9 Acute kidney failure, unspecified; I50.32 Chronic diastolic (congestive) heart failure; L03.116 Cellulitis of left lower limb; L89.310 Pressure ulcer of right buttock, unstageable; E11.621 Type 2 diabetes mellitus with foot ulcer; E11.51 Type 2 diabetes mellitus with diabetic peripheral angiopathy without gangrene; E11.22 Type 2 diabetes mellitus with diabetic chronic kidney disease; R55 Syncope and collapse; D64.9 Anemia, unspecified; I25.10 Atherosclerotic heart disease of native coronary artery without angina pectoris; E78.5 Hyperlipidemia, unspecified
CPT/HCPCS: 0241U-QW; 36415; 71045-TC-FY; 80048; 80053; 81003; 82272; 82728; 82803; 83540; 83550; 83605; 83735; 83880; 84100; 84484; 85025; 85027; 85610; 85651; 85730; 86140; 86850; 86900; 86901; 87040; 87086; 93005; 93010; 97116-GP; 97161-GP; 99285-25; J1644; J1756

== ENCOUNTER 2024-04-04 15:55 | Inpatient (IN) | payer OTHER, BC ==
[2024-04-04 17:19] LABS: BASO % 0.7 % (0-2.0); EOS % 3.2 % (0-4.5); HEMATOCRIT 31.7 % (35.4-49); HEMOGLOBIN 10.8 GM/dL (11.7-16.9); MCH 32.3 pg (25.7-33.7); MCHC 34.1 g/dl (32.0-35.9); MEAN CELL VOLUME 94.8 fl (80-96); MEAN PLT VOLUME 8.2 fl (7.5-11.1); MONO % 10.3 % (3.8-10.2); NEUT % 65.8 % (42.8-82.8); PLATELET COUNT 140 10^3/uL (134-434); RBC 3.34 M/mm3 (4.00-5.60)
[2024-04-04 17:23] LABS: EPI CELLS 2 /uL (0-25.1); HYALINE CASTS 0 /uL (0-3.1); URINE APPEARANCE CLEAR; URINE BACTERIA >9,000 /uL (0-1359); URINE BILIRUBIN NEGATIVE (NEGATIVE); URINE COLOR YELLOW; URINE GLUCOSE (UA) NEGATIVE (NEGATIVE); URINE KETONE NEGATIVE (NEGATIVE); URINE LEUK ESTERASE 2+ (NEGATIVE); URINE NITRITE POSITIVE (NEGATIVE); URINE PROTEIN TRACE (NEGATIVE); URINE RBC 1115 /uL (0-23.9); URINE UROBILINOGEN 0.2 mg/dL (0.2-1.0); URINE WBC 618 /uL (0-25.8)
[2024-04-04 17:35] LABS: POTASSIUM 5.1 mmol/L (3.5-5.1)
[2024-04-04 17:37] LABS: ALBUMIN 3.7 g/dl (3.4-5.0); CALCIUM 8.6 mg/dL (8.5-10.1)
[2024-04-04 17:38] LABS: BLOOD UREA NITROGEN 41.8 mg/dL (7-18)
[2024-04-04 17:40] LABS: CREATININE 1.2 mg/dL (0.55-1.3)
[2024-04-04 17:41] LABS: LDL CHOLESTEROL (ONLY SJRH) 132 mg/dL (5-100)
[2024-04-04 17:42] LABS: BILIRUBIN,TOTAL 0.2 mg/dL (0.2-1); CHOLESTEROL 192 mg/dL (50-200); TOT PROT 7.5 g/dl (6.4-8.2)
[2024-04-04 17:45] LABS: HDL CHOLESTEROL 37 mg/dL (40-60)
[2024-04-04] MEDS ORDERED: CEFTRIAXONE 1 G/50 ML PREMIX 50 ML IVPB ONE (18:01)
[2024-04-04] MEDS: CEFTRIAXONE 1,000 MG in DEXTROSE 5%-WATER - 50 ML IVPB ONE (18:01)
[2024-04-04] MEDS ORDERED: ACETAMINOPHEN 325 MG TABLET (FP) PO PRN (18:03)
[2024-04-04] MEDS: ALBUTEROL SO4 2.5/IPRATROPIUM 0.5 INH SOL 3 ML VIAL.NEB. NEB SCH (19:52)
[2024-04-04] MEDS ORDERED: HEPARIN NA (PORCINE) 5,000 UNITS/ML 1ML VIAL ONE (21:00)
[2024-04-04] MEDS ORDERED: ATORVASTATIN CA 40 MG TABLET (FP) ONE (21:00)
[2024-04-04] MEDS: HEPARIN NA (PORCINE) 5,000 UNITS/ML 1ML VIAL SQ SCH (21:40)
[2024-04-04] MEDS: ATORVASTATIN CA 40 MG TABLET (FP) PO SCH (21:41)
[2024-04-04] MEDS: AMMONIUM LACTATE 12% LOTION 225 GM BOTTLE TP SCH (21:46)
[2024-04-05 05:51] VITALS: BMI 32.5
[2024-04-05] MEDS: FOLIC ACID 1 MG TABLET (FP) PO SCH (09:19)
[2024-04-05] MEDS: ASPIRIN 81 MG CHEWABLE TABLETS PO SCH (09:19)
[2024-04-05] MEDS: PANTOPRAZOLE 40 MG TABLET PO SCH (09:19)
[2024-04-05 10:08] LABS: BASO % 0.5 % (0-2.0); EOS % 3.2 % (0-4.5); HEMATOCRIT 30.4 % (35.4-49); HEMOGLOBIN 10.8 GM/dL (11.7-16.9); LYMPH % 10.7 % (8-40); MCHC 35.4 g/dl (32.0-35.9); MEAN CELL VOLUME 96.1 fl (80-96); MEAN PLT VOLUME 8.6 fl (7.5-11.1); MONO % 9.6 % (3.8-10.2); PLATELET COUNT 120 10^3/uL (134-434); RBC 3.17 M/mm3 (4.00-5.60); RDW 14.1 % (11.9-15.9)
[2024-04-05 11:15] LABS: CALCIUM 8.9 mg/dL (8.5-10.1); POTASSIUM 4.5 mmol/L (3.5-5.1)
[2024-04-05 11:16] LABS: ALBUMIN 3.7 g/dl (3.4-5.0); BLOOD UREA NITROGEN 31.8 mg/dL (7-18)
[2024-04-05] MEDS: FLU VACCINE (FLULAVAL) PF 45 MCG/0.5 ML SYRINGE 2024-2025 IM ONE (11:16)
[2024-04-05 11:21] LABS: BILIRUBIN,TOTAL 0.4 mg/dL (0.2-1); TOT PROT 7.4 g/dl (6.4-8.2)
[2024-04-05] MEDS: INSULIN ASPART SLIDING SCALE (NOVOLOG) 1 VIAL SQ SCH (16:18)
[2024-04-05] MEDS: PRAMIPEXOLE DIHYDROCHLORIDE 0.25 MG TABLET PO SCH (21:54)
[2024-04-06] MEDS: CEFTRIAXONE 1 G/50 ML PREMIX 50 ML IVPB SCH (09:14)
[2024-04-07 15:38] VITALS: RESP 18
[2024-04-09 09:22] LABS: HEMOGLOBIN 10.9 GM/dL (11.7-16.9); MCH 33.9 pg (25.7-33.7); MCHC 35.3 g/dl (32.0-35.9); MEAN CELL VOLUME 96.1 fl (80-96); MEAN PLT VOLUME 8.8 fl (7.5-11.1); PLATELET COUNT 140 10^3/uL (134-434); RBC 3.22 M/mm3 (4.00-5.60); RDW 13.7 % (11.9-15.9); WHITE BLOOD COUNT 5.3 K/mm3 (4.0-10.0)
[2024-04-09 09:52] LABS: POTASSIUM 4.4 mmol/L (3.5-5.1)
[2024-04-09 10:13] LABS: ALBUMIN 3.8 g/dl (3.4-5.0); BLOOD UREA NITROGEN 27.6 mg/dL (7-18); CALCIUM 8.7 mg/dL (8.5-10.1)
[2024-04-09 10:18] LABS: BILIRUBIN,TOTAL 0.5 mg/dL (0.2-1); CREATININE 1.1 mg/dL (0.55-1.3)
[2024-04-09 10:19] LABS: TOT PROT 7.7 g/dl (6.4-8.2)
[2024-04-09] MEDS: BACITRACIN ZINC 15 GM TUBE TOPICAL OINTMENT TP SCH (21:08)
[2024-04-09] MEDS: PRAMIPEXOLE DIHYDROCHLORIDE 0.5 MG TABLET PO SCH (22:25)
[2024-04-09] MEDS: PRAMIPEXOLE DIHYDROCHLORIDE 0.25 MG TABLET PO SCH (22:33)
[2024-04-10 01:25] VITALS: TEMP 97.7
[2024-04-10] MEDS: PRAMIPEXOLE DIHYDROCHLORIDE 0.25 MG TABLET PO SCH (06:18)
[2024-04-10 14:35] VITALS: BP 130/71; PULSE 88
== END 2024-04-10 19:00 | disposition home or self-care (01) | DRG 690 ==
LOC: JER 15:55 → JERBED 04-05 03:00 → J6S 04-05 05:28
PROVIDERS: ADMIT Family Medicine; ATTEND Family Medicine
DX: N39.0 Urinary tract infection, site not specified (principal); I69.354 Hemiplegia and hemiparesis following cerebral infarction affecting left non-dominant side; B96.4 Proteus (mirabilis) (morganii) as the cause of diseases classified elsewhere; E11.51 Type 2 diabetes mellitus with diabetic peripheral angiopathy without gangrene; I11.0 Hypertensive heart disease with heart failure; I50.9 Heart failure, unspecified; G20.C Parkinsonism, unspecified; I87.2 Venous insufficiency (chronic) (peripheral); L89.202 Pressure ulcer of unspecified hip, stage 2; I25.10 Atherosclerotic heart disease of native coronary artery without angina pectoris; E78.5 Hyperlipidemia, unspecified
CPT/HCPCS: 0241U-QW; 36415; 70551-TC; 71045-TC-FY; 80053; 80061; 81003; 82728; 82962; 83036; 83540; 83550; 83605; 83735; 83880; 84443; 84484; 85025; 85027; 87040; 87086; 87186; 90656; 93005; 93010; 94640; 97116-GP; 97162-GP; 99285-25; G0008; J1644

== ENCOUNTER 2024-11-24 00:44 | Inpatient (IN) | payer OTHER, BC ==
[2024-11-24] MEDS ORDERED: ACETAMINOPHEN INJECTION 100 ML ONE ×2 (03:30→06:03)
[2024-11-24] MEDS: ACETAMINOPHEN 1000 MG/100 ML BAG IVPB ONE (03:37)
[2024-11-24 03:42] LABS: ABSOLUTE IMMATURE GRANULOCYTES 0.02 x10^3/uL (0.0-0.031); BASOPHILS # 0.05 x10^3/uL (0.01-0.08); EOSINOPHIL % 4.4 % (0.8-7.0); EOSINOPHILS # 0.36 x10^3/uL (0.04-0.54); MCHC 35.9 g/dl (32.3-36.5); MEAN CELL VOLUME 104.7 fl (79.0-92.2); MEAN PLT VOLUME 10.6 fl (9.4-12.4); MONOCYTE # 0.78 x10^3/uL (0.30-0.82); MONOCYTE % 9.5 % (5.3-12.2); RDW 15.6 % (12.2-16.6)
[2024-11-24] MEDS ORDERED: PIPERACILLIN/TAZOB 4.5 GM 4.5 GM/100 ML BAG IVPB ONE (03:45)
[2024-11-24 04:18] LABS: GLUCOSE,RANDOM 129 mg/dL (74-106)
[2024-11-24 04:19] LABS: TOT PROT 7.8 g/dl (6.4-8.2)
[2024-11-24 04:20] LABS: CO2 30 mmol/L (21-32)
[2024-11-24 04:21] LABS: ALK PHOS 58 U/L (40-150)
[2024-11-24 04:24] LABS: CREATININE 1.02 mg/dL (0.55-1.3); SGOT/AST 18 U/L (5-34); SGPT/ALT < 6 U/L (0-55)
[2024-11-24] MEDS: PIPERACILLIN/TAZOB 4.5 GM 4.5 GM in DEXTROSE 5%-WATER 100 ML IVPB ONE (04:36)
[2024-11-24 04:45] LABS: ERYTHROCYTE SEDIMENTATION RATE 98 mm/hr (0-20)
[2024-11-24] MEDS: ACETAMINOPHEN 1000 MG/100 ML BAG IVPB PRN (06:07)
[2024-11-24] MEDS ORDERED: CARBIDOPA/LEVODOPA 25/100 TABLET (FP) ONE (06:30)
[2024-11-24] MEDS: PRAMIPEXOLE DIHYDROCHLORIDE 0.25 MG TABLET PO SCH (06:31)
[2024-11-24] MEDS: PIPERACILLIN/TAZOB 3.375 GM 3.375 GM in DEXTROSE 5%-WATER - 50 ML IVPB SCH (09:34)
[2024-11-24] MEDS: ENOXAPARIN NA (PORCINE) 40 MG/0.4 ML DISP.SYRIN SQ SCH (10:34)
[2024-11-24 10:44] LABS: ABSOLUTE IMMATURE GRANULOCYTES 0.02 x10^3/uL (0.0-0.031); BASOPHILS # 0.03 x10^3/uL (0.01-0.08); EOSINOPHIL % 3.1 % (0.8-7.0); EOSINOPHILS # 0.21 x10^3/uL (0.04-0.54); MCHC 35.3 g/dl (32.3-36.5); MEAN CELL VOLUME 103.6 fl (79.0-92.2); MEAN PLT VOLUME 10.6 fl (9.4-12.4); MONOCYTE # 0.64 x10^3/uL (0.30-0.82); MONOCYTE % 9.4 % (5.3-12.2); RDW 14.9 % (12.2-16.6)
[2024-11-24 11:59] LABS: GLUCOSE,RANDOM 108 mg/dL (74-106)
[2024-11-24 12:00] LABS: CO2 31 mmol/L (21-32); TOT PROT 7.4 g/dl (6.4-8.2)
[2024-11-24 12:02] LABS: ALK PHOS 54 U/L (40-150)
[2024-11-24 12:05] LABS: CREATININE 1.12 mg/dL (0.55-1.3); SGOT/AST 19 U/L (5-34); SGPT/ALT < 6 U/L (0-55)
[2024-11-24] MEDS: PRAMIPEXOLE DIHYDROCHLORIDE 0.5 MG TABLET PO SCH (21:35)
[2024-11-24] MEDS: FUROSEMIDE 40 MG/4 ML INJECTABLE VIAL IVPUSH ONE (21:48)
[2024-11-25] MEDS: FUROSEMIDE 40 MG/4 ML INJECTABLE VIAL IVPUSH SCH (11:30)
[2024-11-25] MEDS: ALBUTEROL SO4 2.5/IPRATROPIUM 0.5 INH SOL 3 ML VIAL.NEB. NEB SCH (15:05)
[2024-11-26] MEDS ORDERED: morphine CARPU-JECT 2 MG/1 ML DISP.SYRIN IVPUSH PRN (08:53)
[2024-11-26] MEDS ORDERED: DEXTROSE 5%-NORMAL SALINE 1,000 ML IV SCH (15:15)
[2024-11-26] MEDS: AMINO ACIDS 4.25%/D5W 1,000 ML IV SCH ×2 (15:41→17:50)
[2024-11-26] MEDS: PIPERACILLIN/TAZOB 3.375 GM 3.375 GM in DEXTROSE 5%-WATER - 50 ML IVPB SCH (18:37)
[2024-11-27 08:21] LABS: MCHC 36.0 g/dl (32.3-36.5); MEAN CELL VOLUME 99.3 fl (79.0-92.2); MEAN PLT VOLUME 10.1 fl (9.4-12.4); RDW 14.3 % (12.2-16.6)
[2024-11-27 08:46] LABS: GLUCOSE,RANDOM 101.0 mg/dL (74-106); TOT PROT 7.3 g/dl (6.4-8.2)
[2024-11-27 08:48] LABS: CO2 30.0 mmol/L (21-32)
[2024-11-27 08:49] LABS: ALK PHOS 45.0 U/L (40-150)
[2024-11-27 08:52] LABS: CREATININE 0.96 mg/dL (0.55-1.3); SGOT/AST 17.0 U/L (5-34); SGPT/ALT 7.0 U/L (0-55)
[2024-11-27] MEDS: PIPERACILLIN/TAZOB 3.375 GM 3.375 GM in DEXTROSE 5%-WATER - 50 ML IVPB SCH (10:58)
[2024-11-28 21:42] LABS: ABSOLUTE IMMATURE GRANULOCYTES 0.02 x10^3/uL (0.0-0.031); BASOPHILS # 0.03 x10^3/uL (0.01-0.08); EOSINOPHIL % 5.0 % (0.8-7.0); EOSINOPHILS # 0.31 x10^3/uL (0.04-0.54); MCHC 31.2 g/dl (32.3-36.5); MEAN CELL VOLUME 98.5 fl (79.0-92.2); MEAN PLT VOLUME 9.5 fl (9.4-12.4); MONOCYTE # 0.72 x10^3/uL (0.30-0.82); MONOCYTE % 11.7 % (5.3-12.2); RDW 14.2 % (12.2-16.6)
[2024-11-28 22:16] LABS: GLUCOSE,RANDOM 114 mg/dL (74-106); TOT PROT 7.6 g/dl (6.4-8.2)
[2024-11-28 22:18] LABS: CO2 34 mmol/L (21-32)
[2024-11-28 22:19] LABS: ALK PHOS 43 U/L (40-150)
[2024-11-28 22:22] LABS: CREATININE 1.66 mg/dL (0.55-1.3); SGOT/AST 16 U/L (5-34); SGPT/ALT < 6 U/L (0-55)
[2024-11-29 15:56] LABS: EPI CELLS 2 /uL (0-25.1); HYALINE CASTS 0 /uL (0-3.1); URINE APPEARANCE CLEAR; URINE BACTERIA 4 /uL (0-1359); URINE BILIRUBIN NEGATIVE (NEGATIVE); URINE COLOR YELLOW; URINE GLUCOSE (UA) NEGATIVE (NEGATIVE); URINE KETONE NEGATIVE (NEGATIVE); URINE LEUK ESTERASE TRACE (NEGATIVE); URINE NITRITE NEGATIVE (NEGATIVE); URINE PROTEIN TRACE (NEGATIVE); URINE RBC 9 /uL (0-23.9); URINE UROBILINOGEN 0.2 mg/dL (0.2-1.0); URINE WBC 27 /uL (0-25.8)
[2024-11-30 10:17] LABS: GLUCOSE,RANDOM 107 mg/dL (74-106)
[2024-11-30 10:18] LABS: TOT PROT 7.4 g/dl (6.4-8.2)
[2024-11-30 10:19] LABS: CO2 33 mmol/L (21-32)
[2024-11-30 10:20] LABS: ALK PHOS 39 U/L (40-150)
[2024-11-30 10:23] LABS: CREATININE 1.21 mg/dL (0.55-1.3); SGOT/AST 15 U/L (5-34); SGPT/ALT < 6 U/L (0-55)
[2024-11-30] MEDS: ENOXAPARIN NA (PORCINE) 40 MG/0.4 ML DISP.SYRIN SQ SCH (20:52)
[2024-12-01 09:37] VITALS: BMI 37.7
[2024-12-02 08:34] LABS: ABSOLUTE IMMATURE GRANULOCYTES 0.02 x10^3/uL (0.0-0.031); BASOPHILS # 0.03 x10^3/uL (0.01-0.08); EOSINOPHIL % 4.2 % (0.8-7.0); EOSINOPHILS # 0.24 x10^3/uL (0.04-0.54); MCHC 35.1 g/dl (32.3-36.5); MEAN CELL VOLUME 100.3 fl (79.0-92.2); MEAN PLT VOLUME 10.6 fl (9.4-12.4); MONOCYTE # 0.46 x10^3/uL (0.30-0.82); MONOCYTE % 8.1 % (5.3-12.2); RDW 14.3 % (12.2-16.6)
[2024-12-02 08:51] LABS: GLUCOSE,RANDOM 101 mg/dL (74-106); TOT PROT 8.0 g/dl (6.4-8.2)
[2024-12-02 08:52] LABS: CO2 36 mmol/L (21-32)
[2024-12-02 08:54] LABS: ALK PHOS 41 U/L (40-150)
[2024-12-02 08:57] LABS: CREATININE 1.01 mg/dL (0.55-1.3); SGOT/AST 16 U/L (5-34); SGPT/ALT < 6 U/L (0-55)
[2024-12-02 13:08] LABS: ARTERIAL BLD GAS O2 SATURATION 95.9 % (95-98); ARTERIAL BLOOD GAS BASE EXCESS 8.8 mmol/L (-2-2); ARTERIAL BLOOD GAS PCO2 73.60 mmHg (35-45); ARTERIAL BLOOD GAS PO2 90.3 mmHg (80-100); BG HCT 34.0 % (35.4-49)
[2024-12-02 13:13] LABS: ALLENS TEST POSITIVE
[2024-12-02] MEDS: ALBUTEROL SO4 2.5/IPRATROPIUM 0.5 INH SOL 3 ML VIAL.NEB. NEB PRN (16:20)
[2024-12-04 14:10] VITALS: BP 116/53; PULSE 90; RESP 18; TEMP 97.9
== END 2024-12-04 19:53 | disposition home health service (06) | DRG 602 ==
LOC: JER 00:44 → JERBED 04:36 → J6S 08:43
PROVIDERS: ADMIT Family Medicine; ATTEND Family Medicine
DX: L03.115 Cellulitis of right lower limb (principal); I50.33 Acute on chronic diastolic (congestive) heart failure; I69.354 Hemiplegia and hemiparesis following cerebral infarction affecting left non-dominant side; L03.116 Cellulitis of left lower limb; G20.A1 Parkinson's disease without dyskinesia, without mention of fluctuations; I11.0 Hypertensive heart disease with heart failure; I73.9 Peripheral vascular disease, unspecified; E78.5 Hyperlipidemia, unspecified; R09.02 Hypoxemia
CPT/HCPCS: 36415; 36600; 71045-TC-FY; 76937; 80053; 81003; 82436; 82570; 82803; 82962; 83735; 83880; 84100; 84133; 84300; 85025; 85027; 85651; 86140; 87040; 93970-TC; 94010; 94640; 94761; 99285-25; E0186

== ENCOUNTER 2024-12-10 14:15 | Inpatient (IN) | payer OTHER, BC ==
[2024-12-10 15:19] VITALS: BMI 35.9
[2024-12-10] MEDS ORDERED: ACETAMINOPHEN 325 MG TABLET (FP) PO PRN (17:31)
[2024-12-10] MEDS: PRAMIPEXOLE DIHYDROCHLORIDE 0.5 MG TABLET PO SCH (21:33)
[2024-12-11] MEDS: PRAMIPEXOLE DIHYDROCHLORIDE 0.5 MG TABLET PO SCH (06:31)
[2024-12-11] MEDS: MINERAL OIL/PET HY-PHL TOPICAL OINTMENT 454 GM JAR TP SCH (17:56)
[2024-12-12 06:53] VITALS: BP 156/79; PULSE 87; RESP 18; TEMP 97.9
== END 2024-12-12 10:57 | DRG 603 ==
LOC: JER 14:15 → JERBED 15:30 → J7W 17:13
PROVIDERS: ADMIT Family Medicine; ATTEND Family Medicine
DX: L03.116 Cellulitis of left lower limb (principal); L03.115 Cellulitis of right lower limb; G20.A1 Parkinson's disease without dyskinesia, without mention of fluctuations; R13.10 Dysphagia, unspecified; I11.0 Hypertensive heart disease with heart failure; I50.9 Heart failure, unspecified; R26.81 Unsteadiness on feet; I87.2 Venous insufficiency (chronic) (peripheral); E11.9 Type 2 diabetes mellitus without complications
CPT/HCPCS: 97116-GP; 97162-GP; 99285-25; E0186